=== PATIENT | female | born 1960 | race Hispanic/Latino ===

== ENCOUNTER 2016-06-26 21:24 | Inpatient (IN) | payer MEDICAID ==
[2016-06-26] MEDS ORDERED: PROVENTIL IH ONE (21:32)
[2016-06-26] MEDS ORDERED: ATROVENT IH ONE (21:32)
--- NOTE | 2016-06-26 21:38 | Emergency Department Report ---
HPI - General Time Seen by Provider: 06/26/16 21:30 - HPI HPI: Room 1 The patient is a 56-year-old female presenting with a chief complaint of respiratory failure. In the states received a call for difficulty breathing. Upon their arrival patient in agonal respirations and sounded diminished throughout. EMS states they attempted to intubate the patient appeared "clenched down." EMS states they administered Solu-Medrol 125 mg IV and majority of a 2 g magnesium bolus. Upon arrival to the ED the patient was found to be grossly obtunded with agonal respirations and subsequently was intubated with RSI Location: Pulmonary system Duration: [see above] Quality: Obtunded Severity: Severe Modifying factors: [see above] Context: [see above] Mode of transportation: EMS ED Past Medical Hx - Past Medical History Hx Hypertension: Yes Hx Asthma: Yes Hx COPD: Yes (2 L nasal cannula) Additional medical history: emphysema - Family History Family history: no significant - Social History Smoking Status: Current Every Day Smoker (1 pack lasts 3 weeks) Substance Use Type: None - Medications Home Medications: Home Medications Medication Instructions Recorded Confirmed Last Taken Type Budesoni/Formoterol 80-4.5(Nf) 2 puff IH BID 01/16/15 06/26/16 Unknown History [Symbicort 80-4.5 (Nf)] Combivent Respimat 1 inhalation INHALATION PRN 01/16/15 06/26/16 Unknown History Gabapentin 400 mg PO QID 01/16/15 06/26/16 Unknown History Ibuprofen [Motrin 800 MG tab] 800 mg PO Q8HR PRN 01/16/15 06/26/16 Unknown History Quetiapine Fumarate [QUEtiapine 300 mg PO QPM 01/16/15 06/26/16 Unknown History Fumarate] Spironolactone [Aldactone] 25 mg PO DAILY 01/16/15 06/26/16 Unknown History Trazodone HCl [traZODone] 100 mg PO QPM 01/16/15 06/26/16 Unknown History lamoTRIgine [LaMICtal] 100 mg PO QPM 01/16/15 06/26/16 Unknown History traMADol [Ultram 50 MG tab] 50 mg PO Q8HR PRN 01/16/15 06/26/16 Unknown History ALBUTEROL Inhaler [Proair] 2 puff IH QID PRN 06/26/16 06/26/16 Unknown History Cetirizine HCl [Allergy Relief] 10 mg PO DAILY 06/26/16 06/26/16 Unknown History Citalopram [celeXA] 40 mg PO QAM 06/26/16 06/26/16 Unknown History Metaxalone [Skelaxin] 800 mg PO TID 06/26/16 06/26/16 Unknown History predniSONE [Deltasone] 20 mg PO QDAY 06/26/16 06/26/16 Unknown History ED Review of Systems ROS: Stated complaint: WIN Other details as noted in HPI Comment: Unobtainable due to pts medical conditions Physical Exam - Physical Exam Physical Exam: GENERAL: The patient is well-developed well-nourished female grossly obtunded on stretcher being bagged via BVM. [] HEENT: Normocephalic. Atraumatic. Dry blood around nares and mouth (reported by EMS from previous intubation attempt) NECK: Trachea midline CHEST/LUNGS: Severely diminished breath sounds bilaterally but equal after intubation. HEART/CARDIOVASCULAR: Regular. There is no tachycardia. There is no gallop rub or murmur. ABDOMEN: Abdomen is soft, nontender. Patient has normal bowel sounds. There is no abdominal distention. SKIN: There is no rash. There is no diaphoresis. NEURO: The patient is grossly obtunded MUSCULOSKELETAL: There is no deformity. ED Medical Decision Making - Lab Data Result diagrams: 06/26/16 21:37 06/26/16 22:27 Laboratory Tests 06/26/16 06/26/16 06/26/16 21:37 21:37 22:13 WBC 16.2 H RBC 4.83 Hgb 15.6 H Hct 46.6 H MCV 96 MCH 32 MCHC 33 RDW 16.3 H Plt Count 306 Add Manual Diff Complete Total Counted 100 Seg Neuts % (Manual) 82.0 H Band Neutrophils % 0 Lymphocytes % (Manual) 11.0 L Reactive Lymphs % (Man) 0 Monocytes % (Manual) 4.0 Eosinophils % (Manual) 0 Basophils % (Manual) 0 Metamyelocytes % 2.0 Myelocytes % 1.0 Promyelocytes % 0 Blast Cells % 0 Nucleated RBC % Not Reportable Seg Neutrophils # Man 13.3 H Band Neutrophils # 0.0 Lymphocytes # (Manual) 1.8 Abs React Lymphs (Man) 0.0 Monocytes # (Manual) 0.6 Eosinophils # (Manual) 0.0 Basophils # (Manual) 0.0 Metamyelocytes # 0.3 Myelocytes # 0.2 Promyelocytes # 0.0 Blast Cells # 0.0 WBC Morphology Not Reportable Hypersegmented Neuts Not Reportable Hyposegmented Neuts Not Reportable Hypogranular Neuts Not Reportable Smudge Cells Not Reportable Toxic Granulation Not Reportable Toxic Vacuolation Not Reportable Dohle Bodies Not Reportable Pelger-Huet Anomaly Not Reportable Valente Rods Not Reportable Platelet Estimate Consistent w auto Clumped Platelets Not Reportable Plt Clumps, EDTA Not Reportable Large Platelets Not Reportable Giant Platelets Not Reportable Platelet Satelliting Not Reportable Plt Morphology Comment Not Reportable RBC Morphology Not Reportable Dimorphic RBCs Not Reportable Polychromasia Not Reportable Hypochromasia Not Reportable Poikilocytosis 1+ Anisocytosis Few Microcytosis Not Reportable Macrocytosis Not Reportable Spherocytes Not Reportable Pappenheimer Bodies Not Reportable Sickle Cells Not Reportable Target Cells Not Reportable Tear Drop Cells Not Reportable Ovalocytes Not Reportable Helmet Cells Not Reportable [place]-Cent[place] Bodies Not Reportable [place] Rings Not Reportable Julian Cells Not Reportable Bite Cells Not Reportable Crenated Cell Not Reportable Elliptocytes Not Reportable Acanthocytes (Spur) Not Reportable Rouleaux Not Reportable Hemoglobin C Crystals Not Reportable Schistocytes Not Reportable Malaria parasites Not Reportable Adithya Bodies Not Reportable Hem Pathologist Commnt No PT 11.8 L INR 0.88 APTT 23.3 L Sodium Potassium Chloride Carbon Dioxide Anion Gap BUN Creatinine Estimated GFR BUN/Creatinine Ratio Glucose Calcium Total Bilirubin AST ALT Alkaline Phosphatase Ammonia Total Creatine Kinase CK-MB (CK-2) CK-MB (CK-2) Rel Index Troponin T NT-Pro-B Natriuret Pep Total Protein Albumin Albumin/Globulin Ratio Urine Color Yellow Urine Turbidity Slightly-cloudy Urine pH 5.0 Ur Specific [place] 1.020 Urine Protein 100 mg/dl Urine Glucose (UA) Neg Urine Ketones Neg Urine Blood Neg Urine Nitrite Neg Urine Bilirubin Neg Urine Urobilinogen < 2.0 Ur Leukocyte Esterase Neg Urine WBC (Auto) 2.0 Urine RBC (Auto) 1.0 U Epithel Cells (Auto) 1.0 Urine Bacteria (Auto) 4+ Hyaline Casts 2 Urine Mucus Few 06/26/16 06/26/16 22:27 23:00 WBC RBC Hgb Hct MCV MCH MCHC RDW Plt Count Add Manual Diff Total Counted Seg Neuts % (Manual) Band Neutrophils % Lymphocytes % (Manual) Reactive Lymphs % (Man) Monocytes % (Manual) Eosinophils % (Manual) Basophils % (Manual) Metamyelocytes % Myelocytes % Promyelocytes % Blast Cells % Nucleated RBC % Seg Neutrophils # Man Band Neutrophils # Lymphocytes # (Manual) Abs React Lymphs (Man) Monocytes # (Manual) Eosinophils # (Manual) Basophils # (Manual) Metamyelocytes # Myelocytes # Promyelocytes # Blast Cells # WBC Morphology Hypersegmented Neuts Hyposegmented Neuts Hypogranular Neuts Smudge Cells Toxic Granulation Toxic Vacuolation Dohle Bodies Pelger-Huet Anomaly Valente Rods Platelet Estimate Clumped Platelets Plt Clumps, EDTA Large Platelets Giant Platelets Platelet Satelliting Plt Morphology Comment RBC Morphology Dimorphic RBCs Polychromasia Hypochromasia Poikilocytosis Anisocytosis Microcytosis Macrocytosis Spherocytes Pappenheimer Bodies Sickle Cells Target Cells Tear Drop Cells Ovalocytes Helmet Cells Paris-Century Bodies [place] Rings Julian Cells Bite Cells Crenated Cell Elliptocytes Acanthocytes (Spur) Rouleaux Hemoglobin C Crystals Schistocytes Malaria parasites Adithya Bodies Hem Pathologist Commnt PT INR APTT Sodium 139 Potassium 5.0 Chloride 91.6 L Carbon Dioxide 36 H Anion Gap 16 BUN 14 Creatinine 0.9 Estimated GFR > 60 BUN/Creatinine Ratio 15.55 Glucose 150 H Calcium 8.8 Total Bilirubin 0.2 AST 35 ALT 32 Alkaline Phosphatase 79 Ammonia 117.0 H Total Creatine Kinase 82 CK-MB (CK-2) 7.0 H CK-MB (CK-2) Rel Index 8.5 H Troponin T < 0.010 NT-Pro-B Natriuret Pep 3923 H Total Protein 6.8 Albumin 3.3 L Albumin/Globulin Ratio 0.9 Urine Color Urine Turbidity Urine pH Ur Specific [place] Urine Protein Urine Glucose (UA) Urine Ketones Urine Blood Urine Nitrite Urine Bilirubin Urine Urobilinogen Ur Leukocyte Esterase Urine WBC (Auto) Urine RBC (Auto) U Epithel Cells (Auto) Urine Bacteria (Auto) Hyaline Casts Urine Mucus - EKG Data -: EKG Interpreted by Ak EKG shows normal: sinus rhythm Rate: normal - EKG Data When compared to previous EKG there are: no significant change Interpretation: nonspecific ST-T wave monik (06/23/2015) - Radiology Data Radiology results: image reviewed (chest x-ray) interpreted by me: Chest x-ray-no focal infiltrates, no pneumothorax. ET tube in place - Differential Diagnosis COPD exacerbation, respiratory failure Critical Care Time: Yes Critical care time in (mins) excluding proc time.: 45 Critical care attestation.: If time is entered above; I have spent that time in minutes in the direct care of this critically ill patient, excluding procedure time. ED Disposition Clinical Impression: Respiratory failure, COPD exacerbation Disposition: OP ADMITTED IP TO THIS HOSP Is pt being admited?: Yes Does the pt Need Aspirin: Yes Condition: Serious Instructions: Chronic Obstructive Pulmonary Disease (ED) Referrals: PRIMARY CARE, [Primary Care Provider] - 3-5 Days Time of Disposition: 01:01 (hospitalist called) Blank Doc - Documentation Documentation: The patient was intubated via orotracheal route using a 7.0 mm endotracheal tube. Rapid sequence induction was used utilizing succinylcholine 100 mg IV, Versed 5 mg IV. Positioning was confirmed using auscultation and CO2 detector. Post intubation chest xray was ordered.
[2016-06-26] MEDS ORDERED: VERSED/NS 100MG/100ML 100 ML IV ONE (21:43)
[2016-06-26] MEDS: VERSED/NS 100MG/100ML 100 ML IV SCH (21:50)
[2016-06-26] MEDS ORDERED: ARTIFICIAL TEARS OPHTH OINT OU PRN (22:06)
[2016-06-26] MEDS ORDERED: VASELINE LIP THERAPY TP PRN (22:06)
[2016-06-26 22:13] LABS: Hematocrit 46.6 % (30.3-42.9); Hemoglobin 15.6 gm/dl (10.1-14.3); Mean Corpuscular HGB Conc 33 % (30-34); Mean Corpuscular Hemoglobin 32 pg (28-32); Mean Corpuscular Volume 96 fl (79-97); Platelet Count 306 K/mm3 (140-440); Red Blood Count 4.83 M/mm3 (3.65-5.03); Red Cell Distribution Width 16.3 % (13.2-15.2); White Blood Count 16.2 K/mm3 (4.5-11.0)
[2016-06-26 22:25] LABS: INR 0.88 (0.87-1.13)
[2016-06-26 22:26] LABS: Partial Thromboplastin Time 23.3 Sec. (24.2-36.6)
[2016-06-26] MEDS ORDERED: ZOFRAN ONE (22:27)
[2016-06-26] MEDS ORDERED: LIDOCAINE VISCOUS 2% ONE (22:27)
[2016-06-26] MEDS ORDERED: ZOFRAN IV ONE (22:40)
[2016-06-26] MEDS ORDERED: LIDOCAINE VISCOUS 2% PO ONE (22:41)
[2016-06-26 22:46] LABS: Anisocytosis Few; Basophils % (Manual) 0 % (0.0-1.8); Blastocytes % (Manual) 0 %; Eosinophils % (Manual) 0 % (0.0-4.3); Poikilocytosis 1+
[2016-06-26 22:47] LABS: Diff Status Complete; Platelet Estimate Consistent w Auto
[2016-06-26 22:56] LABS: Bacteria,Urine 4+ /HPF (Negative); Bilirubin,Urine NEG (Negative); Blood,Urine NEG (Negative); Ketones,Urine NEG (Negative); Leukocyte Esterase,Urine NEG (Negative); Mucus,Urine FEW /HPF; Nitrite,Urine NEG (Negative); Urobilinogen,Urine < 2.0 mg/dL (<2.0)
[2016-06-26] MEDS ORDERED: VERSED/NS 100MG/100ML 100 ML IV SCH (23:00)
[2016-06-26] MEDS ORDERED: NACL 0.9% 1000 ML 1,000 ML IV ONE (23:16)
[2016-06-26] MEDS: fentaNYL DRIP Premix 100 ML IV ONE (23:32)
[2016-06-26 23:33] LABS: Alanine Aminotransferase 32 units/L (7-56); Albumin 3.3 g/dL (3.9-5); Albumin/Globulin Ratio 0.9 %; Alkaline Phosphatase 79 units/L (35-129); BUN/Creatinine Ratio 15.55; Bilirubin,Total 0.2 mg/dL (0.1-1.2); Blood Urea Nitrogen 14 mg/dL (7-17); Calcium 8.8 mg/dL (8.4-10.2); Carbon Dioxide 36 mmol/L (22-30); Chloride 91.6 mmol/L (98-107); Creatine Kinase 82 units/L (30-135); Glucose 150 mg/dL (65-100); Sodium 139 mmol/L (137-145); Total Protein 6.8 g/dL (6.3-8.2)
[2016-06-26 23:55] LABS: Anion Gap 16 mmol/L
[2016-06-27 01:19] LABS: ISTAT Base Excess 16; ISTAT HCO3 41.3; ISTAT PCO2 67.4 (35-45); ISTAT PH 7.396 (7.35-7.45); ISTAT PO2 157 (80-105); ISTAT SO2 99; ISTAT TCO2 43
--- NOTE | 2016-06-27 02:28 | History and Physical Report ---
History of Present Illness Date of examination: 06/27/16 History of present illness: Old charts were reviewed, and is unable to give a history. She is a 56-year- old woman with history of hypertension, COPD on oxygen, previous CVA was brought to the emergency room because of shortness of breath. Per EMS she had agonal respiration, patient was obtunded and intubated in the emergency room, she was started on sedation. review of systems is unobtainable PAST SURGICAL HISTORY: None SOCIAL HISTORY: No tobacco, alcohol, drugs FAMILY HISTORY: Hypertension Medications and Allergies Allergies Allergy/AdvReac Type Severity Reaction Status Date / Time bee venom (honey bee) Allergy Severe FILLS HER Unverified 09/19/15 08:35 LUNGS UP WITH WATER/ CLOSES UP THROAT/NAUSEA shellfish derived Allergy Severe CLOG UP PT Unverified 09/19/15 08:35 THROAT/ ITCHING ALL OVER Home Medications Medication Instructions Recorded Confirmed Last Taken Type Budesoni/Formoterol 80-4.5(Nf) 2 puff IH BID 01/16/15 06/26/16 Unknown History [Symbicort 80-4.5 (Nf)] Combivent Respimat 1 inhalation INHALATION PRN 01/16/15 06/26/16 Unknown History Gabapentin 400 mg PO QID 01/16/15 06/26/16 Unknown History Ibuprofen [Motrin 800 MG tab] 800 mg PO Q8HR PRN 01/16/15 06/26/16 Unknown History Quetiapine Fumarate [QUEtiapine 300 mg PO QPM 01/16/15 06/26/16 Unknown History Fumarate] Spironolactone [Aldactone] 25 mg PO DAILY 01/16/15 06/26/16 Unknown History Trazodone HCl [traZODone] 100 mg PO QPM 01/16/15 06/26/16 Unknown History lamoTRIgine [LaMICtal] 100 mg PO QPM 01/16/15 06/26/16 Unknown History traMADol [Ultram 50 MG tab] 50 mg PO Q8HR PRN 01/16/15 06/26/16 Unknown History ALBUTEROL Inhaler [Proair] 2 puff IH QID PRN 06/26/16 06/26/16 Unknown History Cetirizine HCl [Allergy Relief] 10 mg PO DAILY 06/26/16 06/26/16 Unknown History Citalopram [celeXA] 40 mg PO QAM 06/26/16 06/26/16 Unknown History Metaxalone [Skelaxin] 800 mg PO TID 06/26/16 06/26/16 Unknown History predniSONE [Deltasone] 20 mg PO QDAY 06/26/16 06/26/16 Unknown History Active Meds: Active Medications Hydrophilic Ointment (Vaseline Lip Therapy) 1 applic TP Q2HR PRN PRN Reason: Dry Lips Midazolam HCl (Versed/Ns 100mg/100ml) 100 mls @ 1 mls/hr IV TITR KRYSTEN; 1 MG/HR PRN Reason: Protocol Last Titration: 06/26/16 23:05 Dose: 4 mg/hr Fentanyl Citrate (Fentanyl Drip Premix) 100 mls @ 3.856 mls/hr IV TITR ONE; 1 MCG/KG/HR PRN Reason: Protocol Stop: 06/28/16 01:13 Last Titration: 06/27/16 01:11 Dose: 3 mcg/kg/hr Multi-Ingred Cream/Lotion/Oil/Oint (Artificial Tears Ophth Oint) 1 applic OU Q4HR PRN PRN Reason: Dry Eye(s) Exam - Physical Exam Narrative exam: Gen. appearance: Patient lying in bed, no apparent distress, very, sedated HEENT: Normocephalic, atraumatic, pupils equally round and reactive to light, extraocular movement intact, and no sclericterus,. No JVD or thyromegaly or nodule,neck supple, no carotid bruit ,mucous membranes moist, no exudate or erythema Heart: S1, S2, regular rate and rhythm Lungs: Wheezing, breathing comfortable Abdomen: Positive bowel sounds, nondistended, no organomegaly Extremity: No edema, cyanosis, clubbing Skin: No rash, nodules, warm, dry Neuro: Sedated - Constitutional Vitals: Temp Pulse Resp BP Pulse Ox 98.7 F 57 L 28 H 113/68 95 06/26/16 22:03 06/27/16 02:00 06/27/16 02:00 06/27/16 02:00 06/27/16 02:00 Results - Labs CBC & Chem 7: 06/29/16 04:25 06/29/16 04:25 Labs: Abnormal lab results 06/26/16 06/26/1616 Range/Units 21:37 21:37 22:27 WBC 16.2 H (4.5-11.0) K/mm3 Hgb 15.6 H (10.1-14.3) gm/dl Hct 46.6 H (30.3-42.9) % RDW 16.3 H (13.2-15.2) % Seg Neuts % (Manual) 82.0 H (40.0-70.0) % Lymphocytes % (Manual) 11.0 L (13.4-35.0) % Seg Neutrophils # Man 13.3 H (1.8-7.7) K/mm3 PT 11.8 L (12.2-14.9) Sec. APTT 23.3 L (24.2-36.6) Sec. POC ABG pCO2 (35-45) POC ABG pO2 (80-105) Chloride 91.6 L (98-107) mmol/L Carbon Dioxide 36 H (22-30) mmol/L Glucose 150 H (65-100) mg/dL Ammonia (25-60) umol/L CK-MB (CK-2) 7.0 H (0.0-4.0) ng/mL CK-MB (CK-2) Rel Index 8.5 H (0-4) NT-Pro-B Natriuret Pep 3923 H (0-900) pg/mL Albumin 3.3 L (3.9-5) g/dL 06/26/16 06/26/16 Range/Units 23:00 23:37 WBC (4.5-11.0) K/mm3 Hgb (10.1-14.3) gm/dl Hct (30.3-42.9) % RDW (13.2-15.2) % Seg Neuts % (Manual) (40.0-70.0) % Lymphocytes % (Manual) (13.4-35.0) % Seg Neutrophils # Man (1.8-7.7) K/mm3 PT (12.2-14.9) Sec. APTT (24.2-36.6) Sec. POC ABG pCO2 67.4 H (35-45) POC ABG pO2 157 H (80-105) Chloride (98-107) mmol/L Carbon Dioxide (22-30) mmol/L Glucose (65-100) mg/dL Ammonia 117.0 H (25-60) umol/L CK-MB (CK-2) (0.0-4.0) ng/mL CK-MB (CK-2) Rel Index (0-4) NT-Pro-B Natriuret Pep (0-900) pg/mL Albumin (3.9-5) g/dL - Imaging and Cardiology EKG: image reviewed (nxr, 86) Chest x-ray: image reviewed (nad) Assessment and Plan Acute respiratory failure, hypercarbic COPD exacerbation Hypertension History of CVA Admits medicine Continue sedation with versed drip, consult pulmonary critical care Start high-dose IV steroids, Iv antibiotics, nebulizer treatments Check cardiac enzymes, daily CXR, start DVT prophylaxis The high probability of a clinically significant sudden or life-threatening deterioration of the [cardiac, respiratory, renal] system(s) required my full and direct attention, intervention and personal management. The aggregate critical care time was [ 40 ] minutes. This time is in addition to the time spent performing reported procedures but including [ X] Data review and interpretation [ X] Patient assessment and monitoring of vital signs [ X ] Documentation [X] Medication orders and management
[2016-06-27] MEDS ORDERED: TYLENOL PR PRN (03:06)
[2016-06-27] MEDS ORDERED: ALUM-MAG HYDROX-SIMETH 200-200-20MG/5ML PO PRN (03:06)
[2016-06-27] MEDS ORDERED: TYLENOL PO PRN (03:06)
[2016-06-27] MEDS ORDERED: DULCOLAX PR PRN (03:06)
[2016-06-27] MEDS ORDERED: ZOFRAN IV PRN (03:06)
[2016-06-27] MEDS ORDERED: MILK OF MAGNESIA PO PRN (03:06)
[2016-06-27 03:08] LABS: ISTAT Base Excess 11; ISTAT HCO3 35.3; ISTAT PCO2 51.4 (35-45); ISTAT PH 7.445 (7.35-7.45); ISTAT PO2 66 (80-105); ISTAT SO2 93; ISTAT TCO2 37
[2016-06-27] MEDS ORDERED: ROCEPHIN/NS 1 GM/50 ML 50 ML IV SCH (04:00)
[2016-06-27] MEDS ORDERED: ROCEPHIN/NS 1 GM/50 ML 50 ML IV ONE (04:00)
[2016-06-27 06:48] LABS: Creatine Kinase MB 3.5 ng/mL (0.0-4.0)
[2016-06-27 06:49] LABS: Creatine Kinase 70 units/L (30-135)
[2016-06-27] MEDS ORDERED: fentaNYL DRIP Premix 100 ML IV ONE (07:18)
[2016-06-27] MEDS ORDERED: VERSED/NS 100MG/100ML 100 ML IV ONE (07:19)
[2016-06-27] MEDS: fentaNYL DRIP Premix 100 ML IV ONE (08:00)
[2016-06-27] MEDS: VERSED/NS 100MG/100ML 100 ML IV SCH ×2 (08:00→12:12)
--- NOTE | 2016-06-27 09:18 | XRay Report ---
AP CHEST :06/26/16 21:24:00 CLINICAL: Post intubation. COMPARISON:None. No recent chest x-ray. FINDINGS: The endotracheal tube is in satisfactory position. Normal heart and pulmonary vessels. Prominent and probably chronic bilateral interstitial opacities. No pulmonary consolidation. No pleural effusion. No pneumothorax. IMPRESSION: Satisfactory position of the endotracheal tube.No acute cardiopulmonary process.
[2016-06-27] MEDS: DUONEB 0.5 MG-3 MG/3 ML SOLN IH SCH ×3 (09:46→19:21)
[2016-06-27] MEDS: LOVENOX SUB-Q SCH (10:14)
[2016-06-27] MEDS: PROTONIX IV SCH (11:36)
[2016-06-27] MEDS: fentaNYL DRIP Premix 100 ML IV SCH ×2 (12:12→18:29)
--- NOTE | 2016-06-27 14:12 | Consultation ---
History of Present Illness Consult date: 06/27/16 Reason for consult: other (Acute on Chronic Respiratory Failure; AMS) History of present illness: PULMONARY CONSULT NOTE (Full dictation # [id number]) Please see dictated notes for full details A&P: Acute on Chronic Hypoxemic Hypercapnic Resp Failure Acute COPD exacerbation AMS Seizure Disorder - begin Keppra - CT Brain - Taper systemic steroids - ACS w/up - VTE w/up - empiric AB's - aspiration precautions / VAP bundles - lactulose re: hyperammonemia - GI & VTE prophylaxis - Flu & Pneumovax per protocol ...thanks for the consult ....we will follow along Medications and Allergies Allergies Allergy/AdvReac Type Severity Reaction Status Date / Time bee venom (honey bee) Allergy Severe FILLS HER Unverified 09/19/15 08:35 LUNGS UP WITH WATER/ CLOSES UP THROAT/NAUSEA shellfish derived Allergy Severe CLOG UP PT Unverified 09/19/15 08:35 THROAT/ ITCHING ALL OVER Home Medications Medication Instructions Recorded Confirmed Last Taken Type Budesoni/Formoterol 80-4.5(Nf) 2 puff IH BID 01/16/15 06/26/16 Unknown History [Symbicort 80-4.5 (Nf)] Combivent Respimat 1 inhalation INHALATION PRN 01/16/15 06/26/16 Unknown History Gabapentin 400 mg PO QID 01/16/15 06/26/16 Unknown History Ibuprofen [Motrin 800 MG tab] 800 mg PO Q8HR PRN 01/16/15 06/26/16 Unknown History Quetiapine Fumarate [QUEtiapine 300 mg PO QPM 01/16/15 06/26/16 Unknown History Fumarate] Spironolactone [Aldactone] 25 mg PO DAILY 01/16/15 06/26/16 Unknown History Trazodone HCl [traZODone] 100 mg PO QPM 01/16/15 06/26/16 Unknown History lamoTRIgine [LaMICtal] 100 mg PO QPM 01/16/15 06/26/16 Unknown History traMADol [Ultram 50 MG tab] 50 mg PO Q8HR PRN 01/16/15 06/26/16 Unknown History ALBUTEROL Inhaler [Proair] 2 puff IH QID PRN 06/26/16 06/26/16 Unknown History Cetirizine HCl [Allergy Relief] 10 mg PO DAILY 06/26/16 06/26/16 Unknown History Citalopram [celeXA] 40 mg PO QAM 06/26/16 06/26/16 Unknown History Metaxalone [Skelaxin] 800 mg PO TID 06/26/16 06/26/16 Unknown History predniSONE [Deltasone] 20 mg PO QDAY 06/26/16 06/26/16 Unknown History Active Meds: Active Medications Acetaminophen (Tylenol) 650 mg PO Q6H PRN PRN Reason: Pain Acetaminophen (Tylenol) 650 mg TN Q6H PRN PRN Reason: Pain MILD(1-3)/Fever >100.5/CORONADO Al Hydrox/Mg Hydrox/Simethicone (Alum-Mag Hydrox-Simeth [phone]/5ml) 30 ml PO Q4H PRN PRN Reason: Indigestion Albuterol/Ipratropium (Duoneb 0.5 Mg-3 Mg/3 Ml Soln) 1 ampul IH Q6HRT [facility] Last Admin: 06/27/16 13:30 Dose: 1 ampul Bisacodyl (Dulcolax) 10 mg TN QDAY PRN PRN Reason: constipation unrelieved by MOM Enoxaparin Sodium (Lovenox) 40 mg SUB-Q QDAY [facility] Last Admin: 06/27/16 10:14 Dose: 40 mg Hydrophilic Ointment (Vaseline Lip Therapy) 1 applic TP Q2HR PRN PRN Reason: Dry Lips Midazolam HCl (Versed/Ns 100mg/100ml) 100 mls @ 1 mls/hr IV TITR KRYSTEN; 1 MG/HR PRN Reason: Protocol Last Admin: 06/27/16 08:00 Dose: 4 mls/hr Fentanyl Citrate (Fentanyl Drip Premix) 100 mls @ 3.856 mls/hr IV TITR ONE; 1 MCG/KG/HR PRN Reason: Protocol Stop: 06/28/16 01:13 Last Admin: 06/27/16 08:00 Dose: 15.422 mls/hr Ceftriaxone Sodium (Rocephin/Ns 1 Gm/50 Ml) 50 mls @ 100 mls/hr IV Q24HR KRYSTEN Fentanyl Citrate (Fentanyl Drip Premix) 100 mls @ 3.856 mls/hr IV TITR KRYSTEN; 1 MCG/KG/HR PRN Reason: Protocol Last Admin: 06/27/16 12:12 Dose: 15.422 mls/hr Midazolam HCl (Versed/Ns 100mg/100ml) 100 mls @ 2 mls/hr IV TITR KRYSTEN; 2 MG/HR PRN Reason: Protocol Last Admin: 06/27/16 12:12 Dose: 5 mls/hr Magnesium Hydroxide (Milk Of Magnesia) 30 ml PO Q4H PRN PRN Reason: Constipation Methylprednisolone Sodium Succinate (Solu-Medrol) 125 mg IV Q6H [facility] Last Admin: 06/27/16 10:14 Dose: 125 mg Multi-Ingred Cream/Lotion/Oil/Oint (Artificial Tears Ophth Oint) 1 applic OU Q4HR PRN PRN Reason: Dry Eye(s) Ondansetron HCl (Zofran) 4 mg IV Q8H PRN PRN Reason: N/V unrelieved by Reglan Pantoprazole Sodium (Protonix) 40 mg IV QDAY [facility] Last Admin: 06/27/16 11:36 Dose: 40 mg Physical Examination Vital signs: Vital Signs Pulse Resp BP Pulse Ox 60 4 L 110/78 100 06/26/16 21:30 06/26/16 21:30 06/26/16 21:30 06/26/16 21:30 Results - Laboratory Findings CBC and BMP: 06/26/16 21:37 06/26/16 22:27 ABG POC ABG pH 7.445 (7.35-7.45) 06/27/16 02:57 POC ABG pCO2 51.4 (35-45) H 06/27/16 02:57 POC ABG pO2 66 (80-105) L 06/27/16 02:57 POC ABG HCO3 35.3 06/27/16 02:57 POC ABG Total CO2 37 06/27/16 02:57 POC ABG O2 Sat 93 06/27/16 02:57 PT/INR, D-dimer PT 11.8 Sec. (12.2-14.9) L 06/26/16 21:37 INR 0.88 (0.87-1.13) 06/26/16 21:37 Abnormal lab findings: Abnormal Labs 06/27/16 06/27/16 02:57 06:02 POC ABG pCO2 51.4 H POC ABG pO2 66 L CK-MB (CK-2) Rel Index 5.0 H
[2016-06-27] MEDS ORDERED: KEPPRA 500 MG in D5W 100 ML IV SCH (16:00)
[2016-06-27] MEDS: CEPHULAC FEEDTUBE SCH (16:11)
--- NOTE | 2016-06-27 16:31 | Progress Note ---
Assessment and Plan Assessment and plan: Acute respiratory failure, hypercarbic Acute COPD exacerbation Hypertension, benign essential New onset seizure History of CVA Hyperammonemia Plan: Monitor at intensive care unit Continue sedation with versed drip, continue fentanyl Pulmonary following, placed on Keppra for possible seizure place on lactulose, monitor ammonia level cont IV steroids, Iv antibiotics, nebulizer treatments follow cardiac enzymes, daily CXR, cont DVT prophylaxis The high probability of a clinically significant sudden or life-threatening deterioration of the [cardiac, respiratory, renal] system(s) required my full and direct attention, intervention and personal management. The aggregate critical care time was [ 40 ] minutes. This time is in addition to the time spent performing reported procedures but including [ X] Data review and interpretation [ X] Patient assessment and monitoring of vital signs [ X ] Documentation [X] Medication orders and management History Interval history: Patient seen and examined. Medical records and medication list reviewed. SHe noted to have myoclonic jerking on sedation Patient is intubated and sedated. Hospitalist Physical - Physical exam Narrative exam: GENERAL: well-developed and well-nourished white female lying on bed on ventilator. HEENT: Normocephalic. Atraumatic. No conjunctival congestion or icterus. Patient has dry mucous membranes. NECK: Supple. Trachea midline. CHEST/LUNGS: Positive wheezes auscultated bilaterally, on mechanical ventilation HEART/CARDIOVASCULAR: Tachycardic. S1 and S2 positive. ABDOMEN: Abdomen is soft, nontender. Patient has normal bowel sounds. SKIN: There is no rash. Warm and dry. NEURO: See dictated, intermittent myoclonic jerking MUSCULOSKELETAL: No joint effusion or tenderness. EXTRIMITY: No edema, no cyanosis or clubbing. PSYCH: Unable to assess. - Constitutional Vitals: Temp Pulse Resp BP Pulse Ox 99.2 F 63 22 134/64 98 06/27/16 16:00 06/27/16 15:17 06/27/16 15:00 06/27/16 15:17 06/27/16 15:41 Results - Labs CBC & Chem 7: 06/28/16 04:24 06/28/16 04:24 Labs: Laboratory Last Values WBC 16.2 K/mm3 (4.5-11.0) H 06/26/16 21:37 RBC 4.83 M/mm3 (3.65-5.03) 06/26/16 21:37 Hgb 15.6 gm/dl (10.1-14.3) H 06/26/16 21:37 Hct 46.6 % (30.3-42.9) H 06/26/16 21:37 MCV 96 fl (79-97) 06/26/16 21:37 MCH 32 pg (28-32) 06/26/16 21:37 MCHC 33 % (30-34) 06/26/16 21:37 RDW 16.3 % (13.2-15.2) H 06/26/16 21:37 Plt Count 306 K/mm3 (140-440) 06/26/16 21:37 Add Manual Diff Complete 06/26/16 21:37 Total Counted 100 06/26/16 21:37 Seg Neuts % (Manual) 82.0 % (40.0-70.0) H 06/26/16 21:37 Band Neutrophils % 0 % 06/26/16 21:37 Lymphocytes % (Manual) 11.0 % (13.4-35.0) L 06/26/16 21:37 Reactive Lymphs % (Man) 0 % 06/26/16 21:37 Monocytes % (Manual) 4.0 % (0.0-7.3) 06/26/16 21:37 Eosinophils % (Manual) 0 % (0.0-4.3) 06/26/16 21:37 Basophils % (Manual) 0 % (0.0-1.8) 06/26/16 21:37 Metamyelocytes % 2.0 % 06/26/16 21:37 Myelocytes % 1.0 % 06/26/16 21:37 Promyelocytes % 0 % 06/26/16 21:37 Blast Cells % 0 % 06/26/16 21:37 Nucleated RBC % Not Reportable 06/26/16 21:37 Seg Neutrophils # Man 13.3 K/mm3 (1.8-7.7) H 06/26/16 21:37 Band Neutrophils # 0.0 K/mm3 06/26/16 21:37 Lymphocytes # (Manual) 1.8 K/mm3 (1.2-5.4) 06/26/16 21:37 Abs React Lymphs (Man) 0.0 K/mm3 06/26/16 21:37 Monocytes # (Manual) 0.6 K/mm3 (0.0-0.8) 06/26/16 21:37 Eosinophils # (Manual) 0.0 K/mm3 (0.0-0.4) 06/26/16 21:37 Basophils # (Manual) 0.0 K/mm3 (0.0-0.1) 06/26/16 21:37 Metamyelocytes # 0.3 K/mm3 06/26/16 21:37 Myelocytes # 0.2 K/mm3 06/26/16 21:37 Promyelocytes # 0.0 K/mm3 06/26/16 21:37 Blast Cells # 0.0 K/mm3 06/26/16 21:37 WBC Morphology Not Reportable 06/26/16 21:37 Hypersegmented Neuts Not Reportable 06/26/16 21:37 Hyposegmented Neuts Not Reportable 06/26/16 21:37 Hypogranular Neuts Not Reportable 06/26/16 21:37 Smudge Cells Not Reportable 06/26/16 21:37 Toxic Granulation Not Reportable 06/26/16 21:37 Toxic Vacuolation Not Reportable 06/26/16 21:37 Dohle Bodies Not Reportable 06/26/16 21:37 Pelger-Huet Anomaly Not Reportable 06/26/16 21:37 Valente Rods Not Reportable 06/26/16 21:37 Platelet Estimate Consistent w auto 06/26/16 21:37 Clumped Platelets Not Reportable 06/26/16 21:37 Plt Clumps, EDTA Not Reportable 06/26/16 21:37 Large Platelets Not Reportable 06/26/16 21:37 Giant Platelets Not Reportable 06/26/16 21:37 Platelet Satelliting Not Reportable 06/26/16 21:37 Plt Morphology Comment Not Reportable 06/26/16 21:37 RBC Morphology Not Reportable 06/26/16 21:37 Dimorphic RBCs Not Reportable 06/26/16 21:37 Polychromasia Not Reportable 06/26/16 21:37 Hypochromasia Not Reportable 06/26/16 21:37 Poikilocytosis 1+ 06/26/16 21:37 Anisocytosis Few 06/26/16 21:37 Microcytosis Not Reportable 06/26/16 21:37 Macrocytosis Not Reportable 06/26/16 21:37 Spherocytes Not Reportable 06/26/16 21:37 Pappenheimer Bodies Not Reportable 06/26/16 21:37 Sickle Cells Not Reportable 06/26/16 21:37 Target Cells Not Reportable 06/26/16 21:37 Tear Drop Cells Not Reportable 06/26/16 21:37 Ovalocytes Not Reportable 06/26/16 21:37 Helmet Cells Not Reportable 06/26/16 21:37 [place] Bodies Not Reportable 06/26/16 21:37 [place] Rings Not Reportable 06/26/16 21:37 Hawk Cells Not Reportable 06/26/16 21:37 Bite Cells Not Reportable 06/26/16 21:37 Crenated Cell Not Reportable 06/26/16 21:37 Elliptocytes Not Reportable 06/26/16 21:37 Acanthocytes (Spur) Not Reportable 06/26/16 21:37 Rouleaux Not Reportable 06/26/16 21:37 Hemoglobin C Crystals Not Reportable 06/26/16 21:37 Schistocytes Not Reportable 06/26/16 21:37 Malaria parasites Not Reportable 06/26/16 21:37 Adithya Bodies Not Reportable 06/26/16 21:37 Hem Pathologist Commnt No 06/26/16 21:37 PT 11.8 Sec. (12.2-14.9) L 06/26/16 21:37 INR 0.88 (0.87-1.13) 06/26/16 21:37 APTT 23.3 Sec. (24.2-36.6) L 06/26/16 21:37 POC ABG pH 7.445 (7.35-7.45) 06/27/16 02:57 POC ABG pCO2 51.4 (35-45) H 06/27/16 02:57 POC ABG pO2 66 (80-105) L 06/27/16 02:57 POC ABG HCO3 35.3 06/27/16 02:57 POC ABG Total CO2 37 06/27/16 02:57 POC ABG O2 Sat 93 06/27/16 02:57 POC ABG Base Excess 11 06/27/16 02:57 FiO2 40 % 06/27/16 02:57 Sodium 139 mmol/L (137-145) 06/26/16 22:27 Potassium 5.0 mmol/L (3.6-5.0) 06/26/16 22:27 Chloride 91.6 mmol/L (98-107) L 06/26/16 22:27 Carbon Dioxide 36 mmol/L (22-30) H 06/26/16 22:27 Anion Gap 16 mmol/L 06/26/16 22:27 BUN 14 mg/dL (7-17) 06/26/16 22:27 Creatinine 0.9 mg/dL (0.7-1.2) 06/26/16 22:27 Estimated GFR > 60 ml/min 06/26/16 22:27 BUN/Creatinine Ratio 15.55 % 06/26/16 22:27 Glucose 150 mg/dL (65-100) H 06/26/16 22:27 Calcium 8.8 mg/dL (8.4-10.2) 06/26/16 22:27 Total Bilirubin 0.2 mg/dL (0.1-1.2) 06/26/16 22:27 AST 35 units/L (5-40) 06/26/16 22:27 ALT 32 units/L (7-56) 06/26/16 22:27 Alkaline Phosphatase 79 units/L (35-129) 06/26/16 22:27 Ammonia 117.0 umol/L (25-60) H 06/26/16 23:00 Total Creatine Kinase 70 units/L (30-135) 06/27/16 06:02 CK-MB (CK-2) 3.5 ng/mL (0.0-4.0) 06/27/16 06:02 CK-MB (CK-2) Rel Index 5.0 (0-4) H 06/27/16 06:02 Troponin T < 0.010 ng/mL (0.00-0.029) 06/27/16 06:02 NT-Pro-B Natriuret Pep 3923 pg/mL (0-900) H 06/26/16 22:27 Total Protein 6.8 g/dL (6.3-8.2) 06/26/16 22:27 Albumin 3.3 g/dL (3.9-5) L 06/26/16 22:27 Albumin/Globulin Ratio 0.9 % 06/26/16 22:27 Urine Color Yellow (Yellow) 06/26/16 22:13 Urine Turbidity Slightly-cloudy (Clear) 06/26/16 22:13 Urine pH 5.0 (5.0-7.0) 06/26/16 22:13 Ur Specific [place] 1.020 (1.003-1.030) 06/26/16 22:13 Urine Protein 100 mg/dl mg/dL (Negative) 06/26/16 22:13 Urine Glucose (UA) Neg mg/dL (Negative) 06/26/16 22:13 Urine Ketones Neg mg/dL (Negative) 06/26/16 22:13 Urine Blood Neg (Negative) 06/26/16 22:13 Urine Nitrite Neg (Negative) 06/26/16 22:13 Urine Bilirubin Neg (Negative) 06/26/16 22:13 Urine Urobilinogen < 2.0 mg/dL (<2.0) 06/26/16 22:13 Ur Leukocyte Esterase Neg (Negative) 06/26/16 22:13 Urine WBC (Auto) 2.0 /HPF (0.0-6.0) 06/26/16 22:13 Urine RBC (Auto) 1.0 /HPF (0.0-6.0) 06/26/16 22:13 U Epithel Cells (Auto) 1.0 /HPF (0-13.0) 06/26/16 22:13 Urine Bacteria (Auto) 4+ /HPF (Negative) 06/26/16 22:13 Hyaline Casts 2 /LPF 06/26/16 22:13 Urine Mucus Few /HPF 06/26/16 22:13 - Imaging and Cardiology Chest x-ray: report reviewed
[2016-06-27 16:57] LABS: Phosphorous 2.7 mg/dL (2.5-4.5)
[2016-06-27] MEDS: BROVANA NEBU IH SCH (19:21)
[2016-06-28] MEDS: fentaNYL DRIP Premix 100 ML IV SCH ×4 (00:21→19:40)
[2016-06-28] MEDS: CEPHULAC FEEDTUBE SCH ×3 (00:24→16:55)
[2016-06-28] MEDS: DUONEB 0.5 MG-3 MG/3 ML SOLN IH SCH ×4 (01:52→20:23)
[2016-06-28] MEDS: VERSED/NS 100MG/100ML 100 ML IV SCH ×2 (03:41→19:40)
[2016-06-28 04:49] LABS: Hematocrit 36.2 % (30.3-42.9); Hemoglobin 11.9 gm/dl (10.1-14.3); Mean Corpuscular HGB Conc 33 % (30-34); Mean Corpuscular Hemoglobin 31 pg (28-32); Mean Corpuscular Volume 95 fl (79-97); Platelet Count 237 K/mm3 (140-440); Red Blood Count 3.82 M/mm3 (3.65-5.03); Red Cell Distribution Width 14.9 % (13.2-15.2); White Blood Count 11.1 K/mm3 (4.5-11.0)
[2016-06-28 04:54] LABS: ISTAT Base Excess 14; ISTAT HCO3 36.4; ISTAT PCO2 41.1 (35-45); ISTAT PH 7.556 (7.35-7.45); ISTAT PO2 77 (80-105); ISTAT SO2 97; ISTAT TCO2 38
--- NOTE | 2016-06-28 04:55 | Consultation ---
PULMONARY CRITICAL CARE CONSULT NOTE CONSULTING PHYSICIAN: Dr. Good. REASON FOR CONSULTATION: Acute hypoxemic respiratory failure. CHIEF COMPLAINT AND HISTORY OF PRESENT ILLNESS: The patient is a 56-year-old female with past medical history significant amongst other things for a diagnosis of home oxygen dependent COPD, brought into the Emergency Room after family called EMS for difficulty breathing. Upon arrival, they mentioned the patient was having agonal respirations, sounded diminished throughout. They attempted to intubate the patient on successfully, they describing her as clenching down. They administered Solu-Medrol, magnesium. She was brought into the Emergency Room and she was intubated there with rapid sequence intubation. She was ultimately stabilized down and brought into the Intensive Care Unit, where I had stopped by to see her. When I stopped by to see her, she was on a fentanyl drip, not during the whole lot onto then she was having tremor, really seizure-like activities involving the whole body and also would open her eyes, but was having some deviation towards the left, both eyes. I do not have any history of nausea, vomiting or overt aspiration with regards to her tobacco use or abuse history. She reportedly is an everyday smoker, but 1 pack lasts about 3 weeks over her lifetime perhaps a 10+ pack year tobacco smoking history. That really is as much of the history of presentation as I have also no reports of trauma. PAST MEDICAL HISTORY: Hypertension and COPD. PAST SURGICAL HISTORY: Unknown. MEDICATIONS: She was on at the time I stopped by to see her, according to the medication administration record included the following: Tylenol 650 mg p.o. q.6 hours p.r.n. All p.o. meds via the feeding tube. DuoNeb treatments nebulized q.6 hours. P.r.n. Dulcolax. Rocephin 1 gram IV daily, Lovenox 40 mg subQ daily, fentanyl drip was going on for 4 mcg/kg per hour, p.r.n. milk of magnesia, Solu-Medrol 125 mg IV q.6 hours, Versed drip at 1 mg per hour, Zofran 4 mg IV q. 8 hours p.r.n. and Protonix 40 mg IV daily. ALLERGIES: SHELLFISH DERIVED PRODUCTS AND BEE VENOM. Nature of this allergy is unknown. DIET: Well-built, slightly obese, acute weight loss or gain history is unknown. FAMILY AND SOCIAL HISTORY: Lives in the community, I am assuming family called EMS. Ten plus pack year tobacco smoking history and alcohol, or illicit drug use or abuse history is unknown. REVIEW OF SYSTEMS: Unobtainable secondary to the patient's medical and mental status. Since she has been here, no gross hematochezia or melena, no gross, no hematuria. No bloody tracheal secretions. She has had some seizure-like activity/tremors. Review of systems otherwise unobtainable. PHYSICAL EXAMINATION: VITAL SIGNS: At presentation in the Emergency Room revealed vital signs shows that she was afebrile, temperature 98.7, pulse was 70, respiratory rate was 20, on mechanical ventilator and blood pressure was 189/99, oxygen sats were 100%. HEAD, EYES, EARS, NOSE AND THROAT: Pupils are equal, round, about 3 mm, reactive to light. Extraocular muscle movements could not be assessed. She had a leftward gaze. Endotracheal tube was in place, taped at the lips around 23-24 cm. LUNGS: Auscultation of both lung gaspar, bilateral rhonchi, diminished breath sounds, prolonged expiratory phase, faint occasional wheezing. HEART: Heart sounds 1 and 2 are heard. They were regular in rate and rhythm at time of my evaluation. ABDOMEN: Soft, full, bowel sounds are positive, nontender. EXTREMITIES: Without overt digital clubbing, cyanosis, or pedal edema. NEUROLOGIC: She was sedated, but when aroused will have the seizure-type activity. LABORATORY DATA: From my review are as follows: White cell count 16,200, hemoglobin 15.6, hematocrit 46.6, platelets 306. INR 0.88. Arterial blood gas showed a pH of 7.40 at presentation with a pCO2 of 67, pO2 of 157 that was on 60% FiO2, pO2 66 on 40% FiO2 this morning, ventilator set on assist control mode I believe the tidal volume 500, PEEP of 5, rate of 20. Serum sodium was 139, potassium 5.0, chloride was 92, bicarb was 36, BUN was 14, creatinine was 0.9, glucose 150. Liver function tests essentially within normal limits except for the ammonia that was up at 117. Cardiac enzymes within normal limits. BNP elevated at 3923. Albumin 3.3. Urinalysis negative for nitrites and leukocyte esterase. Radiographic studies, I am unable to pull them up at this point, I have reviewed the radiologist's interpretation and he mentions endotracheal tube in good position, no acute cardiopulmonary process. ASSESSMENT AND PLAN: We have a middle-aged lady in with acute exacerbation of chronic obstructive pulmonary disease; however, I am also believing, she is probably having active seizures. Difficult to tell at this point. From a respiratory standpoint, we will keep her on full mechanical ventilatory support. Weaning will begin shortly down the road, systemic steroids will be continued, but I will taper the dose. We will add long acting bronchodilators to the mix at this point. We will continue the short acting bronchodilators. Aspiration precautions and other ventilator bundles will be instituted. I will get a stat D-dimer level and decide on further venous thromboembolic disorder workup after that. Hopefully, we can begin weaning as earliest tomorrow. I hope her mental status does not become a rate limiting factor to extubation. From a cardiovascular standpoint, I note the elevated BNP. I do believe, she will benefit from gentle diuresis. It is unclear if she has any baseline cardiomyopathy. We will see if there is a 2D echo on the file, if not, I will defer to the attending physician for Cardiology evaluation. From a GI and nutritional standpoint, enteral nutrition will be the feeding modality of choice. She is appropriately on GI prophylaxis. Aspiration precautions will be maintained. From a renal standpoint, no major electrolyte abnormalities at this point. I will get magnesium and phosphorus levels and correct as necessary. Inputs and outputs will be followed and like I mentioned above, I will begin some gentle diuresis. From an Infectious Disease standpoint, no signs or symptoms of overwhelming sepsis. We will continue empiric community-acquired pneumonia therapy in the setting of chronic obstructive pulmonary disease with the patient on mechanical ventilation. I will get a CRP level to help evaluate the true infectious, potential of this leukocytosis. Anti-infectives will ultimately be deescalated based on results of clinical and microbiologic data. From a BALLISTICS TESTER standpoint, I do believe it is appropriate to get a CT scan of her head. I will begin her on Keppra for antiepileptic therapy and also, she was on lamotrigine given at home. An EEG will be ordered. Neurology evaluation will be requested. Then, we will follow her clinically. From a general and hospital healthcare maintenance standpoint, she is on gastrointestinal prophylaxis and deep venous thrombosis prophylaxis. Flu and pneumonia vaccination will be per protocol. Thank you very much for the consult, Dr. Good. We will follow along and make further recommendations as picture progresses/becomes clearer. She is critically ill, on life-sustaining interventions including mechanical ventilatory support at higher risk for further decompensation including . JOB# [id number] MING/TICO
[2016-06-28 04:59] LABS: BUN/Creatinine Ratio 26.25; Blood Urea Nitrogen 21 mg/dL (7-17); Calcium 8.9 mg/dL (8.4-10.2); Carbon Dioxide 34 mmol/L (22-30); Glucose 167 mg/dL (65-100)
[2016-06-28 05:00] LABS: Chloride 93.2 mmol/L (98-107); Potassium 4.2 mmol/L (3.6-5.0); Sodium 138 mmol/L (137-145)
[2016-06-28 05:02] LABS: Anion Gap 15 mmol/L
[2016-06-28 06:54] LABS: Anisocytosis Few; Basophils % (Manual) 0 % (0.0-1.8); Blastocytes % (Manual) 0 %; Eosinophils % (Manual) 0 % (0.0-4.3)
[2016-06-28 06:55] LABS: Diff Status Complete; Stomatocytes Few
[2016-06-28] MEDS: BROVANA NEBU IH SCH ×2 (07:41→20:24)
[2016-06-28] MEDS ORDERED: SIMPLE SYRUP FEEDTUBE PRN ×2 (09:04)
[2016-06-28] MEDS ORDERED: SODIUM BICARBONATE FEEDTUBE PRN (09:04)
[2016-06-28] MEDS ORDERED: PANCREAZE DR 10,500 UNIT FEEDTUBE PRN (09:04)
--- NOTE | 2016-06-28 09:18 | Progress Note ---
Assessment and Plan Assessment and plan: Acute respiratory failure, due to COPD exacerbation. Patient intubated, on vent. Pulmonology following. Acute COPD exacerbation. Duoneb, solumedrol. Hypertension, benign essential New onset seizure. Continue keppra. Consult Neurology History of CVA Hyperammonemia. Repeat levels today. Full code status History Interval history: Patient intubated with acute respiratory failure, having jerky movements Hospitalist Physical - Physical exam Narrative exam: Gen: Intubated, on ventilator HEENT:normocephalic,atraumatic Neck:supple, no JVD Lungs:clear to auscultation Heart:s1 and S2 reg, no murmurs, rubs or gallop Abd: soft, NT, ND, normal bowel sounds Ext:soft,non tender, normal BS Neuro:Intubated, sedated, jerky movements - Constitutional Vitals: Temp Pulse Resp BP Pulse Ox 99.2 F 57 L 28 H 147/70 98 06/27/16 16:00 06/28/16 08:31 06/28/16 08:31 06/28/16 08:31 06/28/16 08:31 Results - Labs CBC & Chem 7: 06/28/16 04:24 06/28/16 04:24 Labs: Laboratory Last Values WBC 11.1 K/mm3 (4.5-11.0) H 06/28/16 04:24 RBC 3.82 M/mm3 (3.65-5.03) 06/28/16 04:24 Hgb 11.9 gm/dl (10.1-14.3) D 06/28/16 04:24 Hct 36.2 % (30.3-42.9) D 06/28/16 04:24 MCV 95 fl (79-97) 06/28/16 04:24 MCH 31 pg (28-32) 06/28/16 04:24 MCHC 33 % (30-34) 06/28/16 04:24 RDW 14.9 % (13.2-15.2) 06/28/16 04:24 Plt Count 237 K/mm3 (140-440) 06/28/16 04:24 Add Manual Diff Complete 06/28/16 04:24 Total Counted 100 06/28/16 04:24 Seg Neuts % (Manual) 84.0 % (40.0-70.0) H 06/28/16 04:24 Band Neutrophils % 3.0 % 06/28/16 04:24 Lymphocytes % (Manual) 10.0 % (13.4-35.0) L 06/28/16 04:24 Reactive Lymphs % (Man) 0 % 06/28/16 04:24 Monocytes % (Manual) 3.0 % (0.0-7.3) 06/28/16 04:24 Eosinophils % (Manual) 0 % (0.0-4.3) 06/28/16 04:24 Basophils % (Manual) 0 % (0.0-1.8) 06/28/16 04:24 Metamyelocytes % 0 % 06/28/16 04:24 Myelocytes % 0 % 06/28/16 04:24 Promyelocytes % 0 % 06/28/16 04:24 Blast Cells % 0 % 06/28/16 04:24 Nucleated RBC % Not Reportable 06/28/16 04:24 Seg Neutrophils # Man 9.3 K/mm3 (1.8-7.7) H 06/28/16 04:24 Band Neutrophils # 0.3 K/mm3 06/28/16 04:24 Lymphocytes # (Manual) 1.1 K/mm3 (1.2-5.4) L 06/28/16 04:24 Abs React Lymphs (Man) 0.0 K/mm3 06/28/16 04:24 Monocytes # (Manual) 0.3 K/mm3 (0.0-0.8) 06/28/16 04:24 Eosinophils # (Manual) 0.0 K/mm3 (0.0-0.4) 06/28/16 04:24 Basophils # (Manual) 0.0 K/mm3 (0.0-0.1) 06/28/16 04:24 Metamyelocytes # 0.0 K/mm3 06/28/16 04:24 Myelocytes # 0.0 K/mm3 06/28/16 04:24 Promyelocytes # 0.0 K/mm3 06/28/16 04:24 Blast Cells # 0.0 K/mm3 06/28/16 04:24 WBC Morphology Not Reportable 06/28/16 04:24 Hypersegmented Neuts Not Reportable 06/28/16 04:24 Hyposegmented Neuts Not Reportable 06/28/16 04:24 Hypogranular Neuts Not Reportable 06/28/16 04:24 Smudge Cells Not Reportable 06/28/16 04:24 Toxic Granulation Not Reportable 06/28/16 04:24 Toxic Vacuolation Not Reportable 06/28/16 04:24 Dohle Bodies Not Reportable 06/28/16 04:24 Pelger-Huet Anomaly Not Reportable 06/28/16 04:24 Valente Rods Not Reportable 06/28/16 04:24 Platelet Estimate Appears normal 06/28/16 04:24 Clumped Platelets Not Reportable 06/28/16 04:24 Plt Clumps, EDTA Not Reportable 06/28/16 04:24 Large Platelets Not Reportable 06/28/16 04:24 Giant Platelets Not Reportable 06/28/16 04:24 Platelet Satelliting Not Reportable 06/28/16 04:24 Plt Morphology Comment Not Reportable 06/28/16 04:24 RBC Morphology Not Reportable 06/28/16 04:24 Dimorphic RBCs Not Reportable 06/28/16 04:24 Polychromasia Not Reportable 06/28/16 04:24 Hypochromasia Not Reportable 06/28/16 04:24 Poikilocytosis Not Reportable 06/28/16 04:24 Anisocytosis Few 06/28/16 04:24 Microcytosis Not Reportable 06/28/16 04:24 Macrocytosis Not Reportable 06/28/16 04:24 Spherocytes Not Reportable 06/28/16 04:24 Pappenheimer Bodies Not Reportable 06/28/16 04:24 Sickle Cells Not Reportable 06/28/16 04:24 Target Cells Not Reportable 06/28/16 04:24 Tear Drop Cells Not Reportable 06/28/16 04:24 Ovalocytes Not Reportable 06/28/16 04:24 Stomatocytes Few 06/28/16 04:24 Helmet Cells Not Reportable 06/28/16 04:24 [place] Bodies Not Reportable 06/28/16 04:24 [place] Rings Not Reportable 06/28/16 04:24 [place] Cells Not Reportable 06/28/16 04:24 Bite Cells Not Reportable 06/28/16 04:24 Crenated Cell Not Reportable 06/28/16 04:24 Elliptocytes Not Reportable 06/28/16 04:24 Acanthocytes (Spur) Not Reportable 06/28/16 04:24 Rouleaux Not Reportable 06/28/16 04:24 Hemoglobin C Crystals Not Reportable 06/28/16 04:24 Schistocytes Not Reportable 06/28/16 04:24 Malaria parasites Not Reportable 06/28/16 04:24 Adithya Bodies Not Reportable 06/28/16 04:24 Hem Pathologist Commnt No 06/28/16 04:24 PT 11.8 Sec. (12.2-14.9) L 06/26/16 21:37 INR 0.88 (0.87-1.13) 06/26/16 21:37 APTT 23.3 Sec. (24.2-36.6) L 06/26/16 21:37 POC ABG pH 7.556 (7.35-7.45) H 06/28/16 04:40 POC ABG pCO2 41.1 (35-45) 06/28/16 04:40 POC ABG pO2 77 (80-105) L 06/28/16 04:40 POC ABG HCO3 36.4 06/28/16 04:40 POC ABG Total CO2 38 06/28/16 04:40 POC ABG O2 Sat 97 06/28/16 04:40 POC ABG Base Excess 14 06/28/16 04:40 FiO2 45 % 06/28/16 04:40 Sodium 138 mmol/L (137-145) 06/28/16 04:24 Potassium 4.2 mmol/L (3.6-5.0) 06/28/16 04:24 Chloride 93.2 mmol/L (98-107) L 06/28/16 04:24 Carbon Dioxide 34 mmol/L (22-30) H 06/28/16 04:24 Anion Gap 15 mmol/L 06/28/16 04:24 BUN 21 mg/dL (7-17) H 06/28/16 04:24 Creatinine 0.8 mg/dL (0.7-1.2) 06/28/16 04:24 Estimated GFR > 60 ml/min 06/28/16 04:24 BUN/Creatinine Ratio 26.25 % 06/28/16 04:24 Glucose 167 mg/dL (65-100) H 06/28/16 04:24 POC Glucose 168 (70-105) H 06/27/16 16:36 Calcium 8.9 mg/dL (8.4-10.2) 06/28/16 04:24 Phosphorus 2.7 mg/dL (2.5-4.5) 06/27/16 16:27 Magnesium 2.0 mg/dL (1.7-2.3) 06/27/16 16:27 Total Bilirubin 0.2 mg/dL (0.1-1.2) 06/26/16 22:27 AST 35 units/L (5-40) 06/26/16 22:27 ALT 32 units/L (7-56) 06/26/16 22:27 Alkaline Phosphatase 79 units/L (35-129) 06/26/16 22:27 Ammonia 184.0 umol/L (25-60) H 06/27/16 16:27 Total Creatine Kinase 70 units/L (30-135) 06/27/16 06:02 CK-MB (CK-2) 3.5 ng/mL (0.0-4.0) 06/27/16 06:02 CK-MB (CK-2) Rel Index 5.0 (0-4) H 06/27/16 06:02 Troponin T < 0.010 ng/mL (0.00-0.029) 06/27/16 06:02 C-Reactive Protein 2.20 mg/dL (0.00-1.30) H 06/27/16 16:27 NT-Pro-B Natriuret Pep 3923 pg/mL (0-900) H 06/26/16 22:27 Total Protein 6.8 g/dL (6.3-8.2) 06/26/16 22:27 Albumin 3.3 g/dL (3.9-5) L 06/26/16 22:27 Albumin/Globulin Ratio 0.9 % 06/26/16 22:27 Urine Color Yellow (Yellow) 06/26/16 22:13 Urine Turbidity Slightly-cloudy (Clear) 06/26/16 22:13 Urine pH 5.0 (5.0-7.0) 06/26/16 22:13 Ur Specific [place] 1.020 (1.003-1.030) 06/26/16 22:13 Urine Protein 100 mg/dl mg/dL (Negative) 06/26/16 22:13 Urine Glucose (UA) Neg mg/dL (Negative) 06/26/16 22:13 Urine Ketones Neg mg/dL (Negative) 06/26/16 22:13 Urine Blood Neg (Negative) 06/26/16 22:13 Urine Nitrite Neg (Negative) 06/26/16 22:13 Urine Bilirubin Neg (Negative) 06/26/16 22:13 Urine Urobilinogen < 2.0 mg/dL (<2.0) 06/26/16 22:13 Ur Leukocyte Esterase Neg (Negative) 06/26/16 22:13 Urine WBC (Auto) 2.0 /HPF (0.0-6.0) 06/26/16 22:13 Urine RBC (Auto) 1.0 /HPF (0.0-6.0) 06/26/16 22:13 U Epithel Cells (Auto) 1.0 /HPF (0-13.0) 06/26/16 22:13 Urine Bacteria (Auto) 4+ /HPF (Negative) 06/26/16 22:13 Hyaline Casts 2 /LPF 06/26/16 22:13 Urine Mucus Few /HPF 06/26/16 22:13
[2016-06-28] MEDS: PROTONIX IV SCH (09:57)
[2016-06-28] MEDS: LOVENOX SUB-Q SCH (09:57)
[2016-06-28] MEDS ORDERED: ROCEPHIN/NS 1 GM/50 ML 50 ML IV ONE (10:09)
[2016-06-28] MEDS: ROCEPHIN/NS 1 GM/50 ML 50 ML IV SCH (10:18)
--- NOTE | 2016-06-28 13:55 | Progress Note ---
Assessment and Plan - Patient Problems (1) Altered mental status Current Visit: No Status: Acute Plan to address problem: - neurology consult pending -CT head report pending - continue antiepileptic meds - follow clinically - appears had baseline neurologic deficit (2) Acute hypoxemic respiratory failure Current Visit: Yes Status: Acute Plan to address problem: - alkalosis noted and will reduce set minute ventilation - continue bronchodilators and pulmonary toilet - continue aspiration precautions/ VAP bundles - wean FiO2 for Sats >92% (3) Acute exacerbation of chronic obstructive pulmonary disease (COPD) Current Visit: Yes Status: Acute Plan to address problem: - as above - continue systemic steroids and taper shortly (4) Seizure disorder Current Visit: Yes Status: Acute Plan to address problem: - continue keppra - follow EEG - await neurology evaluation (5) Discharge planning issues Current Visit: Yes Status: Acute Plan to address problem: - hopefully extubates shortly and can transfer to floor ...remains critically ill at present on life sustaining interventions including MVS and at risk for further deterioration including ...34' CCT Subjective Date of service: 06/28/16 Principal diagnosis: Acute Hypoxemic Respiratory Failure; Seizure disorder Interval history: Seen and examined at bedside; 24 hour events reviewed; nursing and respiratory care staff consulted; no adverse overnight events reported to me; sedated; still with occasional tremor-like; no emesis or overt aspiration and no gross bleeding Objective Vital Signs - 12hr 06/28/16 06/28/16 06/28/16 02:00 02:03 02:09 Temperature Pulse Rate 64 61 Pulse Rate [ 62 Anterior Bilateral Throughout] Respiratory 18 25 H Rate Respiratory 28 H Rate [Anterior Bilateral Throughout] Blood Pressure 136/58 136/58 O2 Sat by Pulse 95 99 Oximetry 06/28/16 06/28/16 06/28/16 02:14 02:31 03:00 Temperature Pulse Rate 62 61 Pulse Rate [ Anterior Bilateral Throughout] Respiratory 25 H 24 25 H Rate Respiratory Rate [Anterior Bilateral Throughout] Blood Pressure 136/58 135/57 O2 Sat by Pulse 97 94 Oximetry 06/28/16 06/28/16 06/28/16 03:31 04:00 04:18 Temperature Pulse Rate 61 60 61 Pulse Rate [ Anterior Bilateral Throughout] Respiratory 13 25 H Rate Respiratory Rate [Anterior Bilateral Throughout] Blood Pressure 135/57 138/57 138/57 O2 Sat by Pulse 96 95 97 Oximetry 06/28/16 06/28/16 06/28/16 04:31 05:00 05:13 Temperature Pulse Rate 62 59 L 61 Pulse Rate [ Anterior Bilateral Throughout] Respiratory 14 24 17 Rate Respiratory Rate [Anterior Bilateral Throughout] Blood Pressure 138/57 146/57 146/57 O2 Sat by Pulse 96 96 96 Oximetry 06/28/16 06/28/16 06/28/16 05:15 05:31 06:00 Temperature Pulse Rate 59 L 61 58 L Pulse Rate [ Anterior Bilateral Throughout] Respiratory 28 H 23 22 Rate Respiratory Rate [Anterior Bilateral Throughout] Blood Pressure 146/57 146/57 138/64 O2 Sat by Pulse 95 94 94 Oximetry 06/28/16 06/28/16 06/28/16 06:31 07:00 07:31 Temperature Pulse Rate 56 L 56 L 57 L Pulse Rate [ Anterior Bilateral Throughout] Respiratory 28 H 21 28 H Rate Respiratory Rate [Anterior Bilateral Throughout] Blood Pressure 138/64 148/72 148/72 O2 Sat by Pulse 97 96 96 Oximetry 06/28/16 06/28/16 06/28/16 07:35 07:53 08:00 Temperature 99.1 F Pulse Rate 55 L 58 L Pulse Rate [ 57 L 58 L Anterior Bilateral Throughout] Respiratory 28 H Rate Respiratory 28 H 28 H Rate [Anterior Bilateral Throughout] Blood Pressure 148/72 147/70 O2 Sat by Pulse 97 97 Oximetry 06/28/16 06/28/16 06/28/16 08:31 08:55 09:00 Temperature Pulse Rate 57 L 58 L 58 L Pulse Rate [ Anterior Bilateral Throughout] Respiratory 28 H 28 H 22 Rate Respiratory Rate [Anterior Bilateral Throughout] Blood Pressure 147/70 147/70 144/62 O2 Sat by Pulse 98 97 97 Oximetry 06/28/16 06/28/16 06/28/16 09:31 10:00 10:31 Temperature Pulse Rate 57 L 56 L 57 L Pulse Rate [ Anterior Bilateral Throughout] Respiratory 28 H 12 21 Rate Respiratory Rate [Anterior Bilateral Throughout] Blood Pressure 144/62 137/63 137/63 O2 Sat by Pulse 97 95 97 Oximetry 06/28/16 06/28/16 06/28/16 11:00 11:31 11:35 Temperature Pulse Rate 60 64 59 L Pulse Rate [ Anterior Bilateral Throughout] Respiratory 27 H 19 17 Rate Respiratory Rate [Anterior Bilateral Throughout] Blood Pressure 141/58 141/58 141/58 O2 Sat by Pulse 94 98 96 Oximetry 06/28/16 06/28/16 06/28/16 12:00 12:02 12:30 Temperature 98.4 F Pulse Rate 57 L 57 L Pulse Rate [ Anterior Bilateral Throughout] Respiratory 19 Rate Respiratory Rate [Anterior Bilateral Throughout] Blood Pressure 151/68 151/68 O2 Sat by Pulse 96 97 Oximetry 06/28/16 06/28/16 12:31 13:00 Temperature Pulse Rate 60 55 L Pulse Rate [ Anterior Bilateral Throughout] Respiratory 20 28 H Rate Respiratory Rate [Anterior Bilateral Throughout] Blood Pressure 151/68 135/60 O2 Sat by Pulse 96 97 Oximetry Constitutional: no acute distress, other (sedated) Eyes: non-icteric ENT: oropharynx moist Neck: supple, no lymphadenopathy Effort: mildly labored Ascultation: Bilateral: diminished breath sounds, rhonchi Cardiovascular: regular rate and rhythm Gastrointestinal: normoactive bowel sounds, soft, non-tender, non-distended Integumentary: normal Extremities: no cyanosis, no edema, pink and warm, pulses normal Neurologic: unable to assess, other (sedate) Psychiatric: other (unable to assess) CBC and BMP: 06/29/16 04:25 06/29/16 04:25 ABG, PT/INR, D-dimer: ABG POC ABG pH 7.556 (7.35-7.45) H 06/28/16 04:40 POC ABG pCO2 41.1 (35-45) 06/28/16 04:40 POC ABG pO2 77 (80-105) L 06/28/16 04:40 POC ABG HCO3 36.4 06/28/16 04:40 POC ABG Total CO2 38 06/28/16 04:40 POC ABG O2 Sat 97 06/28/16 04:40 PT/INR, D-dimer PT 11.8 Sec. (12.2-14.9) L 06/26/16 21:37 INR 0.88 (0.87-1.13) 06/26/16 21:37 Abnormal lab findings: Abnormal Labs 06/27/16 06/27/16 06/27/16 02:57 06:02 11:49 WBC Seg Neuts % (Manual) Lymphocytes % (Manual) Seg Neutrophils # Man Lymphocytes # (Manual) POC ABG pH POC ABG pCO2 51.4 H POC ABG pO2 66 L Chloride Carbon Dioxide BUN Glucose POC Glucose 119 H Ammonia CK-MB (CK-2) Rel Index 5.0 H C-Reactive Protein 06/27/16 06/27/16 06/27/16 16:27 16:27 16:36 WBC Seg Neuts % (Manual) Lymphocytes % (Manual) Seg Neutrophils # Man Lymphocytes # (Manual) POC ABG pH POC ABG pCO2 POC ABG pO2 Chloride Carbon Dioxide BUN Glucose POC Glucose 168 H Ammonia 184.0 H CK-MB (CK-2) Rel Index C-Reactive Protein 2.20 H 06/28/16 06/28/16 06/28/16 04:24 04:24 04:40 WBC 11.1 H Seg Neuts % (Manual) 84.0 H Lymphocytes % (Manual) 10.0 L Seg Neutrophils # Man 9.3 H Lymphocytes # (Manual) 1.1 L POC ABG pH 7.556 H POC ABG pCO2 POC ABG pO2 77 L Chloride 93.2 L Carbon Dioxide 34 H BUN 21 H Glucose 167 H POC Glucose Ammonia CK-MB (CK-2) Rel Index C-Reactive Protein
--- NOTE | 2016-06-28 14:34 | XRay Report ---
Portable chest: Comparison is made to prior study of June 26, 2016. There has been interval placement of a nasogastric tube in good position. An endotracheal tube tip is at the lower margin of the clavicles in good position. There is a generally coarse overall interstitial pattern unchanged from prior study. Impressions: Well-positioned life-support tubes. Interstitial lung disease.
[2016-06-28] MEDS: KEPPRA 500 MG in D5W 100 ML IV SCH (15:29)
[2016-06-28] MEDS: ZITHROMAX 500 MG in NACL 0.9% 250ML 250 ML IV SCH (15:29)
--- NOTE | 2016-06-28 18:43 | Consultation ---
History of Present Illness - Reason for Consult Consult date: 06/28/16 seizure - History of Present Illness see my extensive dictated note did thorough chart review and plan further follow up dose of keppra is appropriate and appears effective spoke to nurse at the bedside about clinical course I will follow up my formal review of the brain CT scan is normal for age Medications and Allergies Allergies Allergy/AdvReac Type Severity Reaction Status Date / Time bee venom (honey bee) Allergy Severe FILLS HER Unverified 09/19/15 08:35 LUNGS UP WITH WATER/ CLOSES UP THROAT/NAUSEA shellfish derived Allergy Severe CLOG UP PT Unverified 09/19/15 08:35 THROAT/ ITCHING ALL OVER Home Medications Medication Instructions Recorded Confirmed Last Taken Type Budesoni/Formoterol 80-4.5(Nf) 2 puff IH BID 01/16/15 06/26/16 Unknown History [Symbicort 80-4.5 (Nf)] Combivent Respimat 1 inhalation INHALATION PRN 01/16/15 06/26/16 Unknown History Gabapentin 400 mg PO QID 01/16/15 06/26/16 Unknown History Ibuprofen [Motrin 800 MG tab] 800 mg PO Q8HR PRN 01/16/15 06/26/16 Unknown History Quetiapine Fumarate [QUEtiapine 300 mg PO QPM 01/16/15 06/26/16 Unknown History Fumarate] Spironolactone [Aldactone] 25 mg PO DAILY 01/16/15 06/26/16 Unknown History Trazodone HCl [traZODone] 100 mg PO QPM 01/16/15 06/26/16 Unknown History lamoTRIgine [LaMICtal] 100 mg PO QPM 01/16/15 06/26/16 Unknown History traMADol [Ultram 50 MG tab] 50 mg PO Q8HR PRN 01/16/15 06/26/16 Unknown History ALBUTEROL Inhaler [Proair] 2 puff IH QID PRN 06/26/16 06/26/16 Unknown History Cetirizine HCl [Allergy Relief] 10 mg PO DAILY 06/26/16 06/26/16 Unknown History Citalopram [celeXA] 40 mg PO QAM 06/26/16 06/26/16 Unknown History Metaxalone [Skelaxin] 800 mg PO TID 06/26/16 06/26/16 Unknown History predniSONE [Deltasone] 20 mg PO QDAY 06/26/16 06/26/16 Unknown History Active Meds: Active Medications Acetaminophen (Tylenol) 650 mg PO Q6H PRN PRN Reason: Pain Acetaminophen (Tylenol) 650 mg DE Q6H PRN PRN Reason: Pain MILD(1-3)/Fever >100.5/CORONADO Al Hydrox/Mg Hydrox/Simethicone (Alum-Mag Hydrox-Simeth [phone]/5ml) 30 ml PO Q4H PRN PRN Reason: Indigestion Albuterol/Ipratropium (Duoneb 0.5 Mg-3 Mg/3 Ml Soln) 1 ampul IH Q6HRT [facility] Last Admin: 06/28/16 14:26 Dose: Not Given Lipase/Protease/Amylase (Pancreaze Dr 10,500 Unit) 1 each FEEDTUBE PRN PRN PRN Reason: For Clogged Feeding Tube Arformoterol Tartrate (Brovana Nebu) 15 mcg IH Q12HRT [facility] Last Admin: 06/28/16 07:41 Dose: 15 mcg Bisacodyl (Dulcolax) 10 mg DE QDAY PRN PRN Reason: constipation unrelieved by MOM Enoxaparin Sodium (Lovenox) 40 mg SUB-Q QDAY [facility] Last Admin: 06/28/16 09:57 Dose: 40 mg Hydrophilic Ointment (Vaseline Lip Therapy) 1 applic TP Q2HR PRN PRN Reason: Dry Lips Ceftriaxone Sodium (Rocephin/Ns 1 Gm/50 Ml) 50 mls @ 100 mls/hr IV Q24HR [facility] Last Admin: 06/28/16 10:18 Dose: 100 mls/hr Fentanyl Citrate (Fentanyl Drip Premix) 100 mls @ 3.856 mls/hr IV TITR KRYSTEN; 1 MCG/KG/HR PRN Reason: Protocol Last Admin: 06/28/16 12:37 Dose: 15.422 mls/hr Midazolam HCl (Versed/Ns 100mg/100ml) 100 mls @ 2 mls/hr IV TITR KRYSTEN; 2 MG/HR PRN Reason: Protocol Last Titration: 06/28/16 08:59 Dose: 3 mg/hr Levetiracetam 500 mg/ Dextrose 105 mls @ 400 mls/hr IV Q12H [facility] Last Admin: 06/28/16 15:29 Dose: 400 mls/hr Azithromycin 500 mg/ Sodium (Chloride) 250 mls @ 250 mls/hr IV Q24H [facility] Last Admin: 06/28/16 15:29 Dose: 250 mls/hr Lactulose (Cephulac) 20 gm FEEDTUBE Q8H [facility] Stop: 06/30/16 15:59 Last Admin: 06/28/16 16:55 Dose: 20 gm Magnesium Hydroxide (Milk Of Magnesia) 30 ml PO Q4H PRN PRN Reason: Constipation Methylprednisolone Sodium Succinate (Solu-Medrol) 60 mg IV Q8H [facility] Last Admin: 06/28/16 16:55 Dose: 60 mg Multi-Ingred Cream/Lotion/Oil/Oint (Artificial Tears Ophth Oint) 1 applic OU Q4HR PRN PRN Reason: Dry Eye(s) Ondansetron HCl (Zofran) 4 mg IV Q8H PRN PRN Reason: N/V unrelieved by Reggabrielle Pantoprazole (Protonix) 40 mg PO DAILY [facility] Simple Syrup (Simple Syrup) 15 ml FEEDTUBE PRN PRN PRN Reason: Hypoglycemia Simple Syrup (Simple Syrup) 30 ml FEEDTUBE PRN PRN PRN Reason: Hypoglycemia Sodium Bicarbonate (Sodium Bicarbonate) 325 mg FEEDTUBE PRN PRN PRN Reason: For Clogged Feeding Tube Exam - Constitutional Vitals: Temp Pulse Resp BP Pulse Ox 98.4 F 53 L 18 142/64 97 06/28/16 12:30 06/28/16 18:00 06/28/16 18:00 06/28/16 18:00 06/28/16 18:00 Results - Labs CBC & Chem 7: 06/28/16 04:24 06/28/16 04:24 Labs: Abnormal lab results 06/27/16 06/28/16 06/28/16 Range/Units 11:49 04:24 04:24 WBC 11.1 H (4.5-11.0) K/mm3 Seg Neuts % (Manual) 84.0 H (40.0-70.0) % Lymphocytes % (Manual) 10.0 L (13.4-35.0) % Seg Neutrophils # Man 9.3 H (1.8-7.7) K/mm3 Lymphocytes # (Manual) 1.1 L (1.2-5.4) K/mm3 POC ABG pH (7.35-7.45) POC ABG pO2 (80-105) Chloride 93.2 L (98-107) mmol/L Carbon Dioxide 34 H (22-30) mmol/L BUN 21 H (7-17) mg/dL Glucose 167 H (65-100) mg/dL POC Glucose 119 H (70-105) 06/28/16 Range/Units 04:40 WBC (4.5-11.0) K/mm3 Seg Neuts % (Manual) (40.0-70.0) % Lymphocytes % (Manual) (13.4-35.0) % Seg Neutrophils # Man (1.8-7.7) K/mm3 Lymphocytes # (Manual) (1.2-5.4) K/mm3 POC ABG pH 7.556 H (7.35-7.45) POC ABG pO2 77 L (80-105) Chloride (98-107) mmol/L Carbon Dioxide (22-30) mmol/L BUN (7-17) mg/dL Glucose (65-100) mg/dL POC Glucose (70-105)
[2016-06-29] MEDS: CEPHULAC FEEDTUBE SCH ×4 (00:06→23:44)
--- NOTE | 2016-06-29 00:15 | Admit Criteria Form ---
Admission Criteria Documentation: COPD Clinical Indications for Admission to Inpatient Care (Place 'X' for any and all applicable criteria): Admission is indicated for ANY ONE of the following (1)(2)(3): [ ]I. Acute exacerbation by high-risk comorbidity (e.g., pneumonia, dysrhythmia, heart failure, pleural effusion, pneumothorax) or severe underlying COPD (e.g., steroid dependent) [ ]II. Inpatient admission required rather than observation care (see Chronic Obstructive Pulmonary Disease: Observation Care) because of ANY ONE of the following: [ ]a) New or pre-existing signs or symptoms of COPD (eg, dyspnea or Tachypnea at rest or with minimal activity) that persist despite outpatient and observation care treatment [ ]b) New-onset hypoxemia (room air SaO2 less than 90%, PO2 less than 60 mm Hg (8.0 kPa)) that persists despite outpatient and observation care treatment [ ]c) Worsening of pre-existing hypoxemia (eg, new or increased requirement for supplemental oxygen to maintain oxygenation at baseline level) that persists despite outpatient and observation care treatment, with oxygen treatment needs performable only in acute inpatient setting [ ]d) Hypercarbia (PCO2 greater than 40 mm Hg (5.3 kPa))-induced respiratory acidosis (pH less than 7.35) that persists despite outpatient and observation care treatment [ ]e) Supplemental oxygen or respiratory treatments for over 24 hours that are performable only in acute inpatient setting [ ]f) Chest tube placement with active evacuation (e.g., suction, drainage) (5) [ ]g) Other condition, treatment or monitoring requiring inpatient admission [ ]III. Planned invasive surgical or diagnostic procedures requiring acute- care hospitalization [ X]IV. Acute respiratory failure (e.g., uncompensated hypercarbia, severe hypoxemia) [ ]V. Severe comorbid condition (e.g., severe steroid myopathy, acute vertebral fracture) that has acutely worsened pulmonary function [ ]. Confusion state, lethargy, obtundation, stupor or coma Extended stay beyond goal length of stay may be needed for (31)(32): [ ]a ) Respiratory Failure. [ ]b) Severe or persisting hypoxemia or hypercarbia [ ]c) Severe or persistent dyspnea [ ]d) Comorbidities (e.g. chronic heart failure, atrial fibrillation with rapid response, pneumonia) [ ]e) Malnutrition The original [facility] content created by [facility] has been revised. The portions of the content which have been revised are identified through the use of italic text or in bold, and [facility] has neither reviewed nor approved the modified material. All other unmodified content is copyright [facility]. Please see references footnoted in the original [facility] edition 2016 Admission Criteria Met: Yes
--- NOTE | 2016-06-29 01:09 | Consultation ---
HISTORY OF PRESENT ILLNESS: This is a 56-year-old female who presents to [facility] as an emergency admission. She was admitted for respiratory problems dating back to this admission. The patient had been acutely ill, brought in by EMS and was probably having a seizure at that point because she was not capable of being intubated and had to be given sedatives. Since admission, she began to have actual quite clear cut seizure activity involving her left face with upward deviation of her eye. She was started on IV Keppra going over her medications from home. She is on a number of medications that both precipitate seizures and if she was not taking them could aggravate them because of withdrawal effect. She takes clonazepam. She takes Lamictal 100 mg a day, gabapentin 900 mg b.i.d., tramadol, but she was not on any full dose of antiseizure medicine. By history, she has allergies to HONEY BEE VENOM AND SHELLFISH. Since admission, she has been intubated and currently being ventilated. Review of her CT scan does not reveal any focal abnormalities to my view, her white matter appeared normal. The CSF spaces are well maintained with no compromise or evidence of brain edema. The nasogastric tube is in place in the right naris and has a normal course and no evidence of any acute sinus opacification is present. PHYSICAL EXAMINATION: Formal examination of the patient reveals that she has upward and outward deviation of both eyes. She does have a gag reflex. She appears at times understand what I am asking her, she has some unpurposeful movements of the extremities. There is clearly no dystonia or decerebrate posturing. She may have active seizure activity involving her left face, which are considerable twitching as noted. She has a supple neck. No other motor tone abnormalities are present. Cranial nerves are intact. The patient does not have any evidence of craniocervical trauma. She is presently intubated and being ventilated, ventilatory assist due to acute respiratory failure. IMPRESSION: 1. Acute respiratory failure. 2. History of asthma. 3. History of being on multiple psychiatric medications. Also, she was taking several medicines for treatment of seizures including Neurontin and Lamictal, although these were subtherapeutic and making me suspect they are being given to her for bipolar alem especially since she is taking clonazepam. I would recommend getting an EEG and an MRI scan. Patient is being currently treated with IV Keppra, which is certainly an acceptable medication for control of seizures. I plan to follow the patient with you. JOB# [id number] MILENA/TICO
[2016-06-29] MEDS: DUONEB 0.5 MG-3 MG/3 ML SOLN IH SCH ×4 (02:10→19:56)
[2016-06-29] MEDS: fentaNYL DRIP Premix 100 ML IV SCH ×2 (04:55→10:48)
[2016-06-29] MEDS: KEPPRA 500 MG in D5W 100 ML IV SCH ×2 (04:56→23:36)
[2016-06-29] MEDS: VERSED/NS 100MG/100ML 100 ML IV SCH (04:57)
[2016-06-29 05:17] LABS: Hematocrit 39.2 % (30.3-42.9); Hemoglobin 12.7 gm/dl (10.1-14.3); Mean Corpuscular HGB Conc 32 % (30-34); Mean Corpuscular Hemoglobin 31 pg (28-32); Mean Corpuscular Volume 96 fl (79-97); Platelet Count 279 K/mm3 (140-440); Red Blood Count 4.11 M/mm3 (3.65-5.03); Red Cell Distribution Width 15.1 % (13.2-15.2); White Blood Count 15.7 K/mm3 (4.5-11.0)
[2016-06-29 05:29] LABS: Blood Urea Nitrogen 20 mg/dL (7-17); Calcium 8.8 mg/dL (8.4-10.2); Carbon Dioxide 35 mmol/L (22-30); Chloride 93.1 mmol/L (98-107); Glucose 137 mg/dL (65-100); Potassium 4.5 mmol/L (3.6-5.0); Sodium 138 mmol/L (137-145)
[2016-06-29 05:31] LABS: Anion Gap 14 mmol/L
[2016-06-29 06:31] LABS: ISTAT Base Excess 11; ISTAT HCO3 37.1; ISTAT PCO2 68.4 (35-45); ISTAT PH 7.343 (7.35-7.45); ISTAT PO2 79 (80-105); ISTAT SO2 94; ISTAT TCO2 39
[2016-06-29] MEDS: BROVANA NEBU IH SCH ×2 (08:34→19:56)
[2016-06-29] MEDS: PROTONIX PO SCH (09:24)
[2016-06-29] MEDS: LOVENOX SUB-Q SCH (09:24)
[2016-06-29] MEDS: KEPPRA PO SCH ×2 (09:24→22:08)
--- NOTE | 2016-06-29 09:43 | Progress Note ---
Assessment and Plan Assessment and plan: Acute respiratory failure, due to COPD exacerbation. Patient still intubated, on vent. Pulmonology following. I discussed with Leather Stitcher. Acute COPD exacerbation. Duoneb, solumedrol. Hypertension, benign essential New onset seizure. Continue keppra. Neurology following History of CVA Hyperammonemia. Full code status History Interval history: Patient intubated with acute respiratory failure, still having intermittent jerky movements Hospitalist Physical - Physical exam Narrative exam: Gen: Intubated, on ventilator HEENT:normocephalic,atraumatic Neck:supple, no JVD Lungs:clear to auscultation Heart:s1 and S2 reg, no murmurs, rubs or gallop Abd: soft, NT, ND, normal bowel sounds Ext:soft,non tender, normal BS Neuro:Intubated, sedated, jerky movements - Constitutional Vitals: Temp Pulse Resp BP Pulse Ox 99.5 F 70 15 149/67 94 06/29/16 00:00 06/29/16 08:00 06/29/16 08:00 06/29/16 08:00 06/29/16 08:00 Results - Labs CBC & Chem 7: 06/29/16 04:25 06/29/16 04:25 Labs: Laboratory Last Values WBC 15.7 K/mm3 (4.5-11.0) H 06/29/16 04:25 RBC 4.11 M/mm3 (3.65-5.03) 06/29/16 04:25 Hgb 12.7 gm/dl (10.1-14.3) 06/29/16 04:25 Hct 39.2 % (30.3-42.9) 06/29/16 04:25 MCV 96 fl (79-97) 06/29/16 04:25 MCH 31 pg (28-32) 06/29/16 04:25 MCHC 32 % (30-34) 06/29/16 04:25 RDW 15.1 % (13.2-15.2) 06/29/16 04:25 Plt Count 279 K/mm3 (140-440) 06/29/16 04:25 Add Manual Diff Complete 06/28/16 04:24 Total Counted 100 06/28/16 04:24 Seg Neuts % (Manual) 84.0 % (40.0-70.0) H 06/28/16 04:24 Band Neutrophils % 3.0 % 06/28/16 04:24 Lymphocytes % (Manual) 10.0 % (13.4-35.0) L 06/28/16 04:24 Reactive Lymphs % (Man) 0 % 06/28/16 04:24 Monocytes % (Manual) 3.0 % (0.0-7.3) 06/28/16 04:24 Eosinophils % (Manual) 0 % (0.0-4.3) 06/28/16 04:24 Basophils % (Manual) 0 % (0.0-1.8) 06/28/16 04:24 Metamyelocytes % 0 % 06/28/16 04:24 Myelocytes % 0 % 06/28/16 04:24 Promyelocytes % 0 % 06/28/16 04:24 Blast Cells % 0 % 06/28/16 04:24 Nucleated RBC % Not Reportable 06/28/16 04:24 Seg Neutrophils # Man 9.3 K/mm3 (1.8-7.7) H 06/28/16 04:24 Band Neutrophils # 0.3 K/mm3 06/28/16 04:24 Lymphocytes # (Manual) 1.1 K/mm3 (1.2-5.4) L 06/28/16 04:24 Abs React Lymphs (Man) 0.0 K/mm3 06/28/16 04:24 Monocytes # (Manual) 0.3 K/mm3 (0.0-0.8) 06/28/16 04:24 Eosinophils # (Manual) 0.0 K/mm3 (0.0-0.4) 06/28/16 04:24 Basophils # (Manual) 0.0 K/mm3 (0.0-0.1) 06/28/16 04:24 Metamyelocytes # 0.0 K/mm3 06/28/16 04:24 Myelocytes # 0.0 K/mm3 06/28/16 04:24 Promyelocytes # 0.0 K/mm3 06/28/16 04:24 Blast Cells # 0.0 K/mm3 06/28/16 04:24 WBC Morphology Not Reportable 06/28/16 04:24 Hypersegmented Neuts Not Reportable 06/28/16 04:24 Hyposegmented Neuts Not Reportable 06/28/16 04:24 Hypogranular Neuts Not Reportable 06/28/16 04:24 Smudge Cells Not Reportable 06/28/16 04:24 Toxic Granulation Not Reportable 06/28/16 04:24 Toxic Vacuolation Not Reportable 06/28/16 04:24 Dohle Bodies Not Reportable 06/28/16 04:24 Pelger-Huet Anomaly Not Reportable 06/28/16 04:24 Valente Rods Not Reportable 06/28/16 04:24 Platelet Estimate Appears normal 06/28/16 04:24 Clumped Platelets Not Reportable 06/28/16 04:24 Plt Clumps, EDTA Not Reportable 06/28/16 04:24 Large Platelets Not Reportable 06/28/16 04:24 Giant Platelets Not Reportable 06/28/16 04:24 Platelet Satelliting Not Reportable 06/28/16 04:24 Plt Morphology Comment Not Reportable 06/28/16 04:24 RBC Morphology Not Reportable 06/28/16 04:24 Dimorphic RBCs Not Reportable 06/28/16 04:24 Polychromasia Not Reportable 06/28/16 04:24 Hypochromasia Not Reportable 06/28/16 04:24 Poikilocytosis Not Reportable 06/28/16 04:24 Anisocytosis Few 06/28/16 04:24 Microcytosis Not Reportable 06/28/16 04:24 Macrocytosis Not Reportable 06/28/16 04:24 Spherocytes Not Reportable 06/28/16 04:24 Pappenheimer Bodies Not Reportable 06/28/16 04:24 Sickle Cells Not Reportable 06/28/16 04:24 Target Cells Not Reportable 06/28/16 04:24 Tear Drop Cells Not Reportable 06/28/16 04:24 Ovalocytes Not Reportable 06/28/16 04:24 Stomatocytes Few 06/28/16 04:24 Helmet Cells Not Reportable 06/28/16 04:24 [place] Bodies Not Reportable 06/28/16 04:24 [place] Rings Not Reportable 06/28/16 04:24 [place] Cells Not Reportable 06/28/16 04:24 Bite Cells Not Reportable 06/28/16 04:24 Crenated Cell Not Reportable 06/28/16 04:24 Elliptocytes Not Reportable 06/28/16 04:24 Acanthocytes (Spur) Not Reportable 06/28/16 04:24 Rouleaux Not Reportable 06/28/16 04:24 Hemoglobin C Crystals Not Reportable 06/28/16 04:24 Schistocytes Not Reportable 06/28/16 04:24 Malaria parasites Not Reportable 06/28/16 04:24 Adithya Bodies Not Reportable 06/28/16 04:24 Hem Pathologist Commnt No 06/28/16 04:24 PT 11.8 Sec. (12.2-14.9) L 06/26/16 21:37 INR 0.88 (0.87-1.13) 06/26/16 21:37 APTT 23.3 Sec. (24.2-36.6) L 06/26/16 21:37 POC ABG pH 7.343 (7.35-7.45) L 06/29/16 06:00 POC ABG pCO2 68.4 (35-45) H 06/29/16 06:00 POC ABG pO2 79 (80-105) L 06/29/16 06:00 POC ABG HCO3 37.1 06/29/16 06:00 POC ABG Total CO2 39 06/29/16 06:00 POC ABG O2 Sat 94 06/29/16 06:00 POC ABG Base Excess 11 06/29/16 06:00 FiO2 45 % 06/29/16 06:00 Sodium 138 mmol/L (137-145) 06/29/16 04:25 Potassium 4.5 mmol/L (3.6-5.0) 06/29/16 04:25 Chloride 93.1 mmol/L (98-107) L 06/29/16 04:25 Carbon Dioxide 35 mmol/L (22-30) H 06/29/16 04:25 Anion Gap 14 mmol/L 06/29/16 04:25 BUN 20 mg/dL (7-17) H 06/29/16 04:25 Creatinine 0.8 mg/dL (0.7-1.2) 06/29/16 04:25 Estimated GFR > 60 ml/min 06/29/16 04:25 BUN/Creatinine Ratio 25.00 % 06/29/16 04:25 Glucose 137 mg/dL (65-100) H 06/29/16 04:25 POC Glucose 168 (70-105) H 06/27/16 16:36 Calcium 8.8 mg/dL (8.4-10.2) 06/29/16 04:25 Phosphorus 2.7 mg/dL (2.5-4.5) 06/27/16 16:27 Magnesium 2.0 mg/dL (1.7-2.3) 06/27/16 16:27 Total Bilirubin 0.2 mg/dL (0.1-1.2) 06/26/16 22:27 AST 35 units/L (5-40) 06/26/16 22:27 ALT 32 units/L (7-56) 06/26/16 22:27 Alkaline Phosphatase 79 units/L (35-129) 06/26/16 22:27 Ammonia 46.0 umol/L (25-60) 06/28/16 09:18 Total Creatine Kinase 70 units/L (30-135) 06/27/16 06:02 CK-MB (CK-2) 3.5 ng/mL (0.0-4.0) 06/27/16 06:02 CK-MB (CK-2) Rel Index 5.0 (0-4) H 06/27/16 06:02 Troponin T < 0.010 ng/mL (0.00-0.029) 06/27/16 06:02 C-Reactive Protein 2.20 mg/dL (0.00-1.30) H 06/27/16 16:27 NT-Pro-B Natriuret Pep 3923 pg/mL (0-900) H 06/26/16 22:27 Total Protein 6.8 g/dL (6.3-8.2) 06/26/16 22:27 Albumin 3.3 g/dL (3.9-5) L 06/26/16 22:27 Albumin/Globulin Ratio 0.9 % 06/26/16 22:27 Urine Color Yellow (Yellow) 06/26/16 22:13 Urine Turbidity Slightly-cloudy (Clear) 06/26/16 22:13 Urine pH 5.0 (5.0-7.0) 06/26/16 22:13 Ur Specific [place] 1.020 (1.003-1.030) 06/26/16 22:13 Urine Protein 100 mg/dl mg/dL (Negative) 06/26/16 22:13 Urine Glucose (UA) Neg mg/dL (Negative) 06/26/16 22:13 Urine Ketones Neg mg/dL (Negative) 06/26/16 22:13 Urine Blood Neg (Negative) 06/26/16 22:13 Urine Nitrite Neg (Negative) 06/26/16 22:13 Urine Bilirubin Neg (Negative) 06/26/16 22:13 Urine Urobilinogen < 2.0 mg/dL (<2.0) 06/26/16 22:13 Ur Leukocyte Esterase Neg (Negative) 06/26/16 22:13 Urine WBC (Auto) 2.0 /HPF (0.0-6.0) 06/26/16 22:13 Urine RBC (Auto) 1.0 /HPF (0.0-6.0) 06/26/16 22:13 U Epithel Cells (Auto) 1.0 /HPF (0-13.0) 06/26/16 22:13 Urine Bacteria (Auto) 4+ /HPF (Negative) 06/26/16 22:13 Hyaline Casts 2 /LPF 06/26/16 22:13 Urine Mucus Few /HPF 06/26/16 22:13
--- NOTE | 2016-06-29 10:29 | Progress Note ---
Assessment and Plan - Patient Problems (1) Altered mental status Current Visit: No Status: Acute Plan to address problem: - neurology consult noted - CT head report pending - continue antiepileptic meds - follow clinically - appears had baseline neurologic deficit (2) Acute hypoxemic respiratory failure Current Visit: Yes Status: Acute Plan to address problem: - now mildly acidotic - continue current set minute volumes - continue bronchodilators and pulmonary toilet - continue aspiration precautions/ VAP bundles - wean FiO2 for Sats >92% - weaning trials in am as tolerated (3) Acute exacerbation of chronic obstructive pulmonary disease (COPD) Current Visit: Yes Status: Acute Plan to address problem: - as above - continue systemic steroids and taper shortly - continue empiric AB's (4) Seizure disorder Current Visit: Yes Status: Acute Plan to address problem: - continue keppra - follow EEG - resume pertinent home meds and wean sedation (5) Discharge planning issues Current Visit: Yes Status: Acute Plan to address problem: - hopefully extubates shortly and can transfer to floor ...remains critically ill at present on life sustaining interventions including MVS and at risk for further deterioration including ...30' CCT Subjective Date of service: 06/29/16 Principal diagnosis: Acute Hypoxemic Respiratory Failure; Seizure disorder Interval history: Seen and examined at bedside; 24 hour events reviewed; nursing and respiratory care staff consulted; no adverse overnight events reported to me; mental status about the same; seen by neurologist; remains on MVS; no emesis or overt aspiration and no gross bleeding Objective Vital Signs - 12hr 06/28/16 06/28/16 06/28/16 23:00 23:49 23:54 Temperature Pulse Rate 56 L 59 L 56 L Pulse Rate [ From Monitor] Pulse Rate [ Posterior Throughout] Respiratory 18 18 Rate Respiratory Rate [Posterior Throughout] Blood Pressure 129/58 122/53 129/58 O2 Sat by Pulse 97 97 97 Oximetry 06/29/16 06/29/16 06/29/16 00:00 01:01 01:39 Temperature 99.5 F Pulse Rate 61 59 L 66 Pulse Rate [ 65 From Monitor] Pulse Rate [ Posterior Throughout] Respiratory 19 18 18 Rate Respiratory Rate [Posterior Throughout] Blood Pressure 128/56 122/52 125/62 O2 Sat by Pulse 97 96 97 Oximetry 06/29/16 06/29/16 06/29/16 02:00 02:05 02:11 Temperature Pulse Rate 56 L Pulse Rate [ From Monitor] Pulse Rate [ 61 58 L Posterior Throughout] Respiratory 18 Rate Respiratory 18 18 Rate [Posterior Throughout] Blood Pressure 140/62 O2 Sat by Pulse 96 Oximetry 06/29/16 06/29/16 06/29/16 03:00 04:00 04:42 Temperature Pulse Rate 70 65 93 H Pulse Rate [ From Monitor] Pulse Rate [ Posterior Throughout] Respiratory 18 18 Rate Respiratory Rate [Posterior Throughout] Blood Pressure 131/69 126/56 150/93 O2 Sat by Pulse 95 95 96 Oximetry 06/29/16 06/29/16 06/29/16 05:01 06:00 07:00 Temperature Pulse Rate 89 68 58 L Pulse Rate [ From Monitor] Pulse Rate [ Posterior Throughout] Respiratory 13 18 17 Rate Respiratory Rate [Posterior Throughout] Blood Pressure 159/79 134/66 137/68 O2 Sat by Pulse 96 95 92 Oximetry 06/29/16 06/29/16 06/29/16 07:10 07:25 08:00 Temperature Pulse Rate 96 H Pulse Rate [ From Monitor] Pulse Rate [ 64 69 Posterior Throughout] Respiratory 15 Rate Respiratory 18 18 Rate [Posterior Throughout] Blood Pressure 170/93 O2 Sat by Pulse 91 Oximetry Constitutional: no acute distress, other (sedated) Eyes: non-icteric ENT: oropharynx moist Neck: supple, no lymphadenopathy Effort: mildly labored Ascultation: Bilateral: diminished breath sounds, rhonchi Cardiovascular: regular rate and rhythm Gastrointestinal: normoactive bowel sounds, soft, non-tender, non-distended Integumentary: normal Extremities: no cyanosis, no edema, pink and warm, pulses normal Neurologic: unable to assess, other (sedate) Psychiatric: other (unable to assess) CBC and BMP: 06/29/16 04:25 06/29/16 04:25 ABG, PT/INR, D-dimer: ABG POC ABG pH 7.343 (7.35-7.45) L 06/29/16 06:00 POC ABG pCO2 68.4 (35-45) H 06/29/16 06:00 POC ABG pO2 79 (80-105) L 06/29/16 06:00 POC ABG HCO3 37.1 06/29/16 06:00 POC ABG Total CO2 39 06/29/16 06:00 POC ABG O2 Sat 94 06/29/16 06:00 PT/INR, D-dimer PT 11.8 Sec. (12.2-14.9) L 06/26/16 21:37 INR 0.88 (0.87-1.13) 06/26/16 21:37 Abnormal lab findings: Abnormal Labs 06/27/16 06/27/16 06/27/16 02:57 06:02 11:49 WBC Seg Neuts % (Manual) Lymphocytes % (Manual) Seg Neutrophils # Man Lymphocytes # (Manual) POC ABG pH POC ABG pCO2 51.4 H POC ABG pO2 66 L Chloride Carbon Dioxide BUN Glucose POC Glucose 119 H Ammonia CK-MB (CK-2) Rel Index 5.0 H C-Reactive Protein 06/27/16 06/27/16 06/27/16 16:27 16:27 16:36 WBC Seg Neuts % (Manual) Lymphocytes % (Manual) Seg Neutrophils # Man Lymphocytes # (Manual) POC ABG pH POC ABG pCO2 POC ABG pO2 Chloride Carbon Dioxide BUN Glucose POC Glucose 168 H Ammonia 184.0 H CK-MB (CK-2) Rel Index C-Reactive Protein 2.20 H 06/28/16 06/28/16 06/28/16 04:24 04:24 04:40 WBC 11.1 H Seg Neuts % (Manual) 84.0 H Lymphocytes % (Manual) 10.0 L Seg Neutrophils # Man 9.3 H Lymphocytes # (Manual) 1.1 L POC ABG pH 7.556 H POC ABG pCO2 POC ABG pO2 77 L Chloride 93.2 L Carbon Dioxide 34 H BUN 21 H Glucose 167 H POC Glucose Ammonia CK-MB (CK-2) Rel Index C-Reactive Protein 06/29/16 06/29/16 06/29/16 04:25 04:25 06:00 WBC 15.7 H Seg Neuts % (Manual) Lymphocytes % (Manual) Seg Neutrophils # Man Lymphocytes # (Manual) POC ABG pH 7.343 L POC ABG pCO2 68.4 H POC ABG pO2 79 L Chloride 93.1 L Carbon Dioxide 35 H BUN 20 H Glucose 137 H POC Glucose Ammonia CK-MB (CK-2) Rel Index C-Reactive Protein Chest x-ray: image reviewed
[2016-06-29] MEDS ORDERED: ROCEPHIN/NS 1 GM/50 ML 50 ML IV ONE (11:37)
[2016-06-29] MEDS: ROCEPHIN/NS 1 GM/50 ML 50 ML IV SCH (11:58)
[2016-06-29] MEDS ORDERED: FLUARIX QUAD 2016-2017(36 MOS+) IM ONE (12:00)
[2016-06-29] MEDS ORDERED: PNEUMOVAX 23 IM ONE (12:00)
[2016-06-29] MEDS: ZITHROMAX 500 MG in NACL 0.9% 250ML 250 ML IV SCH (17:19)
[2016-06-30] MEDS: DUONEB 0.5 MG-3 MG/3 ML SOLN IH SCH ×4 (02:24→20:07)
[2016-06-30 05:33] LABS: ISTAT Base Excess 8; ISTAT HCO3 33.3; ISTAT PCO2 53.7 (35-45); ISTAT PO2 63 (80-105); ISTAT SO2 91; ISTAT TCO2 35
[2016-06-30] MEDS: BROVANA NEBU IH SCH ×2 (08:01→20:07)
[2016-06-30] MEDS: CEPHULAC FEEDTUBE SCH (08:37)
--- NOTE | 2016-06-30 08:54 | Progress Note ---
Assessment and Plan Assessment and plan: Acute respiratory failure, due to COPD exacerbation. Patient still intubated, on vent. Pulmonology following. I discussed with Carpenter Supervisor. She will be weaned and extubated today. Acute COPD exacerbation. Duoneb, solumedrol. Hypertension, benign essential New onset seizure. Continue keppra. Neurology following History of CVA Hyperammonemia, resolved Full code status DVT Prophylaxis with Lovenox History Interval history: Patient intubated with acute respiratory failure, Less jerky movements, more responsive Hospitalist Physical - Physical exam Narrative exam: Gen: Intubated, on ventilator HEENT:normocephalic,atraumatic Neck:supple, no JVD Lungs:clear to auscultation Heart:s1 and S2 reg, no murmurs, rubs or gallop Abd: soft, NT, ND, normal bowel sounds Ext:soft,non tender, normal BS Neuro:Intubated, sedated - Constitutional Vitals: Temp Pulse Resp BP Pulse Ox 98.3 F 72 9 L 152/77 93 06/30/16 08:00 06/30/16 08:01 06/30/16 08:01 06/30/16 08:01 06/30/16 08:01 Results - Labs CBC & Chem 7: 06/29/16 04:25 06/29/16 04:25 Labs: Laboratory Last Values WBC 15.7 K/mm3 (4.5-11.0) H 06/29/16 04:25 RBC 4.11 M/mm3 (3.65-5.03) 06/29/16 04:25 Hgb 12.7 gm/dl (10.1-14.3) 06/29/16 04:25 Hct 39.2 % (30.3-42.9) 06/29/16 04:25 MCV 96 fl (79-97) 06/29/16 04:25 MCH 31 pg (28-32) 06/29/16 04:25 MCHC 32 % (30-34) 06/29/16 04:25 RDW 15.1 % (13.2-15.2) 06/29/16 04:25 Plt Count 279 K/mm3 (140-440) 06/29/16 04:25 Add Manual Diff Complete 06/28/16 04:24 Total Counted 100 06/28/16 04:24 Seg Neuts % (Manual) 84.0 % (40.0-70.0) H 06/28/16 04:24 Band Neutrophils % 3.0 % 06/28/16 04:24 Lymphocytes % (Manual) 10.0 % (13.4-35.0) L 06/28/16 04:24 Reactive Lymphs % (Man) 0 % 06/28/16 04:24 Monocytes % (Manual) 3.0 % (0.0-7.3) 06/28/16 04:24 Eosinophils % (Manual) 0 % (0.0-4.3) 06/28/16 04:24 Basophils % (Manual) 0 % (0.0-1.8) 06/28/16 04:24 Metamyelocytes % 0 % 06/28/16 04:24 Myelocytes % 0 % 06/28/16 04:24 Promyelocytes % 0 % 06/28/16 04:24 Blast Cells % 0 % 06/28/16 04:24 Nucleated RBC % Not Reportable 06/28/16 04:24 Seg Neutrophils # Man 9.3 K/mm3 (1.8-7.7) H 06/28/16 04:24 Band Neutrophils # 0.3 K/mm3 06/28/16 04:24 Lymphocytes # (Manual) 1.1 K/mm3 (1.2-5.4) L 06/28/16 04:24 Abs React Lymphs (Man) 0.0 K/mm3 06/28/16 04:24 Monocytes # (Manual) 0.3 K/mm3 (0.0-0.8) 06/28/16 04:24 Eosinophils # (Manual) 0.0 K/mm3 (0.0-0.4) 06/28/16 04:24 Basophils # (Manual) 0.0 K/mm3 (0.0-0.1) 06/28/16 04:24 Metamyelocytes # 0.0 K/mm3 06/28/16 04:24 Myelocytes # 0.0 K/mm3 06/28/16 04:24 Promyelocytes # 0.0 K/mm3 06/28/16 04:24 Blast Cells # 0.0 K/mm3 06/28/16 04:24 WBC Morphology Not Reportable 06/28/16 04:24 Hypersegmented Neuts Not Reportable 06/28/16 04:24 Hyposegmented Neuts Not Reportable 06/28/16 04:24 Hypogranular Neuts Not Reportable 06/28/16 04:24 Smudge Cells Not Reportable 06/28/16 04:24 Toxic Granulation Not Reportable 06/28/16 04:24 Toxic Vacuolation Not Reportable 06/28/16 04:24 Dohle Bodies Not Reportable 06/28/16 04:24 Pel[place]-Huet Anomaly Not Reportable 06/28/16 04:24 Valente Rods Not Reportable 06/28/16 04:24 Platelet Estimate Appears normal 06/28/16 04:24 Clumped Platelets Not Reportable 06/28/16 04:24 Plt Clumps, EDTA Not Reportable 06/28/16 04:24 Large Platelets Not Reportable 06/28/16 04:24 Giant Platelets Not Reportable 06/28/16 04:24 Platelet Satelliting Not Reportable 06/28/16 04:24 Plt Morphology Comment Not Reportable 06/28/16 04:24 RBC Morphology Not Reportable 06/28/16 04:24 Dimorphic RBCs Not Reportable 06/28/16 04:24 Polychromasia Not Reportable 06/28/16 04:24 Hypochromasia Not Reportable 06/28/16 04:24 Poikilocytosis Not Reportable 06/28/16 04:24 Anisocytosis Few 06/28/16 04:24 Microcytosis Not Reportable 06/28/16 04:24 Macrocytosis Not Reportable 06/28/16 04:24 Spherocytes Not Reportable 06/28/16 04:24 Pappenheimer Bodies Not Reportable 06/28/16 04:24 Sickle Cells Not Reportable 06/28/16 04:24 Target Cells Not Reportable 06/28/16 04:24 Tear Drop Cells Not Reportable 06/28/16 04:24 Ovalocytes Not Reportable 06/28/16 04:24 Stomatocytes Few 06/28/16 04:24 Helmet Cells Not Reportable 06/28/16 04:24 [place] Bodies Not Reportable 06/28/16 04:24 [place] Rings Not Reportable 06/28/16 04:24 [place] Cells Not Reportable 06/28/16 04:24 Bite Cells Not Reportable 06/28/16 04:24 Crenated Cell Not Reportable 06/28/16 04:24 Elliptocytes Not Reportable 06/28/16 04:24 Acanthocytes (Spur) Not Reportable 06/28/16 04:24 Rouleaux Not Reportable 06/28/16 04:24 Hemoglobin C Crystals Not Reportable 06/28/16 04:24 Schistocytes Not Reportable 06/28/16 04:24 Malaria parasites Not Reportable 06/28/16 04:24 Adithya Bodies Not Reportable 06/28/16 04:24 Hem Pathologist Commnt No 06/28/16 04:24 PT 11.8 Sec. (12.2-14.9) L 06/26/16 21:37 INR 0.88 (0.87-1.13) 06/26/16 21:37 APTT 23.3 Sec. (24.2-36.6) L 06/26/16 21:37 POC ABG pH 7.400 (7.35-7.45) 06/30/16 04:50 POC ABG pCO2 53.7 (35-45) H 06/30/16 04:50 POC ABG pO2 63 (80-105) L 06/30/16 04:50 POC ABG HCO3 33.3 06/30/16 04:50 POC ABG Total CO2 35 06/30/16 04:50 POC ABG O2 Sat 91 06/30/16 04:50 POC ABG Base Excess 8 06/30/16 04:50 FiO2 35 % 06/30/16 04:50 Sodium 138 mmol/L (137-145) 06/29/16 04:25 Potassium 4.5 mmol/L (3.6-5.0) 06/29/16 04:25 Chloride 93.1 mmol/L (98-107) L 06/29/16 04:25 Carbon Dioxide 35 mmol/L (22-30) H 06/29/16 04:25 Anion Gap 14 mmol/L 06/29/16 04:25 BUN 20 mg/dL (7-17) H 06/29/16 04:25 Creatinine 0.8 mg/dL (0.7-1.2) 06/29/16 04:25 Estimated GFR > 60 ml/min 06/29/16 04:25 BUN/Creatinine Ratio 25.00 % 06/29/16 04:25 Glucose 137 mg/dL (65-100) H 06/29/16 04:25 POC Glucose 181 (70-105) H 06/29/16 13:36 Calcium 8.8 mg/dL (8.4-10.2) 06/29/16 04:25 Phosphorus 2.7 mg/dL (2.5-4.5) 06/27/16 16:27 Magnesium 2.0 mg/dL (1.7-2.3) 06/27/16 16:27 Total Bilirubin 0.2 mg/dL (0.1-1.2) 06/26/16 22:27 AST 35 units/L (5-40) 06/26/16 22:27 ALT 32 units/L (7-56) 06/26/16 22:27 Alkaline Phosphatase 79 units/L (35-129) 06/26/16 22:27 Ammonia 46.0 umol/L (25-60) 06/28/16 09:18 Total Creatine Kinase 70 units/L (30-135) 06/27/16 06:02 CK-MB (CK-2) 3.5 ng/mL (0.0-4.0) 06/27/16 06:02 CK-MB (CK-2) Rel Index 5.0 (0-4) H 06/27/16 06:02 Troponin T < 0.010 ng/mL (0.00-0.029) 06/27/16 06:02 C-Reactive Protein 2.20 mg/dL (0.00-1.30) H 06/27/16 16:27 NT-Pro-B Natriuret Pep 3923 pg/mL (0-900) H 06/26/16 22:27 Total Protein 6.8 g/dL (6.3-8.2) 06/26/16 22:27 Albumin 3.3 g/dL (3.9-5) L 06/26/16 22:27 Albumin/Globulin Ratio 0.9 % 06/26/16 22:27 Urine Color Yellow (Yellow) 06/26/16 22:13 Urine Turbidity Slightly-cloudy (Clear) 06/26/16 22:13 Urine pH 5.0 (5.0-7.0) 06/26/16 22:13 Ur Specific [place] 1.020 (1.003-1.030) 06/26/16 22:13 Urine Protein 100 mg/dl mg/dL (Negative) 06/26/16 22:13 Urine Glucose (UA) Neg mg/dL (Negative) 06/26/16 22:13 Urine Ketones Neg mg/dL (Negative) 06/26/16 22:13 Urine Blood Neg (Negative) 06/26/16 22:13 Urine Nitrite Neg (Negative) 06/26/16 22:13 Urine Bilirubin Neg (Negative) 06/26/16 22:13 Urine Urobilinogen < 2.0 mg/dL (<2.0) 06/26/16 22:13 Ur Leukocyte Esterase Neg (Negative) 06/26/16 22:13 Urine WBC (Auto) 2.0 /HPF (0.0-6.0) 06/26/16 22:13 Urine RBC (Auto) 1.0 /HPF (0.0-6.0) 06/26/16 22:13 U Epithel Cells (Auto) 1.0 /HPF (0-13.0) 06/26/16 22:13 Urine Bacteria (Auto) 4+ /HPF (Negative) 06/26/16 22:13 Hyaline Casts 2 /LPF 06/26/16 22:13 Urine Mucus Few /HPF 06/26/16 22:13
[2016-06-30] MEDS: KEPPRA PO SCH ×2 (09:15→22:37)
[2016-06-30] MEDS: LOVENOX SUB-Q SCH (09:15)
[2016-06-30] MEDS: PROTONIX PO SCH (09:16)
[2016-06-30] MEDS ORDERED: ROCEPHIN/NS 1 GM/50 ML 50 ML IV ONE (09:33)
[2016-06-30] MEDS: ROCEPHIN/NS 1 GM/50 ML 50 ML IV SCH (09:38)
--- NOTE | 2016-06-30 10:55 | Cat Scan Report ---
FINAL REPORT EXAM: CT HEAD/BRAIN WO CON HISTORY: Altered mental status / seizures TECHNIQUE: Standard unenhanced CT of the head at 5.0 millimeter axial increments. PRIORS: None. FINDINGS: The ventricular system is normal in size and configuration. There is mild cerebral atrophy particularly in the posterior parietal region bilaterally. There is no evidence for mass lesion, mass effect, midline shift, acute intracranial hemorrhage, or acute ischemia/ infarction. No evidence for acute skull fracture is seen. No abnormality in the overlying scalp soft tissues is seen. Small air-fluid levels in the maxillary sinuses are present bilaterally. Minimal mucosal thickening in the left sphenoid sinus and several left ethmoid sinuses is noted. Nasogastric tube is present in the right nasal cavity and an endotracheal tube is in place in the oral cavity. IMPRESSION: No acute intracranial process noted. Mild sinusitis in the left ethmoid, left sphenoid, and bilateral maxillary sinuses.
--- NOTE | 2016-06-30 10:56 | XRay Report ---
FINAL REPORT EXAM: XR ABDOMEN 1V AP HISTORY: Feeding tube placement. TECHNIQUE: Supine view of the abdomen PRIORS: None. FINDINGS: A feeding tube terminates in the upper stomach. The bowel gas pattern is nonspecific. No free air is identified. Soft tissues have no evidence for mass shadows or calcifications. The bony structures are intact. IMPRESSION: Feeding tube terminating in the upper stomach.
[2016-06-30 11:14] LABS: ISTAT Base Excess 8; ISTAT HCO3 33.6; ISTAT PCO2 61.1 (35-45); ISTAT PH 7.348 (7.35-7.45); ISTAT PO2 70 (80-105); ISTAT SO2 92; ISTAT TCO2 35
--- NOTE | 2016-06-30 11:30 | Progress Note ---
Assessment and Plan - Patient Problems (1) Altered mental status Current Visit: No Status: Acute Plan to address problem: - neurology consult noted - CT head report pending - continue antiepileptic meds - follow clinically - appears had baseline neurologic deficit - clinically improve today and following commands appropriately (2) Acute hypoxemic respiratory failure Current Visit: Yes Status: Acute Plan to address problem: - now mildly acidotic - continue current set minute volumes - continue bronchodilators and pulmonary toilet - continue aspiration precautions/ VAP bundles - wean FiO2 for Sats >92% - weaning trials in am as tolerated - tolerating SBT well and will extubate (3) Acute exacerbation of chronic obstructive pulmonary disease (COPD) Current Visit: Yes Status: Acute Plan to address problem: - as above - continue systemic steroids and taper shortly - continue empiric AB's (4) Seizure disorder Current Visit: Yes Status: Acute Plan to address problem: - continue keppra - follow EEG - resumed pertinent home meds and wean sedation - no active seizures clinically (5) Discharge planning issues Current Visit: Yes Status: Acute Plan to address problem: - hopefully tolerates extubation shortly and can transfer to floor later ...remains critically ill at present on life sustaining interventions including MVS and at risk for further deterioration including ...32' CCT Subjective Date of service: 06/30/16 Principal diagnosis: Acute Hypoxemic Respiratory Failure; Seizure disorder Interval history: Seen and examined at bedside; 24 hour events reviewed; nursing and respiratory care staff consulted; no adverse overnight events reported to me; more alert and appropriate; tolerating PSV very well and will likely give a trial of extubation Objective Vital Signs - 12hr 06/29/16 06/30/16 06/30/16 23:33 00:00 00:11 Temperature 98.8 F Pulse Rate 73 65 64 Pulse Rate [ 65 From Monitor] Pulse Rate [ Posterior Throughout] Respiratory 18 Rate Respiratory Rate [Posterior Throughout] Blood Pressure 118/60 117/57 O2 Sat by Pulse 92 93 Oximetry 06/30/16 06/30/16 06/30/16 01:00 01:01 02:00 Temperature Pulse Rate 63 63 74 Pulse Rate [ From Monitor] Pulse Rate [ Posterior Throughout] Respiratory 18 18 18 Rate Respiratory Rate [Posterior Throughout] Blood Pressure 116/56 116/56 120/59 O2 Sat by Pulse 92 92 89 Oximetry 06/30/16 06/30/16 06/30/16 02:24 02:48 02:55 Temperature Pulse Rate 69 71 Pulse Rate [ From Monitor] Pulse Rate [ 79 Posterior Throughout] Respiratory 18 18 Rate Respiratory 18 Rate [Posterior Throughout] Blood Pressure 125/64 125/64 O2 Sat by Pulse 91 91 Oximetry 06/30/16 06/30/16 06/30/16 03:00 04:00 04:32 Temperature 98.9 F Pulse Rate 66 74 67 Pulse Rate [ 74 From Monitor] Pulse Rate [ Posterior Throughout] Respiratory 18 18 Rate Respiratory Rate [Posterior Throughout] Blood Pressure 120/62 116/59 109/51 O2 Sat by Pulse 91 93 93 Oximetry 06/30/16 06/30/16 06/30/16 05:00 06:00 06:43 Temperature Pulse Rate 61 58 L 57 L Pulse Rate [ From Monitor] Pulse Rate [ Posterior Throughout] Respiratory 18 18 18 Rate Respiratory Rate [Posterior Throughout] Blood Pressure 116/57 118/56 111/55 O2 Sat by Pulse 94 93 95 Oximetry 06/30/16 06/30/16 06/30/16 07:00 07:53 08:00 Temperature 98.3 F Pulse Rate 60 78 Pulse Rate [ 76 From Monitor] Pulse Rate [ Posterior Throughout] Respiratory 18 7 L Rate Respiratory Rate [Posterior Throughout] Blood Pressure 115/57 109/54 O2 Sat by Pulse 94 95 93 Oximetry 06/30/16 06/30/16 06/30/16 08:01 08:45 09:00 Temperature Pulse Rate 72 78 76 Pulse Rate [ From Monitor] Pulse Rate [ Posterior Throughout] Respiratory 9 L 9 L 7 L Rate Respiratory Rate [Posterior Throughout] Blood Pressure 152/77 147/75 147/80 O2 Sat by Pulse 93 93 91 Oximetry 06/30/16 06/30/16 06/30/16 09:19 10:00 11:00 Temperature Pulse Rate 79 87 86 Pulse Rate [ From Monitor] Pulse Rate [ Posterior Throughout] Respiratory 8 L 8 L 9 L Rate Respiratory Rate [Posterior Throughout] Blood Pressure 147/80 152/84 134/78 O2 Sat by Pulse 93 92 92 Oximetry Constitutional: no acute distress, other (sedated) Eyes: non-icteric ENT: oropharynx moist Neck: supple, no lymphadenopathy Effort: mildly labored Ascultation: Bilateral: diminished breath sounds, rhonchi Cardiovascular: regular rate and rhythm Gastrointestinal: normoactive bowel sounds, soft, non-tender, non-distended Integumentary: normal Extremities: no cyanosis, no edema, pink and warm, pulses normal Neurologic: other (sedate) Psychiatric: other (unable to assess) CBC and BMP: 06/29/16 04:25 06/29/16 04:25 ABG, PT/INR, D-dimer: ABG POC ABG pH 7.400 (7.35-7.45) 06/30/16 04:50 POC ABG pCO2 53.7 (35-45) H 06/30/16 04:50 POC ABG pO2 63 (80-105) L 06/30/16 04:50 POC ABG HCO3 33.3 06/30/16 04:50 POC ABG Total CO2 35 06/30/16 04:50 POC ABG O2 Sat 91 06/30/16 04:50 PT/INR, D-dimer PT 11.8 Sec. (12.2-14.9) L 06/26/16 21:37 INR 0.88 (0.87-1.13) 06/26/16 21:37 Abnormal lab findings: Abnormal Labs 06/27/16 06/27/16 06/27/16 02:57 06:02 11:49 WBC Seg Neuts % (Manual) Lymphocytes % (Manual) Seg Neutrophils # Man Lymphocytes # (Manual) POC ABG pH POC ABG pCO2 51.4 H POC ABG pO2 66 L Chloride Carbon Dioxide BUN Glucose POC Glucose 119 H Ammonia CK-MB (CK-2) Rel Index 5.0 H C-Reactive Protein 06/27/16 06/27/16 06/27/16 16:27 16:27 16:36 WBC Seg Neuts % (Manual) Lymphocytes % (Manual) Seg Neutrophils # Man Lymphocytes # (Manual) POC ABG pH POC ABG pCO2 POC ABG pO2 Chloride Carbon Dioxide BUN Glucose POC Glucose 168 H Ammonia 184.0 H CK-MB (CK-2) Rel Index C-Reactive Protein 2.20 H 06/28/16 06/28/16 06/28/16 04:24 04:24 04:40 WBC 11.1 H Seg Neuts % (Manual) 84.0 H Lymphocytes % (Manual) 10.0 L Seg Neutrophils # Man 9.3 H Lymphocytes # (Manual) 1.1 L POC ABG pH 7.556 H POC ABG pCO2 POC ABG pO2 77 L Chloride 93.2 L Carbon Dioxide 34 H BUN 21 H Glucose 167 H POC Glucose Ammonia CK-MB (CK-2) Rel Index C-Reactive Protein 06/29/16 06/29/16 06/29/16 04:25 04:25 06:00 WBC 15.7 H Seg Neuts % (Manual) Lymphocytes % (Manual) Seg Neutrophils # Man Lymphocytes # (Manual) POC ABG pH 7.343 L POC ABG pCO2 68.4 H POC ABG pO2 79 L Chloride 93.1 L Carbon Dioxide 35 H BUN 20 H Glucose 137 H POC Glucose Ammonia CK-MB (CK-2) Rel Index C-Reactive Protein 06/29/16 06/30/16 13:36 04:50 WBC Seg Neuts % (Manual) Lymphocytes % (Manual) Seg Neutrophils # Man Lymphocytes # (Manual) POC ABG pH POC ABG pCO2 53.7 H POC ABG pO2 63 L Chloride Carbon Dioxide BUN Glucose POC Glucose 181 H Ammonia CK-MB (CK-2) Rel Index C-Reactive Protein
[2016-06-30] MEDS: ZITHROMAX 500 MG in NACL 0.9% 250ML 250 ML IV SCH (13:34)
--- NOTE | 2016-06-30 13:58 | Consultation ---
History of Present Illness - Reason for Consult Consult date: 06/30/16 seizure - History of Present Illness patient is seen on f/u and is now extubated completely alert and able to respond with speech... the EEG shows good control of seizures rec continue same meds will gey MRI post transfer to the floor to complete the w/u thanks Medications and Allergies Allergies Allergy/AdvReac Type Severity Reaction Status Date / Time bee venom (honey bee) Allergy Severe FILLS HER Unverified 09/19/15 08:35 LUNGS UP WITH WATER/ CLOSES UP THROAT/NAUSEA shellfish derived Allergy Severe CLOG UP PT Unverified 09/19/15 08:35 THROAT/ ITCHING ALL OVER Home Medications Medication Instructions Recorded Confirmed Last Taken Type Budesoni/Formoterol 80-4.5(Nf) 2 puff IH BID 01/16/15 06/26/16 Unknown History [Symbicort 80-4.5 (Nf)] Combivent Respimat 1 inhalation INHALATION PRN 01/16/15 06/26/16 Unknown History Gabapentin 400 mg PO QID 01/16/15 06/26/16 Unknown History Ibuprofen [Motrin 800 MG tab] 800 mg PO Q8HR PRN 01/16/15 06/26/16 Unknown History Quetiapine Fumarate [QUEtiapine 300 mg PO QPM 01/16/15 06/26/16 Unknown History Fumarate] Spironolactone [Aldactone] 25 mg PO DAILY 01/16/15 06/26/16 Unknown History Trazodone HCl [traZODone] 100 mg PO QPM 01/16/15 06/26/16 Unknown History lamoTRIgine [LaMICtal] 100 mg PO QPM 01/16/15 06/26/16 Unknown History traMADol [Ultram 50 MG tab] 50 mg PO Q8HR PRN 01/16/15 06/26/16 Unknown History ALBUTEROL Inhaler [Proair] 2 puff IH QID PRN 06/26/16 06/26/16 Unknown History Cetirizine HCl [Allergy Relief] 10 mg PO DAILY 06/26/16 06/26/16 Unknown History Citalopram [celeXA] 40 mg PO QAM 06/26/16 06/26/16 Unknown History Metaxalone [Skelaxin] 800 mg PO TID 06/26/16 06/26/16 Unknown History predniSONE [Deltasone] 20 mg PO QDAY 06/26/16 06/26/16 Unknown History Active Meds: Active Medications Acetaminophen (Tylenol) 650 mg PO Q6H PRN PRN Reason: Pain Acetaminophen (Tylenol) 650 mg ME Q6H PRN PRN Reason: Pain MILD(1-3)/Fever >100.5/CORONADO Al Hydrox/Mg Hydrox/Simethicone (Alum-Mag Hydrox-Simeth [phone]/5ml) 30 ml PO Q4H PRN PRN Reason: Indigestion Albuterol/Ipratropium (Duoneb 0.5 Mg-3 Mg/3 Ml Soln) 1 ampul IH Q6HRT [facility] Last Admin: 06/30/16 13:08 Dose: 1 ampul Lipase/Protease/Amylase (Pancreaze Dr 10,500 Unit) 1 each FEEDTUBE PRN PRN PRN Reason: For Clogged Feeding Tube Arformoterol Tartrate (Brovana Nebu) 15 mcg IH Q12HRT [facility] Last Admin: 06/30/16 08:01 Dose: 15 mcg Bisacodyl (Dulcolax) 10 mg ME QDAY PRN PRN Reason: constipation unrelieved by MOM Enoxaparin Sodium (Lovenox) 40 mg SUB-Q QDAY [facility] Last Admin: 06/30/16 09:15 Dose: 40 mg Hydrophilic Ointment (Vaseline Lip Therapy) 1 applic TP Q2HR PRN PRN Reason: Dry Lips Fentanyl Citrate (Fentanyl Drip Premix) 100 mls @ 3.856 mls/hr IV TITR KRYSTEN; 1 MCG/KG/HR PRN Reason: Protocol Last Titration: 06/30/16 01:30 Dose: 2 mcg/kg/hr Midazolam HCl (Versed/Ns 100mg/100ml) 100 mls @ 2 mls/hr IV TITR KRYSTEN; 2 MG/HR PRN Reason: Protocol Last Titration: 06/30/16 01:30 Dose: 2 mg/hr Azithromycin 500 mg/ Sodium (Chloride) 250 mls @ 250 mls/hr IV Q24H [facility] Stop: 07/02/16 15:29 Last Admin: 06/30/16 13:34 Dose: 250 mls/hr Levetiracetam (Keppra) 500 mg PO BID [facility] Last Admin: 06/30/16 09:15 Dose: 500 mg Magnesium Hydroxide (Milk Of Magnesia) 30 ml PO Q4H PRN PRN Reason: Constipation Methylprednisolone Sodium Succinate (Solu-Medrol) 60 mg IV Q8H [facility] Last Admin: 06/30/16 08:31 Dose: 60 mg Multi-Ingred Cream/Lotion/Oil/Oint (Artificial Tears Ophth Oint) 1 applic OU Q4HR PRN PRN Reason: Dry Eye(s) Ondansetron HCl (Zofran) 4 mg IV Q8H PRN PRN Reason: N/V unrelieved by Reglan Pantoprazole (Protonix) 40 mg PO DAILY [facility] Last Admin: 06/30/16 09:16 Dose: 40 mg Quetiapine Fumarate (Seroquel) 300 mg PO BID [facility] Last Admin: 06/30/16 09:15 Dose: 300 mg Simple Syrup (Simple Syrup) 15 ml FEEDTUBE PRN PRN PRN Reason: Hypoglycemia Simple Syrup (Simple Syrup) 30 ml FEEDTUBE PRN PRN PRN Reason: Hypoglycemia Sodium Bicarbonate (Sodium Bicarbonate) 325 mg FEEDTUBE PRN PRN PRN Reason: For Clogged Feeding Tube Exam - Constitutional Vitals: Temp Pulse Resp BP Pulse Ox 98.5 F 81 16 150/77 95 06/30/16 12:00 06/30/16 13:34 06/30/16 13:34 06/30/16 13:00 06/30/16 13:00 Results - Labs CBC & Chem 7: 06/29/16 04:25 06/29/16 04:25 Labs: Abnormal lab results 06/30/16 06/30/16 Range/Units 04:50 10:57 POC ABG pH 7.348 L (7.35-7.45) POC ABG pCO2 53.7 H 61.1 H (35-45) POC ABG pO2 63 L 70 L (80-105)
[2016-06-30] MEDS: NORVASC FEEDTUBE SCH (18:28)
[2016-06-30] MEDS: APRESOLINE IV PRN ×2 (18:28→22:37)
[2016-07-01] MEDS: DUONEB 0.5 MG-3 MG/3 ML SOLN IH SCH ×4 (02:21→20:10)
[2016-07-01] MEDS: BROVANA NEBU IH SCH ×2 (07:53→20:31)
[2016-07-01] MEDS: LOVENOX SUB-Q SCH (09:01)
[2016-07-01] MEDS: KEPPRA PO SCH ×2 (09:01→21:55)
[2016-07-01] MEDS: NORVASC FEEDTUBE SCH (09:02)
[2016-07-01] MEDS: PROTONIX PO SCH (09:02)
--- NOTE | 2016-07-01 09:28 | Progress Note ---
Hospitalist Physical - Constitutional Vitals: Temp Pulse Resp BP Pulse Ox 97.4 F L 92 H 14 168/91 92 07/01/16 07:47 07/01/16 09:02 07/01/16 08:10 07/01/16 09:02 07/01/16 08:30 Results - Labs CBC & Chem 7: 06/29/16 04:25 06/29/16 04:25 Labs: Laboratory Last Values WBC 15.7 K/mm3 (4.5-11.0) H 06/29/16 04:25 RBC 4.11 M/mm3 (3.65-5.03) 06/29/16 04:25 Hgb 12.7 gm/dl (10.1-14.3) 06/29/16 04:25 Hct 39.2 % (30.3-42.9) 06/29/16 04:25 MCV 96 fl (79-97) 06/29/16 04:25 MCH 31 pg (28-32) 06/29/16 04:25 MCHC 32 % (30-34) 06/29/16 04:25 RDW 15.1 % (13.2-15.2) 06/29/16 04:25 Plt Count 279 K/mm3 (140-440) 06/29/16 04:25 Add Manual Diff Complete 06/28/16 04:24 Total Counted 100 06/28/16 04:24 Seg Neuts % (Manual) 84.0 % (40.0-70.0) H 06/28/16 04:24 Band Neutrophils % 3.0 % 06/28/16 04:24 Lymphocytes % (Manual) 10.0 % (13.4-35.0) L 06/28/16 04:24 Reactive Lymphs % (Man) 0 % 06/28/16 04:24 Monocytes % (Manual) 3.0 % (0.0-7.3) 06/28/16 04:24 Eosinophils % (Manual) 0 % (0.0-4.3) 06/28/16 04:24 Basophils % (Manual) 0 % (0.0-1.8) 06/28/16 04:24 Metamyelocytes % 0 % 06/28/16 04:24 Myelocytes % 0 % 06/28/16 04:24 Promyelocytes % 0 % 06/28/16 04:24 Blast Cells % 0 % 06/28/16 04:24 Nucleated RBC % Not Reportable 06/28/16 04:24 Seg Neutrophils # Man 9.3 K/mm3 (1.8-7.7) H 06/28/16 04:24 Band Neutrophils # 0.3 K/mm3 06/28/16 04:24 Lymphocytes # (Manual) 1.1 K/mm3 (1.2-5.4) L 06/28/16 04:24 Abs React Lymphs (Man) 0.0 K/mm3 06/28/16 04:24 Monocytes # (Manual) 0.3 K/mm3 (0.0-0.8) 06/28/16 04:24 Eosinophils # (Manual) 0.0 K/mm3 (0.0-0.4) 06/28/16 04:24 Basophils # (Manual) 0.0 K/mm3 (0.0-0.1) 06/28/16 04:24 Metamyelocytes # 0.0 K/mm3 06/28/16 04:24 Myelocytes # 0.0 K/mm3 06/28/16 04:24 Promyelocytes # 0.0 K/mm3 06/28/16 04:24 Blast Cells # 0.0 K/mm3 06/28/16 04:24 WBC Morphology Not Reportable 06/28/16 04:24 Hypersegmented Neuts Not Reportable 06/28/16 04:24 Hyposegmented Neuts Not Reportable 06/28/16 04:24 Hypogranular Neuts Not Reportable 06/28/16 04:24 Smudge Cells Not Reportable 06/28/16 04:24 Toxic Granulation Not Reportable 06/28/16 04:24 Toxic Vacuolation Not Reportable 06/28/16 04:24 Dohle Bodies Not Reportable 06/28/16 04:24 Pelger-Huet Anomaly Not Reportable 06/28/16 04:24 Valente Rods Not Reportable 06/28/16 04:24 Platelet Estimate Appears normal 06/28/16 04:24 Clumped Platelets Not Reportable 06/28/16 04:24 Plt Clumps, EDTA Not Reportable 06/28/16 04:24 Large Platelets Not Reportable 06/28/16 04:24 Giant Platelets Not Reportable 06/28/16 04:24 Platelet Satelliting Not Reportable 06/28/16 04:24 Plt Morphology Comment Not Reportable 06/28/16 04:24 RBC Morphology Not Reportable 06/28/16 04:24 Dimorphic RBCs Not Reportable 06/28/16 04:24 Polychromasia Not Reportable 06/28/16 04:24 Hypochromasia Not Reportable 06/28/16 04:24 Poikilocytosis Not Reportable 06/28/16 04:24 Anisocytosis Few 06/28/16 04:24 Microcytosis Not Reportable 06/28/16 04:24 Macrocytosis Not Reportable 06/28/16 04:24 Spherocytes Not Reportable 06/28/16 04:24 Pappenheimer Bodies Not Reportable 06/28/16 04:24 Sickle Cells Not Reportable 06/28/16 04:24 Target Cells Not Reportable 06/28/16 04:24 Tear Drop Cells Not Reportable 06/28/16 04:24 Ovalocytes Not Reportable 06/28/16 04:24 Stomatocytes Few 06/28/16 04:24 Helmet Cells Not Reportable 06/28/16 04:24 [place] Bodies Not Reportable 06/28/16 04:24 [place] Rings Not Reportable 06/28/16 04:24 Odell Cells Not Reportable 06/28/16 04:24 Bite Cells Not Reportable 06/28/16 04:24 Crenated Cell Not Reportable 06/28/16 04:24 Elliptocytes Not Reportable 06/28/16 04:24 Acanthocytes (Spur) Not Reportable 06/28/16 04:24 Rouleaux Not Reportable 06/28/16 04:24 Hemoglobin C Crystals Not Reportable 06/28/16 04:24 Schistocytes Not Reportable 06/28/16 04:24 Malaria parasites Not Reportable 06/28/16 04:24 Adithya Bodies Not Reportable 06/28/16 04:24 Hem Pathologist Commnt No 06/28/16 04:24 PT 11.8 Sec. (12.2-14.9) L 06/26/16 21:37 INR 0.88 (0.87-1.13) 06/26/16 21:37 APTT 23.3 Sec. (24.2-36.6) L 06/26/16 21:37 POC ABG pH 7.348 (7.35-7.45) L 06/30/16 10:57 POC ABG pCO2 61.1 (35-45) H 06/30/16 10:57 POC ABG pO2 70 (80-105) L 06/30/16 10:57 POC ABG HCO3 33.6 06/30/16 10:57 POC ABG Total CO2 35 06/30/16 10:57 POC ABG O2 Sat 92 06/30/16 10:57 POC ABG Base Excess 8 06/30/16 10:57 FiO2 40 % 06/30/16 10:57 Sodium 138 mmol/L (137-145) 06/29/16 04:25 Potassium 4.5 mmol/L (3.6-5.0) 06/29/16 04:25 Chloride 93.1 mmol/L (98-107) L 06/29/16 04:25 Carbon Dioxide 35 mmol/L (22-30) H 06/29/16 04:25 Anion Gap 14 mmol/L 06/29/16 04:25 BUN 20 mg/dL (7-17) H 06/29/16 04:25 Creatinine 0.8 mg/dL (0.7-1.2) 06/29/16 04:25 Estimated GFR > 60 ml/min 06/29/16 04:25 BUN/Creatinine Ratio 25.00 % 06/29/16 04:25 Glucose 137 mg/dL (65-100) H 06/29/16 04:25 POC Glucose 181 (70-105) H 06/29/16 13:36 Calcium 8.8 mg/dL (8.4-10.2) 06/29/16 04:25 Phosphorus 2.7 mg/dL (2.5-4.5) 06/27/16 16:27 Magnesium 2.0 mg/dL (1.7-2.3) 06/27/16 16:27 Total Bilirubin 0.2 mg/dL (0.1-1.2) 06/26/16 22:27 AST 35 units/L (5-40) 06/26/16 22:27 ALT 32 units/L (7-56) 06/26/16 22:27 Alkaline Phosphatase 79 units/L (35-129) 06/26/16 22:27 Ammonia 46.0 umol/L (25-60) 06/28/16 09:18 Total Creatine Kinase 70 units/L (30-135) 06/27/16 06:02 CK-MB (CK-2) 3.5 ng/mL (0.0-4.0) 06/27/16 06:02 CK-MB (CK-2) Rel Index 5.0 (0-4) H 06/27/16 06:02 Troponin T < 0.010 ng/mL (0.00-0.029) 06/27/16 06:02 C-Reactive Protein 2.20 mg/dL (0.00-1.30) H 06/27/16 16:27 NT-Pro-B Natriuret Pep 3923 pg/mL (0-900) H 06/26/16 22:27 Total Protein 6.8 g/dL (6.3-8.2) 06/26/16 22:27 Albumin 3.3 g/dL (3.9-5) L 06/26/16 22:27 Albumin/Globulin Ratio 0.9 % 06/26/16 22:27 Urine Color Yellow (Yellow) 06/26/16 22:13 Urine Turbidity Slightly-cloudy (Clear) 06/26/16 22:13 Urine pH 5.0 (5.0-7.0) 06/26/16 22:13 Ur Specific [place] 1.020 (1.003-1.030) 06/26/16 22:13 Urine Protein 100 mg/dl mg/dL (Negative) 06/26/16 22:13 Urine Glucose (UA) Neg mg/dL (Negative) 06/26/16 22:13 Urine Ketones Neg mg/dL (Negative) 06/26/16 22:13 Urine Blood Neg (Negative) 06/26/16 22:13 Urine Nitrite Neg (Negative) 06/26/16 22:13 Urine Bilirubin Neg (Negative) 06/26/16 22:13 Urine Urobilinogen < 2.0 mg/dL (<2.0) 06/26/16 22:13 Ur Leukocyte Esterase Neg (Negative) 06/26/16 22:13 Urine WBC (Auto) 2.0 /HPF (0.0-6.0) 06/26/16 22:13 Urine RBC (Auto) 1.0 /HPF (0.0-6.0) 06/26/16 22:13 U Epithel Cells (Auto) 1.0 /HPF (0-13.0) 06/26/16 22:13 Urine Bacteria (Auto) 4+ /HPF (Negative) 06/26/16 22:13 Hyaline Casts 2 /LPF 06/26/16 22:13 Urine Mucus Few /HPF 06/26/16 22:13
--- NOTE | 2016-07-01 13:23 | Progress Note ---
Assessment and Plan - Patient Problems (1) Altered mental status Current Visit: No Status: Acute Plan to address problem: - neurology consult noted - CT head report pending - continue antiepileptic meds - follow clinically - appears had baseline neurologic deficit - clinically improve today and following commands appropriately - looks even better today (2) Acute hypoxemic respiratory failure Current Visit: Yes Status: Acute Plan to address problem: - systemic steroid taper - continue ALISIA, LABA - wean oxygen to keep O2 Sats > 92% (3) Acute exacerbation of chronic obstructive pulmonary disease (COPD) Current Visit: Yes Status: Acute Plan to address problem: - as above - continue systemic steroids and taper shortly - complete empiric AB's course (4) Seizure disorder Current Visit: Yes Status: Acute Plan to address problem: - continue keppra / AED's - follow EEG - resumed pertinent home meds and wean sedation - no active seizures clinically - follow neurology recs (5) Discharge planning issues Current Visit: Yes Status: Acute Plan to address problem: - per attending - will begin steroid taper Subjective Date of service: 07/01/16 Principal diagnosis: Acute Hypoxemic Respiratory Failure; Seizure disorder Interval history: Seen and examined at bedside; 24 hour events reviewed; nursing and respiratory care staff consulted; no adverse overnight events reported to me; doing very well; denies acute chest pains or increased SOB Objective Vital Signs - 12hr 07/01/16 07/01/16 07/01/16 01:30 02:00 02:23 Temperature Pulse Rate 104 H 96 H Pulse Rate [ 106 H Bilateral] Pulse Rate [ From Monitor] Pulse Rate [ Left Radial] Respiratory 16 15 Rate Respiratory 19 Rate [Bilateral ] Blood Pressure 132/60 120/60 Blood Pressure [Right Arm] O2 Sat by Pulse 90 92 Oximetry 07/01/16 07/01/16 07/01/16 02:30 02:34 03:00 Temperature Pulse Rate 94 H 92 H Pulse Rate [ 99 H Bilateral] Pulse Rate [ From Monitor] Pulse Rate [ Left Radial] Respiratory 17 14 Rate Respiratory 16 Rate [Bilateral ] Blood Pressure 136/71 143/68 Blood Pressure [Right Arm] O2 Sat by Pulse 90 92 Oximetry 07/01/16 07/01/16 07/01/16 03:31 04:00 04:30 Temperature 98.3 F Pulse Rate 97 H 91 H 91 H Pulse Rate [ Bilateral] Pulse Rate [ From Monitor] Pulse Rate [ Left Radial] Respiratory 17 14 20 Rate Respiratory Rate [Bilateral ] Blood Pressure 126/63 128/71 152/74 Blood Pressure [Right Arm] O2 Sat by Pulse 91 92 91 Oximetry 07/01/16 07/01/16 07/01/16 04:37 05:01 05:30 Temperature Pulse Rate 92 H 81 78 Pulse Rate [ Bilateral] Pulse Rate [ From Monitor] Pulse Rate [ Left Radial] Respiratory 17 15 14 Rate Respiratory Rate [Bilateral ] Blood Pressure 152/74 150/78 158/83 Blood Pressure [Right Arm] O2 Sat by Pulse 91 92 93 Oximetry 07/01/16 07/01/16 07/01/16 06:00 06:30 07:00 Temperature Pulse Rate 90 83 84 Pulse Rate [ Bilateral] Pulse Rate [ From Monitor] Pulse Rate [ Left Radial] Respiratory 15 15 14 Rate Respiratory Rate [Bilateral ] Blood Pressure 173/92 159/78 165/90 Blood Pressure [Right Arm] O2 Sat by Pulse 92 92 92 Oximetry 07/01/16 07/01/16 07/01/16 07:05 07:30 07:47 Temperature 97.4 F L Pulse Rate 89 83 Pulse Rate [ Bilateral] Pulse Rate [ From Monitor] Pulse Rate [ Left Radial] Respiratory 20 14 Rate Respiratory Rate [Bilateral ] Blood Pressure 165/90 179/83 Blood Pressure [Right Arm] O2 Sat by Pulse 92 92 Oximetry 07/01/16 07/01/16 07/01/16 07:53 08:00 08:10 Temperature Pulse Rate 87 Pulse Rate [ 87 89 Bilateral] Pulse Rate [ 83 From Monitor] Pulse Rate [ Left Radial] Respiratory 15 Rate Respiratory 14 14 Rate [Bilateral ] Blood Pressure 183/75 Blood Pressure [Right Arm] O2 Sat by Pulse 92 Oximetry 07/01/16 07/01/16 07/01/16 08:11 08:30 09:00 Temperature Pulse Rate 95 H 91 H 82 Pulse Rate [ Bilateral] Pulse Rate [ From Monitor] Pulse Rate [ Left Radial] Respiratory 17 20 16 Rate Respiratory Rate [Bilateral ] Blood Pressure 183/75 168/91 177/89 Blood Pressure [Right Arm] O2 Sat by Pulse 91 90 90 Oximetry 07/01/16 07/01/16 07/01/16 09:02 09:12 09:30 Temperature Pulse Rate 92 H 90 96 H Pulse Rate [ Bilateral] Pulse Rate [ From Monitor] Pulse Rate [ Left Radial] Respiratory 16 16 Rate Respiratory Rate [Bilateral ] Blood Pressure 168/91 168/91 177/89 Blood Pressure [Right Arm] O2 Sat by Pulse 93 92 Oximetry 07/01/16 07/01/16 07/01/16 09:31 10:00 10:27 Temperature Pulse Rate 94 H 89 89 Pulse Rate [ Bilateral] Pulse Rate [ From Monitor] Pulse Rate [ Left Radial] Respiratory 15 15 13 Rate Respiratory Rate [Bilateral ] Blood Pressure 129/62 126/69 126/69 Blood Pressure [Right Arm] O2 Sat by Pulse 91 91 92 Oximetry 07/01/16 07/01/16 07/01/16 10:29 10:30 11:00 Temperature Pulse Rate 88 89 92 H Pulse Rate [ Bilateral] Pulse Rate [ From Monitor] Pulse Rate [ Left Radial] Respiratory 13 16 17 Rate Respiratory Rate [Bilateral ] Blood Pressure 126/69 142/79 143/84 Blood Pressure [Right Arm] O2 Sat by Pulse 93 92 91 Oximetry 07/01/16 07/01/16 11:30 12:14 Temperature 97.4 F L Pulse Rate 92 H Pulse Rate [ Bilateral] Pulse Rate [ From Monitor] Pulse Rate [ 90 Left Radial] Respiratory 17 22 Rate Respiratory Rate [Bilateral ] Blood Pressure 150/81 Blood Pressure 155/82 [Right Arm] O2 Sat by Pulse 92 97 Oximetry Constitutional: no acute distress, alert Eyes: non-icteric ENT: oropharynx moist Neck: supple, no lymphadenopathy Effort: mildly labored Ascultation: Bilateral: diminished breath sounds, rhonchi (scant) Cardiovascular: regular rate and rhythm Gastrointestinal: normoactive bowel sounds, soft, non-tender, non-distended Integumentary: normal Extremities: no cyanosis, no edema, pink and warm, pulses normal Neurologic: normal mental status, non-focal exam, pupils equal and round, motor strength normal and Psychiatric: mood appropriate, affect normal CBC and BMP: 06/29/16 04:25 06/29/16 04:25 ABG, PT/INR, D-dimer: ABG POC ABG pH 7.348 (7.35-7.45) L 06/30/16 10:57 POC ABG pCO2 61.1 (35-45) H 06/30/16 10:57 POC ABG pO2 70 (80-105) L 06/30/16 10:57 POC ABG HCO3 33.6 06/30/16 10:57 POC ABG Total CO2 35 06/30/16 10:57 POC ABG O2 Sat 92 06/30/16 10:57 PT/INR, D-dimer PT 11.8 Sec. (12.2-14.9) L 06/26/16 21:37 INR 0.88 (0.87-1.13) 06/26/16 21:37 Abnormal lab findings: Abnormal Labs 06/27/16 06/27/16 06/27/16 02:57 06:02 11:49 WBC Seg Neuts % (Manual) Lymphocytes % (Manual) Seg Neutrophils # Man Lymphocytes # (Manual) POC ABG pH POC ABG pCO2 51.4 H POC ABG pO2 66 L Chloride Carbon Dioxide BUN Glucose POC Glucose 119 H Ammonia CK-MB (CK-2) Rel Index 5.0 H C-Reactive Protein 06/27/16 06/27/16 06/27/16 16:27 16:27 16:36 WBC Seg Neuts % (Manual) Lymphocytes % (Manual) Seg Neutrophils # Man Lymphocytes # (Manual) POC ABG pH POC ABG pCO2 POC ABG pO2 Chloride Carbon Dioxide BUN Glucose POC Glucose 168 H Ammonia 184.0 H CK-MB (CK-2) Rel Index C-Reactive Protein 2.20 H 06/28/16 06/28/16 06/28/16 04:24 04:24 04:40 WBC 11.1 H Seg Neuts % (Manual) 84.0 H Lymphocytes % (Manual) 10.0 L Seg Neutrophils # Man 9.3 H Lymphocytes # (Manual) 1.1 L POC ABG pH 7.556 H POC ABG pCO2 POC ABG pO2 77 L Chloride 93.2 L Carbon Dioxide 34 H BUN 21 H Glucose 167 H POC Glucose Ammonia CK-MB (CK-2) Rel Index C-Reactive Protein 06/29/16 06/29/16 06/29/16 04:25 04:25 06:00 WBC 15.7 H Seg Neuts % (Manual) Lymphocytes % (Manual) Seg Neutrophils # Man Lymphocytes # (Manual) POC ABG pH 7.343 L POC ABG pCO2 68.4 H POC ABG pO2 79 L Chloride 93.1 L Carbon Dioxide 35 H BUN 20 H Glucose 137 H POC Glucose Ammonia CK-MB (CK-2) Rel Index C-Reactive Protein 06/29/16 06/30/16 06/30/16 13:36 04:50 10:57 WBC Seg Neuts % (Manual) Lymphocytes % (Manual) Seg Neutrophils # Man Lymphocytes # (Manual) POC ABG pH 7.348 L POC ABG pCO2 53.7 H 61.1 H POC ABG pO2 63 L 70 L Chloride Carbon Dioxide BUN Glucose POC Glucose 181 H Ammonia CK-MB (CK-2) Rel Index C-Reactive Protein
[2016-07-01] MEDS: ZITHROMAX 500 MG in NACL 0.9% 250ML 250 ML IV SCH (16:27)
[2016-07-01] MEDS: APRESOLINE IV PRN (21:54)
[2016-07-02] MEDS: DUONEB 0.5 MG-3 MG/3 ML SOLN IH SCH ×2 (02:16→07:42)
[2016-07-02] MEDS: BROVANA NEBU IH SCH (07:42)
[2016-07-02] MEDS: LOVENOX SUB-Q SCH (09:35)
[2016-07-02] MEDS: KEPPRA PO SCH (09:35)
[2016-07-02] MEDS: PROTONIX PO SCH (09:41)
[2016-07-02] MEDS: NORVASC FEEDTUBE SCH (09:42)
[2016-07-02 10:34] VITALS: BP 138/83
--- NOTE | 2016-07-02 11:45 | Progress Note ---
Assessment and Plan - Patient Problems (1) Altered mental status Current Visit: No Status: Acute (2) Acute hypoxemic respiratory failure Current Visit: Yes Status: Acute (3) Acute exacerbation of chronic obstructive pulmonary disease (COPD) Current Visit: Yes Status: Acute (4) Seizure disorder Current Visit: Yes Status: Acute (5) Discharge planning issues Current Visit: Yes Status: Acute Subjective Date of service: 07/02/16 Principal diagnosis: Acute Hypoxemic Respiratory Failure; Seizure disorder Interval history: Seen and examined at bedside; 24 hour events reviewed; nursing and respiratory care staff consulted; no adverse overnight events reported to me; Objective Vital Signs - 12hr 07/02/16 07/02/16 07/02/16 01:39 01:40 02:03 Temperature 98.5 F Pulse Rate 88 93 H Pulse Rate [ Bilateral] Pulse Rate [ 110 H Left Radial] Respiratory 20 20 Rate Respiratory Rate [Bilateral ] Blood Pressure Blood Pressure 160/69 [Right Arm] O2 Sat by Pulse 97 93 Oximetry 07/02/16 07/02/16 07/02/16 02:16 02:31 06:24 Temperature 97.5 F L Pulse Rate Pulse Rate [ 93 H 94 H Bilateral] Pulse Rate [ 91 H Left Radial] Respiratory 20 Rate Respiratory 20 20 Rate [Bilateral ] Blood Pressure Blood Pressure 137/86 [Right Arm] O2 Sat by Pulse 95 Oximetry 07/02/16 07/02/16 07/02/16 07:42 07:43 08:44 Temperature Pulse Rate Pulse Rate [ 91 H 91 H Bilateral] Pulse Rate [ 91 H Left Radial] Respiratory 18 Rate Respiratory 17 18 Rate [Bilateral ] Blood Pressure Blood Pressure [Right Arm] O2 Sat by Pulse 95 Oximetry 07/02/16 07/02/16 09:42 10:32 Temperature 98.1 F Pulse Rate Pulse Rate [ Bilateral] Pulse Rate [ 89 Left Radial] Respiratory 18 Rate Respiratory Rate [Bilateral ] Blood Pressure 137/86 Blood Pressure 138/83 [Right Arm] O2 Sat by Pulse 92 Oximetry Constitutional: no acute distress, other (sedated) Eyes: non-icteric ENT: oropharynx moist Neck: supple, no lymphadenopathy Effort: mildly labored Ascultation: Bilateral: diminished breath sounds, rhonchi Cardiovascular: regular rate and rhythm Gastrointestinal: normoactive bowel sounds, soft, non-tender, non-distended Integumentary: normal Extremities: no cyanosis, no edema, pink and warm, pulses normal Neurologic: unable to assess, other (sedate) Psychiatric: other (unable to assess) CBC and BMP: 06/29/16 04:25 06/29/16 04:25 ABG, PT/INR, D-dimer: ABG POC ABG pH 7.348 (7.35-7.45) L 06/30/16 10:57 POC ABG pCO2 61.1 (35-45) H 06/30/16 10:57 POC ABG pO2 70 (80-105) L 06/30/16 10:57 POC ABG HCO3 33.6 06/30/16 10:57 POC ABG Total CO2 35 06/30/16 10:57 POC ABG O2 Sat 92 06/30/16 10:57 PT/INR, D-dimer PT 11.8 Sec. (12.2-14.9) L 06/26/16 21:37 INR 0.88 (0.87-1.13) 06/26/16 21:37 Abnormal lab findings: Abnormal Labs 06/27/16 06/27/16 06/27/16 02:57 06:02 11:49 WBC Seg Neuts % (Manual) Lymphocytes % (Manual) Seg Neutrophils # Man Lymphocytes # (Manual) POC ABG pH POC ABG pCO2 51.4 H POC ABG pO2 66 L Chloride Carbon Dioxide BUN Glucose POC Glucose 119 H Ammonia CK-MB (CK-2) Rel Index 5.0 H C-Reactive Protein 06/27/16 06/27/16 06/27/16 16:27 16:27 16:36 WBC Seg Neuts % (Manual) Lymphocytes % (Manual) Seg Neutrophils # Man Lymphocytes # (Manual) POC ABG pH POC ABG pCO2 POC ABG pO2 Chloride Carbon Dioxide BUN Glucose POC Glucose 168 H Ammonia 184.0 H CK-MB (CK-2) Rel Index C-Reactive Protein 2.20 H 06/28/16 06/28/16 06/28/16 04:24 04:24 04:40 WBC 11.1 H Seg Neuts % (Manual) 84.0 H Lymphocytes % (Manual) 10.0 L Seg Neutrophils # Man 9.3 H Lymphocytes # (Manual) 1.1 L POC ABG pH 7.556 H POC ABG pCO2 POC ABG pO2 77 L Chloride 93.2 L Carbon Dioxide 34 H BUN 21 H Glucose 167 H POC Glucose Ammonia CK-MB (CK-2) Rel Index C-Reactive Protein 06/29/16 06/29/16 06/29/16 04:25 04:25 06:00 WBC 15.7 H Seg Neuts % (Manual) Lymphocytes % (Manual) Seg Neutrophils # Man Lymphocytes # (Manual) POC ABG pH 7.343 L POC ABG pCO2 68.4 H POC ABG pO2 79 L Chloride 93.1 L Carbon Dioxide 35 H BUN 20 H Glucose 137 H POC Glucose Ammonia CK-MB (CK-2) Rel Index C-Reactive Protein 06/29/16 06/30/16 06/30/16 13:36 04:50 10:57 WBC Seg Neuts % (Manual) Lymphocytes % (Manual) Seg Neutrophils # Man Lymphocytes # (Manual) POC ABG pH 7.348 L POC ABG pCO2 53.7 H 61.1 H POC ABG pO2 63 L 70 L Chloride Carbon Dioxide BUN Glucose POC Glucose 181 H Ammonia CK-MB (CK-2) Rel Index C-Reactive Protein
--- NOTE | 2016-07-02 12:25 | Discharge Summary ---
Providers - Providers Date of Admission: 06/27/16 02:20 Date of discharge: 07/02/16 Attending physician: VIVEK ROBIN 06/27/16 15:14 Consult to Dietitian/Nutrition [CONS] Routine Physician Instructions: Reason For Exam: Reason for Consult: Write/Manage Tube Feeding 06/28/16 15:24 Consult to Physician [CONS] Routine Consulting Provider: SOY DAILEY Reason For Exam: seizures Place consult to:: Dr. Dailey Notified:: yes Phone number called:: [phone] Was contact made?: Yes If yes, spoke with:: precious Time called:: 15:30 Primary care physician: [employer] Hospitalization Condition: Good Disposition: DISCHARGED TO HOME OR SELFCARE - Discharge Diagnoses (1) Acute exacerbation of chronic obstructive pulmonary disease (COPD) Status: Acute (2) Acute and chronic respiratory failure Status: Acute (3) Seizure disorder Status: Chronic (4) HTN (hypertension) Status: Chronic Core Measure Documentation - Palliative Care Palliative Care/ Comfort Measures: Not Applicable - Core Measures Any of the following diagnoses?: none Exam - Constitutional Vitals: Temp Pulse Resp BP Pulse Ox 98.1 F 89 18 138/83 92 07/02/16 10:32 07/02/16 10:32 07/02/16 10:32 07/02/16 10:32 07/02/16 10:32 Plan Activity: no driving until cleared by PCP Diet: low fat, low cholesterol, low salt Additional Instructions: 1.Follow up with PCP or [facility] in 1 week. 2.Follow up with Dr. Martinez in 1 week. 3.Follow up with Dr. Dailey in 1 week. 4.No driving until cleared by Physician. Follow up with: [facility] [Provider Group] - 7 Days PRIMARY CARE, [Primary Care Provider] - 3-5 Days Prescriptions: Famotidine [Pepcid] 20 mg PO BID #60 tablet Prednisone [predniSONE 5 mg (6-Day Pack, 21 Tabs)] 5 mg PO .TAPER #1 tab.ds.pk levETIRAcetam [Keppra TAB] 500 mg PO BID #60 tablet
[2016-07-27] MEDS ORDERED: QUELICIN ONE (21:25)
[2016-07-27] MEDS ORDERED: VERSED IV ONE (21:25)
== END 2016-07-02 15:01 | disposition home or self-care (01) | DRG 208 ==
LOC: ED 21:24 → CC1 06-27 02:20 → UNDODISIN 06-27 03:55 → CC1 06-27 08:01 → 4A 07-01 12:02
PROVIDERS: ADMIT Internal Medicine; ATTEND Internal Medicine
PROC: 0BH17EZ Insertion of Endotracheal Airway into Trachea, Via Natural or Artificial Opening (ICD-10-PCS; principal; 2016-06-26)
PROC: 5A1945Z Respiratory Ventilation, 24-96 Consecutive Hours (ICD-10-PCS; 2016-06-26)
DX: J96.22 Acute and chronic respiratory failure with hypercapnia (principal); J44.1 Chronic obstructive pulmonary disease with (acute) exacerbation; I10 Essential (primary) hypertension; E72.20 Disorder of urea cycle metabolism, unspecified; J45.909 Unspecified asthma, uncomplicated; J96.21 Acute and chronic respiratory failure with hypoxia; G40.909 Epilepsy, unspecified, not intractable, without status epilepticus; F17.210 Nicotine dependence, cigarettes, uncomplicated; Z79.899 Other long term (current) drug therapy; Z82.49 Family history of ischemic heart disease and other diseases of the circulatory system; Z91.013 Allergy to seafood; Z91.030 Bee allergy status; Z86.73 Personal history of transient ischemic attack (TIA), and cerebral infarction without residual deficits; Z99.81 Dependence on supplemental oxygen
CPT/HCPCS: 36415; 36600; 70450; 71010; 74000; 80048; 80053; 81001; 82140; 82550; 82553; 82803; 82962; 83735; 83880; 84100; 84484; 85007; 85025; 85027; 85610; 85730; 86140; 87070; 87205; 93005; 93010; 94003; 94640; 94760; 95819; 96361; 96365; 96367; 96368; 96375; 99291; C9113; J0330; J0360; J0456; J0696; J1650; J1953; J2250; J2405; J2930; J3010; J3246; J7030; J7050

== ENCOUNTER 2016-08-16 16:10 | Inpatient (IN) | payer MEDICAID ==
[2016-08-16 18:59] LABS: ISTAT Base Excess 2; ISTAT DEVICE 0; ISTAT HCO3 26.4; ISTAT PH 7.417 (7.35-7.45); ISTAT PO2 46 (80-105); ISTAT SO2 82; ISTAT TCO2 28
[2016-08-16] MEDS ORDERED: PROVENTIL IH ONE (19:26)
[2016-08-16] MEDS ORDERED: ATROVENT IH ONE (19:26)
[2016-08-16 19:47] LABS: Alanine Aminotransferase 211 units/L (7-56); Alkaline Phosphatase 121 units/L (35-129); Anion Gap 28 mmol/L; Bilirubin,Total 0.7 mg/dL (0.1-1.2); Blood Urea Nitrogen 22 mg/dL (7-17); Calcium 9.7 mg/dL (8.4-10.2); Carbon Dioxide 26 mmol/L (22-30); Chloride 86.7 mmol/L (98-107); Glucose 110 mg/dL (65-100); Magnesium 1.8 mg/dL (1.7-2.3); Potassium 4.4 mmol/L (3.6-5.0); Sodium 136 mmol/L (137-145); Total Protein 8.2 g/dL (6.3-8.2)
[2016-08-16 19:51] LABS: Basophils % (Auto) 0.4 % (0.0-1.8); Hematocrit 45.1 % (30.3-42.9); Hemoglobin 14.8 gm/dl (10.1-14.3); Mean Corpuscular HGB Conc 33 % (30-34); Mean Corpuscular Hemoglobin 32 pg (28-32); Mean Corpuscular Volume 98 fl (79-97); Platelet Count 338 K/mm3 (140-440); Red Blood Count 4.58 M/mm3 (3.65-5.03); Red Cell Distribution Width 14.1 % (13.2-15.2); White Blood Count 18.1 K/mm3 (4.5-11.0)
--- NOTE | 2016-08-16 20:37 | Emergency Department Report ---
ED Altered Mental Status HPI - General Chief Complaint: Altered Mental Status Stated Complaint: AMS Time Seen by Provider: 08/16/16 19:19 Source: EMS Mode of arrival: Stretcher Limitations: Other - History of Present Illness Initial Comments: 56-year-old female with a past medical history of COPD with home oxygen use and other medical problems presents to Hospital complaints of altered mental status. Family friend states that she would not keep her oxygen off. Patient presents covered in urine and feces. Positive history of previous intubations. Patient is relatively nonverbal and occasionally with a well but does not answer questions or reliably follow commands. No pain reported. ABG was done upon initial presentation and did not reveal any CO2 retention. No further history of present illness available at this time. No family members at the bedside. - Related Data Home Medications Medication Instructions Recorded Confirmed Last Taken Budesoni/Formoterol 80-4.5(Nf) 2 puff IH BID 01/16/15 06/26/16 Unknown [Symbicort 80-4.5 (Nf)] Combivent Respimat 1 inhalation INHALATION PRN 01/16/15 06/26/16 Unknown Gabapentin 400 mg PO QID 01/16/15 06/26/16 Unknown Quetiapine Fumarate [QUEtiapine 300 mg PO QPM 01/16/15 06/26/16 Unknown Fumarate] Spironolactone [Aldactone] 25 mg PO DAILY 01/16/15 06/26/16 Unknown Trazodone HCl [traZODone] 100 mg PO QPM 01/16/15 06/26/16 Unknown traMADol [Ultram 50 MG tab] 50 mg PO Q8HR PRN 01/16/15 06/26/16 Unknown ALBUTEROL Inhaler [ProAir HFA 2 puff IH QID PRN 06/26/16 06/26/16 Unknown Inhaler] Cetirizine HCl [Allergy Relief] 10 mg PO DAILY 06/26/16 06/26/16 Unknown Previous Rx's Medication Instructions Recorded Last Taken Type Prednisone [predniSONE 5 mg (6-Day 5 mg PO .TAPER #1 tab.ds.pk 07/02/16 Unknown Rx Pack, 21 Tabs)] Cefuroxime Axetil [Ceftin] 500 mg PO Q12H #14 tablet 08/05/16 Unknown Rx Citalopram [Celexa] 40 mg PO QAM #30 tablet 08/05/16 Unknown Rx Famotidine [Pepcid] 20 mg PO BID #60 tablet 08/05/16 Unknown Rx Metaxalone [Skelaxin] 800 mg PO TID #90 tablet 08/05/16 Unknown Rx lamoTRIgine [LaMICtal] 100 mg PO QPM #30 tablet 08/05/16 Unknown Rx levETIRAcetam [Keppra TAB] 500 mg PO BID #60 tablet 08/05/16 Unknown Rx oxyCODONE /ACETAMINOPHEN [Percocet 1 tab PO Q4HR #15 tab 08/05/16 Unknown Rx 5/325] Allergies Allergy/AdvReac Type Severity Reaction Status Date / Time bee venom (honey bee) Allergy Severe FILLS HER Unverified 09/19/15 08:35 LUNGS UP WITH WATER/ CLOSES UP THROAT/NAUSEA shellfish derived Allergy Severe CLOG UP PT Unverified 09/19/15 08:35 THROAT/ ITCHING ALL OVER ED Review of Systems ROS: Stated complaint: AMS Other details as noted in HPI Comment: Unobtainable due to pts medical conditions (nonverbal, altered) ED Past Medical Hx - Past Medical History Previous Medical History?: Yes Hx Hypertension: Yes Hx Congestive Heart Failure: Yes Hx Seizures: Yes Hx Asthma: Yes Hx COPD: Yes (Uses O2 at home) Additional medical history: emphysema. hepatic encephalopathy - Surgical History Past Surgical History?: No Additional Surgical History: FLORENCIO - Social History Smoking Status: Current Every Day Smoker - Medications Home Medications: Home Medications Medication Instructions Recorded Confirmed Last Taken Type Budesoni/Formoterol 80-4.5(Nf) 2 puff IH BID 01/16/15 06/26/16 Unknown History [Symbicort 80-4.5 (Nf)] Combivent Respimat 1 inhalation INHALATION PRN 01/16/15 06/26/16 Unknown History Gabapentin 400 mg PO QID 01/16/15 06/26/16 Unknown History Quetiapine Fumarate [QUEtiapine 300 mg PO QPM 01/16/15 06/26/16 Unknown History Fumarate] Spironolactone [Aldactone] 25 mg PO DAILY 01/16/15 06/26/16 Unknown History Trazodone HCl [traZODone] 100 mg PO QPM 01/16/15 06/26/16 Unknown History traMADol [Ultram 50 MG tab] 50 mg PO Q8HR PRN 01/16/15 06/26/16 Unknown History ALBUTEROL Inhaler [ProAir HFA 2 puff IH QID PRN 06/26/16 06/26/16 Unknown History Inhaler] Cetirizine HCl [Allergy Relief] 10 mg PO DAILY 06/26/16 06/26/16 Unknown History Prednisone [predniSONE 5 mg (6-Day 5 mg PO .TAPER #1 tab.ds.pk 07/02/16 Unknown Rx Pack, 21 Tabs)] Cefuroxime Axetil [Ceftin] 500 mg PO Q12H #14 tablet 08/05/16 Unknown Rx Citalopram [Celexa] 40 mg PO QAM #30 tablet 08/05/16 Unknown Rx Famotidine [Pepcid] 20 mg PO BID #60 tablet 08/05/16 Unknown Rx Metaxalone [Skelaxin] 800 mg PO TID #90 tablet 08/05/16 Unknown Rx lamoTRIgine [LaMICtal] 100 mg PO QPM #30 tablet 08/05/16 Unknown Rx levETIRAcetam [Keppra TAB] 500 mg PO BID #60 tablet 08/05/16 Unknown Rx oxyCODONE /ACETAMINOPHEN [Percocet 1 tab PO Q4HR #15 tab 08/05/16 Unknown Rx 5/325] ED Physical Exam - General Limitations: Other - Other Other exam information: General: No limitations, patient is alert in no acute distress Head exam: Atraumatic, normocephalic Eyes exam: Normal appearance, pupils equal reactive to light, extraocular movements intact ENT: Moist mucous membrane, normal oropharynx Neck exam: Normal inspection, full range of motion, no meningismus nontender Respiratory exam: Expiratory wheezing, no tachypnea or accessory muscle use Cardiovascular: Normal rate and rhythm Abdomen: Soft, nondistended, and nontender, with normal bowel sounds, no rebound, or guarding Extremity: Full range of motion normal inspection no deformity Back: Normal Inspection, full range of motion, no tenderness Neurologic: Alert, minimal verbal response. Would not speak or answer questions. 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 and will follow some basic command Psychiatric: normal affect, normal mood Skin: Warm, dry, intact ED Course Vital Signs 08/16/16 08/16/16 08/16/16 18:21 18:43 19:20 Temperature 99.0 F Pulse Rate 84 78 Pulse Rate [ Anterior Bilateral Middle Lobe] Respiratory 24 22 18 Rate Respiratory Rate [Anterior Bilateral Middle Lobe] Blood Pressure Blood Pressure 182/98 [Right] O2 Sat by Pulse 84 90 95 Oximetry 08/16/16 08/16/16 08/16/16 19:31 19:41 19:42 Temperature Pulse Rate 97 H 98 H Pulse Rate [ 94 H Anterior Bilateral Middle Lobe] Respiratory 26 H 27 H Rate Respiratory 20 Rate [Anterior Bilateral Middle Lobe] Blood Pressure 163/94 Blood Pressure [Right] O2 Sat by Pulse 98 97 Oximetry 08/16/16 08/16/16 08/16/16 19:51 20:01 20:11 Temperature Pulse Rate Pulse Rate [ Anterior Bilateral Middle Lobe] Respiratory Rate Respiratory Rate [Anterior Bilateral Middle Lobe] Blood Pressure 163/94 175/98 175/98 Blood Pressure [Right] O2 Sat by Pulse 94 98 92 Oximetry 08/16/16 08/16/16 08/16/16 20:21 20:30 20:41 Temperature Pulse Rate Pulse Rate [ 95 H Anterior Bilateral Middle Lobe] Respiratory Rate Respiratory 20 Rate [Anterior Bilateral Middle Lobe] Blood Pressure 168/74 199/112 199/112 Blood Pressure [Right] O2 Sat by Pulse 100 96 99 Oximetry 08/16/16 08/16/16 08/16/16 20:51 20:53 21:42 Temperature Pulse Rate Pulse Rate [ Anterior Bilateral Middle Lobe] Respiratory 20 Rate Respiratory Rate [Anterior Bilateral Middle Lobe] Blood Pressure 199/112 200/108 Blood Pressure [Right] O2 Sat by Pulse 97 95 Oximetry 08/16/16 08/16/16 21:51 22:05 Temperature 98.6 F Pulse Rate 101 H Pulse Rate [ Anterior Bilateral Middle Lobe] Respiratory 16 Rate Respiratory Rate [Anterior Bilateral Middle Lobe] Blood Pressure 189/118 Blood Pressure [Right] O2 Sat by Pulse 95 Oximetry - Reevaluation(s) Reevaluation #1: 08/16/16 22:22 Labetalol IV order for elevated blood pressure, Rocephin and azithromycin ordered given her leukocytosis and respiratory symptoms. - Lab Data Result diagrams: 08/16/16 19:05 08/16/16 19:05 Lab Results 08/16/16 08/16/16 08/16/16 Range/Units 18:54 19:05 19:05 WBC 18.1 H (4.5-11.0) K/mm3 RBC 4.58 (3.65-5.03) M/mm3 Hgb 14.8 H (10.1-14.3) gm/dl Hct 45.1 H (30.3-42.9) % MCV 98 H (79-97) fl MCH 32 (28-32) pg MCHC 33 (30-34) % RDW 14.1 (13.2-15.2) % Plt Count 338 (140-440) K/mm3 Lymph % (Auto) 6.2 L (13.4-35.0) % [place] % (Auto) 5.6 (0.0-7.3) % Eos % (Auto) 0.0 (0.0-4.3) % Baso % (Auto) 0.4 (0.0-1.8) % Lymph # 1.1 L (1.2-5.4) K/mm3 [place] # 1.0 H (0.0-0.8) K/mm3 Eos # 0.0 (0.0-0.4) K/mm3 Baso # 0.1 (0.0-0.1) K/mm3 Seg Neutrophils % 87.8 H (40.0-70.0) % Seg Neutrophils # 15.8 H (1.8-7.7) K/mm3 POC ABG pH 7.417 (7.35-7.45) POC ABG pCO2 41.0 (35-45) POC ABG pO2 46 L (80-105) POC ABG HCO3 26.4 POC ABG Total CO2 28 POC ABG O2 Sat 82 POC ABG Base Excess 2 FiO2 21 % Sodium 136 L (137-145) mmol/L Potassium 4.4 (3.6-5.0) mmol/L Chloride 86.7 L (98-107) mmol/L Carbon Dioxide 26 (22-30) mmol/L Anion Gap 28 mmol/L BUN 22 H (7-17) mg/dL Creatinine 0.5 L (0.7-1.2) mg/dL Estimated GFR > 60 ml/min BUN/Creatinine Ratio 44.00 % Glucose 110 H (65-100) mg/dL Lactic Acid (0.7-2.0) mmol/L Calcium 9.7 (8.4-10.2) mg/dL Magnesium 1.8 (1.7-2.3) mg/dL Total Bilirubin 0.7 (0.1-1.2) mg/dL AST 274 H (5-40) units/L ALT 211 H (7-56) units/L Alkaline Phosphatase 121 (35-129) units/L Ammonia (25-60) umol/L Total Protein 8.2 (6.3-8.2) g/dL Albumin 4.0 (3.9-5) g/dL Albumin/Globulin Ratio 1.0 % TSH (0.270-4.200) mlU/mL Urine Color (Yellow) Urine Turbidity (Clear) Urine pH (5.0-7.0) Ur Specific [place] (1.003-1.030) Urine Protein (Negative) mg/dL Urine Glucose (UA) (Negative) mg/dL Urine Ketones (Negative) mg/dL Urine Blood (Negative) Urine Nitrite (Negative) Ur Reducing Substances Urine Bilirubin (Negative) Urine Ictotest Urine Urobilinogen (<2.0) mg/dL Ur Leukocyte Esterase (Negative) Urine WBC (Auto) (0.0-6.0) /HPF Urine RBC (Auto) (0.0-6.0) /HPF U Epithel Cells (Auto) (0-13.0) /HPF Urine Mucus /HPF Urine HCG, Qual (Negative) Salicylates (2.8-20.0) mg/dL Urine Opiates Screen Urine Methadone Screen Acetaminophen (10.0-30.0) ug/mL Ur Barbiturates Screen Ur Phencyclidine Scrn Ur Amphetamines Screen U Benzodiazepines Scrn Urine Cocaine Screen U Marijuana (THC) Screen Drugs of Abuse Note Plasma/Serum Alcohol (0-0.07) gm% 08/16/16 08/16/16 08/16/16 Range/Units 19:05 19:05 19:05 WBC (4.5-11.0) K/mm3 RBC (3.65-5.03) M/mm3 Hgb (10.1-14.3) gm/dl Hct (30.3-42.9) % MCV (79-97) fl MCH (28-32) pg MCHC (30-34) % RDW (13.2-15.2) % Plt Count (140-440) K/mm3 Lymph % (Auto) (13.4-35.0) % [place] % (Auto) (0.0-7.3) % Eos % (Auto) (0.0-4.3) % Baso % (Auto) (0.0-1.8) % Lymph # (1.2-5.4) K/mm3 [place] # (0.0-0.8) K/mm3 Eos # (0.0-0.4) K/mm3 Baso # (0.0-0.1) K/mm3 Seg Neutrophils % (40.0-70.0) % Seg Neutrophils # (1.8-7.7) K/mm3 POC ABG pH (7.35-7.45) POC ABG pCO2 (35-45) POC ABG pO2 (80-105) POC ABG HCO3 POC ABG Total CO2 POC ABG O2 Sat POC ABG Base Excess FiO2 % Sodium (137-145) mmol/L Potassium (3.6-5.0) mmol/L Chloride (98-107) mmol/L Carbon Dioxide (22-30) mmol/L Anion Gap mmol/L BUN (7-17) mg/dL Creatinine (0.7-1.2) mg/dL Estimated GFR ml/min BUN/Creatinine Ratio % Glucose (65-100) mg/dL Lactic Acid 2.2 H* (0.7-2.0) mmol/L Calcium (8.4-10.2) mg/dL Magnesium (1.7-2.3) mg/dL Total Bilirubin (0.1-1.2) mg/dL AST (5-40) units/L ALT (7-56) units/L Alkaline Phosphatase (35-129) units/L Ammonia (25-60) umol/L Total Protein (6.3-8.2) g/dL Albumin (3.9-5) g/dL Albumin/Globulin Ratio % TSH 1.150 (0.270-4.200) mlU/mL Urine Color (Yellow) Urine Turbidity (Clear) Urine pH (5.0-7.0) Ur Specific [place] (1.003-1.030) Urine Protein (Negative) mg/dL Urine Glucose (UA) (Negative) mg/dL Urine Ketones (Negative) mg/dL Urine Blood (Negative) Urine Nitrite (Negative) Ur Reducing Substances Urine Bilirubin (Negative) Urine Ictotest Urine Urobilinogen (<2.0) mg/dL Ur Leukocyte Esterase (Negative) Urine WBC (Auto) (0.0-6.0) /HPF Urine RBC (Auto) (0.0-6.0) /HPF U Epithel Cells (Auto) (0-13.0) /HPF Urine Mucus /HPF Urine HCG, Qual (Negative) Salicylates < 0.3 L (2.8-20.0) mg/dL Urine Opiates Screen Urine Methadone Screen Acetaminophen (10.0-30.0) ug/mL Ur Barbiturates Screen Ur Phencyclidine Scrn Ur Amphetamines Screen U Benzodiazepines Scrn Urine Cocaine Screen U Marijuana (THC) Screen Drugs of Abuse Note Plasma/Serum Alcohol (0-0.07) gm% 08/16/16 08/16/16 08/16/16 Range/Units 19:05 19:05 19:48 WBC (4.5-11.0) K/mm3 RBC (3.65-5.03) M/mm3 Hgb (10.1-14.3) gm/dl Hct (30.3-42.9) % MCV (79-97) fl MCH (28-32) pg MCHC (30-34) % RDW (13.2-15.2) % Plt Count (140-440) K/mm3 Lymph % (Auto) (13.4-35.0) % [place] % (Auto) (0.0-7.3) % Eos % (Auto) (0.0-4.3) % Baso % (Auto) (0.0-1.8) % Lymph # (1.2-5.4) K/mm3 [place] # (0.0-0.8) K/mm3 Eos # (0.0-0.4) K/mm3 Baso # (0.0-0.1) K/mm3 Seg Neutrophils % (40.0-70.0) % Seg Neutrophils # (1.8-7.7) K/mm3 POC ABG pH (7.35-7.45) POC ABG pCO2 (35-45) POC ABG pO2 (80-105) POC ABG HCO3 POC ABG Total CO2 POC ABG O2 Sat POC ABG Base Excess FiO2 % Sodium (137-145) mmol/L Potassium (3.6-5.0) mmol/L Chloride (98-107) mmol/L Carbon Dioxide (22-30) mmol/L Anion Gap mmol/L BUN (7-17) mg/dL Creatinine (0.7-1.2) mg/dL Estimated GFR ml/min BUN/Creatinine Ratio % Glucose (65-100) mg/dL Lactic Acid 1.9 (0.7-2.0) mmol/L Calcium (8.4-10.2) mg/dL Magnesium (1.7-2.3) mg/dL Total Bilirubin (0.1-1.2) mg/dL AST (5-40) units/L ALT (7-56) units/L Alkaline Phosphatase (35-129) units/L Ammonia (25-60) umol/L Total Protein (6.3-8.2) g/dL Albumin (3.9-5) g/dL Albumin/Globulin Ratio % TSH (0.270-4.200) mlU/mL Urine Color (Yellow) Urine Turbidity (Clear) Urine pH (5.0-7.0) Ur Specific [place] (1.003-1.030) Urine Protein (Negative) mg/dL Urine Glucose (UA) (Negative) mg/dL Urine Ketones (Negative) mg/dL Urine Blood (Negative) Urine Nitrite (Negative) Ur Reducing Substances Urine Bilirubin (Negative) Urine Ictotest Urine Urobilinogen (<2.0) mg/dL Ur Leukocyte Esterase (Negative) Urine WBC (Auto) (0.0-6.0) /HPF Urine RBC (Auto) (0.0-6.0) /HPF U Epithel Cells (Auto) (0-13.0) /HPF Urine Mucus /HPF Urine HCG, Qual (Negative) Salicylates (2.8-20.0) mg/dL Urine Opiates Screen Urine Methadone Screen Acetaminophen < 15.0 (10.0-30.0) ug/mL Ur Barbiturates Screen Ur Phencyclidine Scrn Ur Amphetamines Screen U Benzodiazepines Scrn Urine Cocaine Screen U Marijuana (THC) Screen Drugs of Abuse Note Plasma/Serum Alcohol < 0.01 (0-0.07) gm% 08/16/16 08/16/16 08/16/16 Range/Units 19:48 20:55 20:55 WBC (4.5-11.0) K/mm3 RBC (3.65-5.03) M/mm3 Hgb (10.1-14.3) gm/dl Hct (30.3-42.9) % MCV (79-97) fl MCH (28-32) pg MCHC (30-34) % RDW (13.2-15.2) % Plt Count (140-440) K/mm3 Lymph % (Auto) (13.4-35.0) % [place] % (Auto) (0.0-7.3) % Eos % (Auto) (0.0-4.3) % Baso % (Auto) (0.0-1.8) % Lymph # (1.2-5.4) K/mm3 [place] # (0.0-0.8) K/mm3 Eos # (0.0-0.4) K/mm3 Baso # (0.0-0.1) K/mm3 Seg Neutrophils % (40.0-70.0) % Seg Neutrophils # (1.8-7.7) K/mm3 POC ABG pH (7.35-7.45) POC ABG pCO2 (35-45) POC ABG pO2 (80-105) POC ABG HCO3 POC ABG Total CO2 POC ABG O2 Sat POC ABG Base Excess FiO2 % Sodium (137-145) mmol/L Potassium (3.6-5.0) mmol/L Chloride (98-107) mmol/L Carbon Dioxide (22-30) mmol/L Anion Gap mmol/L BUN (7-17) mg/dL Creatinine (0.7-1.2) mg/dL Estimated GFR ml/min BUN/Creatinine Ratio % Glucose (65-100) mg/dL Lactic Acid (0.7-2.0) mmol/L Calcium (8.4-10.2) mg/dL Magnesium (1.7-2.3) mg/dL Total Bilirubin (0.1-1.2) mg/dL AST (5-40) units/L ALT (7-56) units/L Alkaline Phosphatase (35-129) units/L Ammonia < 10.0 L (25-60) umol/L Total Protein (6.3-8.2) g/dL Albumin (3.9-5) g/dL Albumin/Globulin Ratio % TSH (0.270-4.200) mlU/mL Urine Color Yellow (Yellow) Urine Turbidity Clear (Clear) Urine pH 5.0 (5.0-7.0) Ur Specific [place] 1.024 (1.003-1.030) Urine Protein 100 mg/dl (Negative) mg/dL Urine Glucose (UA) 50 (Negative) mg/dL Urine Ketones 80 (Negative) mg/dL Urine Blood Sm (Negative) Urine Nitrite Neg (Negative) Ur Reducing Substances Not Reportable Urine Bilirubin Neg (Negative) Urine Ictotest Not Reportable Urine Urobilinogen < 2.0 (<2.0) mg/dL Ur Leukocyte Esterase Neg (Negative) Urine WBC (Auto) 2.0 (0.0-6.0) /HPF Urine RBC (Auto) 3.0 (0.0-6.0) /HPF U Epithel Cells (Auto) 3.0 (0-13.0) /HPF Urine Mucus 3+ /HPF Urine HCG, Qual Negative (Negative) Salicylates (2.8-20.0) mg/dL Urine Opiates Screen Presumptive negative Urine Methadone Screen Presumptive negative Acetaminophen (10.0-30.0) ug/mL Ur Barbiturates Screen Presumptive negative Ur Phencyclidine Scrn Presumptive negative Ur Amphetamines Screen Presumptive negative U Benzodiazepines Scrn Presumptive negative Urine Cocaine Screen Presumptive negative U Marijuana (THC) Screen Presumptive positive Drugs of Abuse Note Disclamer Plasma/Serum Alcohol (0-0.07) gm% - EKG Data -: EKG Interpreted by Me (sinus rate 99 premature atrial complexes) When compared to previous EKG there are: changes noted (previous EKG 01/28/2013 had anterior lateral T wave inversion) - Radiology Data Radiology results: image reviewed (chest x-ray: No acute finding) CT head: No acute findings - Medical Decision Making ABG does not reveal hypercapnia as cause of altered mental status. Patient will be admitted to the hospital. Other labs fairly unremarkable with the exception of elevated LFTs. US abd ordered and pending at dispo. Patient also had multiple loose stools in the ED so stool C. difficile ordered - Differential Diagnosis copd, hypercapnia, encephalopathy, infection, pneumonia, UTI, ICH Critical Care Time: No Critical care attestation.: If time is entered above; I have spent that time in minutes in the direct care of this critically ill patient, excluding procedure time. ED Disposition Clinical Impression: COPD exacerbation, LFT elevation, Altered mental status, Acute diarrhea, Leukocytosis Disposition: OP ADMITTED IP TO THIS HOSP Is pt being admited?: Yes Condition: Stable Time of Disposition: 23:02 (Dr Cook/hosp)
--- NOTE | 2016-08-16 20:53 | Admit Criteria Form ---
Admission Criteria Documentation: MENTAL STATUS CHANGE Clinical Indications for Inpatient Care (Place 'X' for any and all applicable criteria): Ongoing inpatient care may be needed for ANY ONE of the following(1)(2)(3)(5)(6) : [ X]I. Suspected serious etiology (eg, medical disorder, ANDROID ARCHITECT event) of mental status change [ ]II. Danger to self or others not manageable at lower level of care [ ]III. Grave disability (eg, inability to perform self care necessary at lower level of care) [ ]IV. Agitation or inappropriate behavior interfering with care for primary condition (eg, attempting to discontinue lines or drains prematurely, unable to cooperate with respiratory care) [ ]V. Delirium [A] [D][E] as described by ANY ONE of the following(26): [ ]a) Delirium due to alcohol or sedative [F] withdrawal [ ]b) Delirium of uncertain etiology that has not responded to appropriate empiric treatment [ ]c) Delirium that prevents performance of a life-sustaining function (eg, feeding or hydrating oneself) [ X]. General contraindications and/or Inappropriate clinical situations for Observational Care in patients with Mental Status Change, when ANY ONE of the following is required: [X ]a) Prediction of prolongation of LOS based on ANY ONE of the following may be considered as a contraindication for observational care 2, 3, 4, 5, 6, 7, 8, 9, 10, 11 [ ]i) Age > 65 yrs. [X ]ii) Patient arriving by ambulance [ ]iii) Patient with high acuity [ ]iv) Patient requiring vital sign monitoring [ ]v) Patient on IV medication [ ]b) Systolic blood pressures 180mmHg 3,12 [ ]c) Patient with altered mental status including delirium and other alteration of consciousness, (3) [ ]d) Patient whose discharge disposition will be to a shelter home or rehabilitation home should not be managed in Emergency Department Observation Unit. CMS rule requires 3 days hospital stay before such placement.3,13 [ ]e) Patient with failure to thrive due to broad array of etiologies 3,16,17 [ ]f) Inability to ambulate 3,14 Extended stay beyond goal length of stay for the primary condition may be needed until ALL of the following are present(3)(5): [ ]a) Underlying medical etiology of mental status change is absent, or has been established and adequately treated [ ]b) Danger to self or others is absent or manageable at lower level of care. [ ]c) Behavior crisis management, including physical or chemical restraints, is not required or available at lower level of car [ ]d) Substance or alcohol withdrawal is absent or manageable at lower level of care. [ ]e) Behavioral symptoms (eg, agitation, somnolence, inappropriate behavior) are absent, or are manageable at lower level of care. The original [facility] content created by [facility] has been revised. The portions of the content which have been revised are identified through the use of italic text or in bold, and [facility] has neither reviewed nor approved the modified material. All other unmodified content is copyright [facility]. Please see references footnoted in the original [facility] edition 2016 Admission Criteria Met: Yes
[2016-08-16 21:15] LABS: Urine Drugs of Abuse Note Disclamer
[2016-08-16 21:38] LABS: Bilirubin,Urine NEG (Negative); Blood,Urine SM (Negative); Ketones,Urine 80 mg/dL (Negative); Leukocyte Esterase,Urine NEG (Negative); Mucus,Urine 3+ /HPF; Nitrite,Urine NEG (Negative); Urobilinogen,Urine < 2.0 mg/dL (<2.0)
--- NOTE | 2016-08-16 21:56 | Cat Scan Report ---
FINAL REPORT EXAM: CT HEAD/BRAIN WO CON HISTORY: ams TECHNIQUE: Noncontrast serial axial images from skull base to vertex PRIORS: CT scan of the head from 08/01/2016 FINDINGS: There is moderate atrophy. There is no mass effect or midline shift. There are no abnormal intra or extra-axial fluid collections. Lateral ventricles are within normal limits for size and configuration. Basilar cisterns are patent. No acute intracranial hemorrhage is identified. Areas of relative hypodensity are seen in the periventricular white matter of the left frontal lobe and in the basal ganglia. Atherosclerotic changes are noted. Paranasal sinuses appear clear. Some of the mastoid air cells on the right are opacified, as in the prior study. This may represent fluid or inflammatory debris. No definite osseous erosion is seen. No acute osseous abnormality is identified. IMPRESSION: 1. No abnormal mass or acute intracranial hemorrhage is identified. 2. Areas of relative hypodensity are seen in the periventricular white matter of the left frontal lobe and in the basal ganglia. This appears similar to the prior study. This is a nonspecific finding. It may be related to chronic ischemic change from small vessel disease.
[2016-08-16] MEDS ORDERED: ROCEPHIN/NS 1 GM/50 ML 1 GM/50 ML BAG IV ONE (22:20)
[2016-08-16] MEDS ORDERED: NORMODYNE IV ONE (22:20)
[2016-08-16] MEDS ORDERED: ZITHROMAX 500 MG in NACL 0.9% 250ML 250 ML IV ONE (22:20)
--- NOTE | 2016-08-17 00:34 | Ultrasound Report ---
FINAL REPORT EXAM: US ABDOMEN LIMITED HISTORY: elevated lft, inc wbc, ams TECHNIQUE: Multiple grayscale sonographic images were obtained of the right upper quadrant of the abdomen. PRIORS: None. FINDINGS: Study is limited by patient positioning and unwillingness to cooperate with the bead cutter. No focal hepatic lesion is identified. The hepatic parenchyma is diffusely echodense. No gross abnormality is seen in the visualized portion of the pancreas. The pancreas is incompletely evaluated this study. The common bile duct measures 4 millimeters in diameter. Low-level echoes are seen in the visualized portion of the common bile duct. Gallbladder wall thickness is measured at 1.1 millimeters. Right kidney measures approximately 10.5 centimeters in length. There is preserved corticomedullary differentiation. IMPRESSION: 1. Fatty infiltration of the liver. 2. Gallbladder appears within normal limits. 3. No abnormal biliary dilatation is seen. Low-level echoes are noted in the visualized portion of the common bile duct. This could be artifactual. The study is limited by patient positioning and unwillingness of the patient to cooperate with the bead cutter. If there is concern for choledocholithiasis, consider MRCP for further evaluation.
--- NOTE | 2016-08-17 06:03 | Event Note ---
Date: 08/16/16 See H/p in reports C diff colitis AMS COPD Leukocytosis
[2016-08-17] MEDS ORDERED: DUONEB 0.5 MG-3 MG/3 ML SOLN IH PRN (06:18)
[2016-08-17] MEDS ORDERED: PROVENTIL IH PRN (06:23)
[2016-08-17] MEDS: DUONEB 0.5 MG-3 MG/3 ML SOLN IH SCH ×3 (07:27→19:50)
--- NOTE | 2016-08-17 08:19 | XRay Report ---
AP chest x-ray. Findings: The heart and lungs reveal no acute findings or significant interval changes since August 01, 2016.
[2016-08-17] MEDS: FLAGYL 500 MG/100 ML 500 MG/100 ML BAG IV SCH ×3 (08:39→22:00)
[2016-08-17] MEDS ORDERED: FLUARIX QUAD 2016-2017(36 MOS+) IM ONE (12:00)
[2016-08-17] MEDS ORDERED: PNEUMOVAX 23 IM ONE (12:00)
[2016-08-17] MEDS: D5/0.45NS 1,000 ML IV SCH (15:44)
--- NOTE | 2016-08-17 16:25 | Progress Note ---
Assessment and Plan Assessment and Plan 1. COPD exacerbation: Presently on bronchodilators, duonebs, IV solu-medrol and antibiotics 2. Abnormal LFT: Abdominal US showed no abnormal biliary dilatation. 3. Altered mental status: CT of head showed no abnormal mass or acute intracranial hemorrhage, tox negative. 4. Leukocytosis: Blood culture showed no growth. Presently on antibiotics Subjective Date of service: 08/17/16 Principal diagnosis: AMS, COPD exacerbation Interval history: No overnight events. Objective - Constitutional Vitals: Vital Signs - 12hr 08/17/16 08/17/16 08/17/16 07:28 07:35 07:38 Temperature 98.2 F Pulse Rate [ 102 H 106 H Anterior Bilateral Middle Lobe] Pulse Rate [ 95 H Right Radial] Respiratory 20 Rate Respiratory 22 20 Rate [Anterior Bilateral Middle Lobe] Blood Pressure 193/86 [Right Arm] O2 Sat by Pulse 92 Oximetry 08/17/16 08/17/16 12:00 13:28 Temperature 98.3 F Pulse Rate [ 92 H Anterior Bilateral Middle Lobe] Pulse Rate [ 100 H Right Radial] Respiratory 20 Rate Respiratory 20 Rate [Anterior Bilateral Middle Lobe] Blood Pressure 209/95 [Right Arm] O2 Sat by Pulse 92 Oximetry General appearance: Present: no acute distress, well-nourished - EENT Eyes: PERRL, EOM intact ENT: hearing intact, clear oral mucosa Ears: bilateral: normal - Neck Neck: supple, normal ROM - Respiratory Respiratory effort: normal Respiratory: bilateral: CTA - Breasts Breasts: normal - Cardiovascular Rhythm: regular Heart Sounds: Present: S1 & S2. Absent: gallop, rub Extremities: pulses intact, No edema, normal color, Full ROM - Gastrointestinal General gastrointestinal: Present: soft, non-tender, non-distended, normal bowel sounds - Genitourinary Female genitourinary: normal - Integumentary Integumentary: clear, warm, dry - Musculoskeletal Musculoskeletal: 1, strength equal bilaterally - Neurologic Neurologic: moves all extremities - Psychiatric Psychiatric: memory intact, appropriate mood/affect, intact judgment & insight - Labs CBC & Chem 7: 08/16/16 19:05 08/16/16 19:05
[2016-08-17] MEDS: LEVAQUIN 750MG/150ML 750 MG/150 ML BAG IV SCH (20:15)
[2016-08-17] MEDS: HABITROL TD SCH (20:15)
--- NOTE | 2016-08-17 20:21 | History and Physical Report ---
CHIEF COMPLAINT: Altered mental status, 1 day. HISTORY OF PRESENT ILLNESS: A 56-year-old female with past medical history of COPD, bipolar disorder, depression, seizure disorder brought in because of altered mental status. The patient apparently is not keeping her oxygen on. The patient also covered in urine and feces. The patient had a large foul smelling bowel movement in the ER. No fever, no chills. The patient is confused, nonverbal and occasionally answers questions. No respiratory failure at the time of admission. Her sats are normal in the ER. No fever, no chills. Significant history is for very loose bowel movement one time in the ER, witnessed by the nurse and very foul smelling. PAST MEDICAL HISTORY: Significant for COPD, bipolar disorder, seizure disorder. Chronic pain. PAST SURGICAL HISTORY: Unknown. The patient is confused, not able to answer. SOCIAL HISTORY: Smokes pack a day. FAMILY HISTORY: Significant for hypertension. CURRENT MEDICATIONS: Combivent Respimat 2 puffs q.i.d., gabapentin 400 mg p.o. q.i.d., Seroquel 300 mg p.o. daily, Aldactone 25 mg p.o. daily, trazodone 100 mg p.o. daily, tramadol 50 mg p.o. q.8 hours, albuterol inhaler 2 puffs q.i.d. p.r.n., cetirizine 10 mg p.o. daily, prednisone taper dose. Ceftin 500 mg p.o. q.12, Celexa 40 mg p.o. daily, Pepcid 20 mg p.o. b.i.d., Skelaxin 800 mg p.o. t.i.d., Lamictal 100 mg p.o. daily, Keppra 500 mg twice a day, Percocet 5/325 q.4 hours p.r.n. REVIEW OF SYSTEMS: CONSTITUTIONAL: Altered sensorium. Confused. Not able to answer questions properly. HEENT: No sore throat, no postnasal drip. CARDIOVASCULAR: No chest pain, no palpitations. RESPIRATORY SYSTEMS: Shortness of breath and wheezing present. Cough productive of mucoid sputum. ABDOMEN: Soft. Has couple of loose bowel movements, foul smelling. EXTREMITIES: No joint pains, no muscle pains. CENTRAL NERVOUS SYSTEM: Altered sensorium. Would not answer questions. 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 PSYCHIATRIC: Normal affect, confused. SKIN: No rashes. HEMATOLOGIC/LYMPHATIC: No lymphedema, no bruising. A 14-point review of systems done. Review of systems positive for diarrhea foul smelling and shortness of breath and wheezing, and altered sensorium. PHYSICAL EXAMINATION: GENERAL: Elderly middle-aged female, looks older than her age. VITAL SIGNS: Blood pressure 182/98, sats are 84% initially but improved to 90 and 95, temperature 99, pulse 84, respiratory rate is 24. HEENT: Unremarkable. Pupils equal and reactive. Posterior pharynx is normal. NECK: Supple, no lymphadenopathy, no thyromegaly. LUNGS: Bilateral inspiratory and expiratory rhonchi present. Decreased air entry. CARDIOVASCULAR: S1, S2 heard. No gallop, no murmur, no rub. Apical impulse in left fifth intercostal space and midclavicular line. ABDOMEN: Soft and benign. No guarding, no rigidity. Hernial orifices are normal. EXTREMITIES: Good pedal pulses. No pedal edema. CENTRAL NERVOUS SYSTEM: Alert and oriented x 4, nonfocal exam. Altered sensorium present. SKIN: Normal. LABORATORY DATA: Significant for white count of 18,000, H and H is 14.8 and 45.1, platelet count is 338,000. ABG is significant for pO2 of 46 on FiO2 of 21, pCO2 is 41, pH is 7.417. Sodium is 136, potassium is 4.4, chloride is 87, bicarbonate is 26, BUN and creatinine is 22 and 0.5, glucose is 110. Magnesium is 1.8, AST is 274, ALT is 211, alk phos is 121. Ammonia is less than 10.0, total protein is 8.2, albumin is 4.0. TSH is 1.15. Urine is negative. Drug screen is negative. Chest x-ray shows no infiltrates. ABG does not reveal hypercapnia. CT head, no acute findings. EKG shows sinus rate 99 per minute and premature atrial complexes. ASSESSMENT AND PLAN: 1. Chronic obstructive pulmonary disease exacerbation. 2. Acute respiratory failure, pO2 is 40. Patient started on DuoNebs and IV Rocephin and IV steroids at low 125 mg q.8 hours. 3. Clostridium difficile colitis, rule out Clostridium difficile colitis. The patient had 2 large bowel movements that were foul smelling. I am suspecting Clostridium difficile colitis more than the chronic obstructive pulmonary disease exacerbation in view of the leukocytosis and the diarrhea. The patient has both chronic obstructive pulmonary disease exacerbation and Clostridium difficile colitis. Stools for Clostridium difficile ordered. IV Flagyl 500 q.8 ordered. 4. Altered mental status secondary to toxic encephalopathy, secondary to hypoxia and possible sepsis secondary to Clostridium difficile colitis. 5. Bipolar disorder. Continue Seroquel. 6. Seizure disorder. Continue Keppra. 7. Nicotine dependence, on Nicoderm patch. 8. Deep venous thrombosis prophylaxis, Lovenox 40 mg subQ q.d. JOB# [id number] EVELYN/NTS
[2016-08-18] MEDS: DUONEB 0.5 MG-3 MG/3 ML SOLN IH SCH ×4 (02:01→21:05)
[2016-08-18] MEDS: D5/0.45NS 1,000 ML IV SCH (04:47)
[2016-08-18 05:41] LABS: Basophils % (Auto) 0.3 % (0.0-1.8); Hematocrit 41.2 % (30.3-42.9); Hemoglobin 13.4 gm/dl (10.1-14.3); Mean Corpuscular HGB Conc 32 % (30-34); Mean Corpuscular Hemoglobin 32 pg (28-32); Mean Corpuscular Volume 99 fl (79-97); Platelet Count 343 K/mm3 (140-440); Red Blood Count 4.18 M/mm3 (3.65-5.03); Red Cell Distribution Width 14.9 % (13.2-15.2); White Blood Count 16.1 K/mm3 (4.5-11.0)
[2016-08-18 06:01] LABS: Anion Gap 22 mmol/L; Blood Urea Nitrogen 28 mg/dL (7-17); Calcium 9.4 mg/dL (8.4-10.2); Carbon Dioxide 27 mmol/L (22-30); Chloride 98.5 mmol/L (98-107); Glucose 128 mg/dL (65-100); Potassium 3.2 mmol/L (3.6-5.0); Sodium 144 mmol/L (137-145)
[2016-08-18] MEDS: FLAGYL 500 MG/100 ML 500 MG/100 ML BAG IV SCH ×3 (06:30→21:05)
[2016-08-18] MEDS: HABITROL TD SCH (20:02)
[2016-08-18] MEDS: LEVAQUIN 750MG/150ML 750 MG/150 ML BAG IV SCH (20:03)
--- NOTE | 2016-08-18 20:50 | Progress Note ---
Assessment and Plan 1. COPD exacerbation: Presently on bronchodilators, duonebs, IV solu-medrol and antibiotics 2. Abnormal LFT: Abdominal US showed no abnormal biliary dilatation. 3. Altered mental status: Possibly secondary to acute delirium 4. Leukocytosis: Blood culture showed no growth. Presently on antibiotics Subjective Date of service: 08/18/16 Principal diagnosis: AMS, COPD exacerbation Interval history: Still altered in her mental status to improve. Unable to recognize and answer simple questions like how you. No overnight events Objective - Constitutional Vitals: Vital Signs - 12hr 08/18/16 08/18/16 08/18/16 09:14 09:54 10:00 Temperature 98.3 F Pulse Rate 91 H Pulse Rate [ Anterior Bilateral Throughout] Pulse Rate [ 91 H Left Radial] Pulse Rate [ Right Radial] Respiratory 18 24 Rate Respiratory Rate [Anterior Bilateral Throughout] Blood Pressure 181/99 [Right Arm] O2 Sat by Pulse 97 96 Oximetry 08/18/16 08/18/16 08/18/16 13:24 15:41 17:49 Temperature Pulse Rate 91 H Pulse Rate [ 87 Anterior Bilateral Throughout] Pulse Rate [ Left Radial] Pulse Rate [ Right Radial] Respiratory Rate Respiratory 18 Rate [Anterior Bilateral Throughout] Blood Pressure [Right Arm] O2 Sat by Pulse 96 Oximetry 08/18/16 08/18/16 08/18/16 18:02 19:25 19:40 Temperature 98.1 F Pulse Rate Pulse Rate [ 74 79 Anterior Bilateral Throughout] Pulse Rate [ 94 H Left Radial] Pulse Rate [ Right Radial] Respiratory 18 Rate Respiratory 21 22 Rate [Anterior Bilateral Throughout] Blood Pressure 181/85 [Right Arm] O2 Sat by Pulse 95 Oximetry 08/18/16 08/18/16 08/18/16 19:41 19:45 20:06 Temperature 98.2 F Pulse Rate Pulse Rate [ Anterior Bilateral Throughout] Pulse Rate [ Left Radial] Pulse Rate [ 94 H 90 Right Radial] Respiratory 18 22 Rate Respiratory Rate [Anterior Bilateral Throughout] Blood Pressure 143/94 [Right Arm] O2 Sat by Pulse 95 97 Oximetry General appearance: Present: no acute distress - EENT Eyes: PERRL ENT: hearing intact, clear oral mucosa Ears: bilateral: normal - Neck Neck: supple, normal ROM - Respiratory Respiratory effort: normal Respiratory: bilateral: CTA - Cardiovascular Rhythm: regular Heart Sounds: Present: S1 & S2. Absent: gallop, rub Extremities: pulses intact, No edema, normal color, Full ROM - Gastrointestinal General gastrointestinal: Present: soft, non-tender, non-distended, normal bowel sounds - Integumentary Integumentary: clear, warm, dry - Musculoskeletal Musculoskeletal: 1, strength equal bilaterally - Neurologic Neurologic: moves all extremities - Psychiatric Psychiatric: memory intact, appropriate mood/affect, intact judgment & insight - Labs CBC & Chem 7: 08/18/16 04:17 08/18/16 04:17 Labs: Abnormal lab results 08/18/16 08/18/16 Range/Units 04:17 04:17 WBC 16.1 H (4.5-11.0) K/mm3 MCV 99 H (79-97) fl Lymph % (Auto) 9.2 L (13.4-35.0) % [place] % (Auto) 10.3 H (0.0-7.3) % [place] # 1.7 H (0.0-0.8) K/mm3 Seg Neutrophils % 80.2 H (40.0-70.0) % Seg Neutrophils # 12.9 H (1.8-7.7) K/mm3 Potassium 3.2 L D (3.6-5.0) mmol/L BUN 28 H (7-17) mg/dL Glucose 128 H (65-100) mg/dL
[2016-08-19] MEDS: DUONEB 0.5 MG-3 MG/3 ML SOLN IH SCH ×4 (02:13→21:50)
[2016-08-19] MEDS: FLAGYL 500 MG/100 ML 500 MG/100 ML BAG IV SCH ×3 (06:01→22:20)
[2016-08-19] MEDS: D5/0.45NS 1,000 ML IV SCH ×2 (10:47→20:46)
--- NOTE | 2016-08-19 13:44 | Progress Note ---
Assessment and Plan 1. COPD exacerbation: Presently on bronchodilators, duonebs, and antibiotics 2. Abnormal LFT: Abdominal US showed no abnormal biliary dilatation. 3. Altered mental status: Possibly secondary to acute delirium. 4. Biplarm d/o and psychosis: commence pt on Seroquel 4. Leukocytosis: WBC trending downwards. Presently on antibiotics. Subjective Date of service: 08/19/16 Principal diagnosis: AMS, COPD exacerbation Interval history: No overnight events. Hasn't had her seroquel. Objective - Constitutional Vitals: Vital Signs - 12hr 08/19/16 08/19/16 08/19/16 02:15 02:34 05:10 Temperature 97.6 F Pulse Rate Pulse Rate [ 94 H 111 H Anterior Bilateral Throughout] Pulse Rate [ Left Radial] Pulse Rate [ 74 Right Radial] Respiratory 20 Rate Respiratory 20 20 Rate [Anterior Bilateral Throughout] Blood Pressure [Left Arm] Blood Pressure 174/84 [Right Arm] O2 Sat by Pulse 95 Oximetry 08/19/16 08/19/16 08/19/16 05:40 07:38 07:39 Temperature Pulse Rate 112 H Pulse Rate [ 86 Anterior Bilateral Throughout] Pulse Rate [ Left Radial] Pulse Rate [ Right Radial] Respiratory Rate Respiratory 17 Rate [Anterior Bilateral Throughout] Blood Pressure [Left Arm] Blood Pressure [Right Arm] O2 Sat by Pulse 96 Oximetry 08/19/16 08/19/16 08/19/16 08:04 10:15 12:20 Temperature 98.2 F 98.0 F Pulse Rate Pulse Rate [ Anterior Bilateral Throughout] Pulse Rate [ 64 Left Radial] Pulse Rate [ 85 Right Radial] Respiratory 16 16 22 Rate Respiratory Rate [Anterior Bilateral Throughout] Blood Pressure 186/86 [Left Arm] Blood Pressure 169/77 [Right Arm] O2 Sat by Pulse 96 96 96 Oximetry 08/19/16 08/19/16 13:31 13:32 Temperature Pulse Rate Pulse Rate [ 84 85 Anterior Bilateral Throughout] Pulse Rate [ Left Radial] Pulse Rate [ Right Radial] Respiratory Rate Respiratory 18 17 Rate [Anterior Bilateral Throughout] Blood Pressure [Left Arm] Blood Pressure [Right Arm] O2 Sat by Pulse Oximetry General appearance: Present: no acute distress, well-nourished - EENT Eyes: PERRL, EOM intact ENT: hearing intact, clear oral mucosa Ears: bilateral: normal - Neck Neck: supple, normal ROM - Respiratory Respiratory effort: normal Respiratory: bilateral: CTA - Breasts Breasts: normal - Cardiovascular Rhythm: regular Heart Sounds: Present: S1 & S2. Absent: gallop, rub Extremities: pulses intact, No edema, normal color, Full ROM - Gastrointestinal General gastrointestinal: Present: soft, non-tender, non-distended, normal bowel sounds - Genitourinary Female genitourinary: normal - Integumentary Integumentary: clear, warm, dry - Musculoskeletal Musculoskeletal: 1, strength equal bilaterally - Neurologic Neurologic: moves all extremities - Psychiatric Psychiatric: cooperative - Labs CBC & Chem 7: 08/18/16 04:17 08/18/16 04:17
[2016-08-19] MEDS: NORVASC PO SCH (14:49)
[2016-08-19] MEDS: COZAAR PO SCH (14:49)
[2016-08-19] MEDS: K-DUR PO SCH (14:57)
[2016-08-19] MEDS: LEVAQUIN 750MG/150ML 750 MG/150 ML BAG IV SCH (20:46)
[2016-08-19] MEDS: HABITROL TD SCH (20:47)
[2016-08-19] MEDS: ATIVAN PO SCH ×2 (22:21→22:25)
[2016-08-20] MEDS: DUONEB 0.5 MG-3 MG/3 ML SOLN IH SCH ×4 (02:23→19:40)
[2016-08-20] MEDS: FLAGYL 500 MG/100 ML 500 MG/100 ML BAG IV SCH ×3 (05:15→21:08)
[2016-08-20] MEDS: ATIVAN PO SCH ×2 (05:17→17:56)
[2016-08-20] MEDS: K-DUR PO SCH (09:23)
[2016-08-20] MEDS: D5/0.45NS 1,000 ML IV SCH ×2 (09:24→21:07)
[2016-08-20] MEDS: COZAAR PO SCH (09:26)
[2016-08-20] MEDS: NORVASC PO SCH (09:27)
--- NOTE | 2016-08-20 11:37 | Consultation ---
History of Present Illness Consult date: 08/20/16 Requesting physician: CHAPNI BARRY Reason for Consult: tremor Chief complaint: tremor in hands History of present illness: 56 YO F Hx bipolar disorder on Seroquel/Ativan for many decades who is a/w COPD exacerbation. She reports for 6 months she has had hand tremors. Onset has been gradual. There are no clear aggravating factors or relieving factors or temporal factors. Severity is such to cause some difficulty grasping items effectively. Past History Past Medical History: COPD, other (bipolar) Past Surgical History: No surgical history Social history: single, Lives alone. denies: alcohol abuse, prescription drug abuse, IV drug use Family history: other (sister w/ PD) Medications and Allergies Allergies Allergy/AdvReac Type Severity Reaction Status Date / Time bee venom (honey bee) Allergy Severe FILLS HER Unverified 09/19/15 08:35 LUNGS UP WITH WATER/ CLOSES UP THROAT/NAUSEA shellfish derived Allergy Severe CLOG UP PT Unverified 09/19/15 08:35 THROAT/ ITCHING ALL OVER Home Medications Medication Instructions Recorded Confirmed Last Taken Type Budesoni/Formoterol 80-4.5(Nf) 2 puff IH BID 01/16/15 08/20/16 2 Days Ago History [Symbicort 80-4.5 (Nf)] Gabapentin 400 mg PO QID 01/16/15 08/20/16 2 Days Ago History Ipratropium/Albuter (Nf) 1 inhalation INHALATION PRN #0 01/16/15 08/20/16 2 Days Ago History [Combivent Inhaler] Quetiapine Fumarate [QUEtiapine 300 mg PO QPM 01/16/15 08/20/16 2 Days Ago History Fumarate] Spironolactone [Aldactone] 25 mg PO DAILY 01/16/15 08/20/16 2 Days Ago History Trazodone HCl [traZODone] 100 mg PO QPM 01/16/15 08/20/16 2 Days Ago History ALBUTEROL Inhaler [ProAir HFA 2 puff IH QID PRN 06/26/16 08/20/16 2 Days Ago History Inhaler] Cetirizine HCl [Allergy Relief] 10 mg PO DAILY 06/26/16 08/20/16 2 Days Ago History Prednisone [predniSONE 5 mg (6-Day 5 mg PO .TAPER #1 tab.ds.pk 07/02/16 2 Days Ago Rx Pack, 21 Tabs)] Cefuroxime Axetil [Ceftin] 500 mg PO Q12H #14 tablet 08/05/16 08/20/16 2 Days Ago Rx Citalopram [Celexa] 40 mg PO QAM #30 tablet 08/05/16 08/20/16 2 Days Ago Rx Famotidine [Pepcid] 20 mg PO BID #60 tablet 08/05/16 08/20/16 2 Days Ago Rx Metaxalone [Skelaxin] 800 mg PO TID #90 tablet 08/05/16 08/20/16 2 Days Ago Rx lamoTRIgine [LaMICtal] 100 mg PO QPM #30 tablet 08/05/16 08/20/16 2 Days Ago Rx levETIRAcetam [Keppra TAB] 500 mg PO BID #60 tablet 08/05/16 08/20/16 2 Days Ago Rx Active Meds: Active Medications Albuterol (Proventil) 2.5 mg IH Q3HRT PRN PRN Reason: Wheezing Albuterol/Ipratropium (Duoneb 0.5 Mg-3 Mg/3 Ml Soln) 1 ampul IH Q6HRT [facility] Last Admin: 08/20/16 07:20 Dose: 1 ampul Amlodipine Besylate (Norvasc) 10 mg PO QDAY [facility] Last Admin: 08/20/16 09:27 Dose: 10 mg Metronidazole (Flagyl 500 Mg/100 Ml) 500 mg in 100 mls @ 100 mls/hr IV Q8HR [facility] Last Admin: 08/20/16 05:15 Dose: 100 mls/hr Dextrose/Sodium Chloride (D5/0.45ns) 1,000 mls @ 100 mls/hr IV DIRECT [facility] Last Admin: 08/20/16 09:24 Dose: 100 mls/hr Lorazepam (Ativan) 1 mg PO BID@0600,1800 [facility] Last Admin: 08/20/16 05:17 Dose: 1 mg Losartan Potassium (Cozaar) 100 mg PO QDAY [facility] Last Admin: 08/20/16 09:26 Dose: 100 mg Nicotine (Habitrol) 21 mg TD Q24H [facility] Last Admin: 08/19/16 20:47 Dose: 21 mg Potassium Chloride (K-Dur) 40 meq PO QDAY [facility] Last Admin: 08/20/16 09:23 Dose: 40 meq Quetiapine Fumarate (Seroquel) 100 mg PO BID [facility] Last Admin: 08/20/16 09:26 Dose: 100 mg Review of Systems All systems: negative Constitutional: fatigue, weakness Respiratory: cough, shortness of breath, dyspnea on exertion Neurological: tremors, memory loss Physical Examination - Vital Signs Vital Signs: Vital Signs Temp Pulse Resp BP Pulse Ox 99.0 F 84 24 182/98 84 08/16/16 18:21 08/16/16 18:21 08/16/16 18:21 08/16/16 18:21 08/16/16 18:21 - Constitutional General appearance: comfortable, chronically ill - EENT EENT: Present: ATNC, PERRL, mucous membranes dry, hearing intact, vision intact - Respiratory Respiratory: Present: chest non-tender, no respiratory distress - Cardiovascular Cardiovascular: Present: regular rate Extremities: Present: no peripheral edema bilatateraly, no clubbing, cyanosis, no inflammation, no ischemia or petechiae - Gastrointestinal Gastrointestinal: Present: normoactive bowel sounds, non-distended - Integumentary Integumentary: Present: normal - Neurologic Cranial nerve examination: PERRL, EOMI, VFF, V1/V2/V3 grossly intact, face symmetric, tongue midline, intact, intact shoulder shrug, intact cough reflex, Intact Vestibulo-ocular r, intact corneal reflex, normal palatal elevation Speech examination: intact Sensorimotor examination: intact, other (high frequency tremor in lower face, hands w/ posture but not worse w/ action) Detailed motor examination: full strength in all brayden Motor examination - right side: 5/5: biceps, triceps, wrist flexion, wrist extension, senior oracle database developer, hip flexors, knee extensors, dorsiflexion, toe extension (EHL) , plantarflexion Motor examination - left side: 5/5: biceps, triceps, wrist flexion, wrist extension, senior oracle database developer, hip flexors, knee extensors, dorsiflexion, toe extension (EHL) , plantarflexion Detailed sensory examination: intact, light touch, temperature Reflex and gait examination: intact Reflexes: 2+: ankle, bicep, knee, tricep - Musculoskeletal Musculoskeletal: Present: no fluid collection, no pain, normal range of motion - Psychiatric Psychiatric: Present: mood/affect appropriate, cooperative Results - Laboratory Findings CBC and BMP: 08/18/16 04:17 08/18/16 04:17 Abnormal Lab Findings: Abnormal Labs 08/17/16 08/17/16 08/18/16 12:55 17:02 04:17 WBC 16.1 H MCV 99 H Lymph % (Auto) 9.2 L [place] % (Auto) 10.3 H [place] # 1.7 H Seg Neutrophils % 80.2 H Seg Neutrophils # 12.9 H Potassium BUN Glucose POC Glucose 219 H 152 H 08/18/16 04:17 WBC MCV Lymph % (Auto) [place] % (Auto) [place] # Seg Neutrophils % Seg Neutrophils # Potassium 3.2 L D BUN 28 H Glucose 128 H POC Glucose Assessment and Plan 56 YO F Hx Bipolar disorder on Seroquel/Ativan for many years a/w COPD exacerbation who reports 6 months of b/l hand tremors. On exam resting/postural tremors high frequency found in lower face and hands but not worse w/ action. Sister w/ PD but no other Parkinsonism evident on exam. I suspect pt's enhanced physiologic tremor 2/2 Seroquel, BZD and bronchodilators. TSH normal. Recs: 1. I would not recommend any further acute neurologic w/u 2. f/u Psych/PCP to consider reduction in home offending meds 3. f/u Neuro as an outpt to consider instiution of agent e.g. Amantadine if cont no improvement 4. PT/OT 5. We can revisit as needed.
--- NOTE | 2016-08-20 14:28 | Progress Note ---
Assessment and Plan Assessment and plan: 56-year-old female with a past medical history of COPD with home oxygen use and other medical problems presents to Hospital complaints of altered mental status. Family friend states that she would not keep her oxygen off. Patient presents covered in urine and feces. Positive history of previous intubations. Patient is relatively nonverbal and occasionally with a well but does not answer questions or reliably follow commands. No pain reported. ABG was done upon initial presentation and did not reveal any CO2 retention. No further history of present illness available at this time. No family members at the bedside. The patient patient's mentation did improve but continues to have resting and postural tremors with high frequency covering also the face and the hand. Worse with action. I did consult neurology to assist in further evaluation. The patient reports that this has been going on for 6 months and remains despite the escalation of medications with resent restarting off serological 1. COPD exacerbation: Resolving. Presently on bronchodilators, duonebs, and antibiotics 2. Abnormal LFT: Abdominal US showed no abnormal biliary dilatation. 3. Toxic metabolic encephalopathy: Mentation appears to be back to baseline. 4. Bipolar d/o and psychosis: commence pt on Seroquel 5. Leukocytosis: WBC trending downwards. Presently on antibiotics. 6. Essential tremor-possible psychogenic-neuro input is noted. Patient reports was recently restarted on Seroquel but continued to have tremor despite being off of Seroquel in the past. Recommend reevaluation by psych and neurology outpatient. 7. PT OT evaluate and treat due to debility 8. After discussed in detail with the patient discharge in a.m. if stable History Interval history: Patient seen and examined today still with intermittent periods of confusion, but on repeat visit was more lucid. Continues to experience a tremor and unable to ambulate without assistance. No chest pain, nausea, vomiting. Hospitalist Physical - Physical exam Narrative exam: VITAL SIGNS: Reviewed. GENERAL: The patient appeared well nourished and normally developed. Persistent tremor Vital signs as documented. HEAD: No signs of head trauma. EYES: Pupils are equal. Extraocular motions intact. EARS: Hearing grossly intact. MOUTH: Oropharynx is normal. NECK: No adenopathy, no JVD. CHEST: Chest with clear breath sounds bilaterally. No wheezes, rales, or rhonchi. CARDIAC: Regular rate and rhythm. S1 and S2, without murmurs, gallops, or rubs. VASCULAR: No Edema. Peripheral pulses normal and equal in all extremities. ABDOMEN: Soft, without detectable tenderness. No sign of distention. No rebound or guarding, and no masses palpated. Bowel Sounds normal. MUSCULOSKELETAL: Good range of motion of all major joints. Extremities without clubbing, cyanosis or edema. NEUROLOGIC EXAM: Awake but lethargic, oriented x 3. Intermittent periods of confusion. No focal sensory or strength deficits. Speech normal. Follows commands. PSYCHIATRIC: Mood anxious SKIN: No rash or lesions. - Constitutional Vitals: Temp Pulse Resp BP Pulse Ox 97.8 F 84 20 112/65 93 08/20/16 11:15 08/20/16 14:12 08/20/16 14:12 08/20/16 11:15 08/20/16 11:15 General appearance: Present: no acute distress, well-nourished Results - Labs CBC & Chem 7: 08/18/16 04:17 08/18/16 04:17 Labs: Laboratory Last Values WBC 16.1 K/mm3 (4.5-11.0) H 08/18/16 04:17 RBC 4.18 M/mm3 (3.65-5.03) 08/18/16 04:17 Hgb 13.4 gm/dl (10.1-14.3) 08/18/16 04:17 Hct 41.2 % (30.3-42.9) 08/18/16 04:17 MCV 99 fl (79-97) H 08/18/16 04:17 MCH 32 pg (28-32) 08/18/16 04:17 MCHC 32 % (30-34) 08/18/16 04:17 RDW 14.9 % (13.2-15.2) 08/18/16 04:17 Plt Count 343 K/mm3 (140-440) 08/18/16 04:17 Lymph % (Auto) 9.2 % (13.4-35.0) L 08/18/16 04:17 [place] % (Auto) 10.3 % (0.0-7.3) H 08/18/16 04:17 Eos % (Auto) 0.0 % (0.0-4.3) 08/18/16 04:17 Baso % (Auto) 0.3 % (0.0-1.8) 08/18/16 04:17 Lymph # 1.5 K/mm3 (1.2-5.4) 08/18/16 04:17 [place] # 1.7 K/mm3 (0.0-0.8) H 08/18/16 04:17 Eos # 0.0 K/mm3 (0.0-0.4) 08/18/16 04:17 Baso # 0.1 K/mm3 (0.0-0.1) 08/18/16 04:17 Seg Neutrophils % 80.2 % (40.0-70.0) H 08/18/16 04:17 Seg Neutrophils # 12.9 K/mm3 (1.8-7.7) H 08/18/16 04:17 POC ABG pH 7.417 (7.35-7.45) 08/16/16 18:54 POC ABG pCO2 41.0 (35-45) 08/16/16 18:54 POC ABG pO2 46 (80-105) L 08/16/16 18:54 POC ABG HCO3 26.4 08/16/16 18:54 POC ABG Total CO2 28 08/16/16 18:54 POC ABG O2 Sat 82 08/16/16 18:54 POC ABG Base Excess 2 08/16/16 18:54 FiO2 21 % 08/16/16 18:54 Sodium 144 mmol/L (137-145) D 08/18/16 04:17 Potassium 3.2 mmol/L (3.6-5.0) L D 08/18/16 04:17 Chloride 98.5 mmol/L (98-107) 08/18/16 04:17 Carbon Dioxide 27 mmol/L (22-30) 08/18/16 04:17 Anion Gap 22 mmol/L 08/18/16 04:17 BUN 28 mg/dL (7-17) H 08/18/16 04:17 Creatinine 0.8 mg/dL (0.7-1.2) D 08/18/16 04:17 Estimated GFR > 60 ml/min 08/18/16 04:17 BUN/Creatinine Ratio 35.00 % 08/18/16 04:17 Glucose 128 mg/dL (65-100) H 08/18/16 04:17 POC Glucose 152 (70-105) H 08/17/16 17:02 Lactic Acid 1.9 mmol/L (0.7-2.0) 08/16/16 19:48 Calcium 9.4 mg/dL (8.4-10.2) 08/18/16 04:17 Magnesium 1.8 mg/dL (1.7-2.3) 08/16/16 19:05 Total Bilirubin 0.7 mg/dL (0.1-1.2) 08/16/16 19:05 AST 274 units/L (5-40) H 08/16/16 19:05 ALT 211 units/L (7-56) H 08/16/16 19:05 Alkaline Phosphatase 121 units/L (35-129) 08/16/16 19:05 Ammonia 40.0 umol/L (25-60) 08/20/16 10:57 Total Protein 8.2 g/dL (6.3-8.2) 08/16/16 19:05 Albumin 4.0 g/dL (3.9-5) 08/16/16 19:05 Albumin/Globulin Ratio 1.0 % 08/16/16 19:05 Vitamin B12 456.9 pg/mL (211-911) 08/20/16 10:57 TSH 1.150 mlU/mL (0.270-4.200) 08/16/16 19:05 Urine Color Yellow (Yellow) 08/16/16 20:55 Urine Turbidity Clear (Clear) 08/16/16 20:55 Urine pH 5.0 (5.0-7.0) 08/16/16 20:55 Ur Specific [place] 1.024 (1.003-1.030) 08/16/16 20:55 Urine Protein 100 mg/dl mg/dL (Negative) 08/16/16 20:55 Urine Glucose (UA) 50 mg/dL (Negative) 08/16/16 20:55 Urine Ketones 80 mg/dL (Negative) 08/16/16 20:55 Urine Blood Sm (Negative) 08/16/16 20:55 Urine Nitrite Neg (Negative) 08/16/16 20:55 Ur Reducing Substances Not Reportable 08/16/16 20:55 Urine Bilirubin Neg (Negative) 08/16/16 20:55 Urine Ictotest Not Reportable 08/16/16 20:55 Urine Urobilinogen < 2.0 mg/dL (<2.0) 08/16/16 20:55 Ur Leukocyte Esterase Neg (Negative) 08/16/16 20:55 Urine WBC (Auto) 2.0 /HPF (0.0-6.0) 08/16/16 20:55 Urine RBC (Auto) 3.0 /HPF (0.0-6.0) 08/16/16 20:55 U Epithel Cells (Auto) 3.0 /HPF (0-13.0) 08/16/16 20:55 Urine Mucus 3+ /HPF 08/16/16 20:55 Urine HCG, Qual Negative (Negative) 08/16/16 20:55 Salicylates < 0.3 mg/dL (2.8-20.0) L 08/16/16 19:05 Urine Opiates Screen Presumptive negative 08/16/16 20:55 Urine Methadone Screen Presumptive negative 08/16/16 20:55 Acetaminophen < 15.0 ug/mL (10.0-30.0) 08/16/16 19:05 Ur Barbiturates Screen Presumptive negative 08/16/16 20:55 Ur Phencyclidine Scrn Presumptive negative 08/16/16 20:55 Ur Amphetamines Screen Presumptive negative 08/16/16 20:55 U Benzodiazepines Scrn Presumptive negative 08/16/16 20:55 Urine Cocaine Screen Presumptive negative 08/16/16 20:55 U Marijuana (THC) Screen Presumptive positive 08/16/16 20:55 Drugs of Abuse Note Disclamer 08/16/16 20:55 Plasma/Serum Alcohol < 0.01 gm% (0-0.07) 08/16/16 19:05 - Imaging and Cardiology Chest x-ray: image reviewed (no acute pathology)
[2016-08-20] MEDS: HABITROL TD SCH (21:15)
[2016-08-21] MEDS: DUONEB 0.5 MG-3 MG/3 ML SOLN IH SCH ×4 (02:31→20:13)
[2016-08-21] MEDS: ATIVAN PO SCH ×2 (06:03→17:54)
[2016-08-21] MEDS: FLAGYL 500 MG/100 ML 500 MG/100 ML BAG IV SCH (06:04)
[2016-08-21] MEDS: D5/0.45NS 1,000 ML IV SCH ×2 (06:08→18:02)
[2016-08-21] MEDS: K-DUR PO SCH (09:05)
[2016-08-21] MEDS: NORVASC PO SCH (09:05)
[2016-08-21] MEDS: COZAAR PO SCH (10:50)
--- NOTE | 2016-08-21 15:42 | Progress Note ---
Assessment and Plan Assessment and plan: 56-year-old female with a past medical history of COPD with home oxygen use and other medical problems presents to Hospital complaints of altered mental status. Family friend states that she would not keep her oxygen off. Patient presents covered in urine and feces. Positive history of previous intubations. Patient is relatively nonverbal and occasionally with a well but does not answer questions or reliably follow commands. No pain reported. ABG was done upon initial presentation and did not reveal any CO2 retention. No further history of present illness available at this time. No family members at the bedside. The patient patient's mentation did improve but continues to have resting and postural tremors with high frequency covering also the face and the hand. Worse with action. I did consult neurology to assist in further evaluation. The patient reports that this has been going on for 6 months and remains despite the escalation of medications with resent restarting off serological 1. COPD exacerbation: Resolving. Presently on bronchodilators, duonebs, and antibiotics 2. Abnormal LFT: Abdominal US showed no abnormal biliary dilatation. 3. Toxic metabolic encephalopathy: Mentation appears to be back to baseline. 4. Bipolar d/o and psychosis: commence pt on Seroquel 5. Leukocytosis: WBC trending downwards. Presently on antibiotics. 6. Essential tremor-possible psychogenic-neuro input is noted. Patient reports was recently restarted on Seroquel but continued to have tremor despite being off of Seroquel in the past. Recommend reevaluation by psych and neurology outpatient. 7. PT OT evaluate and treat due to debility 8. After discussed in detail with the patient discharge in a.m. if stable Hospitalist Physical - Constitutional Vitals: Temp Pulse Resp BP Pulse Ox 98.4 F 88 16 122/70 92 08/21/16 15:15 08/21/16 15:15 08/21/16 15:15 08/21/16 15:15 08/21/16 15:15 General appearance: Present: no acute distress, well-nourished Results - Labs CBC & Chem 7: 08/18/16 04:17 08/18/16 04:17 Labs: Laboratory Last Values WBC 16.1 K/mm3 (4.5-11.0) H 08/18/16 04:17 RBC 4.18 M/mm3 (3.65-5.03) 08/18/16 04:17 Hgb 13.4 gm/dl (10.1-14.3) 08/18/16 04:17 Hct 41.2 % (30.3-42.9) 08/18/16 04:17 MCV 99 fl (79-97) H 08/18/16 04:17 MCH 32 pg (28-32) 08/18/16 04:17 MCHC 32 % (30-34) 08/18/16 04:17 RDW 14.9 % (13.2-15.2) 08/18/16 04:17 Plt Count 343 K/mm3 (140-440) 08/18/16 04:17 Lymph % (Auto) 9.2 % (13.4-35.0) L 08/18/16 04:17 [place] % (Auto) 10.3 % (0.0-7.3) H 08/18/16 04:17 Eos % (Auto) 0.0 % (0.0-4.3) 08/18/16 04:17 Baso % (Auto) 0.3 % (0.0-1.8) 08/18/16 04:17 Lymph # 1.5 K/mm3 (1.2-5.4) 08/18/16 04:17 [place] # 1.7 K/mm3 (0.0-0.8) H 08/18/16 04:17 Eos # 0.0 K/mm3 (0.0-0.4) 08/18/16 04:17 Baso # 0.1 K/mm3 (0.0-0.1) 08/18/16 04:17 Seg Neutrophils % 80.2 % (40.0-70.0) H 08/18/16 04:17 Seg Neutrophils # 12.9 K/mm3 (1.8-7.7) H 08/18/16 04:17 POC ABG pH 7.417 (7.35-7.45) 08/16/16 18:54 POC ABG pCO2 41.0 (35-45) 08/16/16 18:54 POC ABG pO2 46 (80-105) L 08/16/16 18:54 POC ABG HCO3 26.4 08/16/16 18:54 POC ABG Total CO2 28 08/16/16 18:54 POC ABG O2 Sat 82 08/16/16 18:54 POC ABG Base Excess 2 08/16/16 18:54 FiO2 21 % 08/16/16 18:54 Sodium 144 mmol/L (137-145) D 08/18/16 04:17 Potassium 3.2 mmol/L (3.6-5.0) L D 08/18/16 04:17 Chloride 98.5 mmol/L (98-107) 08/18/16 04:17 Carbon Dioxide 27 mmol/L (22-30) 08/18/16 04:17 Anion Gap 22 mmol/L 08/18/16 04:17 BUN 28 mg/dL (7-17) H 08/18/16 04:17 Creatinine 0.8 mg/dL (0.7-1.2) D 08/18/16 04:17 Estimated GFR > 60 ml/min 08/18/16 04:17 BUN/Creatinine Ratio 35.00 % 08/18/16 04:17 Glucose 128 mg/dL (65-100) H 08/18/16 04:17 POC Glucose 152 (70-105) H 08/17/16 17:02 Lactic Acid 1.9 mmol/L (0.7-2.0) 08/16/16 19:48 Calcium 9.4 mg/dL (8.4-10.2) 08/18/16 04:17 Magnesium 1.8 mg/dL (1.7-2.3) 08/16/16 19:05 Total Bilirubin 0.7 mg/dL (0.1-1.2) 08/16/16 19:05 AST 274 units/L (5-40) H 08/16/16 19:05 ALT 211 units/L (7-56) H 08/16/16 19:05 Alkaline Phosphatase 121 units/L (35-129) 08/16/16 19:05 Ammonia 40.0 umol/L (25-60) 08/20/16 10:57 Total Protein 8.2 g/dL (6.3-8.2) 08/16/16 19:05 Albumin 4.0 g/dL (3.9-5) 08/16/16 19:05 Albumin/Globulin Ratio 1.0 % 08/16/16 19:05 Vitamin B12 456.9 pg/mL (211-911) 08/20/16 10:57 TSH 1.150 mlU/mL (0.270-4.200) 08/16/16 19:05 Urine Color Yellow (Yellow) 08/16/16 20:55 Urine Turbidity Clear (Clear) 08/16/16 20:55 Urine pH 5.0 (5.0-7.0) 08/16/16 20:55 Ur Specific [place] 1.024 (1.003-1.030) 08/16/16 20:55 Urine Protein 100 mg/dl mg/dL (Negative) 08/16/16 20:55 Urine Glucose (UA) 50 mg/dL (Negative) 08/16/16 20:55 Urine Ketones 80 mg/dL (Negative) 08/16/16 20:55 Urine Blood Sm (Negative) 08/16/16 20:55 Urine Nitrite Neg (Negative) 08/16/16 20:55 Ur Reducing Substances Not Reportable 08/16/16 20:55 Urine Bilirubin Neg (Negative) 08/16/16 20:55 Urine Ictotest Not Reportable 08/16/16 20:55 Urine Urobilinogen < 2.0 mg/dL (<2.0) 08/16/16 20:55 Ur Leukocyte Esterase Neg (Negative) 08/16/16 20:55 Urine WBC (Auto) 2.0 /HPF (0.0-6.0) 08/16/16 20:55 Urine RBC (Auto) 3.0 /HPF (0.0-6.0) 08/16/16 20:55 U Epithel Cells (Auto) 3.0 /HPF (0-13.0) 08/16/16 20:55 Urine Mucus 3+ /HPF 08/16/16 20:55 Urine HCG, Qual Negative (Negative) 08/16/16 20:55 Salicylates < 0.3 mg/dL (2.8-20.0) L 08/16/16 19:05 Urine Opiates Screen Presumptive negative 08/16/16 20:55 Urine Methadone Screen Presumptive negative 08/16/16 20:55 Acetaminophen < 15.0 ug/mL (10.0-30.0) 08/16/16 19:05 Ur Barbiturates Screen Presumptive negative 08/16/16 20:55 Ur Phencyclidine Scrn Presumptive negative 08/16/16 20:55 Ur Amphetamines Screen Presumptive negative 08/16/16 20:55 U Benzodiazepines Scrn Presumptive negative 08/16/16 20:55 Urine Cocaine Screen Presumptive negative 08/16/16 20:55 U Marijuana (THC) Screen Presumptive positive 08/16/16 20:55 Drugs of Abuse Note Disclamer 08/16/16 20:55 Plasma/Serum Alcohol < 0.01 gm% (0-0.07) 08/16/16 19:05
--- NOTE | 2016-08-21 15:56 | Discharge Summary ---
Providers - Providers Date of Admission: 08/16/16 23:10 Attending physician: JANET STEVENS MD 08/20/16 10:32 Occupational Therapy Evaluate and Treat [CONS] Routine Comment: Reason For Exam: debility Physical Therapy Evaluation and Treat [CONS] Routine Comment: Reason For Exam: debility 08/20/16 10:33 Consult to Physician [CONS] Routine Consulting Provider: JACKY MERINO Reason For Exam: tremor Place consult to:: NEURO Notified:: GUERRERO Phone number called:: [phone] Was contact made?: No Time called:: 11:03 Primary care physician: TOWERMAN Hospitalization Condition: Stable Hospital course: 56-year-old female with a past medical history of COPD with home oxygen use and other medical problems presents to Hospital complaints of altered mental status. Family friend states that she would not keep her oxygen off. Patient presents covered in urine and feces. Positive history of previous intubations. Patient is relatively nonverbal and occasionally with a well but does not answer questions or reliably follow commands. No pain reported. ABG was done upon initial presentation and did not reveal any CO2 retention. No further history of present illness available at this time. No family members at the bedside. The patient patient's mentation did improve but continues to have resting and postural tremors with high frequency covering also the face and the hand. Worse with action. I did consult neurology to assist in further evaluation. The patient reports that this has been going on for 6 months and remains despite the escalation of medications with resent restarting off serological 1. COPD exacerbation: Resolving. Presently on bronchodilators, duonebs, and antibiotics 2. Abnormal LFT: Abdominal US showed no abnormal biliary dilatation. 3. Toxic metabolic encephalopathy: Mentation appears to be back to baseline. 4. Bipolar d/o and psychosis: commence pt on Seroquel 5. Leukocytosis: WBC trending downwards. Presently on antibiotics. 6. Essential tremor-possible psychogenic-neuro input is noted. Patient reports was recently restarted on Seroquel but continued to have tremor despite being off of Seroquel in the past. Recommend reevaluation by psych and neurology outpatient. 7. PT OT evaluate and treat due to debility 8. After discussed in detail with the patient discharge in a.m. if stable Disposition: DISCHARGED TO HOME OR SELFCARE Time spent for discharge: 35 minutes Core Measure Documentation - Palliative Care Palliative Care/ Comfort Measures: Not Applicable - Core Measures Any of the following diagnoses?: none Exam - Constitutional Vitals: Temp Pulse Resp BP Pulse Ox 98.4 F 88 16 122/70 92 08/21/16 15:15 08/21/16 15:15 08/21/16 15:15 08/21/16 15:15 08/21/16 15:15 General appearance: Present: no acute distress, well-nourished - EENT Eyes: Present: PERRL ENT: hearing intact, clear oral mucosa - Neck Neck: Present: supple, normal ROM - Respiratory Respiratory effort: normal Respiratory: bilateral: CTA - Cardiovascular Heart Sounds: Present: S1 & S2. Absent: rub, click - Extremities Extremities: pulses symmetrical, No edema Peripheral Pulses: within normal limits - Abdominal General gastrointestinal: Present: soft, non-tender, non-distended, normal bowel sounds Female genitourinary: Present: normal - Integumentary Integumentary: Present: clear, warm, dry - Musculoskeletal Musculoskeletal: gait normal, strength equal bilaterally - Psychiatric Psychiatric: appropriate mood/affect, intact judgment & insight - Neurologic Neurologic: CNII-XII intact, moves all extremities Plan Follow up with: PRIMARY CARE,MD [Primary Care Provider] - 7 Days Prescriptions: ALBUTEROL Inhaler [ProAir HFA Inhaler] 2 puff IH QID PRN #1 inha PRN Reason: Shortness Of Breath amLODIPine [Norvasc] 10 mg PO QDAY #30 tablet Budesoni/Formoterol 80-4.5(Nf) [Symbicort 80-4.5 (Nf)] 2 puff IH BID #1 inha Famotidine [Pepcid] 20 mg PO BID #60 tablet Ipratropium/Albuter (Nf) [Combivent Inhaler] 1 inhalation INHALATION PRN #1 inha LORazepam [Ativan] 1 mg PO BID@0600,1800 #60 tablet Losartan [Cozaar] 100 mg PO QDAY #30 tablet Nicotine [Habitrol] 21 mg TD Q24H #30 patch Prednisone [predniSONE 5 mg (6-Day Pack, 21 Tabs)] 5 mg PO .TAPER #1 tab.ds.pk
[2016-08-21] MEDS: FLAGYL PO SCH ×2 (17:54→22:39)
[2016-08-21 18:18] LABS: Anion Gap 16 mmol/L; BUN/Creatinine Ratio 17.14; Blood Urea Nitrogen 12 mg/dL (7-17); Calcium 8.8 mg/dL (8.4-10.2); Carbon Dioxide 26 mmol/L (22-30); Chloride 99.8 mmol/L (98-107); Glucose 100 mg/dL (65-100); Magnesium 1.9 mg/dL (1.7-2.3); Potassium 4.4 mmol/L (3.6-5.0); Sodium 137 mmol/L (137-145)
[2016-08-21] MEDS: HABITROL TD SCH (22:39)
[2016-08-22] MEDS: DUONEB 0.5 MG-3 MG/3 ML SOLN IH SCH ×4 (02:46→20:36)
[2016-08-22] MEDS: FLAGYL PO SCH ×3 (06:31→21:34)
[2016-08-22] MEDS: ATIVAN PO SCH ×2 (06:31→17:14)
[2016-08-22] MEDS: K-DUR PO SCH (10:19)
[2016-08-22] MEDS: NORVASC PO SCH (10:19)
[2016-08-22] MEDS: COZAAR PO SCH (10:19)
[2016-08-22] MEDS: HABITROL TD SCH (21:32)
[2016-08-23] MEDS: FLAGYL PO SCH (05:25)
[2016-08-23] MEDS: D5/0.45NS 1,000 ML IV SCH (05:25)
[2016-08-23] MEDS: ATIVAN PO SCH (05:25)
[2016-08-23] MEDS: DUONEB 0.5 MG-3 MG/3 ML SOLN IH SCH ×2 (07:41→14:29)
[2016-08-23] MEDS: K-DUR PO SCH (09:09)
[2016-08-23] MEDS: COZAAR PO SCH (09:11)
[2016-08-23] MEDS: NORVASC PO SCH (09:12)
[2016-08-23 11:36] VITALS: BP 109/67
--- NOTE | 2016-08-23 14:16 | Progress Note ---
Hospitalist Physical - Constitutional Vitals: Temp Pulse Resp BP Pulse Ox 99.4 F 96 H 20 109/67 99 08/23/16 11:33 08/23/16 11:33 08/23/16 11:33 08/23/16 11:33 08/23/16 08:13 General appearance: Present: no acute distress, well-nourished Results - Labs CBC & Chem 7: 08/18/16 04:17 08/21/16 17:26 Labs: Laboratory Last Values WBC 16.1 K/mm3 (4.5-11.0) H 08/18/16 04:17 RBC 4.18 M/mm3 (3.65-5.03) 08/18/16 04:17 Hgb 13.4 gm/dl (10.1-14.3) 08/18/16 04:17 Hct 41.2 % (30.3-42.9) 08/18/16 04:17 MCV 99 fl (79-97) H 08/18/16 04:17 MCH 32 pg (28-32) 08/18/16 04:17 MCHC 32 % (30-34) 08/18/16 04:17 RDW 14.9 % (13.2-15.2) 08/18/16 04:17 Plt Count 343 K/mm3 (140-440) 08/18/16 04:17 Lymph % (Auto) 9.2 % (13.4-35.0) L 08/18/16 04:17 [place] % (Auto) 10.3 % (0.0-7.3) H 08/18/16 04:17 Eos % (Auto) 0.0 % (0.0-4.3) 08/18/16 04:17 Baso % (Auto) 0.3 % (0.0-1.8) 08/18/16 04:17 Lymph # 1.5 K/mm3 (1.2-5.4) 08/18/16 04:17 [place] # 1.7 K/mm3 (0.0-0.8) H 08/18/16 04:17 Eos # 0.0 K/mm3 (0.0-0.4) 08/18/16 04:17 Baso # 0.1 K/mm3 (0.0-0.1) 08/18/16 04:17 Seg Neutrophils % 80.2 % (40.0-70.0) H 08/18/16 04:17 Seg Neutrophils # 12.9 K/mm3 (1.8-7.7) H 08/18/16 04:17 POC ABG pH 7.417 (7.35-7.45) 08/16/16 18:54 POC ABG pCO2 41.0 (35-45) 08/16/16 18:54 POC ABG pO2 46 (80-105) L 08/16/16 18:54 POC ABG HCO3 26.4 08/16/16 18:54 POC ABG Total CO2 28 08/16/16 18:54 POC ABG O2 Sat 82 08/16/16 18:54 POC ABG Base Excess 2 08/16/16 18:54 FiO2 21 % 08/16/16 18:54 Sodium 137 mmol/L (137-145) 08/21/16 17:26 Potassium 4.4 mmol/L (3.6-5.0) D 08/21/16 17:26 Chloride 99.8 mmol/L (98-107) 08/21/16 17:26 Carbon Dioxide 26 mmol/L (22-30) 08/21/16 17:26 Anion Gap 16 mmol/L 08/21/16 17:26 BUN 12 mg/dL (7-17) 08/21/16 17:26 Creatinine 0.7 mg/dL (0.7-1.2) 08/21/16 17:26 Estimated GFR > 60 ml/min 08/21/16 17:26 BUN/Creatinine Ratio 17.14 % 08/21/16 17:26 Glucose 100 mg/dL (65-100) 08/21/16 17:26 POC Glucose 100 (70-105) 08/21/16 12:33 Lactic Acid 1.9 mmol/L (0.7-2.0) 08/16/16 19:48 Calcium 8.8 mg/dL (8.4-10.2) 08/21/16 17:26 Magnesium 1.9 mg/dL (1.7-2.3) 08/21/16 17:26 Total Bilirubin 0.7 mg/dL (0.1-1.2) 08/16/16 19:05 AST 274 units/L (5-40) H 08/16/16 19:05 ALT 211 units/L (7-56) H 08/16/16 19:05 Alkaline Phosphatase 121 units/L (35-129) 08/16/16 19:05 Ammonia 40.0 umol/L (25-60) 08/20/16 10:57 Total Protein 8.2 g/dL (6.3-8.2) 08/16/16 19:05 Albumin 4.0 g/dL (3.9-5) 08/16/16 19:05 Albumin/Globulin Ratio 1.0 % 08/16/16 19:05 Vitamin B12 456.9 pg/mL (211-911) 08/20/16 10:57 TSH 1.150 mlU/mL (0.270-4.200) 08/16/16 19:05 Urine Color Yellow (Yellow) 08/16/16 20:55 Urine Turbidity Clear (Clear) 08/16/16 20:55 Urine pH 5.0 (5.0-7.0) 08/16/16 20:55 Ur Specific [place] 1.024 (1.003-1.030) 08/16/16 20:55 Urine Protein 100 mg/dl mg/dL (Negative) 08/16/16 20:55 Urine Glucose (UA) 50 mg/dL (Negative) 08/16/16 20:55 Urine Ketones 80 mg/dL (Negative) 08/16/16 20:55 Urine Blood Sm (Negative) 08/16/16 20:55 Urine Nitrite Neg (Negative) 08/16/16 20:55 Ur Reducing Substances Not Reportable 08/16/16 20:55 Urine Bilirubin Neg (Negative) 08/16/16 20:55 Urine Ictotest Not Reportable 08/16/16 20:55 Urine Urobilinogen < 2.0 mg/dL (<2.0) 08/16/16 20:55 Ur Leukocyte Esterase Neg (Negative) 08/16/16 20:55 Urine WBC (Auto) 2.0 /HPF (0.0-6.0) 08/16/16 20:55 Urine RBC (Auto) 3.0 /HPF (0.0-6.0) 08/16/16 20:55 U Epithel Cells (Auto) 3.0 /HPF (0-13.0) 08/16/16 20:55 Urine Mucus 3+ /HPF 08/16/16 20:55 Urine HCG, Qual Negative (Negative) 08/16/16 20:55 Salicylates < 0.3 mg/dL (2.8-20.0) L 08/16/16 19:05 Urine Opiates Screen Presumptive negative 08/16/16 20:55 Urine Methadone Screen Presumptive negative 08/16/16 20:55 Acetaminophen < 15.0 ug/mL (10.0-30.0) 08/16/16 19:05 Ur Barbiturates Screen Presumptive negative 08/16/16 20:55 Ur Phencyclidine Scrn Presumptive negative 08/16/16 20:55 Ur Amphetamines Screen Presumptive negative 08/16/16 20:55 U Benzodiazepines Scrn Presumptive negative 08/16/16 20:55 Urine Cocaine Screen Presumptive negative 08/16/16 20:55 U Marijuana (THC) Screen Presumptive positive 08/16/16 20:55 Drugs of Abuse Note Disclamer 08/16/16 20:55 Plasma/Serum Alcohol < 0.01 gm% (0-0.07) 08/16/16 19:05
== END 2016-08-23 16:00 | disposition home or self-care (01) | DRG 189 ==
LOC: ED 16:10 → 4A 23:10
PROVIDERS: ADMIT Internal Medicine; ATTEND Internal Medicine
DX: J96.01 Acute respiratory failure with hypoxia (principal); J44.1 Chronic obstructive pulmonary disease with (acute) exacerbation; G92 Toxic encephalopathy; I10 Essential (primary) hypertension; J45.909 Unspecified asthma, uncomplicated; I11.0 Hypertensive heart disease with heart failure; I50.9 Heart failure, unspecified; F17.210 Nicotine dependence, cigarettes, uncomplicated; Z60.2 Problems related to living alone; F31.9 Bipolar disorder, unspecified; G40.909 Epilepsy, unspecified, not intractable, without status epilepticus; G89.29 Other chronic pain; A04.7 Enterocolitis due to Clostridium difficile; Z91.030 Bee allergy status; Z91.013 Allergy to seafood; Z99.81 Dependence on supplemental oxygen; Z82.49 Family history of ischemic heart disease and other diseases of the circulatory system
CPT/HCPCS: 36415; 70450; 71010; 76705; 80048; 80053; 80307; 80320; 81001; 81025; 82140; 82607; 82803; 82962; 83735; 84443; 85025; 87040; 90686; 90732; 93005; 93010; 94640; 94760; 96365; 96368; 96375; G0480; J0456; J0696; J1956; J2930; J7050

== ENCOUNTER 2016-09-07 18:37 | Inpatient (IN) | payer MEDICAID ==
[2016-09-07 20:25] LABS: Basophils % (Auto) 0.5 % (0.0-1.8); Eosinophils % (Auto) 1.5 % (0.0-4.3); Hemoglobin 14.8 gm/dl (10.1-14.3); Mean Corpuscular HGB Conc 34 % (30-34); Mean Corpuscular Hemoglobin 33 pg (28-32); Mean Corpuscular Volume 97 fl (79-97); Platelet Count 237 K/mm3 (140-440); Red Blood Count 4.52 M/mm3 (3.65-5.03); Red Cell Distribution Width 13.5 % (13.2-15.2); White Blood Count 9.2 K/mm3 (4.5-11.0)
[2016-09-07 20:36] LABS: Anion Gap 16 mmol/L; BUN/Creatinine Ratio 8.75; Blood Urea Nitrogen 7 mg/dL (7-17); Calcium 9.7 mg/dL (8.4-10.2); Carbon Dioxide 35 mmol/L (22-30); Chloride 91.1 mmol/L (98-107); Glucose 115 mg/dL (65-100); Potassium 3.8 mmol/L (3.6-5.0); Sodium 138 mmol/L (137-145)
[2016-09-07] MEDS ORDERED: DUONEB 0.5 MG-3 MG/3 ML SOLN IH ONE (21:15)
[2016-09-07] MEDS ORDERED: TYLENOL PO ONE (21:16)
[2016-09-07] MEDS ORDERED: ZOFRAN IV ONE (21:18)
[2016-09-07] MEDS ORDERED: BABY ASPIRIN PO ONE (21:21)
--- NOTE | 2016-09-07 21:21 | Emergency Department Report ---
HPI - General Chief Complaint: Chest Pain Time Seen by Provider: 09/07/16 20:34 - HPI HPI: The patient is a 56-year-old female who presents for evaluation of chest pain and dyspnea. Patient has history of COPD. The patient reports chest pain since last night, 25 hours ago, constant since onset, midsternal in location, 7/ 10 in severity, pressure-like in quality. Her pain is associated with worsening of shortness of breath from baseline. Her shortness of breath has been moderate to severe, exacerbated with physical activity. The patient denies fever, hemoptysis, unilateral leg swelling, recent immobilization, history of DVT or PE. ED Past Medical Hx - Past Medical History Previous Medical History?: Yes Hx Hypertension: Yes Hx Congestive Heart Failure: Yes Hx Seizures: Yes (Epilepsy) Hx Asthma: Yes Hx COPD: Yes (Uses O2 at home) Additional medical history: emphysema. hepatic encephalopathy - Surgical History Past Surgical History?: Yes Additional Surgical History: FLORENCIO - Social History Smoking Status: Current Some Day Smoker Substance Use Type: None - Medications Home Medications: Home Medications Medication Instructions Recorded Confirmed Last Taken Type lamoTRIgine [LaMICtal] 100 mg PO QPM #30 tablet 08/05/16 09/08/16 2 Days Ago Rx levETIRAcetam [Keppra TAB] 500 mg PO BID #60 tablet 08/05/16 09/08/16 2 Days Ago Rx ALBUTEROL Inhaler [ProAir HFA 2 puff IH QID PRN #1 inha 08/21/16 09/08/16 Unknown Rx Inhaler] Budesoni/Formoterol 80-4.5(Nf) 2 puff IH BID #1 inha 08/21/16 09/08/16 Unknown Rx [Symbicort 80-4.5 (Nf)] Famotidine [Pepcid] 20 mg PO BID #60 tablet 08/21/16 09/08/16 Unknown Rx Ipratropium/Albuter (Nf) 1 inhalation INHALATION PRN #1 inha 08/21/16 09/08/16 Unknown Rx [Combivent Inhaler] LORazepam [Ativan] 1 mg PO BID@0600,1800 #60 tablet 08/21/16 09/08/16 Unknown Rx Losartan [Cozaar] 100 mg PO QDAY #30 tablet 08/21/16 09/08/16 Unknown Rx Nicotine [Habitrol] 21 mg TD Q24H #30 patch 08/21/16 09/08/16 Unknown Rx Prednisone [predniSONE 5 mg (6-Day 5 mg PO .TAPER #1 tab.ds.pk 08/21/16 Unknown Rx Pack, 21 Tabs)] amLODIPine [Norvasc] 10 mg PO QDAY #30 tablet 08/21/16 09/08/16 Unknown Rx ED Review of Systems ROS: Stated complaint: WIN/CHEST PAIN Other details as noted in HPI Constitutional: denies: fever ENT: denies: throat or neck pain Respiratory: reports shortness of breath Cardiovascular: reports chest pain Endocrine: denies unexplained weight loss or gain Gastrointestinal: denies: abdominal pain, nausea Genitourinary: denies: dysuria Musculoskeletal: denies: leg swelling Skin: denies: rash Neurological: denies: headache Hematological/Lymphatic: denies: easy bleeding or easy bruising Psych: denies sadness or hopelessness Physical Exam - Physical Exam Vital Signs: Vital Signs 09/07/16 09/07/16 09/07/16 19:37 19:38 19:40 Temperature Pulse Rate 96 H 96 H 96 H Respiratory 26 H 26 H 26 H Rate Blood Pressure 103/79 103/79 O2 Sat by Pulse Oximetry 09/07/16 09/07/16 09/07/16 19:42 19:44 19:53 Temperature 98 F Pulse Rate 95 H 95 H Respiratory 26 H 26 H Rate Blood Pressure 103/79 103/79 O2 Sat by Pulse 79 L 80 L Oximetry Physical Exam: General: well-nourished, well-developed, no acute distress Head: Normocephalic, atraumatic Eyes: normal sclera ENT: Mucous membranes are pale and dry Neck: trachea midline, neck supple, No neck stiffness, no cervical adenopathy Respiratory: Mildly diminished breath sounds and wheezing present throughout lung is bilaterally, no costal retractions, no respiratory distress Cardio: S1 and S2 present, no murmurs, rubs, gallops, capillary refill is delayed Abdomen: Normoactive bowel sounds, soft abdomen, no rigidity, no guarding or rebound tenderness Musc: No pitting edema Skin: No rash Neuro: no facial drooping, normal speech Psych: Normal affect ED Course Vital Signs 09/07/16 09/07/16 09/07/16 19:37 19:38 19:40 Temperature Pulse Rate 96 H 96 H 96 H Respiratory 26 H 26 H 26 H Rate Blood Pressure 103/79 103/79 O2 Sat by Pulse Oximetry 09/07/16 09/07/16 09/07/16 19:42 19:44 19:53 Temperature 98 F Pulse Rate 95 H 95 H Respiratory 26 H 26 H Rate Blood Pressure 103/79 103/79 O2 Sat by Pulse 79 L 80 L Oximetry ED Medical Decision Making - Lab Data Result diagrams: 09/07/16 20:00 09/07/16 20:00 - Medical Decision Making The patient was seen and examined by myself. The patient is placed on a cardiac exercise physiologist and continuous pulse ox. On initial evaluation, the patient was found to be in no distress. The patient is given a DuoNeb breathing treatment and IV Solu-Medrol for treatment of her COPD exacerbation. She is given a tablet of Tylenol for her pain. The patient is also given 1 L normal saline fluid bolus for treatment of dehydration. Evaluation orders were placed. EKG is negative for changes concerning for cardiac ischemia or infarct. Lab results reveal elevated hemoglobin and hematocrit, consistent with hemoconcentration and exam findings of dehydration, and otherwise labs were grossly unremarkable including normal troponin level. The patient was reevaluated and reported that her symptoms were improved but persisted. The on- call hospitalist service was contacted. They agreed to admit the patient for further treatment and close monitoring. The ED admit order was placed. The patient was admitted in guarded condition. Critical care attestation.: If time is entered above; I have spent that time in minutes in the direct care of this critically ill patient, excluding procedure time. ED Disposition Clinical Impression: Acute exacerbation of chronic obstructive pulmonary disease (COPD), Acute chest pain, Dehydration, Generalized weakness Disposition: OP ADMITTED IP TO THIS HOSP Is pt being admited?: Yes Does the pt Need Aspirin: Yes Condition: Fair Time of Disposition: 21:09
[2016-09-07] MEDS ORDERED: NACL 0.9% 1000 ML 1,000 ML IV ONE (21:56)
[2016-09-07] MEDS ORDERED: DULCOLAX PR PRN (22:51)
[2016-09-07] MEDS ORDERED: MILK OF MAGNESIA PO PRN (22:51)
[2016-09-07] MEDS ORDERED: ZOFRAN IV PRN (22:51)
--- NOTE | 2016-09-07 22:54 | History and Physical Report ---
History of Present Illness Date of examination: 09/07/16 History of present illness: 56-year-old woman history of hypertension, CHF, COPD, seizure comes to the emergency room with complaints of chest pain. Pain is in the epigastric area which she describes a sharp pain, intermittent in nature, lasting for one day, intensity 5/10, no radiation, she cannot identify exacerbating or relieving factors. Also complaining of shortness of breath, cough productive of yellow phlegm. Also states she had a fall at home today in her house, no loss of consciousness. Denies nausea vomiting, diaphoresis or palpitation Patient denies abdominal pain, hematochezia, dysuria, frequency, focal weakness , dysarthria, fever chills, polydipsia polyuria, hot or cold intolerance, easy bruisability, or rash or bleeding from mucosal membrane, rhinorrhea, epistaxis, earache, tinnitus, blurry vision, eye discharge, anxiety, depression. Other review of systems negative PAST SURGICAL HISTORY: Appendectomy, toe surgery SOCIAL HISTORY: Smoke 4 cigarettes a day, no alcohol or drugs FAMILY HISTORY: Hypertension Medications and Allergies Allergies Allergy/AdvReac Type Severity Reaction Status Date / Time bee venom (honey bee) Allergy Severe FILLS HER Verified 09/07/16 19:20 LUNGS UP WITH WATER/ CLOSES UP THROAT/NAUSEA shellfish derived Allergy Severe CLOG UP PT Verified 09/07/16 19:20 THROAT/ ITCHING ALL OVER Sulfa (Sulfonamide Allergy Unknown Verified 09/07/16 19:20 Antibiotics) Home Medications Medication Instructions Recorded Confirmed Last Taken Type lamoTRIgine [LaMICtal] 100 mg PO QPM #30 tablet 08/05/16 09/08/16 2 Days Ago Rx levETIRAcetam [Keppra TAB] 500 mg PO BID #60 tablet 08/05/16 09/08/16 2 Days Ago Rx ALBUTEROL Inhaler [ProAir HFA 2 puff IH QID PRN #1 inha 08/21/16 09/08/16 Unknown Rx Inhaler] Budesoni/Formoterol 80-4.5(Nf) 2 puff IH BID #1 inha 08/21/16 09/08/16 Unknown Rx [Symbicort 80-4.5 (Nf)] Famotidine [Pepcid] 20 mg PO BID #60 tablet 08/21/16 09/08/16 Unknown Rx Ipratropium/Albuter (Nf) 1 inhalation INHALATION PRN #1 inha 08/21/16 09/08/16 Unknown Rx [Combivent Inhaler] LORazepam [Ativan] 1 mg PO BID@0600,1800 #60 tablet 08/21/16 09/08/16 Unknown Rx Losartan [Cozaar] 100 mg PO QDAY #30 tablet 08/21/16 09/08/16 Unknown Rx Nicotine [Habitrol] 21 mg TD Q24H #30 patch 08/21/16 09/08/16 Unknown Rx Prednisone [predniSONE 5 mg (6-Day 5 mg PO .TAPER #1 tab.ds.pk 08/21/16 Unknown Rx Pack, 21 Tabs)] amLODIPine [Norvasc] 10 mg PO QDAY #30 tablet 08/21/16 09/08/16 Unknown Rx Active Meds: Active Medications Sodium Chloride (Nacl 0.9% 1000 Ml) 1,000 mls @ 999 mls/hr IV ONCE ONE Stop: 09/07/16 22:56 Last Admin: 09/07/16 22:08 Dose: 999 mls/hr Exam - Physical Exam Narrative exam: Gen. appearance: Patient lying in bed, no apparent distress HEENT: Normocephalic, atraumatic, pupils equally round and reactive to light, extraocular movement intact, and no sclericterus,. No JVD or thyromegaly or nodule,neck supple, no carotid bruit ,mucous membranes moist, no exudate or erythema Heart: S1, S2, regular rate and rhythm Lungs: Wheezing bilaterally, breathing comfortable Abdomen: Positive bowel sounds, nontender, nondistended, no organomegaly Extremity: No edema, cyanosis, clubbing Skin: No rash, nodules, warm, dry Neuro: Oriented 3, cranial nerves II-12 intact, speech is fluent, motor and sensory intact - Constitutional Vitals: Temp Pulse Resp BP Pulse Ox 98 F 95 H 18 103/79 96 09/07/16 19:53 09/07/16 19:44 09/07/16 21:59 09/07/16 19:44 09/07/16 19:55 Results - Labs CBC & Chem 7: 09/08/16 05:05 09/07/16 20:00 Labs: Abnormal lab results 09/07/16 09/07/16 Range/Units 20:00 20:00 Hgb 14.8 H (10.1-14.3) gm/dl Hct 44.0 H (30.3-42.9) % MCH 33 H (28-32) pg Dare % (Auto) 10.9 H (0.0-7.3) % Dare # 1.0 H (0.0-0.8) K/mm3 Carbon Dioxide 35 H (22-30) mmol/L Glucose 115 H (65-100) mg/dL - Imaging and Cardiology EKG: image reviewed Chest x-ray: image reviewed Assessment and Plan COPD exacerbation Chest pain Status post fall CHF, stable Hypertension Seizure Admits medicine Start high dose steroids, nebulizer shortness Check cardiac enzymes, d-dimer, CT head Continue appropriate outpatient medications D-dimer positive Check CT chest, rule out PE
[2016-09-08 00:20] LABS: Creatine Kinase MB 2.7 ng/mL (0.0-4.0)
[2016-09-08] MEDS ORDERED: NACL ONE (00:45)
--- NOTE | 2016-09-08 01:31 | Admit Criteria Form ---
Admission Criteria Documentation: COPD Clinical Indications for Admission to Inpatient Care (Place 'X' for any and all applicable criteria): Admission is indicated for ANY ONE of the following (1)(2)(3): [ X]I. Acute exacerbation by high-risk comorbidity (e.g., pneumonia, dysrhythmia, heart failure, pleural effusion, pneumothorax) or severe underlying COPD (e.g., steroid dependent) [ ]II. Inpatient admission required rather than observation care (see Chronic Obstructive Pulmonary Disease: Observation Care) because of ANY ONE of the following: [ ]a) New or pre-existing signs or symptoms of COPD (eg, dyspnea or Tachypnea at rest or with minimal activity) that persist despite outpatient and observation care treatment [ ]b) New-onset hypoxemia (room air SaO2 less than 90%, PO2 less than 60 mm Hg (8.0 kPa)) that persists despite outpatient and observation care treatment [ ]c) Worsening of pre-existing hypoxemia (eg, new or increased requirement for supplemental oxygen to maintain oxygenation at baseline level) that persists despite outpatient and observation care treatment, with oxygen treatment needs performable only in acute inpatient setting [ ]d) Hypercarbia (PCO2 greater than 40 mm Hg (5.3 kPa))-induced respiratory acidosis (pH less than 7.35) that persists despite outpatient and observation care treatment [ ]e) Supplemental oxygen or respiratory treatments for over 24 hours that are performable only in acute inpatient setting [ ]f) Chest tube placement with active evacuation (e.g., suction, drainage) (5) [ ]g) Other condition, treatment or monitoring requiring inpatient admission [ ]III. Planned invasive surgical or diagnostic procedures requiring acute- care hospitalization [ ]IV. Acute respiratory failure (e.g., uncompensated hypercarbia, severe hypoxemia) [ ]V. Severe comorbid condition (e.g., severe steroid myopathy, acute vertebral fracture) that has acutely worsened pulmonary function [ ]. Confusion state, lethargy, obtundation, stupor or coma Extended stay beyond goal length of stay may be needed for (31)(32): [ ]a ) Respiratory Failure. [ ]b) Severe or persisting hypoxemia or hypercarbia [ ]c) Severe or persistent dyspnea [ ]d) Comorbidities (e.g. chronic heart failure, atrial fibrillation with rapid response, pneumonia) [ ]e) Malnutrition The original [facility] content created by [facility] has been revised. The portions of the content which have been revised are identified through the use of italic text or in bold, and [facility] has neither reviewed nor approved the modified material. All other unmodified content is copyright [email or web address]. Please see references footnoted in the original [email or web address] edition 2016 Admission Criteria Met: Yes
[2016-09-08] MEDS: DUONEB 0.5 MG-3 MG/3 ML SOLN IH SCH ×4 (01:48→19:18)
--- NOTE | 2016-09-08 02:10 | Cat Scan Report ---
FINAL REPORT EXAM: CT HEAD/BRAIN WO CON HISTORY: fall . Pain. COMPARISON: CT of the head from August 16, 2016. TECHNIQUE: Axial images obtained skull base through vertex. FINDINGS: No acute intracranial hemorrhage, midline shift or pathologic extra axial fluid collection. Ventricles and cisterns are normal in size and configuration for the patient's age. Stable mild chronic small vessel ischemic disease. Remote lacunar infarcts of the bilateral basal ganglia stable from prior study. Perry-white differentiation preserved. Calvarium grossly intact. Mild calcification of carotid siphons. Opacification right mastoid air cells and tympanic cavity. Left mastoid air cells are clear. Visualized paranasal sinuses are clear. Visualized orbits are grossly unremarkable. IMPRESSION: No grossly acute intracranial abnormality. Stable mild chronic small vessel ischemic disease. Remote lacunar infarcts of the bilateral basal ganglia stable from prior study. Opacification right mastoid air cells and tympanic cavity progressed from prior study.
--- NOTE | 2016-09-08 02:35 | Cat Scan Report ---
FINAL REPORT EXAM: CT ANGIO CHEST HISTORY: ELEVATED D DIMER FALL COMPARISON: None available. TECHNIQUE: Contiguous axial images were obtained. Administration of IV contrast given per institution protocol. Images submitted for interpretation. 100 cc Omnipaque 350. Additional sagittal and coronal reformatted images were obtained. Max intensity projection images. FINDINGS: Mild cardiac enlargement. Mild prominence of the pericardial fat. Ascending thoracic aorta measures 3.7 centimeters in diameter, upper limits of normal. No dissection of the thoracic aorta. Mild to moderate calcified plaque of the thoracic aorta. No pulmonary embolus. There calcified intrathoracic lymph nodes. There are few borderline but technically not enlarged intrathoracic lymph nodes suspected to be reactive. No enlarged axillary lymph nodes. Moderate severe emphysema most pronounced within the upper lobes. There is bronchial wall thickening which may relate to COPD. Mild active bronchitis cannot be excluded. At the lateral margin of the left upper lobe there is a 3 millimeter calcified granuloma (series 3, image 57). At the anterior inferior margin right lower lobe there is a noncalcified nodule measuring 8 millimeters (series 3, image 74). There is a 2nd nodular density at the inferior posterior margin right middle lobe measuring 6 x 8 millimeters (series 3, image 72). No pleural effusion. Indeterminate left adrenal mass measuring 2.6 x 2.0 centimeters. Indeterminate right adrenal mass measuring 1.4 x 1.5 centimeters. Diffuse fatty infiltration of the liver. No calcified gallstones or biliary dilatation. Partial visualization of bilateral renal cysts. Mild to moderate degenerative changes of the thoracic spine. Visualized thyroid gland is shrunken with partial calcification. IMPRESSION: No pulmonary embolus. Moderate severe emphysema. Mild bronchial wall thickening which may relate to COPD. Active infectious bronchitis cannot be excluded. There indeterminate nodules at the inferior margin right middle lobe and right lower lobe which may be postinflammatory. Followup chest CT within 3 months suggested to ensure stability. Bilateral indeterminate adrenal nodules.
[2016-09-08 05:52] LABS: Basophils % (Auto) 0.4 % (0.0-1.8); Hematocrit 40.7 % (30.3-42.9); Hemoglobin 13.5 gm/dl (10.1-14.3); Mean Corpuscular HGB Conc 33 % (30-34); Mean Corpuscular Hemoglobin 32 pg (28-32); Mean Corpuscular Volume 96 fl (79-97); Platelet Count 246 K/mm3 (140-440); Red Blood Count 4.22 M/mm3 (3.65-5.03); Red Cell Distribution Width 13.3 % (13.2-15.2); White Blood Count 7.2 K/mm3 (4.5-11.0)
[2016-09-08 06:02] LABS: Anion Gap 15 mmol/L; Blood Urea Nitrogen 8 mg/dL (7-17); Calcium 9.3 mg/dL (8.4-10.2); Carbon Dioxide 33 mmol/L (22-30); Chloride 95.4 mmol/L (98-107); Glucose 158 mg/dL (65-100); Potassium 4.2 mmol/L (3.6-5.0); Sodium 139 mmol/L (137-145)
[2016-09-08 06:09] LABS: Creatine Kinase 35 units/L (30-135)
[2016-09-08] MEDS: LOVENOX SUB-Q SCH (10:46)
[2016-09-08] MEDS: HABITROL TD SCH (10:46)
--- NOTE | 2016-09-08 18:04 | Progress Note ---
Assessment and Plan 1. COPD exacerbation: Continue with bronchodilators. IV Solu-Medrol IV Levaquin 2. Chest pain: Serial cardiac enzymes. Status post fall CHF, stable Hypertension Seizure Admits medicine Start high dose steroids, nebulizer shortness Check cardiac enzymes, d-dimer, CT head Continue appropriate outpatient medications D-dimer positive Check CT chest, rule out PE Subjective Date of service: 09/08/16 Principal diagnosis: COPD exacerbation Interval history: Still has shortness of breath. Fell on her back. Admission to medicine having pain in lower back and shoulder area. Patient had a history of schizophrenia. Objective - Constitutional Vitals: Vital Signs - 12hr 09/08/16 09/08/16 09/08/16 07:30 07:40 08:23 Temperature 97.6 F Pulse Rate [ Apical] Pulse Rate [ 78 Left Radial] Pulse Rate [ 78 77 Posterior Bilateral Throughout] Respiratory 20 Rate Respiratory 20 18 Rate [Posterior Bilateral Throughout] Blood Pressure 115/66 [Left Arm] O2 Sat by Pulse 88 Oximetry 09/08/16 09/08/16 09/08/16 09:17 12:15 13:50 Temperature 98.1 F Pulse Rate [ Apical] Pulse Rate [ 86 Left Radial] Pulse Rate [ 78 Posterior Bilateral Throughout] Respiratory 20 Rate Respiratory 18 Rate [Posterior Bilateral Throughout] Blood Pressure 126/64 [Left Arm] O2 Sat by Pulse 94 Oximetry 09/08/16 09/08/16 14:00 16:03 Temperature 99.7 F H Pulse Rate [ 100 H Apical] Pulse Rate [ Left Radial] Pulse Rate [ 77 Posterior Bilateral Throughout] Respiratory 18 Rate Respiratory 18 Rate [Posterior Bilateral Throughout] Blood Pressure 156/72 [Left Arm] O2 Sat by Pulse Oximetry General appearance: Present: no acute distress, well-nourished - EENT Eyes: PERRL, EOM intact ENT: hearing intact, clear oral mucosa Ears: bilateral: normal - Neck Neck: supple, normal ROM - Respiratory Respiratory effort: normal Respiratory: bilateral: diminished - Cardiovascular Rhythm: regular Heart Sounds: Present: S1 & S2. Absent: gallop, rub Extremities: pulses intact, No edema, normal color, Full ROM - Gastrointestinal General gastrointestinal: Present: soft, non-tender, non-distended, normal bowel sounds - Genitourinary Female genitourinary: normal - Integumentary Integumentary: clear, warm, dry - Musculoskeletal Musculoskeletal: 1, strength equal bilaterally - Neurologic Neurologic: moves all extremities - Psychiatric Psychiatric: memory intact, appropriate mood/affect, intact judgment & insight - Labs CBC & Chem 7: 09/08/16 05:05 09/08/16 05:05 Labs: Abnormal lab results 09/07/16 09/07/16 09/08/16 Range/Units 23:33 23:33 05:05 Lymph % (Auto) 10.5 L (13.4-35.0) % Lymph # 0.8 L (1.2-5.4) K/mm3 Seg Neutrophils % 87.9 H (40.0-70.0) % D-Dimer 434.71 H (0-234) ng/mlDDU Chloride (98-107) mmol/L Carbon Dioxide (22-30) mmol/L Glucose (65-100) mg/dL CK-MB (CK-2) Rel Index 9.0 H (0-4) 09/08/16 09/08/16 Range/Units 05:05 05:05 Lymph % (Auto) (13.4-35.0) % Lymph # (1.2-5.4) K/mm3 Seg Neutrophils % (40.0-70.0) % D-Dimer (0-234) ng/mlDDU Chloride 95.4 L (98-107) mmol/L Carbon Dioxide 33 H (22-30) mmol/L Glucose 158 H (65-100) mg/dL CK-MB (CK-2) Rel Index 8.5 H (0-4)
[2016-09-08 21:40] LABS: Bacteria,Urine 1+ /HPF (Negative); Bilirubin,Urine NEG (Negative); Blood,Urine NEG (Negative); Ketones,Urine NEG (Negative); Leukocyte Esterase,Urine NEG (Negative); Nitrite,Urine NEG (Negative); Protein,Urine <15 mg/dL mg/dL (Negative); Urobilinogen,Urine < 2.0 mg/dL (<2.0); WBC,Urine < 1.0 /HPF (0.0-6.0)
[2016-09-08 21:41] LABS: RBC,Urine < 1.0 /HPF (0.0-6.0)
[2016-09-09] MEDS: DUONEB 0.5 MG-3 MG/3 ML SOLN IH SCH ×4 (01:45→20:02)
--- NOTE | 2016-09-09 09:44 | Query- Dyspnea ---
Deacrys CardenasObiekwe Date:_09/09/16 Hospice Clinical Manager/CDS:Aditya Mathias Phone#:_[phone] Exercise your independent professional judgment when responding to query. Questions asked do not imply a particular answer is desired or expected. We greatly appreciate your clarification on this issue. Clinical Documentation States: 56-year-old woman history of hypertension, CHF, COPD, seizure comes to the emergency room with complaints of chest pain. Pain is in the epigastric area which she describes a sharp pain, intermittent in nature, lasting for one day, intensity 5/10, no radiation, she cannot identify exacerbating or relieving factors. Also complaining of shortness of breath, cough productive of yellow phlegm. Clinical Findings Show: O2 Saturation: 88% Given IV solumedrol, Duoneb breathing treatment Chest CTA shows no PE, Moderate to severe emphysema Please clarify if the patient had any of the following conditions based on the above clinical findings: [ ] Respiratory Failure [ ] Acute [ ] Acute on Chronic [ ] Chronic [ ] Respiratory failure due to trauma [ ] Acute Respiratory Distress Syndrome [ ] Other: [ ] Unable to determine [ ] Comment/Explanation: Present on Admission: [ ] Yes (Y) [ ] Clinically undeterminable (W) [ ] No (N) Please also document response in your Progress Notes and/or Discharge Summary and indicate if the condition was present on admission. MANUELA
[2016-09-09] MEDS: LOVENOX SUB-Q SCH (10:14)
[2016-09-09] MEDS: HABITROL TD SCH (10:15)
[2016-09-09] MEDS: TYLENOL PO PRN ×2 (10:32→18:58)
--- NOTE | 2016-09-09 18:09 | Progress Note ---
Assessment and Plan - Patient Problems (1) Acute exacerbation of chronic obstructive pulmonary disease (COPD) Current Visit: Yes Status: Acute Plan to address problem: Improving.Should be able to discharge tomorrow. (2) Acute and chronic respiratory failure Current Visit: No Status: Acute Qualifiers: Respiratory failure complication: hypoxia and hypercapnia Qualified Code(s) : J96.21 - Acute and chronic respiratory failure with hypoxia; J96.22 - Acute and chronic respiratory failure with hypercapnia Plan to address problem: Improved (3) HTN (hypertension) Current Visit: No Status: Chronic Qualifiers: Hypertension type: essential hypertension Qualified Code(s): I10 - Essential (primary) hypertension Plan to address problem: Cont Amlodipine and Losartan 100 mg po qd. (4) Seizure disorder Current Visit: No Status: Chronic Plan to address problem: On Keppra 500 po BID (5) Nicotine dependence Current Visit: Yes Status: Chronic Qualifiers: Nicotine product type: cigarettes Substance use status: S Plan to address problem: On Nicotine 21 mg patch q day. (6) DVT prophylaxis Current Visit: No Status: Acute Plan to address problem: On Lovenox (7) Discharge planning issues Current Visit: No Status: Acute Plan to address problem: Patient maybe discharged tomorrow.Refused to home today b/c of lack of ride. Subjective Date of service: 09/09/16 Principal diagnosis: COPD exacerbation Interval history: Doing better. No fever/chills.No seizures. Objective - Constitutional Vitals: Vital Signs - 12hr 09/09/16 09/09/16 09/09/16 07:00 08:00 08:10 Temperature 98.8 F Pulse Rate [ Left Radial] Pulse Rate [ 78 80 Posterior Bilateral Throughout] Pulse Rate [ 68 Right Radial] Respiratory 16 Rate Respiratory 18 18 Rate [Posterior Bilateral Throughout] Blood Pressure [Left Arm] Blood Pressure 126/61 [Right Arm] O2 Sat by Pulse 95 Oximetry 09/09/16 09/09/16 09/09/16 08:54 09:30 14:50 Temperature Pulse Rate [ 78 Left Radial] Pulse Rate [ 84 Posterior Bilateral Throughout] Pulse Rate [ Right Radial] Respiratory 18 Rate Respiratory 18 Rate [Posterior Bilateral Throughout] Blood Pressure [Left Arm] Blood Pressure [Right Arm] O2 Sat by Pulse 94 95 Oximetry 09/09/16 09/09/16 14:58 15:05 Temperature 99.9 F H Pulse Rate [ 81 Left Radial] Pulse Rate [ 86 Posterior Bilateral Throughout] Pulse Rate [ Right Radial] Respiratory 18 Rate Respiratory 18 Rate [Posterior Bilateral Throughout] Blood Pressure 139/67 [Left Arm] Blood Pressure [Right Arm] O2 Sat by Pulse 94 Oximetry General appearance: Present: no acute distress, well-nourished - EENT Eyes: PERRL, EOM intact ENT: hearing intact, clear oral mucosa Ears: bilateral: normal - Neck Neck: supple, normal ROM - Respiratory Respiratory effort: normal Respiratory: bilateral: rhonchi (scattered) - Breasts Breasts: normal - Cardiovascular Rhythm: regular Heart Sounds: Present: S1 & S2. Absent: gallop, rub Extremities: pulses intact, No edema, normal color, Full ROM - Gastrointestinal General gastrointestinal: Present: soft, non-tender, non-distended, normal bowel sounds - Genitourinary Female genitourinary: normal - Integumentary Integumentary: clear, warm, dry - Musculoskeletal Musculoskeletal: 1, strength equal bilaterally - Neurologic Neurologic: moves all extremities - Psychiatric Psychiatric: memory intact, appropriate mood/affect, intact judgment & insight - Labs CBC & Chem 7: 09/08/16 05:05 09/08/16 05:05
[2016-09-09] MEDS: KEPPRA PO SCH (22:42)
[2016-09-10] MEDS: DUONEB 0.5 MG-3 MG/3 ML SOLN IH SCH ×3 (02:49→13:23)
--- NOTE | 2016-09-10 09:38 | Discharge Summary ---
Providers - Providers Date of Admission: 09/07/16 22:51 Date of discharge: 09/10/16 Attending physician: AYAN CORTEZ 09/08/16 12:00 Physical Therapy Evaluation and Treat [CONS] Routine Comment: Reason For Exam: immobility Primary care physician: [employer] Hospitalization Condition: Fair Disposition: DISCHARGED TO HOME OR SELFCARE Core Measure Documentation - Palliative Care Palliative Care/ Comfort Measures: Not Applicable - Core Measures Any of the following diagnoses?: none Exam - Constitutional Vitals: Temp Pulse Resp BP Pulse Ox 97.7 F 102 H 18 151/70 91 09/09/16 22:48 09/10/16 07:50 09/10/16 07:50 09/09/16 22:48 09/10/16 08:56 General appearance: Present: no acute distress, well-nourished - EENT Eyes: Present: PERRL, EOM intact - Neck Neck: Present: supple, normal ROM - Respiratory Respiratory effort: normal Respiratory: bilateral: diminished, negative: rales, rhonchi, wheezing - Cardiovascular Rhythm: regular Heart Sounds: Present: S1 & S2 - Extremities Extremities: no ischemia, pulses intact, pulses symmetrical Peripheral Pulses: within normal limits - Abdominal General gastrointestinal: Present: soft, non-tender, non-distended - Integumentary Integumentary: Present: clear, warm - Musculoskeletal Musculoskeletal: strength equal bilaterally - Psychiatric Psychiatric: appropriate mood/affect, cooperative - Neurologic Neurologic: CNII-XII intact, moves all extremities Plan Activity: advance as tolerated Diet: low salt Additional Instructions: continue home o2 2lt via [place] as before Follow up with: PRIMARY CARE, [Primary Care Provider] - 3-5 Days Prescriptions: predniSONE [Deltasone] 10 mg PO .TAPER #21 tab
[2016-09-10] MEDS: HABITROL TD SCH (10:32)
[2016-09-10] MEDS: KEPPRA PO SCH (10:32)
[2016-09-10 10:33] VITALS: BP 153/79
[2016-09-10] MEDS: LOVENOX SUB-Q SCH (10:33)
== END 2016-09-10 16:00 | disposition home or self-care (01) | DRG 189 ==
LOC: ED 18:37 → 3A 22:51
PROVIDERS: ADMIT Internal Medicine; ATTEND Internal Medicine
DX: J96.21 Acute and chronic respiratory failure with hypoxia (principal); J96.22 Acute and chronic respiratory failure with hypercapnia; J44.1 Chronic obstructive pulmonary disease with (acute) exacerbation; I11.0 Hypertensive heart disease with heart failure; I50.9 Heart failure, unspecified; G40.909 Epilepsy, unspecified, not intractable, without status epilepticus; J45.909 Unspecified asthma, uncomplicated; F17.210 Nicotine dependence, cigarettes, uncomplicated; Z99.81 Dependence on supplemental oxygen; Z79.899 Other long term (current) drug therapy; Z82.49 Family history of ischemic heart disease and other diseases of the circulatory system; Z88.2 Allergy status to sulfonamides; Z91.030 Bee allergy status; Z91.013 Allergy to seafood; W18.30XA Fall on same level, unspecified, initial encounter; Y93.89 Activity, other specified; Y92.009 Unspecified place in unspecified non-institutional (private) residence as the place of occurrence of the external cause; Y99.8 Other external cause status; Z98.890 Other specified postprocedural states
CPT/HCPCS: 36415; 70450; 71020; 71275; 80048; 81001; 82550; 82553; 83880; 84484; 85025; 85379; 93005; 93010; 94640; 94760; 96374; 96375; 99406; J1650; J2405; J2930; J7030; Q9967

== ENCOUNTER 2016-09-18 17:04 | Inpatient (IN) | payer MEDICAID ==
[2016-09-18] MEDS ORDERED: NACL 0.9% 1000 ML 1,000 ML ONE ×2 (17:55→18:56)
[2016-09-18] MEDS ORDERED: MAGNESIUM SULFATE 2GM/50ML 2 GM/50 ML BAG IV ONE (18:14)
[2016-09-18] MEDS ORDERED: ATROVENT IH ONE (18:14)
[2016-09-18] MEDS ORDERED: PROVENTIL IH ONE (18:14)
--- NOTE | 2016-09-18 18:20 | Emergency Department Report ---
ED Altered Mental Status HPI - General Chief Complaint: Fall Stated Complaint: RIB PAIN/HYPOTENSIVE Time Seen by Provider: 09/18/16 17:56 Source: patient, EMS Mode of arrival: Stretcher Limitations: Altered Mental Status - History of Present Illness Initial Comments: 56 year old female with a past medical history COPD with oxygen dependence, CHF , asthma, hypertension, epilepsy, and previous history of hepatic encephalopathy presents to the hospital complaints of altered mental status. called EMS for repeated falls. Patient's lethargic oriented to self only. Complains of right rib pain. Passive ecchymosis also noted to the right ankle which was wrapped and sock and plastic bag.. No history of present illness available at this time and is not at the bedside. Previous medical record reviewed and patient was admitted here September 08 altered mental status and COPD exacerbation as well as August 16. Had negative CT head with both visits and also had a CT angiogram September 08 that showed severe emphysema but no PE. Despite history of CHF on triage patient has no recent echo or stress test on record to verify ejection fraction. - Related Data Previous Rx's Medication Instructions Recorded Last Taken Type lamoTRIgine [LaMICtal] 100 mg PO QPM #30 tablet 08/05/16 2 Days Ago Rx levETIRAcetam [Keppra TAB] 500 mg PO BID #60 tablet 08/05/16 2 Days Ago Rx ALBUTEROL Inhaler [ProAir HFA 2 puff IH QID PRN #1 inha 08/21/16 Unknown Rx Inhaler] Budesoni/Formoterol 80-4.5(Nf) 2 puff IH BID #1 inha 08/21/16 Unknown Rx [Symbicort 80-4.5 (Nf)] Famotidine [Pepcid] 20 mg PO BID #60 tablet 08/21/16 Unknown Rx Ipratropium/Albuter (Nf) 1 inhalation INHALATION PRN #1 inha 08/21/16 Unknown Rx [Combivent Inhaler] LORazepam [Ativan] 1 mg PO BID@0600,1800 #60 tablet 08/21/16 Unknown Rx Losartan [Cozaar] 100 mg PO QDAY #30 tablet 08/21/16 Unknown Rx Nicotine [Habitrol] 21 mg TD Q24H #30 patch 08/21/16 Unknown Rx amLODIPine [Norvasc] 10 mg PO QDAY #30 tablet 08/21/16 Unknown Rx predniSONE [Deltasone] 10 mg PO .TAPER #21 tab 09/10/16 Unknown Rx Allergies Allergy/AdvReac Type Severity Reaction Status Date / Time bee venom (honey bee) Allergy Severe FILLS HER Verified 09/07/16 19:20 LUNGS UP WITH WATER/ CLOSES UP THROAT/NAUSEA shellfish derived Allergy Severe CLOG UP PT Verified 09/07/16 19:20 THROAT/ ITCHING ALL OVER Sulfa (Sulfonamide Allergy Unknown Verified 09/07/16 19:20 Antibiotics) ED Review of Systems ROS: Stated complaint: RIB PAIN/HYPOTENSIVE Other details as noted in HPI Comment: Unobtainable due to pts medical conditions (Limited due to altered mental status) ED Past Medical Hx - Past Medical History Previous Medical History?: Yes Hx Hypertension: Yes Hx Congestive Heart Failure: Yes Hx Diabetes: No Hx Seizures: Yes (Epilepsy) Hx Asthma: Yes Hx COPD: Yes (Uses O2 at home) Additional medical history: emphysema. hepatic encephalopathy - Surgical History Additional Surgical History: FLORENCIO - Social History Smoking Status: Current Every Day Smoker Substance Use Type: None - Medications Home Medications: Home Medications Medication Instructions Recorded Confirmed Last Taken Type lamoTRIgine [LaMICtal] 100 mg PO QPM #30 tablet 08/05/16 09/08/16 2 Days Ago Rx levETIRAcetam [Keppra TAB] 500 mg PO BID #60 tablet 08/05/16 09/08/16 2 Days Ago Rx ALBUTEROL Inhaler [ProAir HFA 2 puff IH QID PRN #1 inha 08/21/16 09/08/16 Unknown Rx Inhaler] Budesoni/Formoterol 80-4.5(Nf) 2 puff IH BID #1 inha 08/21/16 09/08/16 Unknown Rx [Symbicort 80-4.5 (Nf)] Famotidine [Pepcid] 20 mg PO BID #60 tablet 08/21/16 09/08/16 Unknown Rx Ipratropium/Albuter (Nf) 1 inhalation INHALATION PRN #1 inha 08/21/16 09/08/16 Unknown Rx [Combivent Inhaler] LORazepam [Ativan] 1 mg PO BID@0600,1800 #60 tablet 08/21/16 09/08/16 Unknown Rx Losartan [Cozaar] 100 mg PO QDAY #30 tablet 08/21/16 09/08/16 Unknown Rx Nicotine [Habitrol] 21 mg TD Q24H #30 patch 08/21/16 09/08/16 Unknown Rx amLODIPine [Norvasc] 10 mg PO QDAY #30 tablet 08/21/16 09/08/16 Unknown Rx predniSONE [Deltasone] 10 mg PO .TAPER #21 tab 09/10/16 Unknown Rx ED Physical Exam - General Limitations: Altered Mental Status - Other Other exam information: General: Lethargic but open eyes to tactile stimulation Head exam: Atraumatic, normocephalic Eyes exam: Normal appearance, pupils equal reactive to light ENT: Moist mucous membrane, normal oropharynx Neck exam: Normal inspection, full range of motion, no meningismus nontender Respiratory exam: Bilateral expiratory wheezing with prolonged expiratory phase Cardiovascular: Normal rate and rhythm, right lateral lower rib tenderness Abdomen: Soft, nondistended, and nontender, with normal bowel sounds, no rebound, or guarding Extremity: Ecchymosis and deformity to right ankle Back: Normal Inspection, full range of motion, no tenderness Neurologic: Alert, oriented x3, cranial nerves intact, no motor or sensory deficit Psychiatric: normal affect, normal mood Skin: Warm, dry, intact ED Course Vital Signs 09/18/16 09/18/16 09/18/16 17:29 17:49 18:00 Temperature 97.5 F L Pulse Rate 51 L 52 L 55 L Pulse Rate [ Anterior Bilateral Throughout] Respiratory 16 15 18 Rate Respiratory Rate [Anterior Bilateral Throughout] Blood Pressure 77/38 82/46 O2 Sat by Pulse 100 90 Oximetry 09/18/16 09/18/16 09/18/16 18:15 18:16 18:30 Temperature 98.4 F Pulse Rate 53 L 52 L Pulse Rate [ Anterior Bilateral Throughout] Respiratory 15 14 Rate Respiratory Rate [Anterior Bilateral Throughout] Blood Pressure 88/40 88/40 O2 Sat by Pulse 92 96 Oximetry 09/18/16 09/18/16 09/18/16 18:45 18:46 19:00 Temperature Pulse Rate 52 L 53 L 54 L Pulse Rate [ Anterior Bilateral Throughout] Respiratory 18 15 14 Rate Respiratory Rate [Anterior Bilateral Throughout] Blood Pressure 54/32 54/31 54/31 O2 Sat by Pulse 84 96 Oximetry 09/18/16 09/18/16 09/18/16 19:16 19:30 19:35 Temperature Pulse Rate 53 L 49 L Pulse Rate [ 49 L Anterior Bilateral Throughout] Respiratory 16 15 Rate Respiratory 22 Rate [Anterior Bilateral Throughout] Blood Pressure 103/58 84/46 O2 Sat by Pulse 96 99 Oximetry 09/18/16 09/18/16 09/18/16 19:46 20:01 20:16 Temperature Pulse Rate 50 L 51 L Pulse Rate [ 513 H Anterior Bilateral Throughout] Respiratory 14 16 Rate Respiratory 21 Rate [Anterior Bilateral Throughout] Blood Pressure 94/49 101/58 O2 Sat by Pulse 94 Oximetry 09/18/16 20:30 Temperature Pulse Rate 50 L Pulse Rate [ Anterior Bilateral Throughout] Respiratory 12 Rate Respiratory Rate [Anterior Bilateral Throughout] Blood Pressure 98/59 O2 Sat by Pulse 100 Oximetry - Reevaluation(s) Reevaluation #1: 09/18/16 21:19 Blood pressure improved with IV fluids. BiPAP initiated after ABG - Lab Data Result diagrams: 09/18/16 19:02 09/18/16 19:02 Lab Results 09/18/16 09/18/16 09/18/16 Range/Units 18:15 18:15 18:21 WBC (4.5-11.0) K/mm3 RBC (3.65-5.03) M/mm3 Hgb (10.1-14.3) gm/dl Hct (30.3-42.9) % MCV (79-97) fl MCH (28-32) pg MCHC (30-34) % RDW (13.2-15.2) % Plt Count (140-440) K/mm3 Lymph % (Auto) [place] % (Auto) Eos % (Auto) Baso % (Auto) Lymph # [place] # Eos # Baso # Add Manual Diff Total Counted Seg Neutrophils % Seg Neuts % (Manual) (40.0-70.0) % Band Neutrophils % % Lymphocytes % (Manual) (13.4-35.0) % Reactive Lymphs % (Man) % Monocytes % (Manual) (0.0-7.3) % Eosinophils % (Manual) (0.0-4.3) % Basophils % (Manual) (0.0-1.8) % Metamyelocytes % % Myelocytes % % Promyelocytes % % Blast Cells % % Nucleated RBC % Seg Neutrophils # Seg Neutrophils # Man (1.8-7.7) K/mm3 Band Neutrophils # K/mm3 Lymphocytes # (Manual) (1.2-5.4) K/mm3 Abs React Lymphs (Man) K/mm3 Monocytes # (Manual) (0.0-0.8) K/mm3 Eosinophils # (Manual) (0.0-0.4) K/mm3 Basophils # (Manual) (0.0-0.1) K/mm3 Metamyelocytes # K/mm3 Myelocytes # K/mm3 Promyelocytes # K/mm3 Blast Cells # K/mm3 WBC Morphology Hypersegmented Neuts Hyposegmented Neuts Hypogranular Neuts Smudge Cells Toxic Granulation Toxic Vacuolation Dohle Bodies Pelger-Huet Anomaly Valente Rods Platelet Estimate Clumped Platelets Plt Clumps, EDTA Large Platelets Giant Platelets Platelet Satelliting Plt Morphology Comment RBC Morphology Dimorphic RBCs Polychromasia Hypochromasia Poikilocytosis Anisocytosis Microcytosis Macrocytosis Spherocytes Pappenheimer Bodies Sickle Cells Target Cells Tear Drop Cells Ovalocytes Helmet Cells [place] Bodies [place] Rings [place] Cells Bite Cells Crenated Cell Elliptocytes Acanthocytes (Spur) Rouleaux Hemoglobin C Crystals Schistocytes Malaria parasites Adithya Bodies Hem Pathologist Commnt PT (12.2-14.9) Sec. INR (0.87-1.13) APTT (24.2-36.6) Sec. POC ABG pH 7.310 L (7.35-7.45) POC ABG pCO2 72.7 H (35-45) POC ABG pO2 62 L (80-105) POC ABG HCO3 36.6 POC ABG Total CO2 39 POC ABG O2 Sat 88 POC ABG Base Excess 10 FiO2 32 % Sodium (137-145) mmol/L Potassium (3.6-5.0) mmol/L Chloride (98-107) mmol/L Carbon Dioxide (22-30) mmol/L Anion Gap mmol/L BUN (7-17) mg/dL Creatinine (0.7-1.2) mg/dL Estimated GFR ml/min BUN/Creatinine Ratio % Glucose (65-100) mg/dL Lactic Acid (0.7-2.0) mmol/L Calcium (8.4-10.2) mg/dL Total Bilirubin (0.1-1.2) mg/dL AST (5-40) units/L ALT (7-56) units/L Alkaline Phosphatase (35-129) units/L Ammonia (25-60) umol/L Total Creatine Kinase (30-135) units/L CK-MB (CK-2) (0.0-4.0) ng/mL CK-MB (CK-2) Rel Index (0-4) Troponin T (0.00-0.029) ng/mL Total Protein (6.3-8.2) g/dL Albumin (3.9-5) g/dL Albumin/Globulin Ratio % TSH (0.270-4.200) mlU/mL Free T4 (0.76-1.46) ng/dL Urine Color Yellow (Yellow) Urine Turbidity Cloudy (Clear) Urine pH 5.0 (5.0-7.0) Ur Specific [place] 1.021 (1.003-1.030) Urine Protein 100 mg/dl (Negative) mg/dL Urine Glucose (UA) Neg (Negative) mg/dL Urine Ketones Neg (Negative) mg/dL Urine Blood Sm (Negative) Urine Nitrite Pos (Negative) Urine Bilirubin Neg (Negative) Urine Urobilinogen < 2.0 (<2.0) mg/dL Ur Leukocyte Esterase Lg (Negative) Urine WBC (Auto) > 182.0 H (0.0-6.0) /HPF Urine RBC (Auto) 2.0 (0.0-6.0) /HPF U Epithel Cells (Auto) 1.0 (0-13.0) /HPF Hyaline Casts 7 /LPF Granular Casts 5 /LPF Urine Mucus Few /HPF Salicylates (2.8-20.0) mg/dL Urine Opiates Screen Presumptive negative Urine Methadone Screen Presumptive positive Acetaminophen (10.0-30.0) ug/mL Ur Barbiturates Screen Presumptive negative Ur Phencyclidine Scrn Presumptive negative Ur Amphetamines Screen Presumptive negative U Benzodiazepines Scrn Presumptive negative Urine Cocaine Screen Presumptive negative U Marijuana (THC) Screen Presumptive negative Drugs of Abuse Note Disclamer Plasma/Serum Alcohol (0-0.07) gm% 09/18/16 09/18/16 09/18/16 Range/Units 19:02 19:02 19:02 WBC 11.8 H (4.5-11.0) K/mm3 RBC 3.84 (3.65-5.03) M/mm3 Hgb 12.4 (10.1-14.3) gm/dl Hct 38.9 (30.3-42.9) % MCV 101 H (79-97) fl MCH 32 (28-32) pg MCHC 32 (30-34) % RDW 13.5 (13.2-15.2) % Plt Count 256 (140-440) K/mm3 Lymph % (Auto) Pattern Finisher [place] % (Auto) Pattern Finisher Eos % (Auto) Pattern Finisher Baso % (Auto) Pattern Finisher Lymph # Pattern Finisher [place] # Pattern Finisher Eos # Pattern Finisher Baso # Pattern Finisher Add Manual Diff Complete Total Counted 100 Seg Neutrophils % Pattern Finisher Seg Neuts % (Manual) 66.0 (40.0-70.0) % Band Neutrophils % 7.0 % Lymphocytes % (Manual) 15.0 (13.4-35.0) % Reactive Lymphs % (Man) 0 % Monocytes % (Manual) 8.0 H (0.0-7.3) % Eosinophils % (Manual) 2.0 (0.0-4.3) % Basophils % (Manual) 1.0 (0.0-1.8) % Metamyelocytes % 1.0 % Myelocytes % 0 % Promyelocytes % 0 % Blast Cells % 0 % Nucleated RBC % Not Reportable Seg Neutrophils # Pattern Finisher Seg Neutrophils # Man 7.8 H (1.8-7.7) K/mm3 Band Neutrophils # 0.8 K/mm3 Lymphocytes # (Manual) 1.8 (1.2-5.4) K/mm3 Abs React Lymphs (Man) 0.0 K/mm3 Monocytes # (Manual) 0.9 H (0.0-0.8) K/mm3 Eosinophils # (Manual) 0.2 (0.0-0.4) K/mm3 Basophils # (Manual) 0.1 (0.0-0.1) K/mm3 Metamyelocytes # 0.1 K/mm3 Myelocytes # 0.0 K/mm3 Promyelocytes # 0.0 K/mm3 Blast Cells # 0.0 K/mm3 WBC Morphology Not Reportable Hypersegmented Neuts Not Reportable Hyposegmented Neuts Not Reportable Hypogranular Neuts Not Reportable Smudge Cells Not Reportable Toxic Granulation Not Reportable Toxic Vacuolation Not Reportable Dohle Bodies Not Reportable Pelger-Huet Anomaly Not Reportable Valente Rods Not Reportable Platelet Estimate Appears normal Clumped Platelets Not Reportable Plt Clumps, EDTA Not Reportable Large Platelets Not Reportable Giant Platelets Not Reportable Platelet Satelliting Not Reportable Plt Morphology Comment Not Reportable RBC Morphology Normal Dimorphic RBCs Not Reportable Polychromasia Not Reportable Hypochromasia Not Reportable Poikilocytosis Not Reportable Anisocytosis Not Reportable Microcytosis Not Reportable Macrocytosis Not Reportable Spherocytes Not Reportable Pappenheimer Bodies Not Reportable Sickle Cells Not Reportable Target Cells Not Reportable Tear Drop Cells Not Reportable Ovalocytes Not Reportable Helmet Cells Not Reportable [place] Bodies Not Reportable [place] Rings Not Reportable [place] Cells Not Reportable Bite Cells Not Reportable Crenated Cell Not Reportable Elliptocytes Not Reportable Acanthocytes (Spur) Not Reportable Rouleaux Not Reportable Hemoglobin C Crystals Not Reportable Schistocytes Not Reportable Malaria parasites Not Reportable Adithya Bodies Not Reportable Hem Pathologist Commnt No PT 12.2 (12.2-14.9) Sec. INR 0.91 (0.87-1.13) APTT 26.4 (24.2-36.6) Sec. POC ABG pH (7.35-7.45) POC ABG pCO2 (35-45) POC ABG pO2 (80-105) POC ABG HCO3 POC ABG Total CO2 POC ABG O2 Sat POC ABG Base Excess FiO2 % Sodium 136 L (137-145) mmol/L Potassium 4.5 (3.6-5.0) mmol/L Chloride 96.7 L (98-107) mmol/L Carbon Dioxide 30 (22-30) mmol/L Anion Gap 14 mmol/L BUN 17 (7-17) mg/dL Creatinine 1.4 H (0.7-1.2) mg/dL Estimated GFR 39 ml/min BUN/Creatinine Ratio 12.14 % Glucose 95 (65-100) mg/dL Lactic Acid (0.7-2.0) mmol/L Calcium 9.1 (8.4-10.2) mg/dL Total Bilirubin 0.4 (0.1-1.2) mg/dL AST 38 (5-40) units/L ALT 27 (7-56) units/L Alkaline Phosphatase 67 (35-129) units/L Ammonia (25-60) umol/L Total Creatine Kinase 859 H (30-135) units/L CK-MB (CK-2) 11.0 H (0.0-4.0) ng/mL CK-MB (CK-2) Rel Index 1.2 (0-4) Troponin T 0.022 (0.00-0.029) ng/mL Total Protein 6.3 (6.3-8.2) g/dL Albumin 3.0 L (3.9-5) g/dL Albumin/Globulin Ratio 0.9 % TSH (0.270-4.200) mlU/mL Free T4 (0.76-1.46) ng/dL Urine Color (Yellow) Urine Turbidity (Clear) Urine pH (5.0-7.0) Ur Specific [place] (1.003-1.030) Urine Protein (Negative) mg/dL Urine Glucose (UA) (Negative) mg/dL Urine Ketones (Negative) mg/dL Urine Blood (Negative) Urine Nitrite (Negative) Urine Bilirubin (Negative) Urine Urobilinogen (<2.0) mg/dL Ur Leukocyte Esterase (Negative) Urine WBC (Auto) (0.0-6.0) /HPF Urine RBC (Auto) (0.0-6.0) /HPF U Epithel Cells (Auto) (0-13.0) /HPF Hyaline Casts /LPF Granular Casts /LPF Urine Mucus /HPF Salicylates (2.8-20.0) mg/dL Urine Opiates Screen Urine Methadone Screen Acetaminophen (10.0-30.0) ug/mL Ur Barbiturates Screen Ur Phencyclidine Scrn Ur Amphetamines Screen U Benzodiazepines Scrn Urine Cocaine Screen U Marijuana (THC) Screen Drugs of Abuse Note Plasma/Serum Alcohol (0-0.07) gm% 09/18/16 09/18/16 09/18/16 Range/Units 19:58 19:58 19:58 WBC (4.5-11.0) K/mm3 RBC (3.65-5.03) M/mm3 Hgb (10.1-14.3) gm/dl Hct (30.3-42.9) % MCV (79-97) fl MCH (28-32) pg MCHC (30-34) % RDW (13.2-15.2) % Plt Count (140-440) K/mm3 Lymph % (Auto) [place] % (Auto) Eos % (Auto) Baso % (Auto) Lymph # [place] # Eos # Baso # Add Manual Diff Total Counted Seg Neutrophils % Seg Neuts % (Manual) (40.0-70.0) % Band Neutrophils % % Lymphocytes % (Manual) (13.4-35.0) % Reactive Lymphs % (Man) % Monocytes % (Manual) (0.0-7.3) % Eosinophils % (Manual) (0.0-4.3) % Basophils % (Manual) (0.0-1.8) % Metamyelocytes % % Myelocytes % % Promyelocytes % % Blast Cells % % Nucleated RBC % Seg Neutrophils # Seg Neutrophils # Man (1.8-7.7) K/mm3 Band Neutrophils # K/mm3 Lymphocytes # (Manual) (1.2-5.4) K/mm3 Abs React Lymphs (Man) K/mm3 Monocytes # (Manual) (0.0-0.8) K/mm3 Eosinophils # (Manual) (0.0-0.4) K/mm3 Basophils # (Manual) (0.0-0.1) K/mm3 Metamyelocytes # K/mm3 Myelocytes # K/mm3 Promyelocytes # K/mm3 Blast Cells # K/mm3 WBC Morphology Hypersegmented Neuts Hyposegmented Neuts Hypogranular Neuts Smudge Cells Toxic Granulation Toxic Vacuolation Dohle Bodies Pelger-Huet Anomaly Valente Rods Platelet Estimate Clumped Platelets Plt Clumps, EDTA Large Platelets Giant Platelets Platelet Satelliting Plt Morphology Comment RBC Morphology Dimorphic RBCs Polychromasia Hypochromasia Poikilocytosis Anisocytosis Microcytosis Macrocytosis Spherocytes Pappenheimer Bodies Sickle Cells Target Cells Tear Drop Cells Ovalocytes Helmet Cells [place] Bodies [place] Rings [place] Cells Bite Cells Crenated Cell Elliptocytes Acanthocytes (Spur) Rouleaux Hemoglobin C Crystals Schistocytes Malaria parasites Adithya Bodies Hem Pathologist Commnt PT (12.2-14.9) Sec. INR (0.87-1.13) APTT (24.2-36.6) Sec. POC ABG pH (7.35-7.45) POC ABG pCO2 (35-45) POC ABG pO2 (80-105) POC ABG HCO3 POC ABG Total CO2 POC ABG O2 Sat POC ABG Base Excess FiO2 % Sodium (137-145) mmol/L Potassium (3.6-5.0) mmol/L Chloride (98-107) mmol/L Carbon Dioxide (22-30) mmol/L Anion Gap mmol/L BUN (7-17) mg/dL Creatinine (0.7-1.2) mg/dL Estimated GFR ml/min BUN/Creatinine Ratio % Glucose (65-100) mg/dL Lactic Acid 0.7 (0.7-2.0) mmol/L Calcium (8.4-10.2) mg/dL Total Bilirubin (0.1-1.2) mg/dL AST (5-40) units/L ALT (7-56) units/L Alkaline Phosphatase (35-129) units/L Ammonia 24.0 L (25-60) umol/L Total Creatine Kinase (30-135) units/L CK-MB (CK-2) (0.0-4.0) ng/mL CK-MB (CK-2) Rel Index (0-4) Troponin T (0.00-0.029) ng/mL Total Protein (6.3-8.2) g/dL Albumin (3.9-5) g/dL Albumin/Globulin Ratio % TSH 2.270 (0.270-4.200) mlU/mL Free T4 1.26 (0.76-1.46) ng/dL Urine Color (Yellow) Urine Turbidity (Clear) Urine pH (5.0-7.0) Ur Specific [place] (1.003-1.030) Urine Protein (Negative) mg/dL Urine Glucose (UA) (Negative) mg/dL Urine Ketones (Negative) mg/dL Urine Blood (Negative) Urine Nitrite (Negative) Urine Bilirubin (Negative) Urine Urobilinogen (<2.0) mg/dL Ur Leukocyte Esterase (Negative) Urine WBC (Auto) (0.0-6.0) /HPF Urine RBC (Auto) (0.0-6.0) /HPF U Epithel Cells (Auto) (0-13.0) /HPF Hyaline Casts /LPF Granular Casts /LPF Urine Mucus /HPF Salicylates (2.8-20.0) mg/dL Urine Opiates Screen Urine Methadone Screen Acetaminophen (10.0-30.0) ug/mL Ur Barbiturates Screen Ur Phencyclidine Scrn Ur Amphetamines Screen U Benzodiazepines Scrn Urine Cocaine Screen U Marijuana (THC) Screen Drugs of Abuse Note Plasma/Serum Alcohol (0-0.07) gm% 09/18/16 09/18/16 09/18/16 Range/Units 19:58 19:58 19:58 WBC (4.5-11.0) K/mm3 RBC (3.65-5.03) M/mm3 Hgb (10.1-14.3) gm/dl Hct (30.3-42.9) % MCV (79-97) fl MCH (28-32) pg MCHC (30-34) % RDW (13.2-15.2) % Plt Count (140-440) K/mm3 Lymph % (Auto) [place] % (Auto) Eos % (Auto) Baso % (Auto) Lymph # [place] # Eos # Baso # Add Manual Diff Total Counted Seg Neutrophils % Seg Neuts % (Manual) (40.0-70.0) % Band Neutrophils % % Lymphocytes % (Manual) (13.4-35.0) % Reactive Lymphs % (Man) % Monocytes % (Manual) (0.0-7.3) % Eosinophils % (Manual) (0.0-4.3) % Basophils % (Manual) (0.0-1.8) % Metamyelocytes % % Myelocytes % % Promyelocytes % % Blast Cells % % Nucleated RBC % Seg Neutrophils # Seg Neutrophils # Man (1.8-7.7) K/mm3 Band Neutrophils # K/mm3 Lymphocytes # (Manual) (1.2-5.4) K/mm3 Abs React Lymphs (Man) K/mm3 Monocytes # (Manual) (0.0-0.8) K/mm3 Eosinophils # (Manual) (0.0-0.4) K/mm3 Basophils # (Manual) (0.0-0.1) K/mm3 Metamyelocytes # K/mm3 Myelocytes # K/mm3 Promyelocytes # K/mm3 Blast Cells # K/mm3 WBC Morphology Hypersegmented Neuts Hyposegmented Neuts Hypogranular Neuts Smudge Cells Toxic Granulation Toxic Vacuolation Dohle Bodies Pelger-Huet Anomaly Valente Rods Platelet Estimate Clumped Platelets Plt Clumps, EDTA Large Platelets Giant Platelets Platelet Satelliting Plt Morphology Comment RBC Morphology Dimorphic RBCs Polychromasia Hypochromasia Poikilocytosis Anisocytosis Microcytosis Macrocytosis Spherocytes Pappenheimer Bodies Sickle Cells Target Cells Tear Drop Cells Ovalocytes Helmet Cells [place] Bodies [place] Rings [place] Cells Bite Cells Crenated Cell Elliptocytes Acanthocytes (Spur) Rouleaux Hemoglobin C Crystals Schistocytes Malaria parasites Adithya Bodies Hem Pathologist Commnt PT (12.2-14.9) Sec. INR (0.87-1.13) APTT (24.2-36.6) Sec. POC ABG pH (7.35-7.45) POC ABG pCO2 (35-45) POC ABG pO2 (80-105) POC ABG HCO3 POC ABG Total CO2 POC ABG O2 Sat POC ABG Base Excess FiO2 % Sodium (137-145) mmol/L Potassium (3.6-5.0) mmol/L Chloride (98-107) mmol/L Carbon Dioxide (22-30) mmol/L Anion Gap mmol/L BUN (7-17) mg/dL Creatinine (0.7-1.2) mg/dL Estimated GFR ml/min BUN/Creatinine Ratio % Glucose (65-100) mg/dL Lactic Acid (0.7-2.0) mmol/L Calcium (8.4-10.2) mg/dL Total Bilirubin (0.1-1.2) mg/dL AST (5-40) units/L ALT (7-56) units/L Alkaline Phosphatase (35-129) units/L Ammonia (25-60) umol/L Total Creatine Kinase (30-135) units/L CK-MB (CK-2) (0.0-4.0) ng/mL CK-MB (CK-2) Rel Index (0-4) Troponin T (0.00-0.029) ng/mL Total Protein (6.3-8.2) g/dL Albumin (3.9-5) g/dL Albumin/Globulin Ratio % TSH (0.270-4.200) mlU/mL Free T4 (0.76-1.46) ng/dL Urine Color (Yellow) Urine Turbidity (Clear) Urine pH (5.0-7.0) Ur Specific [place] (1.003-1.030) Urine Protein (Negative) mg/dL Urine Glucose (UA) (Negative) mg/dL Urine Ketones (Negative) mg/dL Urine Blood (Negative) Urine Nitrite (Negative) Urine Bilirubin (Negative) Urine Urobilinogen (<2.0) mg/dL Ur Leukocyte Esterase (Negative) Urine WBC (Auto) (0.0-6.0) /HPF Urine RBC (Auto) (0.0-6.0) /HPF U Epithel Cells (Auto) (0-13.0) /HPF Hyaline Casts /LPF Granular Casts /LPF Urine Mucus /HPF Salicylates < 0.3 L (2.8-20.0) mg/dL Urine Opiates Screen Urine Methadone Screen Acetaminophen < 15.0 (10.0-30.0) ug/mL Ur Barbiturates Screen Ur Phencyclidine Scrn Ur Amphetamines Screen U Benzodiazepines Scrn Urine Cocaine Screen U Marijuana (THC) Screen Drugs of Abuse Note Plasma/Serum Alcohol < 0.01 (0-0.07) gm% - EKG Data -: EKG Interpreted by Me (sinus rate 52, ant t wave inv) When compared to previous EKG there are: no significant change (compared to 09/07) - Radiology Data Radiology results: report reviewed, image reviewed interpreted by me: cxr: naf Right ankle xray: distal fib fxt CT head: Unchanged from 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 BiPAP initiated in the ED. nebs, steroids, and magnesium initiated. Rocephin given for UTI. The blood pressure improved with normal saline with a systolic greater than 100. Splint placed in ed. - Differential Diagnosis CO2 narcosis, pneumonia, ICH, drug overdose, infection Critical Care Time: No Critical care attestation.: If time is entered above; I have spent that time in minutes in the direct care of this critically ill patient, excluding procedure time. ED Disposition Clinical Impression: Altered mental status, Respiratory failure, acute and chronic, UTI (urinary tract infection), Elevated creatine kinase, Methadone use, Closed right ankle fracture Disposition: OP ADMITTED IP TO THIS HOSP Is pt being admited?: Yes Condition: Stable Time of Disposition: 21:15 (Dr Burnett/hosp)
[2016-09-18 18:22] LABS: Urine Drugs of Abuse Note Disclamer
[2016-09-18 18:30] LABS: ISTAT Base Excess 10; ISTAT HCO3 36.6; ISTAT PCO2 72.7 (35-45); ISTAT PO2 62 (80-105); ISTAT SO2 88; ISTAT TCO2 39
[2016-09-18 18:37] LABS: Bilirubin,Urine NEG (Negative); Blood,Urine SM (Negative); Granular Casts,Urine 5 /LPF; Ketones,Urine NEG (Negative); Leukocyte Esterase,Urine LG (Negative); Mucus,Urine FEW /HPF; Nitrite,Urine POS (Negative); Urobilinogen,Urine < 2.0 mg/dL (<2.0)
[2016-09-18 18:39] LABS: WBC,Urine > 182.0 /HPF (0.0-6.0)
[2016-09-18] MEDS ORDERED: NACL 0.9% 1000 ML 1,000 ML IV ONE (18:59)
[2016-09-18 19:26] LABS: Hematocrit 38.9 % (30.3-42.9); Hemoglobin 12.4 gm/dl (10.1-14.3); Mean Corpuscular HGB Conc 32 % (30-34); Mean Corpuscular Hemoglobin 32 pg (28-32); Mean Corpuscular Volume 101 fl (79-97); Platelet Count 256 K/mm3 (140-440); Red Blood Count 3.84 M/mm3 (3.65-5.03); Red Cell Distribution Width 13.5 % (13.2-15.2); White Blood Count 11.8 K/mm3 (4.5-11.0)
[2016-09-18 19:28] LABS: INR 0.91 (0.87-1.13)
[2016-09-18 19:29] LABS: Partial Thromboplastin Time 26.4 Sec. (24.2-36.6)
[2016-09-18 19:33] LABS: Albumin/Globulin Ratio 0.9 %; BUN/Creatinine Ratio 12.14; Bilirubin,Total 0.4 mg/dL (0.1-1.2); Calcium 9.1 mg/dL (8.4-10.2); Chloride 96.7 mmol/L (98-107); Potassium 4.5 mmol/L (3.6-5.0); Total Protein 6.3 g/dL (6.3-8.2)
[2016-09-18 20:24] LABS: Blastocytes % (Manual) 0 %
[2016-09-18 20:25] LABS: Diff Status Complete; RBC Morphology Normal
--- NOTE | 2016-09-18 20:31 | Cat Scan Report ---
FINAL REPORT EXAM: CT HEAD/BRAIN WO CON HISTORY: ams TECHNIQUE: CT head without contrast PRIORS: None. FINDINGS: No acute intra-axial or extra-axial hemorrhage is identified. There is no evidence of midline shift or mass effect. The ventricles and sulci are within normal limits. Hypodensities at lentiform nuclei consistent with remote lacunar infarcts noted stable prior exam. No acute parenchymal abnormalities seen. Bony calvarium is grossly intact. Opacification within the right mastoid air cells and middle ear unchanged from prior exam. 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 No acute change identified. Right mastoiditis and increased density in the middle ear unchanged from prior exam.
[2016-09-18] MEDS ORDERED: ROCEPHIN/NS 1 GM/50 ML 1 GM/50 ML BAG IV ONE ×2 (20:32→23:15)
[2016-09-18] MEDS ORDERED: NARCAN 2 MG/2 ML IV ONE (20:33)
--- NOTE | 2016-09-18 21:37 | History and Physical Report ---
History of Present Illness Date of examination: 09/18/16 Chief complaint: Altered mental status History of present illness: 56 year old male with past medical history significant for hypertension, CHF, COPD, seizure disorder, hepatic encephalopathy brought via EMS for complaints of altered mental status. I couldn't get any history. She was admitted recently for altered mental status and COPD exacerbation. His emergency department labs were done and ABG showed CO2 retention, UTI, acute kidney injury and positive for methadone. Past History Past Medical History: COPD, heart failure, hypertension, seizures Past Surgical History: appendectomy, Other (toe surgery) Social history: smoking, full code. denies: alcohol abuse, prescription drug abuse, IV drug use Family history: hypertension Medications and Allergies Allergies Allergy/AdvReac Type Severity Reaction Status Date / Time bee venom (honey bee) Allergy Severe FILLS HER Verified 09/07/16 19:20 LUNGS UP WITH WATER/ CLOSES UP THROAT/NAUSEA shellfish derived Allergy Severe CLOG UP PT Verified 09/07/16 19:20 THROAT/ ITCHING ALL OVER Sulfa (Sulfonamide Allergy Unknown Verified 09/07/16 19:20 Antibiotics) Home Medications Medication Instructions Recorded Confirmed Last Taken Type lamoTRIgine [LaMICtal] 100 mg PO QPM #30 tablet 08/05/16 09/08/16 2 Days Ago Rx levETIRAcetam [Keppra TAB] 500 mg PO BID #60 tablet 08/05/16 09/08/16 2 Days Ago Rx ALBUTEROL Inhaler [ProAir HFA 2 puff IH QID PRN #1 inha 08/21/16 09/08/16 Unknown Rx Inhaler] Budesoni/Formoterol 80-4.5(Nf) 2 puff IH BID #1 inha 08/21/16 09/08/16 Unknown Rx [Symbicort 80-4.5 (Nf)] Famotidine [Pepcid] 20 mg PO BID #60 tablet 08/21/16 09/08/16 Unknown Rx Ipratropium/Albuter (Nf) 1 inhalation INHALATION PRN #1 inha 08/21/16 09/08/16 Unknown Rx [Combivent Inhaler] LORazepam [Ativan] 1 mg PO BID@0600,1800 #60 tablet 08/21/16 09/08/16 Unknown Rx Losartan [Cozaar] 100 mg PO QDAY #30 tablet 08/21/16 09/08/16 Unknown Rx Nicotine [Habitrol] 21 mg TD Q24H #30 patch 08/21/16 09/08/16 Unknown Rx amLODIPine [Norvasc] 10 mg PO QDAY #30 tablet 08/21/16 09/08/16 Unknown Rx predniSONE [Deltasone] 10 mg PO .TAPER #21 tab 09/10/16 Unknown Rx Review of Systems ROS unobtainable: due to mental status (couldn't obtained because of altered mental status.) Exam - Physical Exam Narrative exam: In moderate cardiopulmonary distress. Patient is on BiPAP. Vital signs as documented. Head exam is unremarkable. No scleral icterus . Neck is without jugular venous distension, thyromegaly, or carotid bruits. Lungs coarse breath sounds. Cardiac exam reveals regular rate and Rhythm. First and second heart sounds normal. No murmurs, rubs or gallops. Abdominal exam reveals normal bowel sounds, no masses, no organomegaly and no aortic enlargement. Extremities venous stasis around the right ankle. 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 - Constitutional Vitals: Temp Pulse Resp BP Pulse Ox 98.4 F 50 L 12 98/59 100 09/18/16 18:16 09/18/16 20:30 09/18/16 20:30 09/18/16 20:30 09/18/16 20:30 Results - Labs CBC & Chem 7: 09/18/16 19:02 09/18/16 19:02 Labs: Laboratory Last Values WBC 11.8 K/mm3 (4.5-11.0) H 09/18/16 19:02 RBC 3.84 M/mm3 (3.65-5.03) 09/18/16 19:02 Hgb 12.4 gm/dl (10.1-14.3) 09/18/16 19:02 Hct 38.9 % (30.3-42.9) 09/18/16 19:02 MCV 101 fl (79-97) H 09/18/16 19:02 MCH 32 pg (28-32) 09/18/16 19:02 MCHC 32 % (30-34) 09/18/16 19:02 RDW 13.5 % (13.2-15.2) 09/18/16 19:02 Plt Count 256 K/mm3 (140-440) 09/18/16 19:02 Lymph % (Auto) Radio Equipment Installer 09/18/16 19:02 [place] % (Auto) Radio Equipment Installer 09/18/16 19:02 Eos % (Auto) Radio Equipment Installer 09/18/16 19:02 Baso % (Auto) Radio Equipment Installer 09/18/16 19:02 Lymph # Radio Equipment Installer 09/18/16 19:02 [place] # Radio Equipment Installer 09/18/16 19:02 Eos # Radio Equipment Installer 09/18/16 19:02 Baso # Radio Equipment Installer 09/18/16 19:02 Add Manual Diff Complete 09/18/16 19:02 Total Counted 100 09/18/16 19:02 Seg Neutrophils % Radio Equipment Installer 09/18/16 19:02 Seg Neuts % (Manual) 66.0 % (40.0-70.0) 09/18/16 19:02 Band Neutrophils % 7.0 % 09/18/16 19:02 Lymphocytes % (Manual) 15.0 % (13.4-35.0) 09/18/16 19:02 Reactive Lymphs % (Man) 0 % 09/18/16 19:02 Monocytes % (Manual) 8.0 % (0.0-7.3) H 09/18/16 19:02 Eosinophils % (Manual) 2.0 % (0.0-4.3) 09/18/16 19:02 Basophils % (Manual) 1.0 % (0.0-1.8) 09/18/16 19:02 Metamyelocytes % 1.0 % 09/18/16 19:02 Myelocytes % 0 % 09/18/16 19:02 Promyelocytes % 0 % 09/18/16 19:02 Blast Cells % 0 % 09/18/16 19:02 Nucleated RBC % Not Reportable 09/18/16 19:02 Seg Neutrophils # Radio Equipment Installer 09/18/16 19:02 Seg Neutrophils # Man 7.8 K/mm3 (1.8-7.7) H 09/18/16 19:02 Band Neutrophils # 0.8 K/mm3 09/18/16 19:02 Lymphocytes # (Manual) 1.8 K/mm3 (1.2-5.4) 09/18/16 19:02 Abs React Lymphs (Man) 0.0 K/mm3 09/18/16 19:02 Monocytes # (Manual) 0.9 K/mm3 (0.0-0.8) H 09/18/16 19:02 Eosinophils # (Manual) 0.2 K/mm3 (0.0-0.4) 09/18/16 19:02 Basophils # (Manual) 0.1 K/mm3 (0.0-0.1) 09/18/16 19:02 Metamyelocytes # 0.1 K/mm3 09/18/16 19:02 Myelocytes # 0.0 K/mm3 09/18/16 19:02 Promyelocytes # 0.0 K/mm3 09/18/16 19:02 Blast Cells # 0.0 K/mm3 09/18/16 19:02 WBC Morphology Not Reportable 09/18/16 19:02 Hypersegmented Neuts Not Reportable 09/18/16 19:02 Hyposegmented Neuts Not Reportable 09/18/16 19:02 Hypogranular Neuts Not Reportable 09/18/16 19:02 Smudge Cells Not Reportable 09/18/16 19:02 Toxic Granulation Not Reportable 09/18/16 19:02 Toxic Vacuolation Not Reportable 09/18/16 19:02 Dohle Bodies Not Reportable 09/18/16 19:02 Pelger-Huet Anomaly Not Reportable 09/18/16 19:02 Valente Rods Not Reportable 09/18/16 19:02 Platelet Estimate Appears normal 09/18/16 19:02 Clumped Platelets Not Reportable 09/18/16 19:02 Plt Clumps, EDTA Not Reportable 09/18/16 19:02 Large Platelets Not Reportable 09/18/16 19:02 Giant Platelets Not Reportable 09/18/16 19:02 Platelet Satelliting Not Reportable 09/18/16 19:02 Plt Morphology Comment Not Reportable 09/18/16 19:02 RBC Morphology Normal 09/18/16 19:02 Dimorphic RBCs Not Reportable 09/18/16 19:02 Polychromasia Not Reportable 09/18/16 19:02 Hypochromasia Not Reportable 09/18/16 19:02 Poikilocytosis Not Reportable 09/18/16 19:02 Anisocytosis Not Reportable 09/18/16 19:02 Microcytosis Not Reportable 09/18/16 19:02 Macrocytosis Not Reportable 09/18/16 19:02 Spherocytes Not Reportable 09/18/16 19:02 Pappenheimer Bodies Not Reportable 09/18/16 19:02 Sickle Cells Not Reportable 09/18/16 19:02 Target Cells Not Reportable 09/18/16 19:02 Tear Drop Cells Not Reportable 09/18/16 19:02 Ovalocytes Not Reportable 09/18/16 19:02 Helmet Cells Not Reportable 09/18/16 19:02 [place] Bodies Not Reportable 09/18/16 19:02 [place] Rings Not Reportable 09/18/16 19:02 [place] Cells Not Reportable 09/18/16 19:02 Bite Cells Not Reportable 09/18/16 19:02 Crenated Cell Not Reportable 09/18/16 19:02 Elliptocytes Not Reportable 09/18/16 19:02 Acanthocytes (Spur) Not Reportable 09/18/16 19:02 Rouleaux Not Reportable 09/18/16 19:02 Hemoglobin C Crystals Not Reportable 09/18/16 19:02 Schistocytes Not Reportable 09/18/16 19:02 Malaria parasites Not Reportable 09/18/16 19:02 Adithya Bodies Not Reportable 09/18/16 19:02 Hem Pathologist Commnt No 09/18/16 19:02 PT 12.2 Sec. (12.2-14.9) 09/18/16 19:02 INR 0.91 (0.87-1.13) 09/18/16 19:02 APTT 26.4 Sec. (24.2-36.6) 09/18/16 19:02 POC ABG pH 7.310 (7.35-7.45) L 09/18/16 18:21 POC ABG pCO2 72.7 (35-45) H 09/18/16 18:21 POC ABG pO2 62 (80-105) L 09/18/16 18:21 POC ABG HCO3 36.6 09/18/16 18:21 POC ABG Total CO2 39 09/18/16 18:21 POC ABG O2 Sat 88 09/18/16 18:21 POC ABG Base Excess 10 09/18/16 18:21 FiO2 32 % 09/18/16 18:21 Sodium 136 mmol/L (137-145) L 09/18/16 19:02 Potassium 4.5 mmol/L (3.6-5.0) 09/18/16 19:02 Chloride 96.7 mmol/L (98-107) L 09/18/16 19:02 Carbon Dioxide 30 mmol/L (22-30) 09/18/16 19:02 Anion Gap 14 mmol/L 09/18/16 19:02 BUN 17 mg/dL (7-17) 09/18/16 19:02 Creatinine 1.4 mg/dL (0.7-1.2) H 09/18/16 19:02 Estimated GFR 39 ml/min 09/18/16 19:02 BUN/Creatinine Ratio 12.14 % 09/18/16 19:02 Glucose 95 mg/dL (65-100) 09/18/16 19:02 Lactic Acid 0.7 mmol/L (0.7-2.0) 09/18/16 19:58 Calcium 9.1 mg/dL (8.4-10.2) 09/18/16 19:02 Total Bilirubin 0.4 mg/dL (0.1-1.2) 09/18/16 19:02 AST 38 units/L (5-40) 09/18/16 19:02 ALT 27 units/L (7-56) 09/18/16 19:02 Alkaline Phosphatase 67 units/L (35-129) 09/18/16 19:02 Ammonia 24.0 umol/L (25-60) L 09/18/16 19:58 Total Creatine Kinase 859 units/L (30-135) H 09/18/16 19:02 CK-MB (CK-2) 11.0 ng/mL (0.0-4.0) H 09/18/16 19:02 CK-MB (CK-2) Rel Index 1.2 (0-4) 09/18/16 19:02 Troponin T 0.022 ng/mL (0.00-0.029) 09/18/16 19:02 Total Protein 6.3 g/dL (6.3-8.2) 09/18/16 19:02 Albumin 3.0 g/dL (3.9-5) L 09/18/16 19:02 Albumin/Globulin Ratio 0.9 % 09/18/16 19:02 TSH 2.270 mlU/mL (0.270-4.200) 09/18/16 19:58 Free T4 1.26 ng/dL (0.76-1.46) 09/18/16 19:58 Urine Color Yellow (Yellow) 09/18/16 18:15 Urine Turbidity Cloudy (Clear) 09/18/16 18:15 Urine pH 5.0 (5.0-7.0) 09/18/16 18:15 Ur Specific [place] 1.021 (1.003-1.030) 09/18/16 18:15 Urine Protein 100 mg/dl mg/dL (Negative) 09/18/16 18:15 Urine Glucose (UA) Neg mg/dL (Negative) 09/18/16 18:15 Urine Ketones Neg mg/dL (Negative) 09/18/16 18:15 Urine Blood Sm (Negative) 09/18/16 18:15 Urine Nitrite Pos (Negative) 09/18/16 18:15 Urine Bilirubin Neg (Negative) 09/18/16 18:15 Urine Urobilinogen < 2.0 mg/dL (<2.0) 09/18/16 18:15 Ur Leukocyte Esterase Lg (Negative) 09/18/16 18:15 Urine WBC (Auto) > 182.0 /HPF (0.0-6.0) H 09/18/16 18:15 Urine RBC (Auto) 2.0 /HPF (0.0-6.0) 09/18/16 18:15 U Epithel Cells (Auto) 1.0 /HPF (0-13.0) 09/18/16 18:15 Hyaline Casts 7 /LPF 09/18/16 18:15 Granular Casts 5 /LPF 09/18/16 18:15 Urine Mucus Few /HPF 09/18/16 18:15 Salicylates < 0.3 mg/dL (2.8-20.0) L 09/18/16 19:58 Urine Opiates Screen Presumptive negative 09/18/16 18:15 Urine Methadone Screen Presumptive positive 09/18/16 18:15 Acetaminophen < 15.0 ug/mL (10.0-30.0) 09/18/16 19:58 Ur Barbiturates Screen Presumptive negative 09/18/16 18:15 Ur Phencyclidine Scrn Presumptive negative 09/18/16 18:15 Ur Amphetamines Screen Presumptive negative 09/18/16 18:15 U Benzodiazepines Scrn Presumptive negative 09/18/16 18:15 Urine Cocaine Screen Presumptive negative 09/18/16 18:15 U Marijuana (THC) Screen Presumptive negative 09/18/16 18:15 Drugs of Abuse Note Disclamer 09/18/16 18:15 Plasma/Serum Alcohol < 0.01 gm% (0-0.07) 09/18/16 19:58 Assessment and Plan Assessment and plan: Altered mental status Severe sepsis with hypotension secondary to UTI COPD exacerbation Acute hypercapnic respiratory failure Acute kidney injury Positive for Methadone Seizure - Patient was given IV bolus fluid and BP normalized - IV ceftriaxone, Solu-Medrol, breathing treatment, DuoNeb, IV Keppra - Patient is on BiPAP - Cardiac enzymes were negative - Neurochecks Prophylaxis - Heparin Disposition - Admit to the telemetry floor Advance Directives: Yes VTE prophylaxis?: Chemical Plan of care discussed with patient/family: Yes
[2016-09-18] MEDS ORDERED: HEPARIN ONE (23:14)
[2016-09-18] MEDS: HEPARIN SUB-Q SCH (23:16)
[2016-09-18] MEDS: KEPPRA 500 MG in D5W 100 ML IV SCH (23:16)
[2016-09-19] MEDS: NACL 0.9% 1000 ML 1,000 ML IV SCH ×2 (01:38→14:02)
[2016-09-19] MEDS: DUONEB 0.5 MG-3 MG/3 ML SOLN IH SCH ×6 (02:18→20:12)
[2016-09-19] MEDS: HEPARIN SUB-Q SCH ×3 (05:56→21:48)
--- NOTE | 2016-09-19 10:29 | XRay Report ---
RIGHT ANKLE THREE VIEWS: 09/18/16 17:04:00 CLINICAL: Ecchymosis and swelling. FINDINGS: And oblique mildly displaced fracture of the distal fibula with slight lateral displacement of the major distal fracture fragment. No callus. No other fracture. The ankle mortise is intact.Mild soft tissue swelling. No foreign body or soft tissue air. IMPRESSION: Acute closed posttraumatic mildly displaced fracture of the distal fibula.
--- NOTE | 2016-09-19 10:32 | XRay Report ---
AP CHEST :09/18/16 17:04:00 CLINICAL: Shortness of breath. COMPARISON:09/07/16 FINDINGS: Mild cardiomegaly an slight enlargement of the heart compared to the prior exam. Redistribution of pulmonary blood flow to the upper lobes. The lungs are normally expanded and clear. The bones and soft tissues are unremarkable. IMPRESSION: Mild cardiomegaly and pulmonary venous hypertension. No pulmonary edema.
[2016-09-19] MEDS: ROCEPHIN/NS 1 GM/50 ML 1 GM/50 ML BAG IV SCH (10:57)
[2016-09-19 11:07] LABS: Creatine Kinase MB 5.7 ng/mL (0.0-4.0)
[2016-09-19 11:08] LABS: Creatine Kinase 452 units/L (30-135)
[2016-09-19 11:36] LABS: ISTAT Base Excess 6; ISTAT HCO3 31.2; ISTAT PCO2 50.8 (35-45); ISTAT PH 7.397 (7.35-7.45); ISTAT PO2 82 (80-105); ISTAT SO2 96; ISTAT TCO2 33
[2016-09-19] MEDS: KEPPRA 500 MG in D5W 100 ML IV SCH ×2 (12:27→21:47)
--- NOTE | 2016-09-19 16:07 | Progress Note ---
Assessment and Plan Assessment and plan: Patient is a 56 year old male with past medical history significant for hypertension, CHF, oxygen dependent COPD, seizure disorder, hepatic encephalopathy , epilepsy brought via EMS after the had called them due to altered mental status. I couldn't get any history. She was admitted recently for altered mental status and COPD exacerbation at that time images studies included a CT angiogram on September 08 showed severe emphysema but no PE. His emergency department labs were done and ABG showed CO2 retention, UTI, acute kidney injury and positive for methadone. 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 Wean off of BiPAP as tolerated * Continue antibiotics. * Continue restraints patient has had multiple falls at home according to the * Cultures reviewed so far negative we'll monitor closely * Taper IV steroids * Continue IV Keppra * Continue neuro checks * Replace electrolytes * DVT and GI prophylaxis * A full consult in a.m. to review right ankle fracture. * PT OT evaluate and treat History Interval history: Hypotension seen and examined this morning remains on BiPAP. She is more awake at this time. Denies any chest pain, nausea, vomiting or diarrhea. She is still unable to give me any information as to what happened prior to presenting to the hospital. She is still markedly lethargic otherwise blood pressure has been stable. Hospitalist Physical - Physical exam Narrative exam: VITAL SIGNS: Reviewed. GENERAL: The patient appeared well nourished and normally developed, on BiPAP. Vital signs as documented. HEAD: No signs of head trauma. EYES: Pupils are equal. Extraocular motions intact. EARS: Hearing grossly intact. MOUTH: Oropharynx is normal. NECK: No adenopathy, no JVD. CHEST: Chest with clear breath sounds bilaterally. No wheezes, rales, or rhonchi. CARDIAC: Regular rate and rhythm. S1 and S2, without murmurs, gallops, or rubs. VASCULAR: No Edema. Peripheral pulses normal and equal in all extremities. ABDOMEN: Soft, without detectable tenderness. No sign of distention. No rebound or guarding, and no masses palpated. Bowel Sounds normal. MUSCULOSKELETAL: Good range of motion of all major joints except right ankle, splint in place. Extremities without clubbing, cyanosis or edema. NEUROLOGIC EXAM: Alert and oriented x 3. No focal sensory or strength deficits. Speech normal. Follows commands. PSYCHIATRIC: Mood normal. SKIN: No rash or lesions. - Constitutional Vitals: Temp Pulse Resp BP Pulse Ox 97.7 F 83 18 130/73 93 09/19/16 10:00 09/19/16 15:37 09/19/16 15:37 09/19/16 10:00 09/19/16 13:08 Results - Labs CBC & Chem 7: 09/18/16 19:02 09/18/16 19:02 Labs: Laboratory Last Values WBC 11.8 K/mm3 (4.5-11.0) H 09/18/16 19:02 RBC 3.84 M/mm3 (3.65-5.03) 09/18/16 19:02 Hgb 12.4 gm/dl (10.1-14.3) 09/18/16 19:02 Hct 38.9 % (30.3-42.9) 09/18/16 19:02 MCV 101 fl (79-97) H 09/18/16 19:02 MCH 32 pg (28-32) 09/18/16 19:02 MCHC 32 % (30-34) 09/18/16 19:02 RDW 13.5 % (13.2-15.2) 09/18/16 19:02 Plt Count 256 K/mm3 (140-440) 09/18/16 19:02 Lymph % (Auto) Whiskey Filterer 09/18/16 19:02 [place] % (Auto) Whiskey Filterer 09/18/16 19:02 Eos % (Auto) Whiskey Filterer 09/18/16 19:02 Baso % (Auto) Whiskey Filterer 09/18/16 19:02 Lymph # Whiskey Filterer 09/18/16 19:02 [place] # Whiskey Filterer 09/18/16 19:02 Eos # Whiskey Filterer 09/18/16 19:02 Baso # Whiskey Filterer 09/18/16 19:02 Add Manual Diff Complete 09/18/16 19:02 Total Counted 100 09/18/16 19:02 Seg Neutrophils % Whiskey Filterer 09/18/16 19:02 Seg Neuts % (Manual) 66.0 % (40.0-70.0) 09/18/16 19:02 Band Neutrophils % 7.0 % 09/18/16 19:02 Lymphocytes % (Manual) 15.0 % (13.4-35.0) 09/18/16 19:02 Reactive Lymphs % (Man) 0 % 09/18/16 19:02 Monocytes % (Manual) 8.0 % (0.0-7.3) H 09/18/16 19:02 Eosinophils % (Manual) 2.0 % (0.0-4.3) 09/18/16 19:02 Basophils % (Manual) 1.0 % (0.0-1.8) 09/18/16 19:02 Metamyelocytes % 1.0 % 09/18/16 19:02 Myelocytes % 0 % 09/18/16 19:02 Promyelocytes % 0 % 09/18/16 19:02 Blast Cells % 0 % 09/18/16 19:02 Nucleated RBC % Not Reportable 09/18/16 19:02 Seg Neutrophils # Whiskey Filterer 09/18/16 19:02 Seg Neutrophils # Man 7.8 K/mm3 (1.8-7.7) H 09/18/16 19:02 Band Neutrophils # 0.8 K/mm3 09/18/16 19:02 Lymphocytes # (Manual) 1.8 K/mm3 (1.2-5.4) 09/18/16 19:02 Abs React Lymphs (Man) 0.0 K/mm3 09/18/16 19:02 Monocytes # (Manual) 0.9 K/mm3 (0.0-0.8) H 09/18/16 19:02 Eosinophils # (Manual) 0.2 K/mm3 (0.0-0.4) 09/18/16 19:02 Basophils # (Manual) 0.1 K/mm3 (0.0-0.1) 09/18/16 19:02 Metamyelocytes # 0.1 K/mm3 09/18/16 19:02 Myelocytes # 0.0 K/mm3 09/18/16 19:02 Promyelocytes # 0.0 K/mm3 09/18/16 19:02 Blast Cells # 0.0 K/mm3 09/18/16 19:02 WBC Morphology Not Reportable 09/18/16 19:02 Hypersegmented Neuts Not Reportable 09/18/16 19:02 Hyposegmented Neuts Not Reportable 09/18/16 19:02 Hypogranular Neuts Not Reportable 09/18/16 19:02 Smudge Cells Not Reportable 09/18/16 19:02 Toxic Granulation Not Reportable 09/18/16 19:02 Toxic Vacuolation Not Reportable 09/18/16 19:02 Dohle Bodies Not Reportable 09/18/16 19:02 [place]-Huet Anomaly Not Reportable 09/18/16 19:02 Valente Rods Not Reportable 09/18/16 19:02 Platelet Estimate Appears normal 09/18/16 19:02 Clumped Platelets Not Reportable 09/18/16 19:02 Plt Clumps, EDTA Not Reportable 09/18/16 19:02 Large Platelets Not Reportable 09/18/16 19:02 Giant Platelets Not Reportable 09/18/16 19:02 Platelet Satelliting Not Reportable 09/18/16 19:02 Plt Morphology Comment Not Reportable 09/18/16 19:02 RBC Morphology Normal 09/18/16 19:02 Dimorphic RBCs Not Reportable 09/18/16 19:02 Polychromasia Not Reportable 09/18/16 19:02 Hypochromasia Not Reportable 09/18/16 19:02 Poikilocytosis Not Reportable 09/18/16 19:02 Anisocytosis Not Reportable 09/18/16 19:02 Microcytosis Not Reportable 09/18/16 19:02 Macrocytosis Not Reportable 09/18/16 19:02 Spherocytes Not Reportable 09/18/16 19:02 Pappenheimer Bodies Not Reportable 09/18/16 19:02 Sickle Cells Not Reportable 09/18/16 19:02 Target Cells Not Reportable 09/18/16 19:02 Tear Drop Cells Not Reportable 09/18/16 19:02 Ovalocytes Not Reportable 09/18/16 19:02 Helmet Cells Not Reportable 09/18/16 19:02 [place] Bodies Not Reportable 09/18/16 19:02 [place] Rings Not Reportable 09/18/16 19:02 [place] Cells Not Reportable 09/18/16 19:02 Bite Cells Not Reportable 09/18/16 19:02 Crenated Cell Not Reportable 09/18/16 19:02 Elliptocytes Not Reportable 09/18/16 19:02 Acanthocytes (Spur) Not Reportable 09/18/16 19:02 Rouleaux Not Reportable 09/18/16 19:02 Hemoglobin C Crystals Not Reportable 09/18/16 19:02 Schistocytes Not Reportable 09/18/16 19:02 Malaria parasites Not Reportable 09/18/16 19:02 Adithya Bodies Not Reportable 09/18/16 19:02 Hem Pathologist Commnt No 09/18/16 19:02 PT 12.2 Sec. (12.2-14.9) 09/18/16 19:02 INR 0.91 (0.87-1.13) 09/18/16 19:02 APTT 26.4 Sec. (24.2-36.6) 09/18/16 19:02 POC ABG pH 7.397 (7.35-7.45) 09/19/16 11:14 POC ABG pCO2 50.8 (35-45) H 09/19/16 11:14 POC ABG pO2 82 (80-105) 09/19/16 11:14 POC ABG HCO3 31.2 09/19/16 11:14 POC ABG Total CO2 33 09/19/16 11:14 POC ABG O2 Sat 96 09/19/16 11:14 POC ABG Base Excess 6 09/19/16 11:14 FiO2 40 % 09/19/16 11:14 Sodium 136 mmol/L (137-145) L 09/18/16 19:02 Potassium 4.5 mmol/L (3.6-5.0) 09/18/16 19:02 Chloride 96.7 mmol/L (98-107) L 09/18/16 19:02 Carbon Dioxide 30 mmol/L (22-30) 09/18/16 19:02 Anion Gap 14 mmol/L 09/18/16 19:02 BUN 17 mg/dL (7-17) 09/18/16 19:02 Creatinine 1.4 mg/dL (0.7-1.2) H 09/18/16 19:02 Estimated GFR 39 ml/min 09/18/16 19:02 BUN/Creatinine Ratio 12.14 % 09/18/16 19:02 Glucose 95 mg/dL (65-100) 09/18/16 19:02 Lactic Acid 0.7 mmol/L (0.7-2.0) 09/18/16 19:58 Calcium 9.1 mg/dL (8.4-10.2) 09/18/16 19:02 Total Bilirubin 0.4 mg/dL (0.1-1.2) 09/18/16 19:02 AST 38 units/L (5-40) 09/18/16 19:02 ALT 27 units/L (7-56) 09/18/16 19:02 Alkaline Phosphatase 67 units/L (35-129) 09/18/16 19:02 Ammonia 24.0 umol/L (25-60) L 09/18/16 19:58 Total Creatine Kinase 452 units/L (30-135) H 09/19/16 10:00 CK-MB (CK-2) 5.7 ng/mL (0.0-4.0) H 09/19/16 10:00 CK-MB (CK-2) Rel Index 1.2 (0-4) 09/18/16 19:02 Troponin T < 0.010 ng/mL (0.00-0.029) 09/19/16 10:00 Total Protein 6.3 g/dL (6.3-8.2) 09/18/16 19:02 Albumin 3.0 g/dL (3.9-5) L 09/18/16 19:02 Albumin/Globulin Ratio 0.9 % 09/18/16 19:02 TSH 2.270 mlU/mL (0.270-4.200) 09/18/16 19:58 Free T4 1.26 ng/dL (0.76-1.46) 09/18/16 19:58 Urine Color Yellow (Yellow) 09/18/16 18:15 Urine Turbidity Cloudy (Clear) 09/18/16 18:15 Urine pH 5.0 (5.0-7.0) 09/18/16 18:15 Ur Specific [place] 1.021 (1.003-1.030) 09/18/16 18:15 Urine Protein 100 mg/dl mg/dL (Negative) 09/18/16 18:15 Urine Glucose (UA) Neg mg/dL (Negative) 09/18/16 18:15 Urine Ketones Neg mg/dL (Negative) 09/18/16 18:15 Urine Blood Sm (Negative) 09/18/16 18:15 Urine Nitrite Pos (Negative) 09/18/16 18:15 Urine Bilirubin Neg (Negative) 09/18/16 18:15 Urine Urobilinogen < 2.0 mg/dL (<2.0) 09/18/16 18:15 Ur Leukocyte Esterase Lg (Negative) 09/18/16 18:15 Urine WBC (Auto) > 182.0 /HPF (0.0-6.0) H 09/18/16 18:15 Urine RBC (Auto) 2.0 /HPF (0.0-6.0) 09/18/16 18:15 U Epithel Cells (Auto) 1.0 /HPF (0-13.0) 09/18/16 18:15 Hyaline Casts 7 /LPF 09/18/16 18:15 Granular Casts 5 /LPF 09/18/16 18:15 Urine Mucus Few /HPF 09/18/16 18:15 Salicylates < 0.3 mg/dL (2.8-20.0) L 09/18/16 19:58 Urine Opiates Screen Presumptive negative 09/18/16 18:15 Urine Methadone Screen Presumptive positive 09/18/16 18:15 Acetaminophen < 15.0 ug/mL (10.0-30.0) 09/18/16 19:58 Ur Barbiturates Screen Presumptive negative 09/18/16 18:15 Ur Phencyclidine Scrn Presumptive negative 09/18/16 18:15 Ur Amphetamines Screen Presumptive negative 09/18/16 18:15 U Benzodiazepines Scrn Presumptive negative 09/18/16 18:15 Urine Cocaine Screen Presumptive negative 09/18/16 18:15 U Marijuana (THC) Screen Presumptive negative 09/18/16 18:15 Drugs of Abuse Note Disclamer 09/18/16 18:15 Plasma/Serum Alcohol < 0.01 gm% (0-0.07) 09/18/16 19:58 - Imaging and Cardiology Chest x-ray: image reviewed (mild pulmonary edema)
[2016-09-20] MEDS: DUONEB 0.5 MG-3 MG/3 ML SOLN IH SCH ×6 (00:30→20:25)
[2016-09-20] MEDS: HEPARIN SUB-Q SCH ×3 (06:20→22:59)
[2016-09-20 07:32] LABS: Hematocrit 36.1 % (30.3-42.9); Mean Corpuscular HGB Conc 33 % (30-34); Mean Corpuscular Hemoglobin 32 pg (28-32); Mean Corpuscular Volume 96 fl (79-97); Platelet Count 332 K/mm3 (140-440); Red Blood Count 3.76 M/mm3 (3.65-5.03); Red Cell Distribution Width 13.5 % (13.2-15.2); White Blood Count 12.9 K/mm3 (4.5-11.0)
[2016-09-20 07:58] LABS: Albumin 3.4 g/dL (3.9-5); Albumin/Globulin Ratio 1.1 %; Bilirubin,Total 0.3 mg/dL (0.1-1.2); Calcium 9.2 mg/dL (8.4-10.2); Chloride 101.2 mmol/L (98-107); Potassium 4.3 mmol/L (3.6-5.0); Total Protein 6.6 g/dL (6.3-8.2)
--- NOTE | 2016-09-20 12:28 | Consultation ---
History of Present Illness - [facility] Consult date: 09/20/16 Consult reason: fracture History of present illness: A 56-year-old with right ankle pain, swelling following an injury. X-ray showing fracture lateral malleolus, she has a splint in place. Past History Past Medical History: COPD, heart failure, hypertension, seizures Past Surgical History: appendectomy, Other (toe surgery) Social history: smoking, full code. denies: alcohol abuse, prescription drug abuse, IV drug use Family history: hypertension Medications and Allergies Allergies Allergy/AdvReac Type Severity Reaction Status Date / Time bee venom (honey bee) Allergy Severe FILLS HER Verified 09/07/16 19:20 LUNGS UP WITH WATER/ CLOSES UP THROAT/NAUSEA shellfish derived Allergy Severe CLOG UP PT Verified 09/07/16 19:20 THROAT/ ITCHING ALL OVER Sulfa (Sulfonamide Allergy Unknown Verified 09/07/16 19:20 Antibiotics) Home Medications Medication Instructions Recorded Confirmed Last Taken Type lamoTRIgine [LaMICtal] 100 mg PO QPM #30 tablet 08/05/16 09/20/16 1 Day Ago Rx levETIRAcetam [Keppra TAB] 500 mg PO BID #60 tablet 08/05/16 09/20/16 1 Day Ago Rx ALBUTEROL Inhaler [ProAir HFA 2 puff IH QID PRN #1 inha 08/21/16 09/20/16 1 Day Ago Rx Inhaler] Budesoni/Formoterol 80-4.5(Nf) 2 puff IH BID #1 inha 08/21/16 09/20/16 1 Day Ago Rx [Symbicort 80-4.5 (Nf)] Famotidine [Pepcid] 20 mg PO BID #60 tablet 08/21/16 09/20/16 1 Day Ago Rx Ipratropium/Albuter (Nf) 1 inhalation INHALATION PRN #1 inha 08/21/16 09/20/16 1 Day Ago Rx [Combivent Inhaler] LORazepam [Ativan] 1 mg PO BID@0600,1800 #60 tablet 08/21/16 09/20/16 1 Day Ago Rx Losartan [Cozaar] 100 mg PO QDAY #30 tablet 08/21/16 09/20/16 1 Day Ago Rx Nicotine [Habitrol] 21 mg TD Q24H #30 patch 08/21/16 09/20/16 1 Day Ago Rx amLODIPine [Norvasc] 10 mg PO QDAY #30 tablet 08/21/16 09/20/16 1 Day Ago Rx predniSONE [Deltasone] 10 mg PO .TAPER #21 tab 09/10/16 09/20/16 1 Day Ago Rx Active Meds: Active Medications Albuterol/Ipratropium (Duoneb 0.5 Mg-3 Mg/3 Ml Soln) 1 ampul IH Q4HRT [facility] Last Admin: 09/20/16 08:30 Dose: 1 ampul Heparin Sodium (Porcine) (Heparin) 5,000 unit SUB-Q Q8H KRYSTEN Last Admin: 09/20/16 06:20 Dose: 5,000 unit Ceftriaxone Sodium (Rocephin/Ns 1 Gm/50 Ml) 1 gm in 50 mls @ 100 mls/hr IV Q24HR KRYSTEN PRN Reason: Protocol Last Admin: 09/19/16 10:57 Dose: 100 mls/hr Levetiracetam 500 mg/ Dextrose 105 mls @ 400 mls/hr IV BID [facility] Last Admin: 09/19/16 21:47 Dose: 400 mls/hr Sodium Chloride (Nacl 0.9% 1000 Ml) 1,000 mls @ 100 mls/hr IV DIRECT [facility] Last Admin: 09/19/16 14:02 Dose: 100 mls/hr Methylprednisolone Sodium Succinate (Solu-Medrol) 60 mg IV Q8H [facility] Last Admin: 09/20/16 06:20 Dose: 60 mg Review of Systems All systems: negative (poor memory) Physical Examination - Ankle & Foot right Tenderness with palpation: other (Right ankle with swelling, tenderness at the medial is laterally. No neurovascular deficit.) Assessment and Plan - Patient Problems (1) Fracture of lateral malleolus of right ankle Current Visit: Yes Status: Acute Qualifiers: Encounter type: initial encounter Fracture type: closed Open fracture type: O Fracture alignment: F Fracture healing: F Plan to address problem: Recommended immobilization, will apply short-leg cast. Continue with elevation , nonweightbearing ambulation, patient may be discharged with walker/wheelchair for followup in the office. Will need x-ray evaluation in 3-4 weeks. Should fracture developing displacement then may consider internal fixation otherwise we'll treat close. If patient is coming from SNF[facility] for follow up, she is to bring copies the ankle x-rays AP lateral view done within 48 hours of office visit.
[2016-09-20] MEDS: ROCEPHIN/NS 1 GM/50 ML 1 GM/50 ML BAG IV SCH (15:43)
[2016-09-20] MEDS: KEPPRA 500 MG in D5W 100 ML IV SCH ×2 (15:43→22:59)
--- NOTE | 2016-09-20 16:21 | Progress Note ---
Assessment and Plan Assessment and plan: Patient is a 56 year old male with past medical history significant for hypertension, CHF, oxygen dependent COPD, seizure disorder, hepatic encephalopathy , epilepsy brought via EMS after the had called them due to altered mental status. I couldn't get any history. She was admitted recently for altered mental status and COPD exacerbation at that time images studies included a CT angiogram on September 08 showed severe emphysema but no PE. His emergency department labs were done and ABG showed CO2 retention, UTI, acute kidney injury and positive for methadone. 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 Wean off of BiPAP as tolerated * Continue antibiotics. * Cast to be applied by orthopedic surgeon. Patient's to continue with elevation and nonweightbearing on the ankle. Would need a walker or wheelchair and discharge follow which orthopedic surgeon for weeks prior to that should get x-ray evaluation. * Continue restraints patient has had multiple falls at home according to the * Cultures reviewed so far negative we'll monitor closely * Follow cultures * Taper IV steroids * Continue IV Keppra * Continue neuro checks * Replace electrolytes * DVT and GI prophylaxis * Awaiting family to give us more information. Plan of care discussed in detail with the patient. * PT OT evaluate and treat History Interval history: Patient seen and examined today and not in distress is off the BiPAP and doing well. She is still sure of the activities that happened yesterday prompting hospitalization. No further adverse events reported by nursing staff. A call has been placed to the spouse to get more information. Hospitalist Physical - Physical exam Narrative exam: VITAL SIGNS: Reviewed. GENERAL: The patient appeared well nourished and normally developed, Vital signs as documented. HEAD: No signs of head trauma. EYES: Pupils are equal. Extraocular motions intact. EARS: Hearing grossly intact. MOUTH: Oropharynx is normal. NECK: No adenopathy, no JVD. CHEST: Chest with clear breath sounds bilaterally. No wheezes, rales, or rhonchi. CARDIAC: Regular rate and rhythm. S1 and S2, without murmurs, gallops, or rubs. VASCULAR: No Edema. Peripheral pulses normal and equal in all extremities. ABDOMEN: Soft, without detectable tenderness. No sign of distention. No rebound or guarding, and no masses palpated. Bowel Sounds normal. MUSCULOSKELETAL: Good range of motion of all major joints except right ankle, splint in place. Extremities without clubbing, cyanosis or edema. NEUROLOGIC EXAM: Alert and oriented x 3. No focal sensory or strength deficits. Speech normal. Follows commands. PSYCHIATRIC: Mood normal. SKIN: No rash or lesions. - Constitutional Vitals: Temp Pulse Resp BP Pulse Ox 98.0 F 86 18 178/88 96 09/20/16 08:00 09/20/16 13:10 09/20/16 13:10 09/20/16 08:00 09/20/16 08:47 Results - Labs CBC & Chem 7: 09/20/16 06:40 09/20/16 06:40 Labs: Laboratory Last Values WBC 12.9 K/mm3 (4.5-11.0) H 09/20/16 06:40 RBC 3.76 M/mm3 (3.65-5.03) 09/20/16 06:40 Hgb 12.0 gm/dl (10.1-14.3) 09/20/16 06:40 Hct 36.1 % (30.3-42.9) 09/20/16 06:40 MCV 96 fl (79-97) D 09/20/16 06:40 MCH 32 pg (28-32) 09/20/16 06:40 MCHC 33 % (30-34) 09/20/16 06:40 RDW 13.5 % (13.2-15.2) 09/20/16 06:40 Plt Count 332 K/mm3 (140-440) 09/20/16 06:40 Lymph % (Auto) Public Affairs Specialist 09/18/16 19:02 [place] % (Auto) Public Affairs Specialist 09/18/16 19:02 Eos % (Auto) Public Affairs Specialist 09/18/16 19:02 Baso % (Auto) Public Affairs Specialist 09/18/16 19:02 Lymph # Public Affairs Specialist 09/18/16 19:02 [place] # Public Affairs Specialist 09/18/16 19:02 Eos # Public Affairs Specialist 09/18/16 19:02 Baso # Public Affairs Specialist 09/18/16 19:02 Add Manual Diff Complete 09/18/16 19:02 Total Counted 100 09/18/16 19:02 Seg Neutrophils % Public Affairs Specialist 09/18/16 19:02 Seg Neuts % (Manual) 66.0 % (40.0-70.0) 09/18/16 19:02 Band Neutrophils % 7.0 % 09/18/16 19:02 Lymphocytes % (Manual) 15.0 % (13.4-35.0) 09/18/16 19:02 Reactive Lymphs % (Man) 0 % 09/18/16 19:02 Monocytes % (Manual) 8.0 % (0.0-7.3) H 09/18/16 19:02 Eosinophils % (Manual) 2.0 % (0.0-4.3) 09/18/16 19:02 Basophils % (Manual) 1.0 % (0.0-1.8) 09/18/16 19:02 Metamyelocytes % 1.0 % 09/18/16 19:02 Myelocytes % 0 % 09/18/16 19:02 Promyelocytes % 0 % 09/18/16 19:02 Blast Cells % 0 % 09/18/16 19:02 Nucleated RBC % Not Reportable 09/18/16 19:02 Seg Neutrophils # Public Affairs Specialist 09/18/16 19:02 Seg Neutrophils # Man 7.8 K/mm3 (1.8-7.7) H 09/18/16 19:02 Band Neutrophils # 0.8 K/mm3 09/18/16 19:02 Lymphocytes # (Manual) 1.8 K/mm3 (1.2-5.4) 09/18/16 19:02 Abs React Lymphs (Man) 0.0 K/mm3 09/18/16 19:02 Monocytes # (Manual) 0.9 K/mm3 (0.0-0.8) H 09/18/16 19:02 Eosinophils # (Manual) 0.2 K/mm3 (0.0-0.4) 09/18/16 19:02 Basophils # (Manual) 0.1 K/mm3 (0.0-0.1) 09/18/16 19:02 Metamyelocytes # 0.1 K/mm3 09/18/16 19:02 Myelocytes # 0.0 K/mm3 09/18/16 19:02 Promyelocytes # 0.0 K/mm3 09/18/16 19:02 Blast Cells # 0.0 K/mm3 09/18/16 19:02 WBC Morphology Not Reportable 09/18/16 19:02 Hypersegmented Neuts Not Reportable 09/18/16 19:02 Hyposegmented Neuts Not Reportable 09/18/16 19:02 Hypogranular Neuts Not Reportable 09/18/16 19:02 Smudge Cells Not Reportable 09/18/16 19:02 Toxic Granulation Not Reportable 09/18/16 19:02 Toxic Vacuolation Not Reportable 09/18/16 19:02 Dohle Bodies Not Reportable 09/18/16 19:02 Pelger-Huet Anomaly Not Reportable 09/18/16 19:02 Valente Rods Not Reportable 09/18/16 19:02 Platelet Estimate Appears normal 09/18/16 19:02 Clumped Platelets Not Reportable 09/18/16 19:02 Plt Clumps, EDTA Not Reportable 09/18/16 19:02 Large Platelets Not Reportable 09/18/16 19:02 Giant Platelets Not Reportable 09/18/16 19:02 Platelet Satelliting Not Reportable 09/18/16 19:02 Plt Morphology Comment Not Reportable 09/18/16 19:02 RBC Morphology Normal 09/18/16 19:02 Dimorphic RBCs Not Reportable 09/18/16 19:02 Polychromasia Not Reportable 09/18/16 19:02 Hypochromasia Not Reportable 09/18/16 19:02 Poikilocytosis Not Reportable 09/18/16 19:02 Anisocytosis Not Reportable 09/18/16 19:02 Microcytosis Not Reportable 09/18/16 19:02 Macrocytosis Not Reportable 09/18/16 19:02 Spherocytes Not Reportable 09/18/16 19:02 Pappenheimer Bodies Not Reportable 09/18/16 19:02 Sickle Cells Not Reportable 09/18/16 19:02 Target Cells Not Reportable 09/18/16 19:02 Tear Drop Cells Not Reportable 09/18/16 19:02 Ovalocytes Not Reportable 09/18/16 19:02 Helmet Cells Not Reportable 09/18/16 19:02 [place] Bodies Not Reportable 09/18/16 19:02 [place] Rings Not Reportable 09/18/16 19:02 [place] Cells Not Reportable 09/18/16 19:02 Bite Cells Not Reportable 09/18/16 19:02 Crenated Cell Not Reportable 09/18/16 19:02 Elliptocytes Not Reportable 09/18/16 19:02 Acanthocytes (Spur) Not Reportable 09/18/16 19:02 Rouleaux Not Reportable 09/18/16 19:02 Hemoglobin C Crystals Not Reportable 09/18/16 19:02 Schistocytes Not Reportable 09/18/16 19:02 Malaria parasites Not Reportable 09/18/16 19:02 Adithya Bodies Not Reportable 09/18/16 19:02 Hem Pathologist Commnt No 09/18/16 19:02 PT 12.2 Sec. (12.2-14.9) 09/18/16 19:02 INR 0.91 (0.87-1.13) 09/18/16 19:02 APTT 26.4 Sec. (24.2-36.6) 09/18/16 19:02 POC ABG pH 7.397 (7.35-7.45) 09/19/16 11:14 POC ABG pCO2 50.8 (35-45) H 09/19/16 11:14 POC ABG pO2 82 (80-105) 09/19/16 11:14 POC ABG HCO3 31.2 09/19/16 11:14 POC ABG Total CO2 33 09/19/16 11:14 POC ABG O2 Sat 96 09/19/16 11:14 POC ABG Base Excess 6 09/19/16 11:14 FiO2 40 % 09/19/16 11:14 Sodium 141 mmol/L (137-145) 09/20/16 06:40 Potassium 4.3 mmol/L (3.6-5.0) 09/20/16 06:40 Chloride 101.2 mmol/L (98-107) 09/20/16 06:40 Carbon Dioxide 27 mmol/L (22-30) 09/20/16 06:40 Anion Gap 17 mmol/L 09/20/16 06:40 BUN 23 mg/dL (7-17) H 09/20/16 06:40 Creatinine 1.0 mg/dL (0.7-1.2) 09/20/16 06:40 Estimated GFR 57 ml/min 09/20/16 06:40 BUN/Creatinine Ratio 23.00 % 09/20/16 06:40 Glucose 140 mg/dL (65-100) H 09/20/16 06:40 Lactic Acid 0.7 mmol/L (0.7-2.0) 09/18/16 19:58 Calcium 9.2 mg/dL (8.4-10.2) 09/20/16 06:40 Total Bilirubin 0.3 mg/dL (0.1-1.2) 09/20/16 06:40 AST 33 units/L (5-40) 09/20/16 06:40 ALT 26 units/L (7-56) 09/20/16 06:40 Alkaline Phosphatase 68 units/L (35-129) 09/20/16 06:40 Ammonia 24.0 umol/L (25-60) L 09/18/16 19:58 Total Creatine Kinase 452 units/L (30-135) H 09/19/16 10:00 CK-MB (CK-2) 5.7 ng/mL (0.0-4.0) H 09/19/16 10:00 CK-MB (CK-2) Rel Index 1.2 (0-4) 09/18/16 19:02 Troponin T < 0.010 ng/mL (0.00-0.029) 09/19/16 10:00 Total Protein 6.6 g/dL (6.3-8.2) 09/20/16 06:40 Albumin 3.4 g/dL (3.9-5) L 09/20/16 06:40 Albumin/Globulin Ratio 1.1 % 09/20/16 06:40 TSH 2.270 mlU/mL (0.270-4.200) 09/18/16 19:58 Free T4 1.26 ng/dL (0.76-1.46) 09/18/16 19:58 Urine Color Yellow (Yellow) 09/18/16 18:15 Urine Turbidity Cloudy (Clear) 09/18/16 18:15 Urine pH 5.0 (5.0-7.0) 09/18/16 18:15 Ur Specific [place] 1.021 (1.003-1.030) 09/18/16 18:15 Urine Protein 100 mg/dl mg/dL (Negative) 09/18/16 18:15 Urine Glucose (UA) Neg mg/dL (Negative) 09/18/16 18:15 Urine Ketones Neg mg/dL (Negative) 09/18/16 18:15 Urine Blood Sm (Negative) 09/18/16 18:15 Urine Nitrite Pos (Negative) 09/18/16 18:15 Urine Bilirubin Neg (Negative) 09/18/16 18:15 Urine Urobilinogen < 2.0 mg/dL (<2.0) 09/18/16 18:15 Ur Leukocyte Esterase Lg (Negative) 09/18/16 18:15 Urine WBC (Auto) > 182.0 /HPF (0.0-6.0) H 09/18/16 18:15 Urine RBC (Auto) 2.0 /HPF (0.0-6.0) 09/18/16 18:15 U Epithel Cells (Auto) 1.0 /HPF (0-13.0) 09/18/16 18:15 Hyaline Casts 7 /LPF 09/18/16 18:15 Granular Casts 5 /LPF 09/18/16 18:15 Urine Mucus Few /HPF 09/18/16 18:15 Salicylates < 0.3 mg/dL (2.8-20.0) L 09/18/16 19:58 Urine Opiates Screen Presumptive negative 09/18/16 18:15 Urine Methadone Screen Presumptive positive 09/18/16 18:15 Acetaminophen < 15.0 ug/mL (10.0-30.0) 09/18/16 19:58 Ur Barbiturates Screen Presumptive negative 09/18/16 18:15 Ur Phencyclidine Scrn Presumptive negative 09/18/16 18:15 Ur Amphetamines Screen Presumptive negative 09/18/16 18:15 U Benzodiazepines Scrn Presumptive negative 09/18/16 18:15 Urine Cocaine Screen Presumptive negative 09/18/16 18:15 U Marijuana (THC) Screen Presumptive negative 09/18/16 18:15 Drugs of Abuse Note Disclamer 09/18/16 18:15 Plasma/Serum Alcohol < 0.01 gm% (0-0.07) 09/18/16 19:58
--- NOTE | 2016-09-20 17:04 | Admit Criteria Form ---
Admission Criteria Documentation: RESPIRATORY FAILURE GRG Clinical Indications for Admission to Inpatient Care (Place 'X' for any and all applicable criteria): Hospital admission is needed for appropriate care of the patient because of acute respiratory failure or insufficiency as indicated by ANY ONE of the following(1)(2)(3)(4)(5)(6)(7)(8): [X ]I. Mechanical ventilation needed (acute invasive or noninvasive) [ ]II. Severe ventilation deficit as indicated by ANY ONE of the following (9) [ ]a) Respiratory acidosis (pH less than 7.32 and partial pressure of carbon dioxide greater than 40 mm Hg (5.3 kPa)) [ ]b) Partial pressure of carbon dioxide greater than 44 mm Hg (5.9 kPa ) (new) [ ]c) Airflow measurements less than 25% of predicted (eg, peak expiratory flow rate less than 100 L/minute) [ ]d) Forced vital capacity less than 15 mL/kg of ideal body weight, or 50% decrease in vital capacity from baseline [ ]III. Noncardiac pulmonary edema not resolving with rapid emergency treatment (8) [ ]IV. Severe respiratory distress as indicated by ANY ONE of the following: [ ]a) Severe tachypnea (respiratory rate greater than 30, greater than 45 for 6-month-old, greater than 60 for ) [ ]b) Severe hypoxemia (partial pressure of oxygen less than 50 mm Hg ( 6.7 kPa) on greater than 50% oxygen or partial pressure of oxygen to FIO2 ratio less than 200) [ ]c) Mental status deterioration from respiratory disease [ ]V. Airway obstruction or inadequate protection [A](10)(11) The original [employer] content created by [employer] has been revised. The portions of the content which have been revised are identified through the use of italic text or in bold, and [email or web address] has neither reviewed nor approved the modified material. All other unmodified content is copyright [employer]. Please see references footnoted in the original [employer] edition 2016 Admission Criteria Met: Yes
[2016-09-21] MEDS: TORADOL IV PRN ×4 (01:04→21:41)
[2016-09-21] MEDS: DUONEB 0.5 MG-3 MG/3 ML SOLN IH SCH ×4 (01:39→19:36)
[2016-09-21] MEDS: HEPARIN SUB-Q SCH ×3 (06:21→21:42)
[2016-09-21] MEDS: NACL 0.9% 1000 ML 1,000 ML IV SCH ×2 (06:21→16:49)
[2016-09-21 07:02] LABS: Anion Gap 17 mmol/L; BUN/Creatinine Ratio 23.33; Blood Urea Nitrogen 21 mg/dL (7-17); Calcium 8.7 mg/dL (8.4-10.2); Carbon Dioxide 26 mmol/L (22-30); Chloride 103.6 mmol/L (98-107); Glucose 146 mg/dL (65-100); Potassium 4.1 mmol/L (3.6-5.0); Sodium 142 mmol/L (137-145)
[2016-09-21 09:01] LABS: Hematocrit 33.7 % (30.3-42.9); Hemoglobin 11.1 gm/dl (10.1-14.3); Mean Corpuscular HGB Conc 33 % (30-34); Mean Corpuscular Hemoglobin 32 pg (28-32); Mean Corpuscular Volume 97 fl (79-97); Platelet Count 312 K/mm3 (140-440); Red Blood Count 3.46 M/mm3 (3.65-5.03); Red Cell Distribution Width 13.2 % (13.2-15.2); White Blood Count 14.5 K/mm3 (4.5-11.0)
[2016-09-21] MEDS: KEPPRA 500 MG in D5W 100 ML IV SCH (09:53)
[2016-09-21] MEDS: ROCEPHIN/NS 1 GM/50 ML 1 GM/50 ML BAG IV SCH (09:53)
--- NOTE | 2016-09-21 18:15 | Progress Note ---
Assessment and Plan - Patient Problems (1) Closed right ankle fracture Current Visit: Yes Status: Acute Qualifiers: Encounter type: initial encounter Fracture healing: F Qualified Code(s): S82.891A - Other fracture of right lower leg, initial encounter for closed fracture (2) Methadone use Current Visit: Yes Status: Acute (3) Respiratory failure, acute and chronic Current Visit: Yes Status: Acute Qualifiers: Respiratory failure complication: R (4) COPD exacerbation Current Visit: No Status: Acute (5) DVT prophylaxis Current Visit: No Status: Acute (6) HTN (hypertension) Current Visit: No Status: Chronic Qualifiers: Hypertension type: essential hypertension Qualified Code(s): I10 - Essential (primary) hypertension History Interval history: Pt resting in bed, No reported nursing events. Pt denies pain. Pt states that her medical records say that she uses methamphetamines, but patient denies using methamphetamines. Pt requests narcotics for pain. Pt also requests hospice care at home. Case management consulted. D/C in AM to [facility]. Hospitalist Physical - Constitutional Vitals: Temp Pulse Resp BP Pulse Ox 98.5 F 88 20 184/91 92 09/21/16 16:17 09/21/16 16:17 09/21/16 16:17 09/21/16 16:17 09/21/16 16:17 General appearance: Present: no acute distress - EENT Eyes: Present: PERRL ENT: hearing intact, poor dentition - Neck Neck: Present: supple - Respiratory Respiratory: bilateral: diminished - Cardiovascular Rhythm: regular Heart Sounds: Present: S1 & S2 - Extremities Extremities: no ischemia Peripheral Pulses: within normal limits - Abdominal General gastrointestinal: soft, non-tender, non-distended, no hepatomegaly, no splenomegaly - Integumentary Integumentary: Present: clear, dry - Psychiatric Psychiatric: appropriate mood/affect, cooperative - Neurologic Neurologic: CNII-XII intact Results - Labs CBC & Chem 7: 09/21/16 06:23 09/21/16 06:23 Labs: Laboratory Last Values WBC 14.5 K/mm3 (4.5-11.0) H 09/21/16 06:23 RBC 3.46 M/mm3 (3.65-5.03) L 09/21/16 06:23 Hgb 11.1 gm/dl (10.1-14.3) 09/21/16 06:23 Hct 33.7 % (30.3-42.9) 09/21/16 06:23 MCV 97 fl (79-97) 09/21/16 06:23 MCH 32 pg (28-32) 09/21/16 06:23 MCHC 33 % (30-34) 09/21/16 06:23 RDW 13.2 % (13.2-15.2) 09/21/16 06:23 Plt Count 312 K/mm3 (140-440) 09/21/16 06:23 Lymph % (Auto) [employer] 09/18/16 19:02 [place] % (Auto) Manager [employer] 09/18/16 19:02 Eos % (Auto) [employer] 09/18/16 19:02 Baso % (Auto) [employer] 09/18/16 19:02 Lymph # [employer] 09/18/16 19:02 [place] # Manager [employer] 09/18/16 19:02 Eos # Manager [employer] 09/18/16 19:02 Baso # [employer] 09/18/16 19:02 Add Manual Diff Complete 09/18/16 19:02 Total Counted 100 09/18/16 19:02 Seg Neutrophils % [employer] 09/18/16 19:02 Seg Neuts % (Manual) 66.0 % (40.0-70.0) 09/18/16 19:02 Band Neutrophils % 7.0 % 09/18/16 19:02 Lymphocytes % (Manual) 15.0 % (13.4-35.0) 09/18/16 19:02 Reactive Lymphs % (Man) 0 % 09/18/16 19:02 Monocytes % (Manual) 8.0 % (0.0-7.3) H 09/18/16 19:02 Eosinophils % (Manual) 2.0 % (0.0-4.3) 09/18/16 19:02 Basophils % (Manual) 1.0 % (0.0-1.8) 09/18/16 19:02 Metamyelocytes % 1.0 % 09/18/16 19:02 Myelocytes % 0 % 09/18/16 19:02 Promyelocytes % 0 % 09/18/16 19:02 Blast Cells % 0 % 09/18/16 19:02 Nucleated RBC % Not Reportable 09/18/16 19:02 Seg Neutrophils # [employer] 09/18/16 19:02 Seg Neutrophils # Man 7.8 K/mm3 (1.8-7.7) H 09/18/16 19:02 Band Neutrophils # 0.8 K/mm3 09/18/16 19:02 Lymphocytes # (Manual) 1.8 K/mm3 (1.2-5.4) 09/18/16 19:02 Abs React Lymphs (Man) 0.0 K/mm3 09/18/16 19:02 Monocytes # (Manual) 0.9 K/mm3 (0.0-0.8) H 09/18/16 19:02 Eosinophils # (Manual) 0.2 K/mm3 (0.0-0.4) 09/18/16 19:02 Basophils # (Manual) 0.1 K/mm3 (0.0-0.1) 09/18/16 19:02 Metamyelocytes # 0.1 K/mm3 09/18/16 19:02 Myelocytes # 0.0 K/mm3 09/18/16 19:02 Promyelocytes # 0.0 K/mm3 09/18/16 19:02 Blast Cells # 0.0 K/mm3 09/18/16 19:02 WBC Morphology Not Reportable 09/18/16 19:02 Hypersegmented Neuts Not Reportable 09/18/16 19:02 Hyposegmented Neuts Not Reportable 09/18/16 19:02 Hypogranular Neuts Not Reportable 09/18/16 19:02 Smudge Cells Not Reportable 09/18/16 19:02 Toxic Granulation Not Reportable 09/18/16 19:02 Toxic Vacuolation Not Reportable 09/18/16 19:02 Dohle Bodies Not Reportable 09/18/16 19:02 Pelger-Huet Anomaly Not Reportable 09/18/16 19:02 Valente Rods Not Reportable 09/18/16 19:02 Platelet Estimate Appears normal 09/18/16 19:02 Clumped Platelets Not Reportable 09/18/16 19:02 Plt Clumps, EDTA Not Reportable 09/18/16 19:02 Large Platelets Not Reportable 09/18/16 19:02 Giant Platelets Not Reportable 09/18/16 19:02 Platelet Satelliting Not Reportable 09/18/16 19:02 Plt Morphology Comment Not Reportable 09/18/16 19:02 RBC Morphology Normal 09/18/16 19:02 Dimorphic RBCs Not Reportable 09/18/16 19:02 Polychromasia Not Reportable 09/18/16 19:02 Hypochromasia Not Reportable 09/18/16 19:02 Poikilocytosis Not Reportable 09/18/16 19:02 Anisocytosis Not Reportable 09/18/16 19:02 Microcytosis Not Reportable 09/18/16 19:02 Macrocytosis Not Reportable 09/18/16 19:02 Spherocytes Not Reportable 09/18/16 19:02 Pappenheimer Bodies Not Reportable 09/18/16 19:02 Sickle Cells Not Reportable 09/18/16 19:02 Target Cells Not Reportable 09/18/16 19:02 Tear Drop Cells Not Reportable 09/18/16 19:02 Ovalocytes Not Reportable 09/18/16 19:02 Helmet Cells Not Reportable 09/18/16 19:02 [place] Bodies Not Reportable 09/18/16 19:02 [place] Rings Not Reportable 09/18/16 19:02 [place] Cells Not Reportable 09/18/16 19:02 Bite Cells Not Reportable 09/18/16 19:02 Crenated Cell Not Reportable 09/18/16 19:02 Elliptocytes Not Reportable 09/18/16 19:02 Acanthocytes (Spur) Not Reportable 09/18/16 19:02 Rouleaux Not Reportable 09/18/16 19:02 Hemoglobin C Crystals Not Reportable 09/18/16 19:02 Schistocytes Not Reportable 09/18/16 19:02 Malaria parasites Not Reportable 09/18/16 19:02 Adithya Bodies Not Reportable 09/18/16 19:02 Hem Pathologist Commnt No 09/18/16 19:02 PT 12.2 Sec. (12.2-14.9) 09/18/16 19:02 INR 0.91 (0.87-1.13) 09/18/16 19:02 APTT 26.4 Sec. (24.2-36.6) 09/18/16 19:02 POC ABG pH 7.397 (7.35-7.45) 09/19/16 11:14 POC ABG pCO2 50.8 (35-45) H 09/19/16 11:14 POC ABG pO2 82 (80-105) 09/19/16 11:14 POC ABG HCO3 31.2 09/19/16 11:14 POC ABG Total CO2 33 09/19/16 11:14 POC ABG O2 Sat 96 09/19/16 11:14 POC ABG Base Excess 6 09/19/16 11:14 FiO2 40 % 09/19/16 11:14 Sodium 142 mmol/L (137-145) 09/21/16 06:23 Potassium 4.1 mmol/L (3.6-5.0) 09/21/16 06:23 Chloride 103.6 mmol/L (98-107) 09/21/16 06:23 Carbon Dioxide 26 mmol/L (22-30) 09/21/16 06:23 Anion Gap 17 mmol/L 09/21/16 06:23 BUN 21 mg/dL (7-17) H 09/21/16 06:23 Creatinine 0.9 mg/dL (0.7-1.2) 09/21/16 06:23 Estimated GFR > 60 ml/min 09/21/16 06:23 BUN/Creatinine Ratio 23.33 % 09/21/16 06:23 Glucose 146 mg/dL (65-100) H 09/21/16 06:23 Lactic Acid 0.7 mmol/L (0.7-2.0) 09/18/16 19:58 Calcium 8.7 mg/dL (8.4-10.2) 09/21/16 06:23 Total Bilirubin 0.3 mg/dL (0.1-1.2) 09/20/16 06:40 AST 33 units/L (5-40) 09/20/16 06:40 ALT 26 units/L (7-56) 09/20/16 06:40 Alkaline Phosphatase 68 units/L (35-129) 09/20/16 06:40 Ammonia 24.0 umol/L (25-60) L 09/18/16 19:58 Total Creatine Kinase 452 units/L (30-135) H 09/19/16 10:00 CK-MB (CK-2) 5.7 ng/mL (0.0-4.0) H 09/19/16 10:00 CK-MB (CK-2) Rel Index 1.2 (0-4) 09/18/16 19:02 Troponin T < 0.010 ng/mL (0.00-0.029) 09/19/16 10:00 Total Protein 6.6 g/dL (6.3-8.2) 09/20/16 06:40 Albumin 3.4 g/dL (3.9-5) L 09/20/16 06:40 Albumin/Globulin Ratio 1.1 % 09/20/16 06:40 TSH 2.270 mlU/mL (0.270-4.200) 09/18/16 19:58 Free T4 1.26 ng/dL (0.76-1.46) 09/18/16 19:58 Urine Color Yellow (Yellow) 09/18/16 18:15 Urine Turbidity Cloudy (Clear) 09/18/16 18:15 Urine pH 5.0 (5.0-7.0) 09/18/16 18:15 Ur Specific [place] 1.021 (1.003-1.030) 09/18/16 18:15 Urine Protein 100 mg/dl mg/dL (Negative) 09/18/16 18:15 Urine Glucose (UA) Neg mg/dL (Negative) 09/18/16 18:15 Urine Ketones Neg mg/dL (Negative) 09/18/16 18:15 Urine Blood Sm (Negative) 09/18/16 18:15 Urine Nitrite Pos (Negative) 09/18/16 18:15 Urine Bilirubin Neg (Negative) 09/18/16 18:15 Urine Urobilinogen < 2.0 mg/dL (<2.0) 09/18/16 18:15 Ur Leukocyte Esterase Lg (Negative) 09/18/16 18:15 Urine WBC (Auto) > 182.0 /HPF (0.0-6.0) H 09/18/16 18:15 Urine RBC (Auto) 2.0 /HPF (0.0-6.0) 09/18/16 18:15 U Epithel Cells (Auto) 1.0 /HPF (0-13.0) 09/18/16 18:15 Hyaline Casts 7 /LPF 09/18/16 18:15 Granular Casts 5 /LPF 09/18/16 18:15 Urine Mucus Few /HPF 09/18/16 18:15 Salicylates < 0.3 mg/dL (2.8-20.0) L 09/18/16 19:58 Urine Opiates Screen Presumptive negative 09/18/16 18:15 Urine Methadone Screen Presumptive positive 09/18/16 18:15 Acetaminophen < 15.0 ug/mL (10.0-30.0) 09/18/16 19:58 Ur Barbiturates Screen Presumptive negative 09/18/16 18:15 Ur Phencyclidine Scrn Presumptive negative 09/18/16 18:15 Ur Amphetamines Screen Presumptive negative 09/18/16 18:15 U Benzodiazepines Scrn Presumptive negative 09/18/16 18:15 Urine Cocaine Screen Presumptive negative 09/18/16 18:15 U Marijuana (THC) Screen Presumptive negative 09/18/16 18:15 Drugs of Abuse Note Disclamer 09/18/16 18:15 Plasma/Serum Alcohol < 0.01 gm% (0-0.07) 09/18/16 19:58
[2016-09-21] MEDS: KEPPRA PO SCH (21:44)
[2016-09-22] MEDS: DUONEB 0.5 MG-3 MG/3 ML SOLN IH SCH ×4 (01:39→21:27)
[2016-09-22] MEDS: NACL 0.9% 1000 ML 1,000 ML IV SCH ×2 (02:23→14:31)
[2016-09-22] MEDS: HEPARIN SUB-Q SCH ×3 (05:38→22:39)
--- NOTE | 2016-09-22 09:45 | Progress Note ---
Assessment and Plan - Patient Problems (1) Fracture of lateral malleolus of right ankle Current Visit: Yes Status: Acute Qualifiers: Encounter type: initial encounter Fracture type: closed Open fracture type: O Fracture alignment: F Fracture healing: F Plan to address problem: Cast applied, no new changes, complaints. Will obtain x-rays ankle in cast. Patient may be discharged when medically stable with a walker, nonweightbearing. Follow up in our office in 4 weeks. If she is coming from [facility]SNF when she is to bring copies of the x-rays the ankle and within 48 hours the office visit. We'll sign off Subjective Date of service: 09/22/16 Interval history: Cast in place, no definite complaints. Objective Vital signs: Vital Signs - 12hr 09/22/16 09/22/16 09/22/16 00:15 01:40 02:05 Temperature 97.8 F Pulse Rate Pulse Rate [ 84 85 Anterior Bilateral Throughout] Pulse Rate [ 78 Right Radial] Respiratory 18 Rate Respiratory 20 20 Rate [Anterior Bilateral Throughout] Blood Pressure 174/96 [Left Arm] O2 Sat by Pulse 99 Oximetry 09/22/16 09/22/16 09/22/16 04:00 06:26 08:47 Temperature 98.4 F Pulse Rate 86 80 Pulse Rate [ Anterior Bilateral Throughout] Pulse Rate [ 82 Right Radial] Respiratory 18 Rate Respiratory Rate [Anterior Bilateral Throughout] Blood Pressure 169/81 [Left Arm] O2 Sat by Pulse 98 Oximetry - Labs CBC & BMP: 09/21/16 06:23 09/21/16 06:23
[2016-09-22] MEDS: KEPPRA PO SCH ×2 (10:18→21:02)
[2016-09-22] MEDS: ROCEPHIN/NS 1 GM/50 ML 1 GM/50 ML BAG IV SCH (10:18)
--- NOTE | 2016-09-22 10:50 | Discharge Summary ---
Providers - Providers Date of Admission: 09/18/16 21:21 Date of discharge: 09/22/16 Attending physician: VIVEK ROBIN 09/18/16 22:06 Speech Therapy Evaluation and Treat [CONS] Routine Reason For Exam: altered mental status 09/19/16 09:44 Physical Therapy Evaluation and Treat [CONS] Routine Comment: Reason For Exam: closed ankle fracture Weight bearing status?: Nonwt bearing 09/20/16 07:32 Consult to Physician [CONS] Routine Consulting Provider: ANAND ESCUDERO V Reason For Exam: right ankle fracture Place consult to:: ela Notified:: office Phone number called:: [phone] Time called:: 09:09 Comment:: left message on machine only option available Primary care physician: S[employer] SUPERVISOR Hospitalization Condition: Fair Disposition: [place] [facility] - Discharge Diagnoses (1) Closed right ankle fracture Status: Acute Qualifiers: Encounter type: initial encounter Fracture healing: F Qualified Code(s): S82.891A - Other fracture of right lower leg, initial encounter for closed fracture (2) Respiratory failure, acute and chronic Status: Acute Qualifiers: Respiratory failure complication: R (3) COPD exacerbation Status: Acute Core Measure Documentation - Palliative Care Palliative Care/ Comfort Measures: Not Applicable Exam - Constitutional Vitals: Temp Pulse Resp BP Pulse Ox 98.3 F 80 24 168/79 93 09/22/16 08:15 09/22/16 08:47 09/22/16 08:15 09/22/16 08:15 09/22/16 08:15 Plan Activity: other (walk with walker/wheelchair) Diet: low fat, low cholesterol, low salt, other (Mechanical soft diet) Special Instructions: physical therapy, home health RN Additional Instructions: 1.Follow up with PCP in 3-5 days. 2.follow up with Dr. Escudero in 3 weeks Follow up with: PRIMARY CARE, [Primary Care Provider] - 7 Days Prescriptions: Albuterol Sulfate [Ventolin HFA] 2 puff IH Q4H PRN #1 pump PRN Reason: Shortness Of Breath
--- NOTE | 2016-09-22 11:21 | XRay Report ---
Right ankle: There is a fiberglass cast around the distal leg, ankle, and foot. There is good alignment of the fractured distal fibula with minimal offset. No change in alignment compared to precast exam on September 18. No other significant findings.
[2016-09-22] MEDS: TORADOL IV PRN ×2 (14:30→21:03)
--- NOTE | 2016-09-22 14:34 | Progress Note ---
Assessment and Plan - Patient Problems (1) Closed right ankle fracture Current Visit: Yes Status: Acute Qualifiers: Encounter type: initial encounter Fracture healing: F Qualified Code(s): S82.891A - Other fracture of right lower leg, initial encounter for closed fracture (2) Respiratory failure, acute and chronic Current Visit: Yes Status: Acute Qualifiers: Respiratory failure complication: R (3) COPD exacerbation Current Visit: No Status: Acute History Interval history: Patient wants to go home, less pain on right ankle, no fever Hospitalist Physical - Physical exam Narrative exam: Gen:Not in acute distress, Neck:supple, no JVD HEENT: Normocephalic, atraumatic Lungs:Clear to auscultation bilaterally, no rales or wheeze Heart:S1 and S2 reg, no murmurs,rubs or gallop Abdomen:soft, non tender, non distended, normal bowel sounds Ext: Right ankle,leg in splint Neuro:Awake,alert,oriented x 3. No focal signs Psych:normal mood - Constitutional Vitals: Temp Pulse Resp BP Pulse Ox 98.9 F 84 26 H 191/82 94 09/22/16 12:30 09/22/16 12:30 09/22/16 12:30 09/22/16 12:30 09/22/16 12:30 General appearance: Present: no acute distress Results - Labs CBC & Chem 7: 09/23/16 06:20 09/21/16 06:23 Labs: Laboratory Last Values WBC 14.5 K/mm3 (4.5-11.0) H 09/21/16 06:23 RBC 3.46 M/mm3 (3.65-5.03) L 09/21/16 06:23 Hgb 11.1 gm/dl (10.1-14.3) 09/21/16 06:23 Hct 33.7 % (30.3-42.9) 09/21/16 06:23 MCV 97 fl (79-97) 09/21/16 06:23 MCH 32 pg (28-32) 09/21/16 06:23 MCHC 33 % (30-34) 09/21/16 06:23 RDW 13.2 % (13.2-15.2) 09/21/16 06:23 Plt Count 312 K/mm3 (140-440) 09/21/16 06:23 Lymph % (Auto) Machine [employer] 09/18/16 19:02 [place] % (Auto) Machine [employer] 09/18/16 19:02 Eos % (Auto) Machine [employer] 09/18/16 19:02 Baso % (Auto) Machine [employer] 09/18/16 19:02 Lymph # Machine [employer] 09/18/16 19:02 [place] # Machine Cementer 09/18/16 19:02 Eos # Machine [employer]ementer 09/18/16 19:02 Baso # Machine [employer]ementer 09/18/16 19:02 Add Manual Diff Complete 09/18/16 19:02 Total Counted 100 09/18/16 19:02 Seg Neutrophils % Machine [employer] 09/18/16 19:02 Seg Neuts % (Manual) 66.0 % (40.0-70.0) 09/18/16 19:02 Band Neutrophils % 7.0 % 09/18/16 19:02 Lymphocytes % (Manual) 15.0 % (13.4-35.0) 09/18/16 19:02 Reactive Lymphs % (Man) 0 % 09/18/16 19:02 Monocytes % (Manual) 8.0 % (0.0-7.3) H 09/18/16 19:02 Eosinophils % (Manual) 2.0 % (0.0-4.3) 09/18/16 19:02 Basophils % (Manual) 1.0 % (0.0-1.8) 09/18/16 19:02 Metamyelocytes % 1.0 % 09/18/16 19:02 Myelocytes % 0 % 09/18/16 19:02 Promyelocytes % 0 % 09/18/16 19:02 Blast Cells % 0 % 09/18/16 19:02 Nucleated RBC % Not Reportable 09/18/16 19:02 Seg Neutrophils # Machine [employer] 09/18/16 19:02 Seg Neutrophils # Man 7.8 K/mm3 (1.8-7.7) H 09/18/16 19:02 Band Neutrophils # 0.8 K/mm3 09/18/16 19:02 Lymphocytes # (Manual) 1.8 K/mm3 (1.2-5.4) 09/18/16 19:02 Abs React Lymphs (Man) 0.0 K/mm3 09/18/16 19:02 Monocytes # (Manual) 0.9 K/mm3 (0.0-0.8) H 09/18/16 19:02 Eosinophils # (Manual) 0.2 K/mm3 (0.0-0.4) 09/18/16 19:02 Basophils # (Manual) 0.1 K/mm3 (0.0-0.1) 09/18/16 19:02 Metamyelocytes # 0.1 K/mm3 09/18/16 19:02 Myelocytes # 0.0 K/mm3 09/18/16 19:02 Promyelocytes # 0.0 K/mm3 09/18/16 19:02 Blast Cells # 0.0 K/mm3 09/18/16 19:02 WBC Morphology Not Reportable 09/18/16 19:02 Hypersegmented Neuts Not Reportable 09/18/16 19:02 Hyposegmented Neuts Not Reportable 09/18/16 19:02 Hypogranular Neuts Not Reportable 09/18/16 19:02 Smudge Cells Not Reportable 09/18/16 19:02 Toxic Granulation Not Reportable 09/18/16 19:02 Toxic Vacuolation Not Reportable 09/18/16 19:02 Dohle Bodies Not Reportable 09/18/16 19:02 Pelger-Huet Anomaly Not Reportable 09/18/16 19:02 Valente Rods Not Reportable 09/18/16 19:02 Platelet Estimate Appears normal 09/18/16 19:02 Clumped Platelets Not Reportable 09/18/16 19:02 Plt Clumps, EDTA Not Reportable 09/18/16 19:02 Large Platelets Not Reportable 09/18/16 19:02 Giant Platelets Not Reportable 09/18/16 19:02 Platelet Satelliting Not Reportable 09/18/16 19:02 Plt Morphology Comment Not Reportable 09/18/16 19:02 RBC Morphology Normal 09/18/16 19:02 Dimorphic RBCs Not Reportable 09/18/16 19:02 Polychromasia Not Reportable 09/18/16 19:02 Hypochromasia Not Reportable 09/18/16 19:02 Poikilocytosis Not Reportable 09/18/16 19:02 Anisocytosis Not Reportable 09/18/16 19:02 Microcytosis Not Reportable 09/18/16 19:02 Macrocytosis Not Reportable 09/18/16 19:02 Spherocytes Not Reportable 09/18/16 19:02 Pappenheimer Bodies Not Reportable 09/18/16 19:02 Sickle Cells Not Reportable 09/18/16 19:02 Target Cells Not Reportable 09/18/16 19:02 Tear Drop Cells Not Reportable 09/18/16 19:02 Ovalocytes Not Reportable 09/18/16 19:02 Helmet Cells Not Reportable 09/18/16 19:02 [place] Bodies Not Reportable 09/18/16 19:02 [place] Rings Not Reportable 09/18/16 19:02 [place] Cells Not Reportable 09/18/16 19:02 Bite Cells Not Reportable 09/18/16 19:02 Crenated Cell Not Reportable 09/18/16 19:02 Elliptocytes Not Reportable 09/18/16 19:02 Acanthocytes (Spur) Not Reportable 09/18/16 19:02 Rouleaux Not Reportable 09/18/16 19:02 Hemoglobin C Crystals Not Reportable 09/18/16 19:02 Schistocytes Not Reportable 09/18/16 19:02 Malaria parasites Not Reportable 09/18/16 19:02 Adithya Bodies Not Reportable 09/18/16 19:02 Hem Pathologist Commnt No 09/18/16 19:02 PT 12.2 Sec. (12.2-14.9) 09/18/16 19:02 INR 0.91 (0.87-1.13) 09/18/16 19:02 APTT 26.4 Sec. (24.2-36.6) 09/18/16 19:02 POC ABG pH 7.397 (7.35-7.45) 09/19/16 11:14 POC ABG pCO2 50.8 (35-45) H 09/19/16 11:14 POC ABG pO2 82 (80-105) 09/19/16 11:14 POC ABG HCO3 31.2 09/19/16 11:14 POC ABG Total CO2 33 09/19/16 11:14 POC ABG O2 Sat 96 09/19/16 11:14 POC ABG Base Excess 6 09/19/16 11:14 FiO2 40 % 09/19/16 11:14 Sodium 142 mmol/L (137-145) 09/21/16 06:23 Potassium 4.1 mmol/L (3.6-5.0) 09/21/16 06:23 Chloride 103.6 mmol/L (98-107) 09/21/16 06:23 Carbon Dioxide 26 mmol/L (22-30) 09/21/16 06:23 Anion Gap 17 mmol/L 09/21/16 06:23 BUN 21 mg/dL (7-17) H 09/21/16 06:23 Creatinine 0.9 mg/dL (0.7-1.2) 09/21/16 06:23 Estimated GFR > 60 ml/min 09/21/16 06:23 BUN/Creatinine Ratio 23.33 % 09/21/16 06:23 Glucose 146 mg/dL (65-100) H 09/21/16 06:23 Lactic Acid 0.7 mmol/L (0.7-2.0) 09/18/16 19:58 Calcium 8.7 mg/dL (8.4-10.2) 09/21/16 06:23 Total Bilirubin 0.3 mg/dL (0.1-1.2) 09/20/16 06:40 AST 33 units/L (5-40) 09/20/16 06:40 ALT 26 units/L (7-56) 09/20/16 06:40 Alkaline Phosphatase 68 units/L (35-129) 09/20/16 06:40 Ammonia 24.0 umol/L (25-60) L 09/18/16 19:58 Total Creatine Kinase 452 units/L (30-135) H 09/19/16 10:00 CK-MB (CK-2) 5.7 ng/mL (0.0-4.0) H 09/19/16 10:00 CK-MB (CK-2) Rel Index 1.2 (0-4) 09/18/16 19:02 Troponin T < 0.010 ng/mL (0.00-0.029) 09/19/16 10:00 Total Protein 6.6 g/dL (6.3-8.2) 09/20/16 06:40 Albumin 3.4 g/dL (3.9-5) L 09/20/16 06:40 Albumin/Globulin Ratio 1.1 % 09/20/16 06:40 TSH 2.270 mlU/mL (0.270-4.200) 09/18/16 19:58 Free T4 1.26 ng/dL (0.76-1.46) 09/18/16 19:58 Urine Color Yellow (Yellow) 09/18/16 18:15 Urine Turbidity Cloudy (Clear) 09/18/16 18:15 Urine pH 5.0 (5.0-7.0) 09/18/16 18:15 Ur Specific [place] 1.021 (1.003-1.030) 09/18/16 18:15 Urine Protein 100 mg/dl mg/dL (Negative) 09/18/16 18:15 Urine Glucose (UA) Neg mg/dL (Negative) 09/18/16 18:15 Urine Ketones Neg mg/dL (Negative) 09/18/16 18:15 Urine Blood Sm (Negative) 09/18/16 18:15 Urine Nitrite Pos (Negative) 09/18/16 18:15 Urine Bilirubin Neg (Negative) 09/18/16 18:15 Urine Urobilinogen < 2.0 mg/dL (<2.0) 09/18/16 18:15 Ur Leukocyte Esterase Lg (Negative) 09/18/16 18:15 Urine WBC (Auto) > 182.0 /HPF (0.0-6.0) H 09/18/16 18:15 Urine RBC (Auto) 2.0 /HPF (0.0-6.0) 09/18/16 18:15 U Epithel Cells (Auto) 1.0 /HPF (0-13.0) 09/18/16 18:15 Hyaline Casts 7 /LPF 09/18/16 18:15 Granular Casts 5 /LPF 09/18/16 18:15 Urine Mucus Few /HPF 09/18/16 18:15 Salicylates < 0.3 mg/dL (2.8-20.0) L 09/18/16 19:58 Urine Opiates Screen Presumptive negative 09/18/16 18:15 Urine Methadone Screen Presumptive positive 09/18/16 18:15 Acetaminophen < 15.0 ug/mL (10.0-30.0) 09/18/16 19:58 Ur Barbiturates Screen Presumptive negative 09/18/16 18:15 Ur Phencyclidine Scrn Presumptive negative 09/18/16 18:15 Ur Amphetamines Screen Presumptive negative 09/18/16 18:15 U Benzodiazepines Scrn Presumptive negative 09/18/16 18:15 Urine Cocaine Screen Presumptive negative 09/18/16 18:15 U Marijuana (THC) Screen Presumptive negative 09/18/16 18:15 Drugs of Abuse Note Disclamer 09/18/16 18:15 Plasma/Serum Alcohol < 0.01 gm% (0-0.07) 09/18/16 19:58
[2016-09-22] MEDS: APRESOLINE IV PRN (20:54)
[2016-09-23] MEDS: APRESOLINE IV PRN ×2 (00:15→05:42)
[2016-09-23] MEDS: DUONEB 0.5 MG-3 MG/3 ML SOLN IH SCH ×4 (02:21→20:03)
[2016-09-23] MEDS: HEPARIN SUB-Q SCH ×3 (05:42→21:43)
[2016-09-23 07:13] LABS: Hematocrit 37.7 % (30.3-42.9); Hemoglobin 12.4 gm/dl (10.1-14.3); Mean Corpuscular HGB Conc 33 % (30-34); Mean Corpuscular Hemoglobin 32 pg (28-32); Mean Corpuscular Volume 97 fl (79-97); Platelet Count 287 K/mm3 (140-440); Red Blood Count 3.91 M/mm3 (3.65-5.03); Red Cell Distribution Width 13.8 % (13.2-15.2); White Blood Count 17.1 K/mm3 (4.5-11.0)
[2016-09-23] MEDS: TORADOL IV PRN ×3 (08:29→21:40)
[2016-09-23] MEDS: KEPPRA PO SCH ×2 (10:36→21:39)
[2016-09-23] MEDS: NORVASC PO SCH (10:36)
[2016-09-23] MEDS: ROCEPHIN/NS 1 GM/50 ML 1 GM/50 ML BAG IV SCH (10:37)
--- NOTE | 2016-09-23 11:41 | Progress Note ---
Assessment and Plan - Patient Problems (1) Closed right ankle fracture Current Visit: Yes Status: Acute Qualifiers: Encounter type: initial encounter Fracture healing: F Qualified Code(s): S82.891A - Other fracture of right lower leg, initial encounter for closed fracture (2) Respiratory failure, acute and chronic Current Visit: Yes Status: Acute Qualifiers: Respiratory failure complication: R (3) COPD exacerbation Current Visit: No Status: Acute Hospitalist Physical - Constitutional Vitals: Temp Pulse Resp BP Pulse Ox 98.5 F 101 H 12 155/80 96 09/23/16 05:14 09/23/16 09:10 09/23/16 09:10 09/23/16 09:10 09/23/16 09:10 General appearance: Present: no acute distress Results - Labs CBC & Chem 7: 09/23/16 06:20 09/21/16 06:23 Labs: Laboratory Last Values WBC 17.1 K/mm3 (4.5-11.0) H 09/23/16 06:20 RBC 3.91 M/mm3 (3.65-5.03) 09/23/16 06:20 Hgb 12.4 gm/dl (10.1-14.3) 09/23/16 06:20 Hct 37.7 % (30.3-42.9) 09/23/16 06:20 MCV 97 fl (79-97) 09/23/16 06:20 MCH 32 pg (28-32) 09/23/16 06:20 MCHC 33 % (30-34) 09/23/16 06:20 RDW 13.8 % (13.2-15.2) 09/23/16 06:20 Plt Count 287 K/mm3 (140-440) 09/23/16 06:20 Lymph % (Auto) Airfield Engineer Officer 09/18/16 19:02 Murray % (Auto) Airfield Engineer Officer 09/18/16 19:02 Eos % (Auto) Airfield Engineer Officer 09/18/16 19:02 Baso % (Auto) [employer]field Engineer Officer 09/18/16 19:02 Lymph # Airfield Engineer Officer 09/18/16 19:02 Murray # Airfield Engineer Officer 09/18/16 19:02 Eos # Airfield Engineer Officer 09/18/16 19:02 Baso # Airfield Engineer Officer 09/18/16 19:02 Add Manual Diff Complete 09/18/16 19:02 Total Counted 100 09/18/16 19:02 Seg Neutrophils % Airfield Engineer Officer 09/18/16 19:02 Seg Neuts % (Manual) 66.0 % (40.0-70.0) 09/18/16 19:02 Band Neutrophils % 7.0 % 09/18/16 19:02 Lymphocytes % (Manual) 15.0 % (13.4-35.0) 09/18/16 19:02 Reactive Lymphs % (Man) 0 % 09/18/16 19:02 Monocytes % (Manual) 8.0 % (0.0-7.3) H 09/18/16 19:02 Eosinophils % (Manual) 2.0 % (0.0-4.3) 09/18/16 19:02 Basophils % (Manual) 1.0 % (0.0-1.8) 09/18/16 19:02 Metamyelocytes % 1.0 % 09/18/16 19:02 Myelocytes % 0 % 09/18/16 19:02 Promyelocytes % 0 % 09/18/16 19:02 Blast Cells % 0 % 09/18/16 19:02 Nucleated RBC % Not Reportable 09/18/16 19:02 Seg Neutrophils # Airfield Engineer Officer 09/18/16 19:02 Seg Neutrophils # Man 7.8 K/mm3 (1.8-7.7) H 09/18/16 19:02 Band Neutrophils # 0.8 K/mm3 09/18/16 19:02 Lymphocytes # (Manual) 1.8 K/mm3 (1.2-5.4) 09/18/16 19:02 Abs React Lymphs (Man) 0.0 K/mm3 09/18/16 19:02 Monocytes # (Manual) 0.9 K/mm3 (0.0-0.8) H 09/18/16 19:02 Eosinophils # (Manual) 0.2 K/mm3 (0.0-0.4) 09/18/16 19:02 Basophils # (Manual) 0.1 K/mm3 (0.0-0.1) 09/18/16 19:02 Metamyelocytes # 0.1 K/mm3 09/18/16 19:02 Myelocytes # 0.0 K/mm3 09/18/16 19:02 Promyelocytes # 0.0 K/mm3 09/18/16 19:02 Blast Cells # 0.0 K/mm3 09/18/16 19:02 WBC Morphology Not Reportable 09/18/16 19:02 Hypersegmented Neuts Not Reportable 09/18/16 19:02 Hyposegmented Neuts Not Reportable 09/18/16 19:02 Hypogranular Neuts Not Reportable 09/18/16 19:02 Smudge Cells Not Reportable 09/18/16 19:02 Toxic Granulation Not Reportable 09/18/16 19:02 Toxic Vacuolation Not Reportable 09/18/16 19:02 Dohle Bodies Not Reportable 09/18/16 19:02 Pelger-Huet Anomaly Not Reportable 09/18/16 19:02 Valente Rods Not Reportable 09/18/16 19:02 Platelet Estimate Appears normal 09/18/16 19:02 Clumped Platelets Not Reportable 09/18/16 19:02 Plt Clumps, EDTA Not Reportable 09/18/16 19:02 Large Platelets Not Reportable 09/18/16 19:02 Giant Platelets Not Reportable 09/18/16 19:02 Platelet Satelliting Not Reportable 09/18/16 19:02 Plt Morphology Comment Not Reportable 09/18/16 19:02 RBC Morphology Normal 09/18/16 19:02 Dimorphic RBCs Not Reportable 09/18/16 19:02 Polychromasia Not Reportable 09/18/16 19:02 Hypochromasia Not Reportable 09/18/16 19:02 Poikilocytosis Not Reportable 09/18/16 19:02 Anisocytosis Not Reportable 09/18/16 19:02 Microcytosis Not Reportable 09/18/16 19:02 Macrocytosis Not Reportable 09/18/16 19:02 Spherocytes Not Reportable 09/18/16 19:02 Pappenheimer Bodies Not Reportable 09/18/16 19:02 Sickle Cells Not Reportable 09/18/16 19:02 Target Cells Not Reportable 09/18/16 19:02 Tear Drop Cells Not Reportable 09/18/16 19:02 Ovalocytes Not Reportable 09/18/16 19:02 Helmet Cells Not Reportable 09/18/16 19:02 [place] Bodies Not Reportable 09/18/16 19:02 [place] Rings Not Reportable 09/18/16 19:02 [place] Cells Not Reportable 09/18/16 19:02 Bite Cells Not Reportable 09/18/16 19:02 Crenated Cell Not Reportable 09/18/16 19:02 Elliptocytes Not Reportable 09/18/16 19:02 Acanthocytes (Spur) Not Reportable 09/18/16 19:02 Rouleaux Not Reportable 09/18/16 19:02 Hemoglobin C Crystals Not Reportable 09/18/16 19:02 Schistocytes Not Reportable 09/18/16 19:02 Malaria parasites Not Reportable 09/18/16 19:02 Adithya Bodies Not Reportable 09/18/16 19:02 Hem Pathologist Commnt No 09/18/16 19:02 PT 12.2 Sec. (12.2-14.9) 09/18/16 19:02 INR 0.91 (0.87-1.13) 09/18/16 19:02 APTT 26.4 Sec. (24.2-36.6) 09/18/16 19:02 POC ABG pH 7.397 (7.35-7.45) 09/19/16 11:14 POC ABG pCO2 50.8 (35-45) H 09/19/16 11:14 POC ABG pO2 82 (80-105) 09/19/16 11:14 POC ABG HCO3 31.2 09/19/16 11:14 POC ABG Total CO2 33 09/19/16 11:14 POC ABG O2 Sat 96 09/19/16 11:14 POC ABG Base Excess 6 09/19/16 11:14 FiO2 40 % 09/19/16 11:14 Sodium 142 mmol/L (137-145) 09/21/16 06:23 Potassium 4.1 mmol/L (3.6-5.0) 09/21/16 06:23 Chloride 103.6 mmol/L (98-107) 09/21/16 06:23 Carbon Dioxide 26 mmol/L (22-30) 09/21/16 06:23 Anion Gap 17 mmol/L 09/21/16 06:23 BUN 21 mg/dL (7-17) H 09/21/16 06:23 Creatinine 0.9 mg/dL (0.7-1.2) 09/21/16 06:23 Estimated GFR > 60 ml/min 09/21/16 06:23 BUN/Creatinine Ratio 23.33 % 09/21/16 06:23 Glucose 146 mg/dL (65-100) H 09/21/16 06:23 Lactic Acid 0.7 mmol/L (0.7-2.0) 09/18/16 19:58 Calcium 8.7 mg/dL (8.4-10.2) 09/21/16 06:23 Total Bilirubin 0.3 mg/dL (0.1-1.2) 09/20/16 06:40 AST 33 units/L (5-40) 09/20/16 06:40 ALT 26 units/L (7-56) 09/20/16 06:40 Alkaline Phosphatase 68 units/L (35-129) 09/20/16 06:40 Ammonia 24.0 umol/L (25-60) L 09/18/16 19:58 Total Creatine Kinase 452 units/L (30-135) H 09/19/16 10:00 CK-MB (CK-2) 5.7 ng/mL (0.0-4.0) H 09/19/16 10:00 CK-MB (CK-2) Rel Index 1.2 (0-4) 09/18/16 19:02 Troponin T < 0.010 ng/mL (0.00-0.029) 09/19/16 10:00 Total Protein 6.6 g/dL (6.3-8.2) 09/20/16 06:40 Albumin 3.4 g/dL (3.9-5) L 09/20/16 06:40 Albumin/Globulin Ratio 1.1 % 09/20/16 06:40 TSH 2.270 mlU/mL (0.270-4.200) 09/18/16 19:58 Free T4 1.26 ng/dL (0.76-1.46) 09/18/16 19:58 Urine Color Yellow (Yellow) 09/18/16 18:15 Urine Turbidity Cloudy (Clear) 09/18/16 18:15 Urine pH 5.0 (5.0-7.0) 09/18/16 18:15 Ur Specific Floral 1.021 (1.003-1.030) 09/18/16 18:15 Urine Protein 100 mg/dl mg/dL (Negative) 09/18/16 18:15 Urine Glucose (UA) Neg mg/dL (Negative) 09/18/16 18:15 Urine Ketones Neg mg/dL (Negative) 09/18/16 18:15 Urine Blood Sm (Negative) 09/18/16 18:15 Urine Nitrite Pos (Negative) 09/18/16 18:15 Urine Bilirubin Neg (Negative) 09/18/16 18:15 Urine Urobilinogen < 2.0 mg/dL (<2.0) 09/18/16 18:15 Ur Leukocyte Esterase Lg (Negative) 09/18/16 18:15 Urine WBC (Auto) > 182.0 /HPF (0.0-6.0) H 09/18/16 18:15 Urine RBC (Auto) 2.0 /HPF (0.0-6.0) 09/18/16 18:15 U Epithel Cells (Auto) 1.0 /HPF (0-13.0) 09/18/16 18:15 Hyaline Casts 7 /LPF 09/18/16 18:15 Granular Casts 5 /LPF 09/18/16 18:15 Urine Mucus Few /HPF 09/18/16 18:15 Salicylates < 0.3 mg/dL (2.8-20.0) L 09/18/16 19:58 Urine Opiates Screen Presumptive negative 09/18/16 18:15 Urine Methadone Screen Presumptive positive 09/18/16 18:15 Acetaminophen < 15.0 ug/mL (10.0-30.0) 09/18/16 19:58 Ur Barbiturates Screen Presumptive negative 09/18/16 18:15 Ur Phencyclidine Scrn Presumptive negative 09/18/16 18:15 Ur Amphetamines Screen Presumptive negative 09/18/16 18:15 U Benzodiazepines Scrn Presumptive negative 09/18/16 18:15 Urine Cocaine Screen Presumptive negative 09/18/16 18:15 U Marijuana (THC) Screen Presumptive negative 09/18/16 18:15 Drugs of Abuse Note Disclamer 09/18/16 18:15 Plasma/Serum Alcohol < 0.01 gm% (0-0.07) 09/18/16 19:58
--- NOTE | 2016-09-23 20:30 | Consultation ---
History of Present Illness - Reason for Consult Consult date: 09/23/16 bacteremia Requesting physician: VIVEK ROBIN - History of Present Illness 56 year old female with past medical history significant for hypertension, CHF, COPD, seizure disorder, hepatic encephalopathy brought via EMS for complaints of altered mental status. I couldn't get any history. She was admitted recently for altered mental status and COPD exacerbation. His emergency department labs were done and ABG showed CO2 retention, UTI, acute kidney injury and positive for methadone. Patient was stabilized and managed appropriately. However blood culture 2/2 bottles grew different organisims hence infectious disease consult. I saw patient at bed side. She denied any symptoms. She wants to be discharged. Past Medical History: COPD, heart failure, hypertension, seizures PHYSICAL EXAM VS - afebril chest - good air entry [facility]vs - s1s2 abd - obese. bs+ LABS reviewed. See lab section. ASSESSMENT. 1. Bacteremia - may be contaminants. 2. uti 3. copd 4. seizure 5. obesity 6. chf 7. Leukocytosis - may be steroids related. RECOMMENDATION 1. Repeat blood culture. 2. If blood culture is negative by tomorrow, plan d/c on oral levaquin for 7days. Past History Past Medical History: COPD, heart failure, hypertension, seizures Past Surgical History: appendectomy, Other (toe surgery) Social history: smoking, full code. denies: alcohol abuse, prescription drug abuse, IV drug use Family history: hypertension Medications and Allergies Allergies Allergy/AdvReac Type Severity Reaction Status Date / Time bee venom (honey bee) Allergy Severe FILLS HER Verified 09/07/16 19:20 LUNGS UP WITH WATER/ CLOSES UP THROAT/NAUSEA shellfish derived Allergy Severe CLOG UP PT Verified 09/07/16 19:20 THROAT/ ITCHING ALL OVER Sulfa (Sulfonamide Allergy Unknown Verified 09/07/16 19:20 Antibiotics) Home Medications Medication Instructions Recorded Confirmed Last Taken Type lamoTRIgine [LaMICtal] 100 mg PO QPM #30 tablet 08/05/16 09/20/16 1 Day Ago Rx levETIRAcetam [Keppra TAB] 500 mg PO BID #60 tablet 08/05/16 09/20/16 1 Day Ago Rx ALBUTEROL Inhaler [ProAir HFA 2 puff IH QID PRN #1 inha 08/21/16 09/20/16 1 Day Ago Rx Inhaler] Budesoni/Formoterol 80-4.5(Nf) 2 puff IH BID #1 inha 08/21/16 09/20/16 1 Day Ago Rx [Symbicort 80-4.5 (Nf)] Famotidine [Pepcid] 20 mg PO BID #60 tablet 08/21/16 09/20/16 1 Day Ago Rx Ipratropium/Albuter (Nf) 1 inhalation INHALATION PRN #1 inha 08/21/16 09/20/16 1 Day Ago Rx [Combivent Inhaler] LORazepam [Ativan] 1 mg PO BID@0600,1800 #60 tablet 08/21/16 09/20/16 1 Day Ago Rx Losartan [Cozaar] 100 mg PO QDAY #30 tablet 08/21/16 09/20/16 1 Day Ago Rx Nicotine [Habitrol] 21 mg TD Q24H #30 patch 08/21/16 09/20/16 1 Day Ago Rx amLODIPine [Norvasc] 10 mg PO QDAY #30 tablet 08/21/16 09/20/16 1 Day Ago Rx Albuterol Sulfate [Ventolin HFA] 2 puff IH Q4H PRN #1 pump 09/22/16 Unknown Rx Prednisone [predniSONE 10 mg 10 mg PO .TAPER #1 tab.ds.pk 09/22/16 Unknown Rx (6-Day Pack, 21 Tabs)] Active Meds: Active Medications Albuterol/Ipratropium (Duoneb 0.5 Mg-3 Mg/3 Ml Soln) 1 ampul IH Q6HRT [facility] Last Admin: 09/23/16 20:03 Dose: 1 ampul Amlodipine Besylate (Norvasc) 5 mg PO QDAY [facility] Last Admin: 09/23/16 10:36 Dose: 5 mg Heparin Sodium (Porcine) (Heparin) 5,000 unit SUB-Q Q8H [facility] Last Admin: 09/23/16 14:41 Dose: 5,000 unit Hydralazine HCl (Apresoline) 10 mg IV Q6H PRN PRN Reason: Blood Pressure Last Admin: 09/23/16 05:42 Dose: 10 mg Ceftriaxone Sodium (Rocephin/Ns 1 Gm/50 Ml) 1 gm in 50 mls @ 100 mls/hr IV Q24HR [facility] PRN Reason: Protocol Last Admin: 09/23/16 10:37 Dose: 100 mls/hr Ketorolac Tromethamine (Toradol) 15 mg IV Q6H PRN PRN Reason: Pain Stop: 09/26/16 00:25 Last Admin: 09/23/16 14:41 Dose: 15 mg Levetiracetam (Keppra) 500 mg PO BID [facility] Last Admin: 09/23/16 10:36 Dose: 500 mg Methylprednisolone Sodium Succinate (Solu-Medrol) 20 mg IV Q12H [facility] Physical Examination - Constitutional Vitals: Vital Signs Temp Pulse Resp BP Pulse Ox 97.5 F L 93 H 20 196/95 97 09/23/16 15:58 09/23/16 20:17 09/23/16 20:17 09/23/16 15:58 09/23/16 20:05 Temperature -Last 24 Hours Temperature 97.5 F Temperature 98.5 F Temperature 97.8 F Temperature 97.6 F Results - Labs CBC & Chem 7: 09/23/16 06:20 09/21/16 06:23 Labs: Abnormal lab results 09/23/16 Range/Units 06:20 WBC 17.1 H (4.5-11.0) K/mm3
[2016-09-24] MEDS: DUONEB 0.5 MG-3 MG/3 ML SOLN IH SCH ×3 (01:44→13:39)
[2016-09-24] MEDS: HEPARIN SUB-Q SCH (05:23)
--- NOTE | 2016-09-24 09:09 | Discharge Summary ---
Providers - Providers Date of Admission: 09/18/16 21:21 Date of discharge: 09/24/16 Attending physician: VIVEK ROBIN 09/18/16 22:06 Speech Therapy Evaluation and Treat [CONS] Routine Reason For Exam: altered mental status 09/19/16 09:44 Physical Therapy Evaluation and Treat [CONS] Routine Comment: Reason For Exam: closed ankle fracture Weight bearing status?: Nonwt bearing 09/20/16 07:32 Consult to Physician [CONS] Routine Consulting Provider: ANAND ESCUDERO V Reason For Exam: right ankle fracture Place consult to:: ela Notified:: office Phone number called:: [phone] Time called:: 09:09 Comment:: left message on machine only option available 09/22/16 10:57 Consult to Physician [CONS] Routine Consulting Provider: ERICH MERCEDES Reason For Exam: Sepsis Place consult to:: Dr. Reese Notified:: Leela PHOTOCOPY OPERATOR Phone number called:: Was contact made?: Yes If yes, spoke with:: April-Office Time called:: 11:46 Primary care physician: DOVETAILER Hospitalization Condition: Fair Disposition: DC/[place] HOME UNDER HOME HEALTH - Discharge Diagnoses (1) Closed right ankle fracture Status: Acute Qualifiers: Encounter type: initial encounter Fracture healing: F Qualified Code(s): S82.891A - Other fracture of right lower leg, initial encounter for closed fracture (2) Respiratory failure, acute and chronic Status: Acute Qualifiers: Respiratory failure complication: R (3) COPD exacerbation Status: Acute Core Measure Documentation - Palliative Care Palliative Care/ Comfort Measures: Not Applicable Exam - Constitutional Vitals: Temp Pulse Resp BP Pulse Ox 98.3 F 77 18 164/82 96 09/24/16 08:00 09/24/16 08:00 09/24/16 08:00 09/24/16 08:00 09/24/16 08:00 Plan Activity: other (Ambulate with walker, non weight bearing) Weight Bearing Status: Non-Weight Bearing Diet: low fat, low cholesterol, low salt Additional Instructions: 1.Follow up with PCP in 1 week. 2.Follow up with Dr. Escudero in 4 weeks. 3.Follow up with BALDOMERO Ghohs in 1 week. 3.Ambulate with walker,non weight bearing. Follow up with: PRIMARY CARE, [Primary Care Provider] - 7 Days Prescriptions: Albuterol Sulfate [Ventolin HFA] 2 puff IH Q4H PRN #1 pump PRN Reason: Shortness Of Breath Prednisone [predniSONE 10 mg (6-Day Pack, 21 Tabs)] 10 mg PO .TAPER #1 tab.ds.pk
[2016-09-24] MEDS: NORVASC PO SCH (11:14)
[2016-09-24] MEDS: ROCEPHIN/NS 1 GM/50 ML 1 GM/50 ML BAG IV SCH (11:15)
[2016-09-24] MEDS: KEPPRA PO SCH (11:15)
[2016-09-24 13:13] VITALS: BP 185/88
== END 2016-09-24 14:35 | disposition home health service (06) | DRG 871 ==
LOC: ED 17:04 → 4A 21:21
PROVIDERS: ADMIT Internal Medicine; ATTEND Internal Medicine
PROC: 4A033R1 Measurement of Arterial Saturation, Peripheral, Percutaneous Approach (ICD-10-PCS; principal; 2016-09-18)
PROC: 5A09557 Assistance with Respiratory Ventilation, Greater than 96 Consecutive Hours, Continuous Positive Airway Pressure (ICD-10-PCS; 2016-09-19)
PROC: 05HP33Z Insertion of Infusion Device into Right External Jugular Vein, Percutaneous Approach (ICD-10-PCS; 2016-09-19)
PROC: 2W3SX2Z Immobilization of Right Foot using Cast (ICD-10-PCS; 2016-09-22)
DX: A41.9 Sepsis, unspecified organism (principal); R65.21 Severe sepsis with septic shock; G93.41 Metabolic encephalopathy; J96.22 Acute and chronic respiratory failure with hypercapnia; I50.9 Heart failure, unspecified; J45.909 Unspecified asthma, uncomplicated; I11.0 Hypertensive heart disease with heart failure; G40.909 Epilepsy, unspecified, not intractable, without status epilepticus; F17.200 Nicotine dependence, unspecified, uncomplicated; J44.1 Chronic obstructive pulmonary disease with (acute) exacerbation; N17.9 Acute kidney failure, unspecified; N30.00 Acute cystitis without hematuria; F11.90 Opioid use, unspecified, uncomplicated; S82.61XA Displaced fracture of lateral malleolus of right fibula, initial encounter for closed fracture; W18.39XA Other fall on same level, initial encounter; E66.9 Obesity, unspecified; Z99.81 Dependence on supplemental oxygen; Z82.49 Family history of ischemic heart disease and other diseases of the circulatory system; Z68.29 Body mass index [BMI] 29.0-29.9, adult; Y93.89 Activity, other specified; Y92.89 Other specified places as the place of occurrence of the external cause; Y99.8 Other external cause status
CPT/HCPCS: 36415; 36600; 51702; 70450; 71010; 80048; 80053; 80307; 80320; 81001; 82140; 82550; 82553; 82803; 84439; 84443; 84484; 85007; 85025; 85027; 85610; 85730; 87040; 87076; 87086; 87186; 93005; 93010; 93306; 94640; 94660; 94760; 96365; 96375; G0480; G8978-GP; G8979-GP; J0360; J0696; J1644; J1885; J1953; J2920; J2930; J3475; J7030